=== PATIENT | male | born 1965 | race American Indian/Alaskan Native ===

== ENCOUNTER 2021-02-26 08:54 | Inpatient (IN) | payer MEDICARE ==
[~2021-02-26 08:54] MED LIST: MIDAZOLAM 2 MG/2 ML INJ IV NR; SODIUM CHLORIDE 0.9% 1000 ML 1,000 ML IV SCH; ceFAZolin/STERILE WATER 2 GM/20 ML SYRINGE IV NR; fentaNYL 100 MCG/2 ML INJ IV PRN
[2021-02-26] MEDS ORDERED: PANTOPRAZOLE 20 MG TAB PO SCH (10:02)
[2021-02-26] MEDS ORDERED: carvediloL 6.25 MG TAB PO SCH ×2 (10:02→22:00)
--- NOTE | 2021-02-26 10:07 | Anesthesia Consultation ---
Anesthesia Consult and Med Hx Date of service: 02/26/21 - Airway Anesthetic Teeth Evaluation: Poor (denies loose teeth) ROM Head & Neck: Adequate Mental/Hyoid Distance: Adequate Mallampati Class: Class II Intubation Access Assessment: Probably Good - Pulmonary Exam CTA: Yes - Cardiac Exam Cardiac Exam: No Murmur (irregular rhythm) - Pre-Operative Health Status ASA Pre-Surgery Classification: ASA4 Proposed Anesthetic Plan: MAC Nerve Block: supraclavicular - Pulmonary Hx Smoking: No Hx Respiratory Symptoms: Yes (chronic respiratory failure) SOB: No Home Oxygen Therapy: Yes (2-4L continuous (SpO2 97% on RA in preop)) - Cardiovascular System Hx Hypertension: Yes (will give home dose carvedilol in preop) Hx Heart Attack/AMI: No Hx Percutaneous Transluminal Coronary Angioplasty (PTCA): No Hx Cardia Arrhythmia: Yes (a-fib) Hx Pacemaker: No Hx Internal Defibrillator: No Hx Valvular Heart Disease: Yes (report remote hx heart surgery for "leaky valves") - Central Nervous System CVA: Yes (right sided weakness) Hx Psychiatric Problems: Yes (depression) - Gastrointestinal Hx Gastroesophageal Reflux Disease: Yes (will give home dose PPI in preop) - Endocrine Hx End Stage Renal Disease: Yes (last HD 02/25/21) Hx Liver Disease: Yes (chronic HCV) Hx Insulin Dependent Diabetes: No Hx Non-Insulin Dependent Diabetes: No Hx Thyroid Disease: No - Hematic Hx Anemia: Yes - Other Systems Hx Obesity: No - Additional Comments Anesthesia Medical History Comments: Hx awareness under anesthesia with prior HD access procedure. Unclear if procedure was performed under GA, regional or lo jay. Discussed risks and benefits of GA vs regional and patient has agreed to regional block + sedation.
--- NOTE | 2021-02-26 10:07 | Anesthesia Day of Surgery ---
Anesthesia Day of Surgery - Day of Surgery Patient Examined: Yes Patient H&P Reviewed: Yes Patient is NPO: Yes Beta Blockers: Yes
[2021-02-26 10:14] LABS: Hematocrit 32.6 % (35.5-45.6); Hemoglobin 10.5 gm/dl (11.8-15.2); Mean Corpuscular HGB Conc 32 % (32-34); Mean Corpuscular Volume 88 fl (84-94); Platelet Count 119 K/mm3 (140-440); Red Blood Count 3.69 M/mm3 (3.65-5.03); Red Cell Distribution Width 18.5 % (13.2-15.2)
[2021-02-26] MEDS ORDERED: BUPIVACAINE/PF (0.25%) 2.5 MG/ML 10 ML VIAL INFILTRATI ONE (10:14)
[2021-02-26] MEDS ORDERED: BUPIVACAINE/PF (0.25%) 2.5 MG/ML 30 ML VIAL INFILTRATI ONE (10:14)
[2021-02-26 10:27] LABS: Calcium 10.1 mg/dL (8.4-10.2)
[2021-02-26] MEDS ORDERED: propofoL 200 MG/20 ML VIAL IV ONE ×4 (10:34→13:22)
[2021-02-26] MEDS ORDERED: LIDOCAINE PF 100 MG/5 ML (CARDIAC SYRINGE) IV ONE (10:40)
[2021-02-26] MEDS ORDERED: fentaNYL 100 MCG/2 ML INJ ONE (10:40)
[2021-02-26] MEDS ORDERED: rifAMPin 600 MG VIAL ONE (10:58)
[2021-02-26] MEDS ORDERED: HEPARIN 10,000 UNITS/10 ML VIAL ONE (10:58)
[2021-02-26] MEDS ORDERED: SODIUM CHLORIDE 0.9% 500 ML 500 ML ONE (10:58)
[2021-02-26] MEDS ORDERED: SODIUM CHLORIDE 0.9% 250ML 250 ML ONE (10:58)
[2021-02-26] MEDS ORDERED: PHENYLEPHRINE/NS 1,000 MCG/10 ML SYRINGE (OR USE) IV ONE (11:51)
[2021-02-26] MEDS ORDERED: HEPARIN 10,000 UNITS/10 ML VIAL IR ONE (12:14)
[2021-02-26] MEDS ORDERED: SODIUM CHLORIDE 0.9% 500 ML IVPB IRRIGATION ONE (12:15)
[2021-02-26] MEDS ORDERED: SODIUM CHLORIDE 0.9% 250 ML IVPB IR ONE (12:16)
[2021-02-26] MEDS ORDERED: SODIUM CHLORIDE 0.9% IRR 1,500 ML BOTTLE IR ONE (12:16)
[2021-02-26] MEDS ORDERED: rifAMPin 600 MG VIAL IV ONE (12:39)
[2021-02-26] MEDS ORDERED: SODIUM CHLORIDE 0.9% 100 ML ONE (13:43)
[2021-02-26] MEDS ORDERED: PHENYLEPHRINE 10 MG/1 ML INJ SDV ONE (13:43)
[2021-02-26] MEDS ORDERED: ePHEDrine SULFATE 50 MG/1 ML INJ ONE (13:44)
[2021-02-26] MEDS ORDERED: GLYCOPYRROLATE 0.4 MG/2 ML INJ ONE (13:45)
--- NOTE | 2021-02-26 14:11 | Short Stay Summary ---
Short Stay Documentation Date of service: 02/26/21 Narrative H&P: See H&P - History H&P: obtained from office - Allergies and Medications Current Medications: Allergies No Known Allergies Allergy (Unverified 02/25/21 09:01) Home Medications Medication Instructions Recorded Confirmed Last Taken Type Acetaminophen [Acetaminophen ER] 650 mg PO PRN PRN 02/17/21 02/17/21 Unknown History Aspirin [Adult Aspirin] 81 mg PO DAILY 02/17/21 02/17/21 Unknown History Omeprazole 20 mg PO BID 02/17/21 02/17/21 Unknown History Sertraline HCl [Zoloft] 100 mg PO DAILY 02/17/21 02/17/21 Unknown History Tacrolimus [Prograf] 0.5 mg PO DAILY 02/17/21 02/17/21 Unknown History carvediloL [Coreg] 6.25 mg PO BID 02/17/21 02/17/21 Unknown History traMADoL [Ultram] 50 mg PO Q12HR PRN 02/17/21 02/17/21 Unknown History Active Medications Cefazolin Sodium (Cefazolin/Sterile Water 2 Gm/20 Ml Syringe) 2 gm IV PREOP NR Stop: 02/26/21 20:00 Fentanyl (Fentanyl 100 Mcg/2 Ml Inj) 100 mcg IV ONCE PRN PRN Reason: sedation for nerve block Stop: 02/26/21 20:00 Sodium Chloride (Nacl 0.9% 1000 Ml) 1,000 mls @ 42 mls/hr IV DIRECT REBEL Stop: 02/26/21 23:59 Midazolam HCl (Midazolam 2 Mg/2 Ml Inj) 2 mg IV PREOP NR Stop: 02/26/21 20:00 - Brief post op/procedure progress note Date of procedure: 02/26/21 Pre-op diagnosis: End-Stage Renal Disease Post-op diagnosis: same Procedure: Creation of Right Brachial Artery to Right Axillary Vein Arteriovenous Graft Wi th 6 mm Bovine Artegraft Anesthesia: MAC, regional Surgeon: TARYN UGALDE Estimated blood loss: other (500 mL) Pathology: none Condition: stable Short Stay Discharge Plan Activity: other (No heavy lifting with right arm for 2 weeks.) Wound: open to air, keep clean and dry, remove dressing (In 48 hours), other (Okay to wash the wounds with soap and water but do not soak in water for 2 weeks.) Follow up with: TARYN UGALDE MD [Staff Physician] - 14 Days Prescriptions: HYDROcodone/APAP 7.5-325 [[place] 7.5/325] 1 each PO Q6HR PRN #40 tablet PRN Reason: Pain
[2021-02-26] MEDS ORDERED: SODIUM CHLORIDE 0.9% 500 ML 500 ML IV NR (14:25)
--- NOTE | 2021-02-26 14:31 | Operative Report ---
Operative Report Operative Report: Date of procedure: 02/26/2021 Pre-operative diagnosis: End-Stage Renal Disease Post-operative diagnosis: Same Procedure(s): 1. Creation of Right brachial Artery to Axillary Vein AV Graft with 6 mm Bovine Graft Artergraft Surgeon: Maciel Terrell MD Bottom Ironer: None Anesthesia: Regional/MAC EBL: 500 mL Counts: Correct Complications: None Condition: Stable Findings: Successful Creation of right arm AV Graft with Palpable Thrill and Palpable Radial Pulse at the Completion of the Case. Specimen: None Indication: The patient is a 55-year-old male with a history of end-stage renal disease who is on hemodialysis through a permacath. He is in need of long-term dialysis access and does not have suitable vein for creation of an arteriovenous fistula. 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 It was decided to place the graft in his right upper extremity to prevent complications in his left upper extremity which is his only usable extremity. He was given the risk, benefits, and alternative procedures and consented to the procedure. Description of Procedure: Prior to being transported to the operating room the patient had a regional block of the right arm performed. After the block was performed the patient was transported to the operating room and adequately sedated. The patient's right arm was then prepped and draped in normal sterile fashion. A longitudinal incision was made on the medial aspect of the arm just proximal to the antecubital crease and carried down to the brachial artery using sharp dissection. The brachial artery was dissected out circumferentially both proximally and distally and controlled with vessel loops. A second incision was created in longitudinal fashion on the medial aspect of the arm just distal to the axillary crease and carried down to the axillary vein using sharp dissection. Axillary vein was dissected out circumferentially and controlled with a vessel loop. I then used a Barbie-Wick tunneler to tunnel from the brachial artery incision to the axillary vein incision and then pulled an [] mm bovine through the tunnel. I infused with heparinized saline to ensure that it was not twisted or kinked. I put the brachial artery vessel loops on tension controlling the flow and then created an arteriotomy using an 11 blade and Fleming scissors. I beveled the graft and created an end-to-side anastomosis using 6-0 Prolene running fashion. I clamped the graft just proximal to the anastomosis and then released the vessel loops restoring flow in the brachial artery. I placed quick clot in incision to achieve hemostasis. I cut the proximal end of the graft to the appropriate length and beveled the graft in preparation for a venous anastomosis. I controlled the axillary vein a Satinsky clamp and created a venotomy using an 11 blade and Fleming scissors. I created an end to side a nastomosis using a 6-0 Prolene in running fashion. Prior to completing the anastomosis I flushed the graft to ensure there was no thrombus and then completed the anastamosis. I released all clamps allowing flow into the AV graft which had an excellent thrill. I packed the wound with quick clot to achieve hemostasis. I closed both wounds in 2 layers using 3-0 Vicryl, in running fashion in the deep dermal layer and anup to reapproximate the skin. I dressed the wounds with Telfa, fluffs, and ABD bandage, and a 4 inch Samuel bandage to apply pressure to multiple upper extremity varicosities. The patient tolerated the procedure well all sponge, needle, and instrument counts were correct. The patient was taken to recovery in stable condition.
[2021-02-26] MEDS ORDERED: ONDANSETRON 4 MG/2 ML INJ IV PRN (15:00)
[2021-02-26] MEDS ORDERED: PHENYLEPHRINE 100 MG in SODIUM CHLORIDE 0.9% 90 ML IV SCH (15:00)
[2021-02-26] MEDS ORDERED: ePHEDrine SULFATE 50 MG/1 ML INJ IM ONE (19:31)
--- NOTE | 2021-02-26 19:42 | Post Anesthesia Evaluation ---
- Post Anesthesia Evaluation Patient Participated: Yes Airway Patent: Yes Stable Respiratory Function: Yes Nausea/Vomiting: No Temp > 96.8F: Yes Pain Manageable: Yes Adequeate Hydration: Yes Anesthesia Complications: No Block Receding Appropriately: Yes Other Comments: Initially hypotensive in PACU, presumably 2/2 intraoperative blood loss although patient reports episodes of asymptomatic hypotension at baseline as well. Was initially on phenylephrine gtt however this was d/c'd after receiving 2 units pRBCs.
--- NOTE | 2021-02-26 20:48 | Consultation ---
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 Consult placed by DR. Terrell for HTN, ESRD. Patient seen and evaluated upon arrival to his room. No reported nursing events. Patient denies fever, chills, chest pain, palpitation, productive cough, skin rash, recent ill contact, or known exposure to COVID-19. Past History Past Medical History: atrial fib, ESRD, hypertension, other (See HPI) Past Surgical History: Other (Vascular surgery) Social history: single. denies: smoking, alcohol abuse Family history: hypertension Medications and Allergies Allergies Allergy/AdvReac Type Severity Reaction Status Date / Time No Known Allergies Allergy Unverified 02/25/21 09:01 Home Medications Medication Instructions Recorded Confirmed Last Taken Type Acetaminophen [Acetaminophen ER] 650 mg PO PRN PRN 02/17/21 02/17/21 Unknown History Aspirin [Adult Aspirin] 81 mg PO DAILY 02/17/21 02/17/21 Unknown History Omeprazole 20 mg PO BID 02/17/21 02/17/21 Unknown History Sertraline HCl [Zoloft] 100 mg PO DAILY 02/17/21 02/17/21 Unknown History Tacrolimus [Prograf] 0.5 mg PO DAILY 02/17/21 02/17/21 Unknown History carvediloL [Coreg] 6.25 mg PO BID 02/17/21 02/17/21 Unknown History traMADoL [Ultram 50 MG tab] 50 mg PO Q12HR PRN 02/17/21 02/17/21 Unknown History HYDROcodone/APAP 7.5-325 [[place] 1 each PO Q6HR PRN #40 tablet 02/26/21 Unknown Rx 7.5/325] Active Meds: Active Medications Acetaminophen (Acetaminophen 325 Mg Tab) 650 mg PO Q4H PRN PRN Reason: Pain MILD(1-3)/Fever >100.5/TOBIAS Hydrocodone Bitart/Acetaminophen (Hydrocodone/Acetaminophen 5-325 Mg Tab) 2 each PO Q6H PRN PRN Reason: Pain, Moderate (4-6) Aspirin (Aspirin Ec 81 Mg Tab) 81 mg PO QDAY REBEL Carvedilol (Carvedilol 6.25 Mg Tab) 6.25 mg PO BID [facility] Gabapentin (Gabapentin 100 Mg Cap) 100 mg PO Q8HR [facility] Sodium Chloride (Nacl 0.9% 1000 Ml) 1,000 mls @ 42 mls/hr IV DIRECT REBEL Stop: 02/26/21 23:59 Last Admin: 02/26/21 10:00 Dose: 42 mls/hr Documented by: Morphine Sulfate (Morphine 4 Mg/1 Ml Inj) 4 mg IV Q4H PRN PRN Reason: Pain , Severe (7-10) Ondansetron HCl (Ondansetron 4 Mg/2 Ml Inj) 4 mg IV Q8H PRN PRN Reason: Nausea And Vomiting Pantoprazole Sodium (Pantoprazole 20 Mg Tab) 20 mg PO QDAC REBEL Sertraline HCl (Sertraline 100 Mg Tab) 100 mg PO QDAY [facility] Tacrolimus (Tacrolimus 0.5 Mg Cap) 0.5 mg PO Q12HR [facility] Review of Systems Constitutional: no weight loss, no weight gain, no fever, no chills Ears, nose, mouth and throat: no ear pain, no ear discharge, no decreased hearing, no nasal congestion, no nasal discharge Cardiovascular: no chest pain, no orthopnea, no rapid/irregular heart beat, no edema, no lightheadedness Respiratory: no cough, no excessive sputum, no hemoptysis, no dyspnea on exertion Gastrointestinal: no nausea, no vomiting, no diarrhea, no constipation, no hematemesis Genitourinary Male: no hematuria, no flank pain, no discharge, no urinary frequency, no urinary hesitancy Musculoskeletal: no neck stiffness, no shooting arm pain, no low back pain Integumentary: no rash, no pruritis, no redness, no sores, no jaundice Neurological: no transient paralysis, no weakness, no numbness, no seizures Psychiatric: no anxiety, no change in sleep habits, no sleep disturbances, no insomnia, no change in appetite, no change in libido Endocrine: no cold intolerance, no polyphagia, no polydipsia, no polyuria Hematologic/Lymphatic: no easy bruising, no easy bleeding Allergic/Immunologic: no urticaria, no wheezing Exam - Constitutional Vitals: Temp Pulse Resp BP Pulse Ox 98 F 112 H 16 142/72 100 02/26/21 20:30 02/26/21 20:30 02/26/21 20:30 02/26/21 20:30 02/26/21 20:30 General appearance: Present: mild distress - EENT Eyes: Present: PERRL ENT: hearing intact, clear oral mucosa - Neck Neck: Present: supple, normal ROM - Respiratory Respiratory effort: normal Respiratory: bilateral: CTA - Cardiovascular Heart Sounds: Present: S1 & S2. Absent: rub, click - Extremities Extremities: pulses symmetrical, No edema Peripheral Pulses: within normal limits - Abdominal General gastrointestinal: Present: soft, non-tender, non-distended, normal bowel sounds Male genitourinary: Present: normal - Integumentary Integumentary: Present: clear, warm, dry - Musculoskeletal Musculoskeletal: gait normal, strength equal bilaterally - Psychiatric Psychiatric: appropriate mood/affect, intact judgment & insight - Neurologic Neurologic: CNII-XII intact, moves all extremities Results - Labs CBC & Chem 7: 02/26/21 10:11 02/26/21 10:11 Labs: Abnormal lab results 02/26/21 02/26/21 02/26/21 Range/Units 10:11 10:11 14:42 WBC 4.0 L (4.5-11.0) K/mm3 Hgb 10.5 L (11.8-15.2) gm/dl Hct 32.6 L (35.5-45.6) % RDW 18.5 H (13.2-15.2) % Plt Count 119 L (140-440) K/mm3 BUN 32 H (9-20) mg/dL Creatinine 3.2 H (0.8-1.3) mg/dL Crossmatch See Detail Assessment and Plan - Patient Problems (1) Hypertension Current Visit: Yes Status: Acute Qualifiers: Hypertension type: primary hypertension Qualified Code(s): I10 - Essential (primary) hypertension Plan to address problem: Monitor blood pressure every shift, continue medical management. (2) End stage renal disease Current Visit: Yes Status: Acute Plan to address problem: Dialysis as per renal team, nephrology team consulted.
[2021-02-26] MEDS ORDERED: NON-FORMULARY EACH (Acetaminophen [Acetaminophen Er] 650 MG Tablet.Er) PO PRN (20:51)
[2021-02-26] MEDS: MORPHINE 4 MG/1 ML INJ IV PRN (21:16)
[2021-02-26] MEDS ORDERED: NON-FORMULARY EACH (Omeprazole [Omeprazole] 20 MG Capsule.Dr) PO SCH (22:00)
[2021-02-26] MEDS: carvediloL 6.25 MG TAB PO SCH (22:57)
[2021-02-26] MEDS: GABAPENTIN 100 MG CAP PO SCH (22:57)
[2021-02-26] MEDS: PANTOPRAZOLE 20 MG TAB PO SCH (22:57)
[2021-02-26] MEDS: TACROLIMUS 0.5 MG CAP PO SCH (22:58)
[2021-02-27] MEDS ORDERED: MIDODRINE 5 MG TAB PO ONE (04:55)
[2021-02-27] MEDS ORDERED: SODIUM CHLORIDE 0.9% 250ML 250 ML IV ONE (04:55)
[2021-02-27] MEDS: GABAPENTIN 100 MG CAP PO SCH ×3 (05:07→21:21)
[2021-02-27 06:29] LABS: Basophils % (Auto) 0.4 % (0.0-1.8); Eosinophils # (Auto) 0.2 K/mm3 (0.0-0.4); Eosinophils % (Auto) 3.3 % (0.0-4.3); Hematocrit 31.8 % (35.5-45.6); Hemoglobin 10.4 gm/dl (11.8-15.2); Lymphocytes # (Auto) 0.8 K/mm3 (1.2-5.4); Lymphocytes % (Auto) 13.9 % (13.4-35.0); Mean Corpuscular HGB Conc 33 % (32-34); Mean Corpuscular Volume 89 fl (84-94); Monocytes # (Auto) 0.6 K/mm3 (0.0-0.8); Monocytes % (Auto) 9.5 % (0.0-7.3); Red Blood Count 3.59 M/mm3 (3.65-5.03); Red Cell Distribution Width 18.1 % (13.2-15.2)
[2021-02-27 06:30] LABS: Platelet Count 97 K/mm3 (140-440)
[2021-02-27] MEDS: MORPHINE 4 MG/1 ML INJ IV PRN (06:34)
[2021-02-27 06:42] LABS: Calcium 9.7 mg/dL (8.4-10.2)
[2021-02-27] MEDS ORDERED: PANTOPRAZOLE 20 MG TAB PO SCH (07:30)
--- NOTE | 2021-02-27 09:10 | Progress Note ---
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 Consult placed by DR. Terrell for HTN, ESRD. Patient seen and evaluated upon arrival to his room. No reported nursing events. Patient denies fever, chills, chest pain, palpitation, productive cough, skin rash, recent ill contact, or known exposure to COVID-19. (1) Hypertension Current Visit: Yes Status: Acute Qualifiers: Hypertension type: primary hypertension Qualified Code(s): I10 - Essential (primary) hypertension Plan to address problem: Monitor blood pressure every shift, continue medical management. (2) End stage renal disease Current Visit: Yes Status: Acute Plan to address problem: Dialysis as per renal team, nephrology team consulted. 3) Type 2 NSTEMI- HYBRID TECHNOLOGIST EVALUATING 4) BED Bound secondary to cva WITH HEMIPARESIS OF THE RIGHT UPPER AND LOWER EXT 5) Atrial fibrillation 6) Hypotension- Monitor, may need to hold BB or other antihypertensive. History Interval history: Patient seen and examined, denies any chest pain, nausea, vomiting. Reports that he had stroke and seizures in the past and is paralyzed on the right and a custodial resident Hospitalist Physical - Physical exam Narrative exam: General appearance: Present: No distress, marked temporal wasting - EENT Eyes: Present: PERRL ENT: hearing intact, clear oral mucosa - Neck Neck: Present: supple, normal ROM - Respiratory Respiratory effort: normal Respiratory: bilateral: CTA - Cardiovascular Heart Sounds: Present: S1 & S2. Absent: rub, click - Extremities Extremities: pulses symmetrical, No edema Peripheral Pulses: within normal limits - Abdominal General gastrointestinal: Present: soft, non-tender, non-distended, normal bowel sounds Male genitourinary: Present: normal - Integumentary Integumentary: Present: clear, warm, dry - Musculoskeletal Musculoskeletal: gait normal, strength equal bilaterally - Psychiatric Psychiatric: appropriate mood/affect, intact judgment & insight - Neurologic Neurologic: CNII-XII intact, moves all extremities - Constitutional Vitals: Temp Pulse Resp BP Pulse Ox 98.9 F 115 H 18 93/58 98 02/27/21 04:10 02/27/21 06:46 02/27/21 04:10 02/27/21 06:46 02/27/21 06:46 General appearance: Present: mild distress Results - Labs CBC & Chem 7: 02/27/21 05:44 02/27/21 05:44 Labs: Laboratory Last Values WBC 6.0 K/mm3 (4.5-11.0) 02/27/21 05:44 RBC 3.59 M/mm3 (3.65-5.03) L 02/27/21 05:44 Hgb 10.4 gm/dl (11.8-15.2) L 02/27/21 05:44 Hct 31.8 % (35.5-45.6) L 02/27/21 05:44 MCV 89 fl (84-94) 02/27/21 05:44 MCH 29 pg (28-32) 02/27/21 05:44 MCHC 33 % (32-34) 02/27/21 05:44 RDW 18.1 % (13.2-15.2) H 02/27/21 05:44 Plt Count 97 K/mm3 (140-440) L 02/27/21 05:44 Lymph % (Auto) 13.9 % (13.4-35.0) 02/27/21 05:44 [place] % (Auto) 9.5 % (0.0-7.3) H 02/27/21 05:44 Eos % (Auto) 3.3 % (0.0-4.3) 02/27/21 05:44 Baso % (Auto) 0.4 % (0.0-1.8) 02/27/21 05:44 Lymph # (Auto) 0.8 K/mm3 (1.2-5.4) L 02/27/21 05:44 [place] # (Auto) 0.6 K/mm3 (0.0-0.8) 02/27/21 05:44 Eos # (Auto) 0.2 K/mm3 (0.0-0.4) 02/27/21 05:44 Baso # (Auto) 0.0 K/mm3 (0.0-0.1) 02/27/21 05:44 Seg Neutrophils % 72.9 % (40.0-70.0) H 02/27/21 05:44 Seg Neutrophils # 4.4 K/mm3 (1.8-7.7) 02/27/21 05:44 Sodium 144 mmol/L (137-145) 02/27/21 05:44 Potassium 4.4 mmol/L (3.6-5.0) 02/27/21 05:44 Chloride 105.1 mmol/L (98-107) 02/27/21 05:44 Carbon Dioxide 27 mmol/L (22-30) 02/27/21 05:44 Anion Gap 16 mmol/L 02/27/21 05:44 BUN 41 mg/dL (9-20) H 02/27/21 05:44 Creatinine 3.9 mg/dL (0.8-1.3) H 02/27/21 05:44 Estimated GFR 20 ml/min 02/27/21 05:44 BUN/Creatinine Ratio 11 % 02/27/21 05:44 Glucose 109 mg/dL (75-100) H 02/27/21 05:44 Calcium 9.7 mg/dL (8.4-10.2) 02/27/21 05:44 Blood Type A POSITIVE 02/26/21 14:42 Antibody Screen Negative 02/26/21 14:42 Crossmatch See Detail 02/26/21 14:42 Neal/IV: Voiding Method Incontinent Active Medications - Current Medications Current Medications: Generic Name Dose Route Start Last Admin Trade Name Freq PRN Reason Stop Dose Admin Acetaminophen 650 mg 02/26/21 15:00 Acetaminophen 325 Mg Tab PO Q4H PRN Pain MILD(1-3)/Fever >100.5/TOBIAS Hydrocodone Bitart/Acetaminophen 2 each 02/26/21 15:00 Hydrocodone/Acetaminophen 5-325 Mg Tab PO Q6H PRN Pain, Moderate (4-6) Aspirin 81 mg 02/27/21 10:00 Aspirin Ec 81 Mg Tab PO QDAY REBEL Carvedilol 6.25 mg 02/26/21 22:00 02/26/21 22:57 Carvedilol 6.25 Mg Tab PO 6.25 mg BID REBEL Administration Gabapentin 100 mg 02/26/21 22:00 02/27/21 05:07 Gabapentin 100 Mg Cap PO 100 mg Q8HR REBEL Administration Morphine Sulfate 4 mg 02/26/21 16:00 02/27/21 06:34 Morphine 4 Mg/1 Ml Inj IV 4 mg Q4H PRN Administration Pain , Severe (7-10) Ondansetron HCl 4 mg 02/26/21 15:00 Ondansetron 4 Mg/2 Ml Inj IV Q8H PRN Nausea And Vomiting Pantoprazole Sodium 20 mg 02/26/21 22:00 02/26/21 22:57 Pantoprazole 20 Mg Tab PO 20 mg BID REBEL Administration Sertraline HCl 100 mg 02/27/21 10:00 Sertraline 100 Mg Tab PO DAILY REBEL Tacrolimus 0.5 mg 02/26/21 22:00 02/26/21 22:58 Tacrolimus 0.5 Mg Cap PO 0.5 mg Q12HR REBEL Administration Tramadol HCl 50 mg 02/26/21 21:30 Tramadol 50 Mg Tab PO Q12HR PRN Pain, Mild (1-3)
[2021-02-27] MEDS ORDERED: SERTRALINE 100 MG TAB PO SCH (10:00)
[2021-02-27] MEDS ORDERED: TACROLIMUS 0.5 MG CAP PO SCH (10:00)
[2021-02-27] MEDS ORDERED: ASPIRIN EC 81 MG TAB PO SCH (10:00)
[2021-02-27] MEDS: carvediloL 6.25 MG TAB PO SCH ×2 (10:14→21:27)
[2021-02-27] MEDS: TACROLIMUS 0.5 MG CAP PO SCH ×2 (10:51→21:21)
[2021-02-27] MEDS: SERTRALINE 100 MG TAB PO SCH (10:51)
[2021-02-27] MEDS: PANTOPRAZOLE 20 MG TAB PO SCH ×2 (10:51→21:21)
[2021-02-27 11:59] LABS: Creatine Kinase MB 1.5 ng/mL (0.0-4.0)
--- NOTE | 2021-02-27 12:03 | Progress Note ---
Assessment and Plan Patient with graft implant yesterday. The patient has central venous stenosis with resultant significant collateral formation which complicated the surgery with blood loss. Patient is status post transfusion of 2 units of blood in his H&H are stable from his preop H&H. The patient did experience an episode of A. fib. He has been somewhat hypotensive overnight treated with boluses per medicine. Patient will need to be seen and evaluated by cardiology to determine if there is an etiology for the patient's A. fib and resultant hypotension. Subjective Date of service: 02/27/21 Principal diagnosis: End-stage renal disease on hemodialysis, postop graft Interval history: Patient resting comfortably in bed at time of examination. Bandages and Samuel bandage intact on patient's right upper arm. A minimal amount of arm swelling is present. The patient has no motor in his right arm however, he does have feeling and has stable sensation pre and postop. Overall, the patient feels minimally week. Blood pressure was measured on the patient's arm and leg. His arm blood pressure demonstrates a systolic blood pressure of approximately 88, h is leg blood pressure measures a systolic blood pressure approximately 115. Objective - Constitutional Vitals: Vital Signs - 12hr 02/27/21 02/27/21 02/27/21 04:02 04:10 06:46 Temperature 98.9 F Pulse Rate 117 H 115 H Respiratory 18 Rate Blood Pressure 89/51 Blood Pressure 90/51 93/58 [Left] O2 Sat by Pulse 100 98 Oximetry 02/27/21 02/27/21 09:38 09:41 Temperature 98.0 F Pulse Rate 87 Respiratory 20 Rate Blood Pressure 88/52 Blood Pressure [Left] O2 Sat by Pulse 100 100 Oximetry General appearance: Present: no acute distress - EENT Eyes: EOM intact ENT: hearing intact - Neck Neck: supple, normal ROM - Respiratory Respiratory effort: normal Extremities: abnormal Extremity abnormal: edema - Gastrointestinal General gastrointestinal: Present: deferred Rectal Exam: deferred - Genitourinary Male genitourinary: deferred - Psychiatric Psychiatric: cooperative - Labs CBC & Chem 7: 02/27/21 05:44 02/27/21 05:44 Labs: Abnormal lab results 02/26/21 02/27/21 02/27/21 Range/Units 14:42 05:44 05:44 RBC 3.59 L (3.65-5.03) M/mm3 Hgb 10.4 L (11.8-15.2) gm/dl Hct 31.8 L (35.5-45.6) % RDW 18.1 H (13.2-15.2) % Plt Count 97 L (140-440) K/mm3 [place] % (Auto) 9.5 H (0.0-7.3) % Lymph # (Auto) 0.8 L (1.2-5.4) K/mm3 Seg Neutrophils % 72.9 H (40.0-70.0) % BUN 41 H (9-20) mg/dL Creatinine 3.9 H (0.8-1.3) mg/dL Glucose 109 H (75-100) mg/dL Crossmatch See Detail Medications & Allergies - Medications Allergies/Adverse Reactions: Allergies No Known Allergies Allergy (Unverified 02/25/21 09:01) Home Medications: Home Medications Medication Instructions Recorded Confirmed Last Taken Type Acetaminophen [Acetaminophen ER] 650 mg PO PRN PRN 02/17/21 02/17/21 Unknown History Aspirin [Adult Aspirin] 81 mg PO DAILY 02/17/21 02/27/21 02/25/21 09:00 History Omeprazole 20 mg PO BID 02/17/21 02/27/21 02/26/21 10:40 History Sertraline HCl [Zoloft] 100 mg PO DAILY 02/17/21 02/27/21 02/25/21 09:00 History Tacrolimus [Prograf] 0.5 mg PO DAILY 02/17/21 02/17/21 Unknown History carvediloL [Coreg] 6.25 mg PO BID 02/17/21 02/27/21 02/26/21 10:40 History traMADoL [Ultram 50 MG tab] 50 mg PO Q12HR PRN 02/17/21 02/17/21 Unknown History HYDROcodone/APAP 7.5-325 [[place] 1 each PO Q6HR PRN #40 tablet 02/26/21 Unknown Rx 7.5/325] Active Medications: Generic Name Dose Route Start Last Admin Trade Name Freq PRN Reason Stop Dose Admin Acetaminophen 650 mg 02/26/21 15:00 Acetaminophen 325 Mg Tab PO Q4H PRN Pain MILD(1-3)/Fever >100.5/TOBIAS Hydrocodone Bitart/Acetaminophen 2 each 02/26/21 15:00 Hydrocodone/Acetaminophen 5-325 Mg Tab PO Q6H PRN Pain, Moderate (4-6) Aspirin 81 mg 02/27/21 10:00 02/27/21 10:51 Aspirin Ec 81 Mg Tab PO 81 mg QDAY REBEL Administration Carvedilol 6.25 mg 02/26/21 22:00 02/27/21 10:14 Carvedilol 6.25 Mg Tab PO Not Given BID REBEL Gabapentin 100 mg 02/26/21 22:00 02/27/21 05:07 Gabapentin 100 Mg Cap PO 100 mg Q8HR REBEL Administration Morphine Sulfate 4 mg 02/26/21 16:00 02/27/21 06:34 Morphine 4 Mg/1 Ml Inj IV 4 mg Q4H PRN Administration Pain , Severe (7-10) Ondansetron HCl 4 mg 02/26/21 15:00 Ondansetron 4 Mg/2 Ml Inj IV Q8H PRN Nausea And Vomiting Pantoprazole Sodium 20 mg 02/26/21 22:00 02/27/21 10:51 Pantoprazole 20 Mg Tab PO 20 mg BID REBEL Administration Sertraline HCl 100 mg 02/27/21 10:00 02/27/21 10:51 Sertraline 100 Mg Tab PO 100 mg DAILY REBEL Administration Tacrolimus 0.5 mg 02/26/21 22:00 02/27/21 10:51 Tacrolimus 0.5 Mg Cap PO 0.5 mg Q12HR REBEL Administration Tramadol HCl 50 mg 02/26/21 21:30 Tramadol 50 Mg Tab PO Q12HR PRN Pain, Mild (1-3)
[2021-02-27 12:36] LABS: Chol/HDL Ratio 3.11 %
--- NOTE | 2021-02-27 14:29 | Consultation ---
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 Patient dialyzes on a TTS schedule as an outpatient with last HD treatment on Wednesday. Labs reviewed today with no acute abnormalities noted. Received 2 untis of PRBC with improvement noted in H/H levels. Past History Past Medical History: atrial fib, ESRD, hypertension, other (See HPI) Past Surgical History: Other (Vascular surgery) Social history: single. denies: smoking, alcohol abuse Family history: hypertension Medications and Allergies Allergies Allergy/AdvReac Type Severity Reaction Status Date / Time No Known Allergies Allergy Unverified 02/25/21 09:01 Home Medications Medication Instructions Recorded Confirmed Last Taken Type Acetaminophen [Acetaminophen ER] 650 mg PO PRN PRN 02/17/21 02/17/21 Unknown History Aspirin [Adult Aspirin] 81 mg PO DAILY 02/17/21 02/27/21 02/25/21 09:00 History Omeprazole 20 mg PO BID 02/17/21 02/27/21 02/26/21 10:40 History Sertraline HCl [Zoloft] 100 mg PO DAILY 02/17/21 02/27/21 02/25/21 09:00 History Tacrolimus [Prograf] 0.5 mg PO DAILY 02/17/21 02/17/21 Unknown History carvediloL [Coreg] 6.25 mg PO BID 02/17/21 02/27/21 02/26/21 10:40 History traMADoL [Ultram 50 MG tab] 50 mg PO Q12HR PRN 02/17/21 02/17/21 Unknown History HYDROcodone/APAP 7.5-325 [[place] 1 each PO Q6HR PRN #40 tablet 02/26/21 Unknown Rx 7.5/325] Active Meds: Active Medications Acetaminophen (Acetaminophen 325 Mg Tab) 650 mg PO Q4H PRN PRN Reason: Pain MILD(1-3)/Fever >100.5/TOBIAS Hydrocodone Bitart/Acetaminophen (Hydrocodone/Acetaminophen 5-325 Mg Tab) 2 each PO Q6H PRN PRN Reason: Pain, Moderate (4-6) Aspirin (Aspirin Ec 81 Mg Tab) 81 mg PO QDAY [facility] Last Admin: 02/27/21 10:51 Dose: 81 mg Documented by: Carvedilol (Carvedilol 6.25 Mg Tab) 6.25 mg PO BID [facility] Last Admin: 02/27/21 10:14 Dose: Not Given Documented by: Gabapentin (Gabapentin 100 Mg Cap) 100 mg PO Q8HR [facility] Last Admin: 02/27/21 05:07 Dose: 100 mg Documented by: Morphine Sulfate (Morphine 4 Mg/1 Ml Inj) 4 mg IV Q4H PRN PRN Reason: Pain , Severe (7-10) Last Admin: 02/27/21 06:34 Dose: 4 mg Documented by: Ondansetron HCl (Ondansetron 4 Mg/2 Ml Inj) 4 mg IV Q8H PRN PRN Reason: Nausea And Vomiting Pantoprazole Sodium (Pantoprazole 20 Mg Tab) 20 mg PO BID [facility] Last Admin: 02/27/21 10:51 Dose: 20 mg Documented by: Sertraline HCl (Sertraline 100 Mg Tab) 100 mg PO DAILY [facility] Last Admin: 02/27/21 10:51 Dose: 100 mg Documented by: Tacrolimus (Tacrolimus 0.5 Mg Cap) 0.5 mg PO Q12HR [facility] Last Admin: 02/27/21 10:51 Dose: 0.5 mg Documented by: Tramadol HCl (Tramadol 50 Mg Tab) 50 mg PO Q12HR PRN PRN Reason: Pain, Mild (1-3) Review of Systems All systems: negative Constitutional: fatigue Exam - Vital Signs Vital signs: Vital Signs Temp Pulse Resp BP Pulse Ox 98.5 F 71 18 167/109 98 02/26/21 10:00 02/26/21 10:00 02/26/21 10:00 02/26/21 10:00 02/26/21 10:00 - General Appearance General appearance: well-developed, well-nourished EENT: ATNC Neck: Present: neck supple Respiratory: Clear to Ascultation, Normal Exam Heart: regular, S1S2 Gastrointestinal: Present: normal Integumentary: no rash, warm and dry Neurologic: no focal deficit, alert and oriented x3 Musculoskeletal: Present: deferred Psychiatric: cooperative Results - Lab Results 02/27/21 05:44 02/27/21 05:44 Most recent lab results Calcium 9.7 mg/dL (8.4-10.2) 02/27/21 05:44 Assessment and Plan Assessment: 1. ESRD 2. AVG creation 3. HTN in ESRD 4. H/o renal allograft 5. Anemia in CKD 6. Secondary hyperparathyroidism Plan: 1. Labs reviewed and respiratory status stable. No urgent HD needs today. Plan for HD tomorrow in am and from nephrology standpoint can be DC'd after treatment tomorrow 2. Transfuse to maintain Hgb>7.0. S/p transfusion 2 units of PRBC with improvement noted. KARTHIK therapy with HD 3. Continue home phosphate binder regimen 4. Post discharge he will follow up with his e mail system administrator, Dr Landa.
--- NOTE | 2021-02-27 14:31 | Consultation ---
History of Present Illness Consult date: 02/27/21 Requesting physician: MACIEL TERRELL Consult reason: atrial fibrillation History of present illness: This patient is a 55-year-old male with a significant history of chronic atrial fibrillation, coronary artery disease with hx of PCI, history of mitral stenosis with bioprosthetic repair, history of tricuspid stenosis with bioprosthetic repair, end-stage renal disease on HD, dementia, hypertension, history of CVA, COPD on home oxygen. He is previously unknown to our practice. Patient is 1 day postop from venous graft performed by Dr. Maciel Terrell for chronic hemodialysis. Cardiology is consulted for atrial fibrillation is seen on telemetry. Patient is a poor historian. He is chronically anticoagulated on Eliquis after documented Coumadin noncompliance. Patient reports previous CABG performed at [facility] by , previous PCI performed at the [facility]. Will request records. He currently denies any weakness, dizziness, chest pain, shortness of breath, abdominal pain, N/V/D, recent illness or known exposures. Past History Past Medical History: atrial fib, ESRD, hypertension, other (See HPI) Past Surgical History: Other (Vascular surgery) Social history: single. denies: smoking, alcohol abuse Family history: hypertension Medications and Allergies Allergies Allergy/AdvReac Type Severity Reaction Status Date / Time No Known Allergies Allergy Unverified 02/25/21 09:01 Home Medications Medication Instructions Recorded Confirmed Last Taken Type Acetaminophen [Acetaminophen ER] 650 mg PO PRN PRN 02/17/21 02/17/21 Unknown History Aspirin [Adult Aspirin] 81 mg PO DAILY 02/17/21 02/27/21 02/25/21 09:00 History Omeprazole 20 mg PO BID 02/17/21 02/27/21 02/26/21 10:40 History Sertraline HCl [Zoloft] 100 mg PO DAILY 02/17/21 02/27/21 02/25/21 09:00 History Tacrolimus [Prograf] 0.5 mg PO DAILY 02/17/21 02/17/21 Unknown History carvediloL [Coreg] 6.25 mg PO BID 02/17/21 02/27/21 02/26/21 10:40 History traMADoL [Ultram 50 MG tab] 50 mg PO Q12HR PRN 02/17/21 02/17/21 Unknown History HYDROcodone/APAP 7.5-325 [[place] 1 each PO Q6HR PRN #40 tablet 02/26/21 Unknown Rx 7.5/325] Active Meds: Active Medications Acetaminophen (Acetaminophen 325 Mg Tab) 650 mg PO Q4H PRN PRN Reason: Pain MILD(1-3)/Fever >100.5/TOBIAS Hydrocodone Bitart/Acetaminophen (Hydrocodone/Acetaminophen 5-325 Mg Tab) 2 each PO Q6H PRN PRN Reason: Pain, Moderate (4-6) Aspirin (Aspirin Ec 81 Mg Tab) 81 mg PO QDAY [facility] Last Admin: 02/27/21 10:51 Dose: 81 mg Documented by: Carvedilol (Carvedilol 6.25 Mg Tab) 6.25 mg PO BID [facility] Last Admin: 02/27/21 10:14 Dose: Not Given Documented by: Gabapentin (Gabapentin 100 Mg Cap) 100 mg PO Q8HR [facility] Last Admin: 02/27/21 05:07 Dose: 100 mg Documented by: Morphine Sulfate (Morphine 4 Mg/1 Ml Inj) 4 mg IV Q4H PRN PRN Reason: Pain , Severe (7-10) Last Admin: 02/27/21 06:34 Dose: 4 mg Documented by: Ondansetron HCl (Ondansetron 4 Mg/2 Ml Inj) 4 mg IV Q8H PRN PRN Reason: Nausea And Vomiting Pantoprazole Sodium (Pantoprazole 20 Mg Tab) 20 mg PO BID [facility] Last Admin: 02/27/21 10:51 Dose: 20 mg Documented by: Sertraline HCl (Sertraline 100 Mg Tab) 100 mg PO DAILY [facility] Last Admin: 02/27/21 10:51 Dose: 100 mg Documented by: Tacrolimus (Tacrolimus 0.5 Mg Cap) 0.5 mg PO Q12HR [facility] Last Admin: 02/27/21 10:51 Dose: 0.5 mg Documented by: Tramadol HCl (Tramadol 50 Mg Tab) 50 mg PO Q12HR PRN PRN Reason: Pain, Mild (1-3) Review of Systems Constitutional: no weight loss, no weight gain, no fever, no chills, no sweats Ears, nose, mouth and throat: no ear pain, no ear discharge, no nose pain, no nasal congestion, no nasal discharge, no sinus pressure Cardiovascular: no chest pain, no orthopnea, no palpitations, no rapid/irregular heart beat, no edema, no syncope, no lightheadedness, no shortness of breath, no dyspnea on exertion Respiratory: no cough, no cough with sputum, no hemoptysis, no shortness of breath, no dyspnea on exertion Gastrointestinal: no abdominal pain, no nausea, no vomiting, no diarrhea Genitourinary Male: no flank pain Musculoskeletal: no neck stiffness, no neck pain, no shooting arm pain, no arm numbness/tingling, no low back pain, no shooting leg pain Integumentary: no rash, no pruritis, no redness, no sores, no wounds, no jaundic e Neurological: no head injury, no paralysis, no weakness, no parathesias, no numbness, no tingling, no seizures, no syncope Psychiatric: memory loss, no anxiety Endocrine: no cold intolerance, no heat intolerance Hematologic/Lymphatic: no easy bruising, no easy bleeding Allergic/Immunologic: no urticaria Physical Examination Last Vital Signs Temp 98.3 F 02/27/21 12:20 Pulse 79 02/27/21 12:20 Resp 18 02/27/21 12:20 BP 91/50 02/27/21 12:20 Pulse Ox 100 02/27/21 12:20 General appearance: no acute distress HEENT: Positive: PERRL, Normocephaly, Mucus Membranes Moist Neck: Positive: neck supple, trachea midline Cardiac: Positive: irregularly irregular, S1/S2 Lungs: Positive: Normal Exam, Normal Breath Sounds Neuro: Positive: Grossly Intact Abdomen: Positive: Unremarkable, Soft Musculoskeletal: No Fluid Collection, No Pain Extremities: Present: upper extr. pulses, lower extr. pulses. Absent: edema Results 02/27/21 05:44 02/27/21 05:44 Cardiac Enzymes 02/27/21 Range/Units 10:45 CK-MB (CK-2) 1.5 (0.0-4.0) ng/mL Lipids 02/27/21 Range/Units 10:45 Triglycerides 106 (2-149) mg/dL Cholesterol 84 (50-199) mg/dL HDL Cholesterol 27 L (40-59) mg/dL Cholesterol/HDL Ratio 3.11 % CBC 02/27/21 Range/Units 05:44 WBC 6.0 (4.5-11.0) K/mm3 RBC 3.59 L (3.65-5.03) M/mm3 Hgb 10.4 L (11.8-15.2) gm/dl Hct 31.8 L (35.5-45.6) % Plt Count 97 L (140-440) K/mm3 Lymph # (Auto) 0.8 L (1.2-5.4) K/mm3 [place] # (Auto) 0.6 (0.0-0.8) K/mm3 Eos # (Auto) 0.2 (0.0-0.4) K/mm3 Baso # (Auto) 0.0 (0.0-0.1) K/mm3 Comprehensive Metabolic Panel 02/27/21 Range/Units 05:44 Sodium 144 (137-145) mmol/L Potassium 4.4 (3.6-5.0) mmol/L Chloride 105.1 (98-107) mmol/L Carbon Dioxide 27 (22-30) mmol/L BUN 41 H (9-20) mg/dL Creatinine 3.9 H (0.8-1.3) mg/dL Glucose 109 H (75-100) mg/dL Calcium 9.7 (8.4-10.2) mg/dL - Imaging and Cardiology Echo: report reviewed (Echocardiogram (10/15/2020): LVEF is 45 to 50%. LV normal sized. RVSF is mild to moderately reduced. RA is moderately dilated. LA is severely dilated. Valve in valve bioprosthetic in mitral position mean gradient 8 mmHg. Bioprosthetic valve in tricuspid position mean gradient 4 mmHg. Aortic ro) EKG: report reviewed, image reviewed EKG interpretations - Telemetry EKG Rhythm: Atrial Fibrillation - EKG Supraventricular dysrhythmia: atrial fibrillation Assessment and Plan Atrial fibrillation * Resume home Eliquis. Patient is clear to resume anticoagulation per surgeon Dr. Maciel Terrell. Patient has documented noncompliance with Coumadin, and unable to tolerate Plavix due to gastritis, thus is chronically anticoagulated on Eliquis for chronic A. fib with valve disease status post bioprosthetic repair. * Resume home rate control: Coreg 6.25 mg twice daily Heart failure reduced ejection fraction in setting of moderate cardiomyopathy * Resume home medication torsemide 10 mg daily NSTEMI suspect type II in setting of ESRD on HD * Troponin is noted to be elevated. Patient is asymptomatic and chest pain- free. Most likely secondary to ESRD. We will continue to trend CE's. * Nephrology is following Patient is currently in stable cardiac status. Patient may be discharged to half-way facility from cards standpoint. Will follow This patient was seen in conjunction with Dr Bach who agrees with this assessment and plan of care
[2021-02-27] MEDS ORDERED: SODIUM CHLORIDE 0.9% 100 ML IV PRN (15:00)
[2021-02-27] MEDS: APIXABAN 5 MG TAB PO SCH ×2 (17:25→21:21)
[2021-02-27 19:56] LABS: INR 1.37 (0.87-1.13)
[2021-02-27 19:57] LABS: Partial Thromboplastin Time 37.5 Sec. (24.2-36.6)
[2021-02-27 20:07] LABS: Hepatitis B Surface Antigen Non-Reactive (Negative); Hepatitis C Virus Antibody Reactive (NonReactive)
[2021-02-27] MEDS: HYDROcodone/ACETAMINOPHEN 5-325 MG TAB PO PRN (21:26)
[2021-02-28 05:21] LABS: Calcium 9.4 mg/dL (8.4-10.2)
[2021-02-28 05:29] LABS: Hemoglobin 9.8 gm/dl (11.8-15.2); Red Blood Count 3.36 M/mm3 (3.65-5.03)
[2021-02-28 05:30] LABS: Hematocrit 29.8 % (35.5-45.6); Mean Corpuscular HGB Conc 33 % (32-34); Mean Corpuscular Volume 89 fl (84-94); Platelet Count 100 K/mm3 (140-440); Red Cell Distribution Width 18.3 % (13.2-15.2)
[2021-02-28] MEDS: GABAPENTIN 100 MG CAP PO SCH ×3 (06:02→21:33)
[2021-02-28] MEDS: SERTRALINE 100 MG TAB PO SCH (09:10)
[2021-02-28] MEDS: carvediloL 6.25 MG TAB PO SCH ×2 (09:11→21:35)
[2021-02-28] MEDS: PANTOPRAZOLE 20 MG TAB PO SCH ×2 (09:11→21:33)
[2021-02-28] MEDS: TORSEMIDE 10 MG TAB PO SCH (09:11)
[2021-02-28] MEDS: HYDROcodone/ACETAMINOPHEN 5-325 MG TAB PO PRN ×2 (09:11→21:33)
[2021-02-28] MEDS: TACROLIMUS 0.5 MG CAP PO SCH ×2 (09:11→21:35)
[2021-02-28] MEDS: APIXABAN 5 MG TAB PO SCH ×2 (09:11→22:00)
--- NOTE | 2021-02-28 09:36 | Progress Note ---
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 Consult placed by DR. Terrell for HTN, ESRD. Patient seen and evaluated upon arrival to his room. No reported nursing events. Patient denies fever, chills, chest pain, palpitation, productive cough, skin rash, recent ill contact, or known exposure to COVID-19. 02/28: Patient for HD today. Stable from my standpoint for discharge blood pressure is improved. Right upper extremity was swollen vascular evaluating. (1) Hypertension Current Visit: Yes Status: Acute Qualifiers: Hypertension type: primary hypertension Qualified Code(s): I10 - Essential (primary) hypertension Plan to address problem: Monitor blood pressure every shift, continue medical management. (2) End stage renal disease Current Visit: Yes Status: Acute Plan to address problem: Dialysis as per renal team, nephrology team consulted. 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 History Interval history: Patient seen and examined, denies any chest pain, nausea, vomiting. 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 Absent: rub, click - Extremities Extremities: pulses symmetrical, No edema Peripheral Pulses: within normal limits - Abdominal General gastrointestinal: Present: soft, non-tender, non-distended, normal bowel sounds Male genitourinary: Present: normal - Integumentary Integumentary: Present: clear, warm, dry - Musculoskeletal Musculoskeletal: gait normal, strength equal bilaterally - Psychiatric Psychiatric: appropriate mood/affect, intact judgment & insight - Neurologic Neurologic: CNII-XII intact, moves all extremities - Constitutional Vitals: Temp Pulse Resp BP Pulse Ox 97.9 F 116 H 16 121/62 93 02/28/21 08:13 02/28/21 08:13 02/28/21 08:13 02/28/21 08:13 02/28/21 08:13 General appearance: Present: no acute distress HEART Score - HEART Score Troponin: Troponin T 0.166 ng/mL (0.00-0.029) H* 02/28/21 04:21 Results - Labs CBC & Chem 7: 02/28/21 04:21 02/28/21 04:21 Labs: Laboratory Last Values WBC 5.2 K/mm3 (4.5-11.0) 02/28/21 04:21 RBC 3.36 M/mm3 (3.65-5.03) L 02/28/21 04:21 Hgb 9.8 gm/dl (11.8-15.2) L 02/28/21 04:21 Hct 29.8 % (35.5-45.6) L 02/28/21 04:21 MCV 89 fl (84-94) 02/28/21 04:21 MCH 29 pg (28-32) 02/28/21 04:21 MCHC 33 % (32-34) 02/28/21 04:21 RDW 18.3 % (13.2-15.2) H 02/28/21 04:21 Plt Count 100 K/mm3 (140-440) L 02/28/21 04:21 Lymph % (Auto) 13.9 % (13.4-35.0) 02/27/21 05:44 [place] % (Auto) 9.5 % (0.0-7.3) H 02/27/21 05:44 Eos % (Auto) 3.3 % (0.0-4.3) 02/27/21 05:44 Baso % (Auto) 0.4 % (0.0-1.8) 02/27/21 05:44 Lymph # (Auto) 0.8 K/mm3 (1.2-5.4) L 02/27/21 05:44 [place] # (Auto) 0.6 K/mm3 (0.0-0.8) 02/27/21 05:44 Eos # (Auto) 0.2 K/mm3 (0.0-0.4) 02/27/21 05:44 Baso # (Auto) 0.0 K/mm3 (0.0-0.1) 02/27/21 05:44 Seg Neutrophils % 72.9 % (40.0-70.0) H 02/27/21 05:44 Seg Neutrophils # 4.4 K/mm3 (1.8-7.7) 02/27/21 05:44 PT 17.5 Sec. (12.2-14.9) H 02/27/21 18:32 INR 1.37 (0.87-1.13) H 02/27/21 18:32 APTT 37.5 Sec. (24.2-36.6) H 02/27/21 18:32 Sodium 137 mmol/L (137-145) 02/28/21 04:21 Potassium 5.0 mmol/L (3.6-5.0) 02/28/21 04:21 Chloride 100.2 mmol/L (98-107) 02/28/21 04:21 Carbon Dioxide 21 mmol/L (22-30) L 02/28/21 04:21 Anion Gap 21 mmol/L 02/28/21 04:21 BUN 58 mg/dL (9-20) H 02/28/21 04:21 Creatinine 4.9 mg/dL (0.8-1.3) H 02/28/21 04:21 Estimated GFR 15 ml/min 02/28/21 04:21 BUN/Creatinine Ratio 12 % 02/28/21 04:21 Glucose 100 mg/dL (75-100) 02/28/21 04:21 Calcium 9.4 mg/dL (8.4-10.2) 02/28/21 04:21 Total Creatine Kinase 54 units/L (55-170) L 02/27/21 10:45 CK-MB (CK-2) 1.5 ng/mL (0.0-4.0) 02/27/21 10:45 CK-MB (CK-2) Rel Index 2.7 (0-4) 02/27/21 10:45 Troponin T 0.166 ng/mL (0.00-0.029) H* 02/28/21 04:21 Triglycerides 106 mg/dL (2-149) 02/27/21 10:45 Cholesterol 84 mg/dL (50-199) 02/27/21 10:45 LDL Cholesterol Direct 39 mg/dL (50-130) L 02/27/21 10:45 HDL Cholesterol 27 mg/dL (40-59) L 02/27/21 10:45 Cholesterol/HDL Ratio 3.11 % 02/27/21 10:45 Hepatitis A IgM Ab Non-reactive (NonReactive) 02/27/21 18:32 Hep Bs Antigen Non-reactive (Negative) 02/27/21 18:32 Hep B Core IgM Ab Non-reactive (NonReactive) 02/27/21 18:32 Hepatitis C Antibody Reactive (NonReactive) A 02/27/21 18:32 Blood Type A POSITIVE 02/26/21 14:42 Antibody Screen Negative 02/26/21 14:42 Crossmatch See Detail 02/26/21 14:42 Neal/IV: Voiding Method Incontinent Active Medications - Current Medications Current Medications: Generic Name Dose Route Start Last Admin Trade Name Freq PRN Reason Stop Dose Admin Acetaminophen 650 mg 02/26/21 15:00 Acetaminophen 325 Mg Tab PO Q4H PRN Pain MILD(1-3)/Fever >100.5/TOBIAS Hydrocodone Bitart/Acetaminophen 2 each 02/26/21 15:00 02/28/21 09:11 Hydrocodone/Acetaminophen 5-325 Mg Tab PO 2 each Q6H PRN Administration Pain, Moderate (4-6) Apixaban 5 mg 02/27/21 16:00 02/28/21 09:11 Apixaban 5 Mg Tab PO 5 mg Q12HR REBEL Administration Protocol Carvedilol 6.25 mg 02/26/21 22:00 02/27/21 21:27 Carvedilol 6.25 Mg Tab PO Not Given BID REBEL Gabapentin 100 mg 02/26/21 22:00 02/28/21 06:02 Gabapentin 100 Mg Cap PO 100 mg Q8HR REBEL Administration Sodium Chloride 100 mls @ 999 mls/hr 02/27/21 15:00 Nacl 0.9% IV SALIMA PRN Hypotension Morphine Sulfate 4 mg 02/26/21 16:00 02/27/21 06:34 Morphine 4 Mg/1 Ml Inj IV 4 mg Q4H PRN Administration Pain , Severe (7-10) Ondansetron HCl 4 mg 02/26/21 15:00 Ondansetron 4 Mg/2 Ml Inj IV Q8H PRN Nausea And Vomiting Pantoprazole Sodium 20 mg 02/26/21 22:00 02/28/21 09:11 Pantoprazole 20 Mg Tab PO 20 mg BID REBEL Administration Sertraline HCl 100 mg 02/27/21 10:00 02/28/21 09:10 Sertraline 100 Mg Tab PO 100 mg DAILY REBEL Administration Tacrolimus 0.5 mg 02/26/21 22:00 02/28/21 09:11 Tacrolimus 0.5 Mg Cap PO 0.5 mg Q12HR REBEL Administration Torsemide 10 mg 02/28/21 10:00 02/28/21 09:11 Torsemide 10 Mg Tab PO 10 mg DAILY REBEL Administration Tramadol HCl 50 mg 02/26/21 21:30 Tramadol 50 Mg Tab PO Q12HR PRN Pain, Mild (1-3) Nutrition/Malnutrition Assess - Dietary Evaluation Nutrition/Malnutrition Findings: Nutrition Notes Start: 02/27/21 12:35 Freq: Status: Active Protocol: Document 02/27/21 12:35 (Rec: 02/27/21 12:41 [id number]) Nutrition Notes Need for Assessment generated from: court officer,MST Initial or Follow up Assessment Current Diagnosis CKD (stage V CKD),Hypertension ,Respiratory Failure Other Pertinent Diagnosis on HD Current Diet Renal Labs/Tests BUN 41 Cr 3.9 Pertinent Medications Reviewed Height 5 ft 9 in Weight 63 kg Usual Body Weight 70.45 kg [place] Body Weight (kg) 72.72 BMI 20.5 Weight change and time frame 11% wt loss in one month Weight Status Appropriate Subjective/Other Information RN screen for MST. Pt reports not having an appetite for one month. He states it is even harder for him to eat because he doesn't like the food they provide at the care center he is at. Pt open to ONS. Burn Absent Trauma Absent GI Symptoms None Current % PO Poor (25-49%) Minimum of two criteria Yes Energy Intake (non-severe) <75% Estimated Energy Requirement >7 days Interpretation of Weight Loss (severe) >5% in 1 month Muscle Mass Mild Depletion (non-severe) #1 Nutrition Diagnosis Malnutrition Etiology decreased appetite As Evidenced by Signs and Symptoms <75% of EER in >or = to 7 days , >5% wt loss in 1 month, muscle wasting Is patient on ventilator? No Is Patient Ambulatory and/or Out of Bed No REE-([facility]-confined to bed) 1750.980 Kcal/Kg value to use for calculation 32 Approximate Energy Requirements Using 2016 kcal/Kg Calculation Used for Recommendations Kcal/kg Additional Notes Protein: (>1.2g/kg) >76g Fluid: output + 1000 ml Nutrition Intervention Change Diet Order: Continue Add Supplement/Snack (indicate name/kcal [place] BID /protein ) Provides kCal: 850 Provides Protein (gm) 38 Goal #1 Meet at least 80% of protein and energy needs via PO and ONS intakes Anticipated Discharge Needs: Renal with ONS BID Follow-Up By: 03/03/21 Additional Comments FU for intakes and ONS tolerance
[2021-02-28] MEDS: MORPHINE 4 MG/1 ML INJ IV PRN (10:00)
--- NOTE | 2021-02-28 10:35 | Electrocardiograph Report ---
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
--- NOTE | 2021-02-28 12:47 | Progress Note ---
Assessment and Plan Atrial fibrillation * Continue Eliquis. Patient is clear to resume anticoagulation per surgeon Dr. Maciel Terrell. Patient has documented noncompliance with Coumadin, and unable to tolerate Plavix due to gastritis, thus is chronically anticoagulated on Eliquis for chronic A. fib with valve disease status post bioprosthetic repair. * Patient is prescribed Coreg 6.25 mg twice daily for rate control but is only receiving intermittently due to hypotension. Heart failure reduced ejection fraction in setting of moderate cardiomyopathy and bioprosthetic MV, TV * Resume home medication torsemide 10 mg daily * Echocardiogram 02/27/2021: LVEF is 35 to 40%. LV normal size. LV SF is moderately decreased. Borderline LVH. Moderate global hypokinesis of LV. RV is mild to moderately dilated. Right ventricle is hypokinetic. LA is moderately dilated. RA is mildly dilated. Bioprosthetic valve in mitral position mean gradient 7.67 mmHg. Bioprosthetic in tricuspid position not clearly visualized. RVSP is 18 mmHg. NSTEMI suspect type II in setting of ESRD on HD * Troponin is noted to be elevated. Patient is asymptomatic and chest pain-free . Most likely secondary to ESRD. We will continue to trend CE's. * Nephrology is following Patient is currently in stable cardiac status. Patient may be discharged home to alf facility from cards standpoint. Will follow Patient should follow-up with his established cardiology within 1 to 2 weeks of discharge. Alternatively patient may follow-up with Dr Bach, [facility] heart specialists within 1 to 2 weeks of discharge. #[id number] This patient was seen in conjunction with Dr Bach who agrees with this assessment and plan of care Subjective Date of service: 02/28/21 Principal diagnosis: End-stage renal disease on hemodialysis, postop graft Interval history: Patient resting comfortably in bed. No shortness of breath or chest pain overnight. Patient was seen during hemodialysis Telemetry reviewed: Atrial fibrillation 110s. No events Objective Last Vital Signs Temp 98.5 F 02/28/21 09:40 Pulse 91 H 02/28/21 12:30 Resp 20 02/28/21 09:40 BP 83/60 02/28/21 12:30 Pulse Ox 100 02/28/21 09:40 - Physical Examination HEENT: Positive: PERRL, Normocephaly, Mucus Membranes Moist Neck: Positive: neck supple, trachea midline Cardiac: Positive: irregularly irregular, S1/S2 Lungs: Positive: Normal Exam, Normal Breath Sounds Neuro: Positive: Grossly Intact Abdomen: Positive: Unremarkable, Soft Musculoskeletal: No Fluid Collection, No Pain Extremities: Present: upper extr. pulses, lower extr. pulses. Absent: edema - Labs and Meds Coagulation 02/27/21 Range/Units 18:32 PT 17.5 H (12.2-14.9) Sec. INR 1.37 H (0.87-1.13) APTT 37.5 H (24.2-36.6) Sec. CBC 02/28/21 Range/Units 04:21 WBC 5.2 (4.5-11.0) K/mm3 RBC 3.36 L (3.65-5.03) M/mm3 Hgb 9.8 L (11.8-15.2) gm/dl Hct 29.8 L (35.5-45.6) % Plt Count 100 L (140-440) K/mm3 Comprehensive Metabolic Panel 02/27/21 02/28/21 Range/Units 18:32 04:21 Sodium 137 (137-145) mmol/L Potassium 5.0 (3.6-5.0) mmol/L Chloride 100.2 (98-107) mmol/L Carbon Dioxide 21 L (22-30) mmol/L BUN 58 H (9-20) mg/dL Creatinine 4.6 H 4.9 H (0.8-1.3) mg/dL Glucose 100 (75-100) mg/dL Calcium 9.4 (8.4-10.2) mg/dL - Imaging and Cardiology EKG: report reviewed, image reviewed Echo: report reviewed (Echocardiogram 02/27/2021: LVEF is 35 to 40%. LV normal size. LV SF is moderately decreased. Borderline LVH. Moderate global hypokinesis of LV. RV is mild to moderately dilated. Right ventricle is hy pokinetic. LA is moderately dilated. RA is mildly dilated. Bioprosthetic valve in mitral posit) - Telemetry EKG Rhythm: Atrial Fibrillation - EKG Supraventricular dysrhythmia: atrial fibrillation
--- NOTE | 2021-02-28 13:59 | Progress Note ---
Assessment and Plan - Patient Problems (1) End stage renal disease Current Visit: Yes Status: Chronic Plan to address problem: patient to be dialyzed today. Typically on a Wednesday inpatient hemodialysis schedule. If patient remains here overnight then we will have him dialyzed again tomorrow to put him back on his regular outpatient dialysis schedule. Patient is pending evaluation from vascular surgery in regards to left upper extremity swelling. He is postoperative day 2 from AV graft creation. 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 Landa. (2) Hypertensive chronic kidney disease with stage 5 chronic kidney disease or end stage renal disease Current Visit: Yes Status: Chronic Plan to address problem: monitor blood pressures under current regimen. (3) Anemia in chronic kidney disease (CKD) Current Visit: Yes Status: Chronic Qualifiers: Chronic kidney disease stage: on chronic dialysis Qualified Code(s): N18.6 - End stage renal disease; D63.1 - Anemia in chronic kidney disease; Z99.2 - Dependence on renal dialysis Plan to address problem: monitor hemoglobin/hematocrit levels. Transfuse to maintain hemoglobin above 7. No acute indications for KARTHIK therapy based on most recent levels. We will continue to monitor closely. (4) Secondary hyperparathyroidism (of renal origin) Current Visit: Yes Status: Chronic Plan to address problem: and restart home phosphate binder regimen. Subjective Date of service: 02/28/21 Principal diagnosis: End-stage renal disease on hemodialysis, postop graft Interval history: patient placed for hemodialysis today. We will then place back on Wednesday outpatient schedule. Issues with swelling in his left upper extremity down to his hands. Pending further recommendations per vascular surgery. Postoperative day 2 from AV graft placement. Objective - Vital Signs Vital signs: Vital Signs - 12hr 02/28/21 02/28/21 02/28/21 04:00 04:33 08:13 Temperature 98.6 F 97.9 F Pulse Rate 118 H 116 H Respiratory 18 16 Rate Blood Pressure 89/60 121/62 Blood Pressure 96/63 [Left] O2 Sat by Pulse 92 93 Oximetry O2 Sat by Pulse Oximetry [ Anterior Bilateral Upper Lobe] 02/28/21 02/28/21 02/28/21 09:40 09:45 10:00 Temperature 98.5 F Pulse Rate 109 H 98 H 107 H Respiratory 20 Rate Blood Pressure 94/67 96/59 94/58 Blood Pressure [Left] O2 Sat by Pulse Oximetry O2 Sat by Pulse 100 Oximetry [ Anterior Bilateral Upper Lobe] 02/28/21 02/28/21 02/28/21 10:15 10:30 10:45 Temperature Pulse Rate 115 H 111 H 118 H Respiratory Rate Blood Pressure 99/53 94/54 85/52 Blood Pressure [Left] O2 Sat by Pulse Oximetry O2 Sat by Pulse Oximetry [ Anterior Bilateral Upper Lobe] 02/28/21 02/28/21 02/28/21 11:00 11:05 11:15 Temperature Pulse Rate 107 H 98 H Respiratory Rate Blood Pressure 87/48 101/59 90/57 Blood Pressure [Left] O2 Sat by Pulse Oximetry O2 Sat by Pulse Oximetry [ Anterior Bilateral Upper Lobe] 02/28/21 02/28/21 02/28/21 11:30 11:45 12:00 Temperature Pulse Rate 99 H 101 H 98 H Respiratory Rate Blood Pressure 92/61 96/54 92/44 Blood Pressure [Left] O2 Sat by Pulse Oximetry O2 Sat by Pulse Oximetry [ Anterior Bilateral Upper Lobe] 02/28/21 02/28/21 02/28/21 12:15 12:30 12:45 Temperature Pulse Rate 94 H 91 H 96 H Respiratory Rate Blood Pressure 95/53 83/60 91/60 Blood Pressure [Left] O2 Sat by Pulse Oximetry O2 Sat by Pulse Oximetry [ Anterior Bilateral Upper Lobe] 02/28/21 12:50 Temperature 98.5 F Pulse Rate 87 Respiratory 18 Rate Blood Pressure 104/64 Blood Pressure [Left] O2 Sat by Pulse Oximetry O2 Sat by Pulse Oximetry [ Anterior Bilateral Upper Lobe] - General Appearance General appearance: chronically ill, frail EENT: ATNC Neck: no JVD Respiratory: Present: Clear to Ascultation Cardiology: regular Gastrointestinal: normal Neurologic: no focal deficit Musculoskeletal: other (left upper extremity swelling) Psychiatric: cooperative - Lab 02/28/21 04:21 02/28/21 04:21 Most recent lab results Calcium 9.4 mg/dL (8.4-10.2) 02/28/21 04:21 - Allied health notes Allied health notes reviewed: nursing Medications & Allergies - Medications Allergies/Adverse Reactions: Allergies No Known Allergies Allergy (Unverified 02/25/21 09:01) Home Medications: Home Medications Medication Instructions Recorded Confirmed Last Taken Type Acetaminophen [Acetaminophen ER] 650 mg PO PRN PRN 02/17/21 02/17/21 Unknown History Aspirin [Adult Aspirin] 81 mg PO DAILY 02/17/21 02/27/21 02/25/21 09:00 History Omeprazole 20 mg PO BID 02/17/21 02/27/21 02/26/21 10:40 History Sertraline HCl [Zoloft] 100 mg PO DAILY 02/17/21 02/27/21 02/25/21 09:00 History Tacrolimus [Prograf] 0.5 mg PO DAILY 02/17/21 02/17/21 Unknown History carvediloL [Coreg] 6.25 mg PO BID 02/17/21 02/27/21 02/26/21 10:40 History traMADoL [Ultram 50 MG tab] 50 mg PO Q12HR PRN 02/17/21 02/17/21 Unknown History HYDROcodone/APAP 7.5-325 [[place] 1 each PO Q6HR PRN #40 tablet 02/26/21 Unknown Rx 7.5/325] Active Medications: Generic Name Dose Route Start Last Admin Trade Name Freq PRN Reason Stop Dose Admin Acetaminophen 650 mg 02/26/21 15:00 Acetaminophen 325 Mg Tab PO Q4H PRN Pain MILD(1-3)/Fever >100.5/TOBIAS Hydrocodone Bitart/Acetaminophen 2 each 02/26/21 15:00 02/28/21 09:11 Hydrocodone/Acetaminophen 5-325 Mg Tab PO 2 each Q6H PRN Administration Pain, Moderate (4-6) Apixaban 5 mg 02/27/21 16:00 02/28/21 09:11 Apixaban 5 Mg Tab PO 5 mg Q12HR REBEL Administration Protocol Carvedilol 6.25 mg 02/26/21 22:00 02/27/21 21:27 Carvedilol 6.25 Mg Tab PO Not Given BID REBEL Gabapentin 100 mg 02/26/21 22:00 02/28/21 06:02 Gabapentin 100 Mg Cap PO 100 mg Q8HR REBEL Administration Sodium Chloride 100 mls @ 999 mls/hr 02/27/21 15:00 Nacl 0.9% IV SALIMA PRN Hypotension Morphine Sulfate 4 mg 02/26/21 16:00 02/28/21 10:00 Morphine 4 Mg/1 Ml Inj IV 4 mg Q4H PRN Administration Pain , Severe (7-10) Ondansetron HCl 4 mg 02/26/21 15:00 Ondansetron 4 Mg/2 Ml Inj IV Q8H PRN Nausea And Vomiting Pantoprazole Sodium 20 mg 02/26/21 22:00 02/28/21 09:11 Pantoprazole 20 Mg Tab PO 20 mg BID REBEL Administration Sertraline HCl 100 mg 02/27/21 10:00 02/28/21 09:10 Sertraline 100 Mg Tab PO 100 mg DAILY REBEL Administration Tacrolimus 0.5 mg 02/26/21 22:00 02/28/21 09:11 Tacrolimus 0.5 Mg Cap PO 0.5 mg Q12HR REBEL Administration Torsemide 10 mg 02/28/21 10:00 02/28/21 09:11 Torsemide 10 Mg Tab PO 10 mg DAILY REBEL Administration Tramadol HCl 50 mg 02/26/21 21:30 Tramadol 50 Mg Tab PO Q12HR PRN Pain, Mild (1-3)
--- NOTE | 2021-02-28 14:48 | Event Note ---
Date: 02/28/21 Patient with right arm swelling and pain. Some serosanguinous drainage from axillary incision. Needs RUE fistulagram with central venogram from a groin approach. Discussed risk, benefits, and alternatives with the patient who hs expressed understanding and agrees to proceed today.
[2021-02-28] MEDS ORDERED: SODIUM CHLORIDE 0.9% 250ML 250 ML ONE (15:17)
[2021-02-28] MEDS ORDERED: HEPARIN/NS 5000 UNIT/500ML 1,000 ML IR ONE (15:17)
[2021-02-28] MEDS: fentaNYL 100 MCG/2 ML INJ ONE ×2 (15:48→17:05)
[2021-02-28] MEDS: MIDAZOLAM 2 MG/2 ML INJ ONE ×2 (15:48→17:06)
[2021-02-28] MEDS: LIDOCAINE (2%) 20 MG/1 ML VIAL 20 ML MDV INFILTRATI ONE ×3 (15:51→16:24)
[2021-02-28] MEDS ORDERED: SODIUM CHLORIDE 0.9% 500 ML 500 ML IV SCH (16:00)
[2021-02-28] MEDS: HEPARIN 10,000 UNITS/10 ML VIAL ONE ×3 (16:21→16:25)
[2021-02-28] MEDS: NITROGLYCERIN SYRINGE 3 ML ONE ×3 (16:21→16:25)
[2021-02-28] MEDS: VERAPAMIL 5 MG/2 ML INJ ONE ×3 (16:21→16:25)
--- NOTE | 2021-02-28 17:43 | Operative Report ---
Operative Report Operative Report: Date of Procedure: 02/28/2021 Pre-operative Diagnosis: Complications of Dialysis Access Post-operative Diagnosis: Same Procedure(s): 1. Ultrasound-Guided Access Right Common Femoral Vein 2. Ultrasound-Guided Access Right Radial Artery 3. Diagnostic Central Venogram 4. Diagnostic Right Upper Extremity Fistulogram 5. Angioplasty and Stent of Right Arm AV Graft With 9 x 60 Covera Stent Graft and 10 x 40 Kerkhoven Balloon 6. Angioplasty of Right Subclavian Vein and Right Innominate Vein with 10 x 60 Lutonix Drug-Coated Balloon 7. Radiologic Supervision with Interpretation 8. Monitored Moderate Sedation (Total Anesthesia Time: 87 Minutes) Surgeon: Maciel Terrell M.D. Business Unit Controller: None Anesthesia: Local/Monitored Moderate Sedation Total Anesthesia Time: 87 Minutes EBL: Minimal Counts: Correct Complications: None Condition: Stable Specimen: None Indication: The patient is a 55-year-old male who recently underwent creation of a right brachial artery to right axillary vein arteriovenous graft. He has had a right internal jugular permacath, for his dialysis access, and likely has central venous stenosis. On postoperative day #2 of his graft creation he has significant right arm swelling that is causing pain. He is in need of a central venogram and a fistulogram with possible intervention to relieve his swelling. He has been given the risk, benefits, alternative procedures and consented to the procedure. Angiographic Findings: The diagnostic central venogram revealed the superior vena cava was patent without evidence of flow-limiting stenosis. The proximal right subclavian vein and right innominate vein were occluded. The remainder of the subclavian vein was patent without evidence of flow-limiting stenosis. There was an occlusion of the axillary vein distal to the venous anastomosis. The occlusion appeared to be approximately 5 cm in length. The remainder the axillary vein was patent without evidence of flow-limiting stenosis. The graft was patent without evidence of flow-limiting stenosis. After intervention the axillary vein was patent with less than 10% residual stenosis. The subclavian vein and innominate vein were patent with approximately 25% residual stenosis. Description of Procedure: The patient was brought to the Computer Systems Manager and laid in supine position. After a timeout was performed his right groin was prepped and draped in normal sterile fashion. Ultrasound was used to identify the right common femoral vein and confirm patency. Once patency was confirmed the overlying skin and soft tissue was anesthetized with lidocaine. A 21-gauge micropuncture needle was used with ultrasound guidance in the right common femoral vein and a 0.018 micropuncture wire was advanced into the vein. The needle was removed and a micropuncture sheath was placed by Seldinger technique. The inner cannula and wire were removed and a 0.035 J-wire was advanced into the inferior vena cava under fluoroscopy. The micropuncture sheath was then exchanged for 5 Norwegian sheath by Seldinger technique. A Navicross catheter and 0.035 Advantage Wire were advanced through the inferior vena cava and into the superior vena cava. A diagnostic central venogram was performed with the previously described findings. I removed the 5 Norwegian sheath and exchanged for a 7 Norwegian 65 cm destination sheath. I was eventually able to advance the sheath into the distal superior vena cava and then was able to cross the occluded innominate vein and subclavian vein and advanced the catheter and wire into the axillary vein. I performed a venogram demonstrating the occlusion in the axillary vein however I was unable to identify the venous anastomosis of the arteriovenous graft. I made multiple attempts to cross the occlusion without success so I decided to access the radial artery. The right radial artery was prepped and draped in normal sterile fashion. Ultrasound was then used to identify the right radial artery and a 21-gauge micropuncture needle was used access the artery. I advanced a 0.018 micropuncture wire into the artery and after removing the needle a 6 Norwegian glide slender sheath was placed by Seldinger technique. I then injected a radial cocktail which included verapamil, nitroglycerin, and heparin into the radial artery. I advanced a vertebral catheter and an advantage wire through the radial artery and eventually into the graft and was able to cross the anastomosis in the area of occlusion. I advanced the vertebral catheter and wire into the superior vena cava I decided to snare the wire. I advanced a 9 to 15 mm Ensare, through the 7 Norwegian sheath from the right femoral access, into the superior vena cava and was able to snare the wire. I pulled the wire out through the 7 Norwegian sheath in the groin and then remove the vertebral catheter and advanced the Navicross catheter over the advantage wire and into the graft. I advanced the advantage wire into the graft and then predilated the occlusion with a 5 x 120 EverCross Balloon. I then exchanged my 7 Norwegian sheath for an 8 Norwegian 65 cm destination sheath and advan ai a 9 x 60 Covera Stent Graft across the area of stenosis and axillary vein which included the venous anastomosis. I deployed the stent graft across the stenosis and then after removing the delivery catheter postdilated the stent graft with a 10 x 40 Kerkhoven balloon. I then performed angioplasty of the right subclavian vein and right innominate vein using the 10 x 40 Kerkhoven Balloon which resulted in approximately 25% residual stenosis within the subclavian vein however there was approximately 70% residual stenosis within the innominate vein. I performed additional angioplasty of the innominate vein with a 10 x 60 Lutonix Drug-Coated Balloon which resulted in approximately 25% residual stenosis in the innominate vein. At this point I removed the balloon and wire and then remove the right femoral sheath and manual pressure was held to achieve hemostasis. Once hemostasis was achieved a sterile dressing was applied to the right groin. A TR Band was then applied to the right radial artery after removing the sheath and the patient was transported back to his room in stable condition.
[2021-03-01] MEDS: HYDROcodone/ACETAMINOPHEN 5-325 MG TAB PO PRN (05:20)
[2021-03-01] MEDS: GABAPENTIN 100 MG CAP PO SCH ×3 (05:21→21:14)
[2021-03-01 06:28] LABS: Hematocrit 23.2 % (35.5-45.6); Hemoglobin 7.6 gm/dl (11.8-15.2); Mean Corpuscular HGB Conc 33 % (32-34); Mean Corpuscular Volume 89 fl (84-94); Platelet Count 103 K/mm3 (140-440); Red Blood Count 2.61 M/mm3 (3.65-5.03); Red Cell Distribution Width 17.6 % (13.2-15.2)
[2021-03-01 08:58] LABS: Calcium 8.5 mg/dL (8.4-10.2)
--- NOTE | 2021-03-01 08:58 | Progress Note ---
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 Consult placed by DR. Terrell for HTN, ESRD. Patient seen and evaluated upon arrival to his room. No reported nursing events. Patient denies fever, chills, chest pain, palpitation, productive cough, skin rash, recent ill contact, or known exposure to COVID-19. 02/28: Patient for HD today. Stable from my standpoint for discharge blood pressure is improved. Right upper extremity was swollen vascular evaluating. 03/01: Patient with decompression of the right upper ext done yesterday, still some edema, still with some hematoma noted and bilster on the right side He does have 2 blisters which appear to be decompressing along the medial aspect of his upper arm. Scant serosanguineous drainage from his incisions. The arm is still swollen however is decompressing. Hematomas are present extending from the upper arm distally. The patient states that his pain in his arm is much improved from yesterday. (1) Hypertension Current Visit: Yes Status: Acute Qualifiers: Hypertension type: primary hypertension Qualified Code(s): I10 - Essential (primary) hypertension Plan to address problem: Monitor blood pressure every shift, continue medical management. (2) End stage renal disease Current Visit: Yes Status: Acute Plan to address problem: Dialysis as per renal team, nephrology team consulted. 3) Type 2 NSTEMI- EDITOR BOOK EVALUATING 4) BED Bound secondary to CVA WITH HEMIPARESIS OF THE RIGHT UPPER AND LOWER EXT 5) Atrial fibrillation 6) Hypotension- Monitor, may need to hold BB or other antihypertensive. 7) Anemia of chronic disease History Interval history: Patient seen and examined, no new complaints Hospitalist Physical - Physical exam Narrative exam: General appearance: Present: No distress, marked temporal wasting - EENT Eyes: Present: PERRL ENT: hearing intact, clear oral mucosa - Neck Neck: Present: supple, normal ROM - Respiratory Respiratory effort: normal Respiratory: bilateral: CTA - Cardiovascular Heart Sounds: Present: S1 & S2. Absent: rub, click - Extremities Extremities: pulses symmetrical, right upper ext with edema, some Peripheral Pulses: within normal limits - Abdominal General gastrointestinal: Present: soft, non-tender, non-distended, normal bowel sounds Male genitourinary: Present: normal - Integumentary Integumentary: Present: right upper ext, excoriation, swelling, av fistula. - Musculoskeletal Musculoskeletal: unable to assess gait - Psychiatric Psychiatric: appropriate mood/affect, intact judgment & insight - Neurologic Neurologic: paresis of the right side - Constitutional Vitals: Temp Pulse Resp BP Pulse Ox 98.2 F 105 H 18 98/69 95 03/01/21 04:43 03/01/21 04:43 03/01/21 04:43 03/01/21 04:43 03/01/21 04:43 General appearance: Present: no acute distress HEART Score - HEART Score Troponin: Troponin T 0.166 ng/mL (0.00-0.029) H* 02/28/21 04:21 Results - Labs CBC & Chem 7: 03/01/21 05:13 03/01/21 05:13 Labs: Laboratory Last Values WBC 5.6 K/mm3 (4.5-11.0) 03/01/21 05:13 RBC 2.61 M/mm3 (3.65-5.03) L 03/01/21 05:13 Hgb 7.6 gm/dl (11.8-15.2) L 03/01/21 05:13 Hct 23.2 % (35.5-45.6) L D 03/01/21 05:13 MCV 89 fl (84-94) 03/01/21 05:13 MCH 29 pg (28-32) 03/01/21 05:13 MCHC 33 % (32-34) 03/01/21 05:13 RDW 17.6 % (13.2-15.2) H 03/01/21 05:13 Plt Count 103 K/mm3 (140-440) L 03/01/21 05:13 Lymph % (Auto) 13.9 % (13.4-35.0) 02/27/21 05:44 [place] % (Auto) 9.5 % (0.0-7.3) H 02/27/21 05:44 Eos % (Auto) 3.3 % (0.0-4.3) 02/27/21 05:44 Baso % (Auto) 0.4 % (0.0-1.8) 02/27/21 05:44 Lymph # (Auto) 0.8 K/mm3 (1.2-5.4) L 02/27/21 05:44 [place] # (Auto) 0.6 K/mm3 (0.0-0.8) 02/27/21 05:44 Eos # (Auto) 0.2 K/mm3 (0.0-0.4) 02/27/21 05:44 Baso # (Auto) 0.0 K/mm3 (0.0-0.1) 02/27/21 05:44 Seg Neutrophils % 72.9 % (40.0-70.0) H 02/27/21 05:44 Seg Neutrophils # 4.4 K/mm3 (1.8-7.7) 02/27/21 05:44 PT 17.5 Sec. (12.2-14.9) H 02/27/21 18:32 INR 1.37 (0.87-1.13) H 02/27/21 18:32 APTT 37.5 Sec. (24.2-36.6) H 02/27/21 18:32 Sodium 137 mmol/L (137-145) 02/28/21 04:21 Potassium 5.0 mmol/L (3.6-5.0) 02/28/21 04:21 Chloride 100.2 mmol/L (98-107) 02/28/21 04:21 Carbon Dioxide 25 mmol/L (22-30) 03/01/21 05:13 Anion Gap 21 mmol/L 02/28/21 04:21 BUN 32 mg/dL (9-20) H 03/01/21 05:13 Creatinine 3.3 mg/dL (0.8-1.3) H 03/01/21 05:13 Estimated GFR 24 ml/min 03/01/21 05:13 BUN/Creatinine Ratio 10 % 03/01/21 05:13 Glucose 101 mg/dL (75-100) H 03/01/21 05:13 Calcium 8.5 mg/dL (8.4-10.2) 03/01/21 05:13 Total Creatine Kinase 54 units/L (55-170) L 02/27/21 10:45 CK-MB (CK-2) 1.5 ng/mL (0.0-4.0) 02/27/21 10:45 CK-MB (CK-2) Rel Index 2.7 (0-4) 02/27/21 10:45 Troponin T 0.166 ng/mL (0.00-0.029) H* 02/28/21 04:21 Triglycerides 106 mg/dL (2-149) 02/27/21 10:45 Cholesterol 84 mg/dL (50-199) 02/27/21 10:45 LDL Cholesterol Direct 39 mg/dL (50-130) L 02/27/21 10:45 HDL Cholesterol 27 mg/dL (40-59) L 02/27/21 10:45 Cholesterol/HDL Ratio 3.11 % 02/27/21 10:45 Hepatitis A IgM Ab Non-reactive (NonReactive) 02/27/21 18:32 Hep Bs Antigen Non-reactive (Negative) 02/27/21 18:32 Hep B Core IgM Ab Non-reactive (NonReactive) 02/27/21 18:32 Hepatitis C Antibody Reactive (NonReactive) A 02/27/21 18:32 Blood Type A POSITIVE 02/26/21 14:42 Antibody Screen Negative 02/26/21 14:42 Crossmatch See Detail 02/26/21 14:42 Neal/IV: Voiding Method Incontinent Active Medications - Current Medications Current Medications: Generic Name Dose Route Start Last Admin Trade Name Freq PRN Reason Stop Dose Admin Acetaminophen 650 mg 02/26/21 15:00 Acetaminophen 325 Mg Tab PO Q4H PRN Pain MILD(1-3)/Fever >100.5/TOBIAS Hydrocodone Bitart/Acetaminophen 2 each 02/26/21 15:00 03/01/21 05:20 Hydrocodone/Acetaminophen 5-325 Mg Tab PO 2 each Q6H PRN Administration Pain, Moderate (4-6) Apixaban 5 mg 02/27/21 16:00 02/28/21 22:00 Apixaban 5 Mg Tab PO 5 mg Q12HR REBEL Administration Protocol Carvedilol 6.25 mg 02/26/21 22:00 02/28/21 21:35 Carvedilol 6.25 Mg Tab PO Not Given BID REBEL Gabapentin 100 mg 02/26/21 22:00 03/01/21 05:21 Gabapentin 100 Mg Cap PO 100 mg Q8HR REBEL Administration Sodium Chloride 100 mls @ 999 mls/hr 03/01/21 09:00 Nacl 0.9% IV SALIMA PRN Hypotension Morphine Sulfate 4 mg 02/26/21 16:00 02/28/21 10:00 Morphine 4 Mg/1 Ml Inj IV 4 mg Q4H PRN Administration Pain , Severe (7-10) Ondansetron HCl 4 mg 02/26/21 15:00 Ondansetron 4 Mg/2 Ml Inj IV Q8H PRN Nausea And Vomiting Pantoprazole Sodium 20 mg 02/26/21 22:00 02/28/21 21:33 Pantoprazole 20 Mg Tab PO 20 mg BID REBEL Administration Sertraline HCl 100 mg 02/27/21 10:00 02/28/21 09:10 Sertraline 100 Mg Tab PO 100 mg DAILY REBEL Administration Tacrolimus 0.5 mg 02/26/21 22:00 02/28/21 21:35 Tacrolimus 0.5 Mg Cap PO 0.5 mg Q12HR REBEL Administration Torsemide 10 mg 02/28/21 10:00 02/28/21 09:11 Torsemide 10 Mg Tab PO 10 mg DAILY REBEL Administration Tramadol HCl 50 mg 02/26/21 21:30 Tramadol 50 Mg Tab PO Q12HR PRN Pain, Mild (1-3) Nutrition/Malnutrition Assess - Dietary Evaluation Nutrition/Malnutrition Findings: Nutrition Notes Start: 02/27/21 12:35 Freq: Status: Active Protocol: Document 02/27/21 12:35 (Rec: 02/27/21 12:41 [email or web address]) Nutrition Notes Need for Assessment generated from: publishing specialist,MST Initial or Follow up Assessment Current Diagnosis CKD (stage V CKD),Hypertension ,Respiratory Failure Other Pertinent Diagnosis on HD Current Diet Renal Labs/Tests BUN 41 Cr 3.9 Pertinent Medications Reviewed Height 5 ft 9 in Weight 63 kg Usual Body Weight 70.45 kg [place] Body Weight (kg) 72.72 BMI 20.5 Weight change and time frame 11% wt loss in one month Weight Status Appropriate Subjective/Other Information RN screen for MST. Pt reports not having an appetite for one month. He states it is even harder for him to eat because he doesn't like the food they provide at the care center he is at. Pt open to ONS. Burn Absent Trauma Absent GI Symptoms None Current % PO Poor (25-49%) Minimum of two criteria Yes Energy Intake (non-severe) <75% Estimated Energy Requirement >7 days Interpretation of Weight Loss (severe) >5% in 1 month Muscle Mass Mild Depletion (non-severe) #1 Nutrition Diagnosis Malnutrition Etiology decreased appetite As Evidenced by Signs and Symptoms <75% of EER in >or = to 7 days , >5% wt loss in 1 month, muscle wasting Is patient on ventilator? No Is Patient Ambulatory and/or Out of Bed No REE-([facility]-confined to bed) 1750.980 Kcal/Kg value to use for calculation 32 Approximate Energy Requirements Using 2016 kcal/Kg Calculation Used for Recommendations Kcal/kg Additional Notes Protein: (>1.2g/kg) >76g Fluid: output + 1000 ml Nutrition Intervention Change Diet Order: Continue Add Supplement/Snack (indicate name/kcal [place] BID /protein ) Provides kCal: 850 Provides Protein (gm) 38 Goal #1 Meet at least 80% of protein and energy needs via PO and ONS intakes Anticipated Discharge Needs: Renal with ONS BID Follow-Up By: 03/03/21 Additional Comments FU for intakes and ONS tolerance
[2021-03-01] MEDS ORDERED: SODIUM CHLORIDE 0.9% 100 ML IV PRN (09:00)
[2021-03-01] MEDS: PANTOPRAZOLE 20 MG TAB PO SCH ×2 (09:09→21:14)
[2021-03-01] MEDS: TACROLIMUS 0.5 MG CAP PO SCH ×2 (09:10→21:14)
[2021-03-01] MEDS: TORSEMIDE 10 MG TAB PO SCH (09:10)
[2021-03-01] MEDS: SERTRALINE 100 MG TAB PO SCH (09:10)
[2021-03-01] MEDS: APIXABAN 5 MG TAB PO SCH ×2 (09:10→21:14)
--- NOTE | 2021-03-01 09:38 | Progress Note ---
Assessment and Plan The patient appears to be progressing towards decompression of his arm. We will need to continue elevating his arm for maximal decompression. Additionally, we will order an ultrasound of his arm. Would anticipate discharge tomorrow versus Wednesday depending on patient's clinical condition. Subjective Date of service: 03/01/21 Principal diagnosis: End-stage renal disease on hemodialysis, postop graft Interval history: Patient with right upper arm swelling extending to the hand. He does have 2 blisters which appear to be decompressing along the medial aspect of his upper arm. Scant serosanguineous drainage from his incisions. The arm is still swollen however is decompressing. Hematomas are present extending from the upper arm distally. The patient states that his pain in his arm is much improved from yesterday. Objective - Constitutional Vitals: Vital Signs - 12hr 02/28/21 02/28/21 02/28/21 22:00 23:00 23:46 Temperature 97.8 F Pulse Rate 94 H 62 Respiratory 20 18 Rate Blood Pressure 98/59 O2 Sat by Pulse 99 97 Oximetry 03/01/21 04:43 Temperature 98.2 F Pulse Rate 105 H Respiratory 18 Rate Blood Pressure 98/69 O2 Sat by Pulse 95 Oximetry General appearance: Present: no acute distress - EENT Eyes: EOM intact ENT: hearing intact - Neck Neck: supple - Respiratory Respiratory effort: normal Extremities: abnormal Extremity abnormal: edema - Gastrointestinal General gastrointestinal: Present: deferred Rectal Exam: deferred - Genitourinary Male genitourinary: deferred - Musculoskeletal Musculoskeletal: right sided weakness - Psychiatric Psychiatric: cooperative - Labs CBC & Chem 7: 03/01/21 05:13 03/01/21 05:13 Labs: Abnormal lab results 03/01/21 03/01/21 Range/Units 05:13 05:13 RBC 2.61 L (3.65-5.03) M/mm3 Hgb 7.6 L (11.8-15.2) gm/dl Hct 23.2 L D (35.5-45.6) % RDW 17.6 H (13.2-15.2) % Plt Count 103 L (140-440) K/mm3 BUN 32 H (9-20) mg/dL Creatinine 3.3 H (0.8-1.3) mg/dL Glucose 101 H (75-100) mg/dL Troponin T 0.138 H* (0.00-0.029) ng/mL Medications & Allergies - Medications Allergies/Adverse Reactions: Allergies No Known Allergies Allergy (Unverified 02/25/21 09:01) Home Medications: Home Medications Medication Instructions Recorded Confirmed Last Taken Type Acetaminophen [Acetaminophen ER] 650 mg PO PRN PRN 02/17/21 02/17/21 Unknown History Aspirin [Adult Aspirin] 81 mg PO DAILY 02/17/21 02/27/21 02/25/21 09:00 History Omeprazole 20 mg PO BID 02/17/21 02/27/21 02/26/21 10:40 History Sertraline HCl [Zoloft] 100 mg PO DAILY 02/17/21 02/27/21 02/25/21 09:00 History Tacrolimus [Prograf] 0.5 mg PO DAILY 02/17/21 02/17/21 Unknown History carvediloL [Coreg] 6.25 mg PO BID 02/17/21 02/27/21 02/26/21 10:40 History traMADoL [Ultram 50 MG tab] 50 mg PO Q12HR PRN 02/17/21 02/17/21 Unknown History HYDROcodone/APAP 7.5-325 [[place] 1 each PO Q6HR PRN #40 tablet 02/26/21 Unknown Rx 7.5/325] Active Medications: Generic Name Dose Route Start Last Admin Trade Name Freq PRN Reason Stop Dose Admin Acetaminophen 650 mg 02/26/21 15:00 Acetaminophen 325 Mg Tab PO Q4H PRN Pain MILD(1-3)/Fever >100.5/TOBIAS Hydrocodone Bitart/Acetaminophen 2 each 02/26/21 15:00 03/01/21 05:20 Hydrocodone/Acetaminophen 5-325 Mg Tab PO 2 each Q6H PRN Administration Pain, Moderate (4-6) Apixaban 5 mg 02/27/21 16:00 03/01/21 09:10 Apixaban 5 Mg Tab PO 5 mg Q12HR REBEL Administration Protocol Carvedilol 6.25 mg 02/26/21 22:00 02/28/21 21:35 Carvedilol 6.25 Mg Tab PO Not Given BID REBEL Gabapentin 100 mg 02/26/21 22:00 03/01/21 05:21 Gabapentin 100 Mg Cap PO 100 mg Q8HR REBEL Administration Sodium Chloride 100 mls @ 999 mls/hr 03/01/21 09:00 Nacl 0.9% IV SALIMA PRN Hypotension Morphine Sulfate 4 mg 02/26/21 16:00 02/28/21 10:00 Morphine 4 Mg/1 Ml Inj IV 4 mg Q4H PRN Administration Pain , Severe (7-10) Ondansetron HCl 4 mg 02/26/21 15:00 Ondansetron 4 Mg/2 Ml Inj IV Q8H PRN Nausea And Vomiting Pantoprazole Sodium 20 mg 02/26/21 22:00 03/01/21 09:09 Pantoprazole 20 Mg Tab PO 20 mg BID REBEL Administration Sertraline HCl 100 mg 02/27/21 10:00 03/01/21 09:10 Sertraline 100 Mg Tab PO 100 mg DAILY REBEL Administration Tacrolimus 0.5 mg 02/26/21 22:00 03/01/21 09:10 Tacrolimus 0.5 Mg Cap PO 0.5 mg Q12HR REBEL Administration Torsemide 10 mg 02/28/21 10:00 03/01/21 09:10 Torsemide 10 Mg Tab PO 10 mg DAILY REBEL Administration Tramadol HCl 50 mg 02/26/21 21:30 Tramadol 50 Mg Tab PO Q12HR PRN Pain, Mild (1-3) HEART Score - HEART Score Troponin: Troponin T 0.138 ng/mL (0.00-0.029) H* 03/01/21 05:13
--- NOTE | 2021-03-01 11:13 | Progress Note ---
Assessment and Plan - Patient Problems (1) End stage renal disease Current Visit: Yes Status: Chronic Plan to address problem: patient to be dialyzed today to maintain on his outpatient Wednesday hemodialysis schedule. Evaluation from vascular surgery in regards to left upper extremity swelling reviewed, with plan for US today. He is postoperative day 3 from AV graft creation. Upon discharge he will need to follow up with his outpatient piercing artist Dr Landa. (2) Hypertensive chronic kidney disease with stage 5 chronic kidney disease or end stage renal disease Current Visit: Yes Status: Chronic Plan to address problem: monitor blood pressures under current regimen. (3) Anemia in chronic kidney disease (CKD) Current Visit: Yes Status: Chronic Qualifiers: Chronic kidney disease stage: on chronic dialysis Qualified Code(s): N18.6 - End stage renal disease; D63.1 - Anemia in chronic kidney disease; Z99.2 - Dependence on renal dialysis Plan to address problem: monitor hemoglobin/hematocrit levels. Transfuse to maintain hemoglobin above 7. No acute indications for KARTHIK therapy based on most recent levels. We will continue to monitor closely. (4) Secondary hyperparathyroidism (of renal origin) Current Visit: Yes Status: Chronic Plan to address problem: and restart home phosphate binder regimen. Subjective Date of service: 03/01/21 Principal diagnosis: End-stage renal disease on hemodialysis, postop graft Interval history: No acute issues/complaints. RUE swelling is improving, is elevated on pillows. Plan for HD today to place back on his regular TTS HD schedule. Objective - Vital Signs Vital signs: Vital Signs - 12hr 02/28/21 03/01/21 23:46 04:43 Temperature 97.8 F 98.2 F Pulse Rate 62 105 H Respiratory 18 18 Rate Blood Pressure 98/59 98/69 O2 Sat by Pulse 97 95 Oximetry - General Appearance General appearance: well-developed EENT: ATNC Neck: no JVD Respiratory: Present: Clear to Ascultation Cardiology: regular Gastrointestinal: normal Neurologic: no focal deficit Musculoskeletal: other (LUE swelling improving ) Psychiatric: cooperative - Lab 03/01/21 05:13 03/01/21 05:13 Most recent lab results Calcium 8.5 mg/dL (8.4-10.2) 03/01/21 05:13 - Allied health notes Allied health notes reviewed: nursing Medications & Allergies - Medications Allergies/Adverse Reactions: Allergies No Known Allergies Allergy (Unverified 02/25/21 09:01) Home Medications: Home Medications Medication Instructions Recorded Confirmed Last Taken Type Acetaminophen [Acetaminophen ER] 650 mg PO PRN PRN 02/17/21 02/17/21 Unknown History Aspirin [Adult Aspirin] 81 mg PO DAILY 02/17/21 02/27/21 02/25/21 09:00 History Omeprazole 20 mg PO BID 02/17/21 02/27/21 02/26/21 10:40 History Sertraline HCl [Zoloft] 100 mg PO DAILY 02/17/21 02/27/21 02/25/21 09:00 History Tacrolimus [Prograf] 0.5 mg PO DAILY 02/17/21 02/17/21 Unknown History carvediloL [Coreg] 6.25 mg PO BID 02/17/21 02/27/21 02/26/21 10:40 History traMADoL [Ultram 50 MG tab] 50 mg PO Q12HR PRN 02/17/21 02/17/21 Unknown History HYDROcodone/APAP 7.5-325 [[place] 1 each PO Q6HR PRN #40 tablet 02/26/21 Unknown Rx 7.5/325] Active Medications: Generic Name Dose Route Start Last Admin Trade Name Freq PRN Reason Stop Dose Admin Acetaminophen 650 mg 02/26/21 15:00 Acetaminophen 325 Mg Tab PO Q4H PRN Pain MILD(1-3)/Fever >100.5/TOBIAS Hydrocodone Bitart/Acetaminophen 2 each 02/26/21 15:00 03/01/21 05:20 Hydrocodone/Acetaminophen 5-325 Mg Tab PO 2 each Q6H PRN Administration Pain, Moderate (4-6) Apixaban 5 mg 02/27/21 16:00 03/01/21 09:10 Apixaban 5 Mg Tab PO 5 mg Q12HR REBEL Administration Protocol Carvedilol 6.25 mg 02/26/21 22:00 02/28/21 21:35 Carvedilol 6.25 Mg Tab PO Not Given BID REBEL Gabapentin 100 mg 02/26/21 22:00 03/01/21 05:21 Gabapentin 100 Mg Cap PO 100 mg Q8HR REBEL Administration Sodium Chloride 100 mls @ 999 mls/hr 03/01/21 09:00 Nacl 0.9% IV SALIMA PRN Hypotension Morphine Sulfate 4 mg 02/26/21 16:00 02/28/21 10:00 Morphine 4 Mg/1 Ml Inj IV 4 mg Q4H PRN Administration Pain , Severe (7-10) Ondansetron HCl 4 mg 02/26/21 15:00 Ondansetron 4 Mg/2 Ml Inj IV Q8H PRN Nausea And Vomiting Pantoprazole Sodium 20 mg 02/26/21 22:00 03/01/21 09:09 Pantoprazole 20 Mg Tab PO 20 mg BID REBEL Administration Sertraline HCl 100 mg 02/27/21 10:00 03/01/21 09:10 Sertraline 100 Mg Tab PO 100 mg DAILY REBEL Administration Tacrolimus 0.5 mg 02/26/21 22:00 03/01/21 09:10 Tacrolimus 0.5 Mg Cap PO 0.5 mg Q12HR REBEL Administration Torsemide 10 mg 02/28/21 10:00 03/01/21 09:10 Torsemide 10 Mg Tab PO 10 mg DAILY REBEL Administration Tramadol HCl 50 mg 02/26/21 21:30 Tramadol 50 Mg Tab PO Q12HR PRN Pain, Mild (1-3)
[2021-03-01] MEDS ORDERED: ALBUMIN HUMAN 25% (25 GM/100 ML) INJ IV PRN (12:00)
[2021-03-01] MEDS: carvediloL 6.25 MG TAB PO SCH ×2 (13:05→21:15)
--- NOTE | 2021-03-01 13:33 | Vascular Lab Report ---
DOPPLER ULTRASOUND UPPER EXTREMITY VASCULAR, RIGHT INDICATION / CLINICAL INFORMATION: Right arm edema TECHNIQUE: Grayscale, color and spectral Doppler imaging of the venous system of the upper extremity was performed. COMPARISON: None available. FINDINGS: AV FISTULA - Location: RIGHT SUBCLAVIAN JUNCTION PSV (cm/s): Could not be obtained due to permacath placement. The inflow velocity is 123 cm/s. The velocity at the anastomosis is 370 cm/s. The brachial velocity i n the distal upper arm is 119 cm/s with a flow volume of 0.75 L/m, the velocity in the mid upper arm is 127 cm/s with a flow volume of 1.21 L/m and the velocity in the proximal upper arm is 143 cm/s wit h a flow volume is 0.49 L/m. The AP fistula is patent. There is soft tissue density surrounding the graft which may be related to hematoma/edema IMPRESSION: Patent AV fistula/graft with measurements as above. There is edema/hematoma surrounding t he graft. Signer Name: Jack Laird MD Signed: 03/01/2021 1:29 PM Workstation Name: [id number]
[2021-03-01] MEDS: EPOETIN ALFA-EPBX 20,000 UNIT/1 ML VIAL IV PRN (16:42)
[2021-03-01] MEDS: ACETAMINOPHEN 325 MG TAB PO PRN (21:14)
[2021-03-02] MEDS: HYDROcodone/ACETAMINOPHEN 5-325 MG TAB PO PRN ×4 (00:12→22:29)
[2021-03-02] MEDS: GABAPENTIN 100 MG CAP PO SCH ×3 (05:46→22:13)
--- NOTE | 2021-03-02 09:13 | Progress Note ---
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 Consult placed by DR. Terrell for HTN, ESRD. Patient seen and evaluated upon arrival to his room. No reported nursing events. Patient denies fever, chills, chest pain, palpitation, productive cough, skin rash, recent ill contact, or known exposure to COVID-19. 02/28: Patient for HD today. Stable from my standpoint for discharge blood pressure is improved. Right upper extremity was swollen vascular evaluating. 03/01: Patient with decompression of the right upper ext done yesterday, still some edema, still with some hematoma noted and bilster on the right side He does have 2 blisters which appear to be decompressing along the medial aspect of his upper arm. Scant serosanguineous drainage from his incisions. The arm is still swollen however is decompressing. Hematomas are present extending from the upper arm distally. The patient states that his pain in his arm is much improved from yesterday. 03/02: Continue wound care, monitor H/H, further management of right upper ext fistula site per Surgeon (1) Hypertension Current Visit: Yes Status: Acute Qualifiers: Hypertension type: primary hypertension Qualified Code(s): I10 - Essential (primary) hypertension Plan to address problem: Monitor blood pressure every shift, continue medical management. (2) End stage renal disease Current Visit: Yes Status: Acute Plan to address problem: Dialysis as per renal team, nephrology team consulted. 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 7) Anemia of chronic disease History Interval history: Patient seen and examined, no new complaints, right upper ext still swollen Hospitalist Physical - Physical exam Narrative exam: General appearance: Present: No distress, marked temporal wasting - EENT Eyes: Present: PERRL ENT: hearing intact, clear oral mucosa - Neck Neck: Present: supple, normal ROM - Respiratory Respiratory effort: normal Respiratory: bilateral: CTA - Cardiovascular Heart Sounds: Present: S1 & S2. Absent: rub, click - Extremities Extremities: pulses symmetrical, right upper ext with edema, some blisters, wound noted Peripheral Pulses: within normal limits - Abdominal General gastrointestinal: Present: soft, non-tender, non-distended, normal bowel sounds Male genitourinary: Present: normal - Integumentary Integumentary: Present: right upper ext, excoriation, swelling, av fistula. - Musculoskeletal Musculoskeletal: unable to assess gait - Psychiatric Psychiatric: appropriate mood/affect, intact judgment & insight - Neurologic Neurologic: paresis of the right side - Constitutional Vitals: Temp Pulse Resp BP Pulse Ox 97.9 F 76 18 98/74 100 03/02/21 07:46 03/02/21 08:02 03/02/21 07:46 03/02/21 08:02 03/02/21 07:48 General appearance: Present: no acute distress HEART Score - HEART Score Troponin: Troponin T 0.138 ng/mL (0.00-0.029) H* 03/01/21 05:13 Results - Labs CBC & Chem 7: 03/01/21 05:13 03/02/21 05:32 Labs: Laboratory Last Values WBC 5.6 K/mm3 (4.5-11.0) 03/01/21 05:13 RBC 2.61 M/mm3 (3.65-5.03) L 03/01/21 05:13 Hgb 7.6 gm/dl (11.8-15.2) L 03/01/21 05:13 Hct 23.2 % (35.5-45.6) L D 03/01/21 05:13 MCV 89 fl (84-94) 03/01/21 05:13 MCH 29 pg (28-32) 03/01/21 05:13 MCHC 33 % (32-34) 03/01/21 05:13 RDW 17.6 % (13.2-15.2) H 03/01/21 05:13 Plt Count 103 K/mm3 (140-440) L 03/01/21 05:13 Lymph % (Auto) 13.9 % (13.4-35.0) 02/27/21 05:44 [place] % (Auto) 9.5 % (0.0-7.3) H 02/27/21 05:44 Eos % (Auto) 3.3 % (0.0-4.3) 02/27/21 05:44 Baso % (Auto) 0.4 % (0.0-1.8) 02/27/21 05:44 Lymph # (Auto) 0.8 K/mm3 (1.2-5.4) L 02/27/21 05:44 [place] # (Auto) 0.6 K/mm3 (0.0-0.8) 02/27/21 05:44 Eos # (Auto) 0.2 K/mm3 (0.0-0.4) 02/27/21 05:44 Baso # (Auto) 0.0 K/mm3 (0.0-0.1) 02/27/21 05:44 Seg Neutrophils % 72.9 % (40.0-70.0) H 02/27/21 05:44 Seg Neutrophils # 4.4 K/mm3 (1.8-7.7) 02/27/21 05:44 PT 17.5 Sec. (12.2-14.9) H 02/27/21 18:32 INR 1.37 (0.87-1.13) H 02/27/21 18:32 APTT 37.5 Sec. (24.2-36.6) H 02/27/21 18:32 Sodium 138 mmol/L (137-145) 03/01/21 05:13 Potassium 4.0 mmol/L (3.6-5.0) 03/01/21 05:13 Chloride 97.5 mmol/L (98-107) L 03/01/21 05:13 Carbon Dioxide 25 mmol/L (22-30) 03/01/21 05:13 Anion Gap 20 mmol/L 03/01/21 05:13 BUN 32 mg/dL (9-20) H 03/01/21 05:13 Creatinine 2.9 mg/dL (0.8-1.3) H 03/02/21 05:32 Estimated GFR 27 ml/min 03/02/21 05:32 BUN/Creatinine Ratio 10 % 03/01/21 05:13 Glucose 101 mg/dL (75-100) H 03/01/21 05:13 Calcium 8.5 mg/dL (8.4-10.2) 03/01/21 05:13 Total Creatine Kinase 54 units/L (55-170) L 02/27/21 10:45 CK-MB (CK-2) 1.5 ng/mL (0.0-4.0) 02/27/21 10:45 CK-MB (CK-2) Rel Index 2.7 (0-4) 02/27/21 10:45 Troponin T 0.138 ng/mL (0.00-0.029) H* 03/01/21 05:13 Triglycerides 106 mg/dL (2-149) 02/27/21 10:45 Cholesterol 84 mg/dL (50-199) 02/27/21 10:45 LDL Cholesterol Direct 39 mg/dL (50-130) L 02/27/21 10:45 HDL Cholesterol 27 mg/dL (40-59) L 02/27/21 10:45 Cholesterol/HDL Ratio 3.11 % 02/27/21 10:45 Nasal Screen MRSA (PCR) Negative (Negative) 02/27/21 Unknown Hepatitis A IgM Ab Non-reactive (NonReactive) 02/27/21 18:32 Hep Bs Antigen Non-reactive (Negative) 02/27/21 18:32 Hep B Core IgM Ab Non-reactive (NonReactive) 02/27/21 18:32 Hepatitis C Antibody Reactive (NonReactive) A 02/27/21 18:32 Blood Type A POSITIVE 02/26/21 14:42 Antibody Screen Negative 02/26/21 14:42 Crossmatch See Detail 02/26/21 14:42 Neal/IV: Voiding Method Condom Catheter Active Medications - Current Medications Current Medications: Generic Name Dose Route Start Last Admin Trade Name Freq PRN Reason Stop Dose Admin Acetaminophen 650 mg 02/26/21 15:00 03/01/21 21:14 Acetaminophen 325 Mg Tab PO 650 mg Q4H PRN Administration Pain MILD(1-3)/Fever >100.5/TOBIAS Hydrocodone Bitart/Acetaminophen 2 each 02/26/21 15:00 03/02/21 05:45 Hydrocodone/Acetaminophen 5-325 Mg Tab PO 2 each Q6H PRN Administration Pain, Moderate (4-6) Albumin Human 25 gm 03/01/21 12:00 03/01/21 16:28 Albumin Human 25% (25 Gm/100 Ml) Inj IV 25 gm SALIMA PRN Administration Hypotension Apixaban 5 mg 02/27/21 16:00 03/01/21 21:14 Apixaban 5 Mg Tab PO 5 mg Q12HR REBEL Administration Protocol Carvedilol 6.25 mg 02/26/21 22:00 03/01/21 21:15 Carvedilol 6.25 Mg Tab PO Not Given BID REBEL Gabapentin 100 mg 02/26/21 22:00 03/02/21 05:46 Gabapentin 100 Mg Cap PO 100 mg Q8HR REBEL Administration Sodium Chloride 100 mls @ 999 mls/hr 03/01/21 09:00 Nacl 0.9% IV SALIMA PRN Hypotension Morphine Sulfate 4 mg 02/26/21 16:00 02/28/21 10:00 Morphine 4 Mg/1 Ml Inj IV 4 mg Q4H PRN Administration Pain , Severe (7-10) Ondansetron HCl 4 mg 02/26/21 15:00 Ondansetron 4 Mg/2 Ml Inj IV Q8H PRN Nausea And Vomiting Pantoprazole Sodium 20 mg 02/26/21 22:00 03/01/21 21:14 Pantoprazole 20 Mg Tab PO 20 mg BID REBEL Administration Sertraline HCl 100 mg 02/27/21 10:00 03/01/21 09:10 Sertraline 100 Mg Tab PO 100 mg DAILY REBEL Administration Tacrolimus 0.5 mg 02/26/21 22:00 03/01/21 21:14 Tacrolimus 0.5 Mg Cap PO 0.5 mg Q12HR REBEL Administration Torsemide 10 mg 02/28/21 10:00 03/01/21 09:10 Torsemide 10 Mg Tab PO 10 mg DAILY REBEL Administration Tramadol HCl 50 mg 02/26/21 21:30 Tramadol 50 Mg Tab PO Q12HR PRN Pain, Mild (1-3) Nutrition/Malnutrition Assess - Dietary Evaluation Nutrition/Malnutrition Findings: Nutrition Notes Start: 02/27/21 12:35 Freq: Status: Active Protocol: Document 02/27/21 12:35 (Rec: 02/27/21 12:41 [email or web address]) Nutrition Notes 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 Pt reports not having an appetite for one month. He states it is even harder for him to eat because he doesn't like the food they provide at the care center he is at. Pt open to ONS. Burn Absent Trauma Absent GI Symptoms None Current % PO Poor (25-49%) Minimum of two criteria Yes Energy Intake (non-severe) <75% Estimated Energy Requirement >7 days Interpretation of Weight Loss (severe) >5% in 1 month Muscle Mass Mild Depletion (non-severe) #1 Nutrition Diagnosis Malnutrition Etiology decreased appetite As Evidenced by Signs and Symptoms <75% of EER in >or = to 7 days , >5% wt loss in 1 month, muscle wasting Is patient on ventilator? No Is Patient Ambulatory and/or Out of Bed No REE-([facility] [place]-confined to bed) 1750.980 Kcal/Kg value to use for calculation 32 Approximate Energy Requirements Using 2016 kcal/Kg Calculation Used for Recommendations Kcal/kg Additional Notes Protein: (>1.2g/kg) >76g Fluid: output + 1000 ml Nutrition Intervention Change Diet Order: Continue Add Supplement/Snack (indicate name/kcal [place] BID /protein ) Provides kCal: 850 Provides Protein (gm) 38 Goal #1 Meet at least 80% of protein and energy needs via PO and ONS intakes Anticipated Discharge Needs: Renal with ONS BID Follow-Up By: 03/03/21 Additional Comments FU for intakes and ONS tolerance
--- NOTE | 2021-03-02 09:33 | Progress Note ---
Assessment and Plan Patient status post right upper arm graft placement and percutaneous venoplasty of axillary vein with stent placement. Clinically, the patient is doing well. Drop in hemoglobin noted which may be secondary to his post intervention and po stsurgical hematomas. Ultrasound did not demonstrate any areas of active extravasation. Would anticipate discharge tomorrow. Subjective Date of service: 03/02/21 Principal diagnosis: End-stage renal disease on hemodialysis, postop graft Interval history: Patient status post right upper extremity graft placement with postop angioplasty and stent placement. Ultrasound was performed yesterday which demonstrates the graft is widely patent with no stenosis. Patient with hematoma. No flow noted within hematoma. His arm feels back to its baseline. His blisters have decompressed. Patient with only scant serous predominantly drainage from the inferior incision. Still with edema although improving. Objective - Constitutional Vitals: Vital Signs - 12hr 03/01/21 03/01/21 03/01/21 22:00 22:01 23:38 Temperature 99.6 F Pulse Rate 102 H 60 Respiratory 20 20 Rate Blood Pressure 93/56 Blood Pressure [Left] O2 Sat by Pulse 98 96 Oximetry 03/02/21 03/02/21 03/02/21 04:00 07:46 07:48 Temperature 97.9 F 97.9 F Pulse Rate 115 H 107 H 120 H Respiratory 18 18 Rate Blood Pressure 97/49 78/53 Blood Pressure [Left] O2 Sat by Pulse 100 95 100 Oximetry 03/02/21 08:02 Temperature Pulse Rate 76 Respiratory Rate Blood Pressure Blood Pressure 98/74 [Left] O2 Sat by Pulse Oximetry General appearance: Present: no acute distress - EENT Eyes: EOM intact ENT: hearing intact - Neck Neck: normal ROM - Respiratory Respiratory effort: normal Extremity abnormal: edema (Right upper arm) - Gastrointestinal General gastrointestinal: Present: deferred Rectal Exam: deferred - Genitourinary Male genitourinary: deferred - Musculoskeletal Musculoskeletal: right sided weakness - Psychiatric Psychiatric: appropriate mood/affect, cooperative - Labs CBC & Chem 7: 03/01/21 05:13 03/02/21 05:32 Labs: Abnormal lab results 03/01/21 03/02/21 Range/Units 05:13 05:32 Chloride 97.5 L (98-107) mmol/L Creatinine 2.9 H (0.8-1.3) mg/dL Medications & Allergies - Medications Allergies/Adverse Reactions: Allergies No Known Allergies Allergy (Unverified 02/25/21 09:01) Home Medications: Home Medications Medication Instructions Recorded Confirmed Last Taken Type Acetaminophen [Acetaminophen ER] 650 mg PO PRN PRN 02/17/21 02/17/21 Unknown History Aspirin [Adult Aspirin] 81 mg PO DAILY 02/17/21 02/27/21 02/25/21 09:00 History Omeprazole 20 mg PO BID 02/17/21 02/27/21 02/26/21 10:40 History Sertraline HCl [Zoloft] 100 mg PO DAILY 02/17/21 02/27/21 02/25/21 09:00 History Tacrolimus [Prograf] 0.5 mg PO DAILY 02/17/21 02/17/21 Unknown History carvediloL [Coreg] 6.25 mg PO BID 02/17/21 02/27/21 02/26/21 10:40 History traMADoL [Ultram 50 MG tab] 50 mg PO Q12HR PRN 02/17/21 02/17/21 Unknown History HYDROcodone/APAP 7.5-325 [[place] 1 each PO Q6HR PRN #40 tablet 02/26/21 Unknown Rx 7.5/325] Active Medications: Generic Name Dose Route Start Last Admin Trade Name Freq PRN Reason Stop Dose Admin Acetaminophen 650 mg 02/26/21 15:00 03/01/21 21:14 Acetaminophen 325 Mg Tab PO 650 mg Q4H PRN Administration Pain MILD(1-3)/Fever >100.5/TOBIAS Hydrocodone Bitart/Acetaminophen 2 each 02/26/21 15:00 03/02/21 05:45 Hydrocodone/Acetaminophen 5-325 Mg Tab PO 2 each Q6H PRN Administration Pain, Moderate (4-6) Albumin Human 25 gm 03/01/21 12:00 03/01/21 16:28 Albumin Human 25% (25 Gm/100 Ml) Inj IV 25 gm SALIMA PRN Administration Hypotension Apixaban 5 mg 02/27/21 16:00 03/01/21 21:14 Apixaban 5 Mg Tab PO 5 mg Q12HR REBEL Administration Protocol Carvedilol 6.25 mg 02/26/21 22:00 03/01/21 21:15 Carvedilol 6.25 Mg Tab PO Not Given BID REBEL Gabapentin 100 mg 02/26/21 22:00 03/02/21 05:46 Gabapentin 100 Mg Cap PO 100 mg Q8HR REBEL Administration Sodium Chloride 100 mls @ 999 mls/hr 03/01/21 09:00 Nacl 0.9% IV SLAIMA PRN Hypotension Morphine Sulfate 4 mg 02/26/21 16:00 02/28/21 10:00 Morphine 4 Mg/1 Ml Inj IV 4 mg Q4H PRN Administration Pain , Severe (7-10) Ondansetron HCl 4 mg 02/26/21 15:00 Ondansetron 4 Mg/2 Ml Inj IV Q8H PRN Nausea And Vomiting Pantoprazole Sodium 20 mg 02/26/21 22:00 03/01/21 21:14 Pantoprazole 20 Mg Tab PO 20 mg BID REBEL Administration Sertraline HCl 100 mg 02/27/21 10:00 03/01/21 09:10 Sertraline 100 Mg Tab PO 100 mg DAILY REBEL Administration Tacrolimus 0.5 mg 02/26/21 22:00 03/01/21 21:14 Tacrolimus 0.5 Mg Cap PO 0.5 mg Q12HR REBEL Administration Torsemide 10 mg 02/28/21 10:00 03/01/21 09:10 Torsemide 10 Mg Tab PO 10 mg DAILY REBEL Administration Tramadol HCl 50 mg 02/26/21 21:30 Tramadol 50 Mg Tab PO Q12HR PRN Pain, Mild (1-3) HEART Score - HEART Score Troponin: Troponin T 0.138 ng/mL (0.00-0.029) H* 03/01/21 05:13
[2021-03-02] MEDS: TACROLIMUS 0.5 MG CAP PO SCH ×2 (09:50→22:13)
[2021-03-02] MEDS: APIXABAN 5 MG TAB PO SCH ×2 (09:50→22:11)
[2021-03-02] MEDS: PANTOPRAZOLE 20 MG TAB PO SCH ×2 (09:51→22:13)
[2021-03-02] MEDS: TORSEMIDE 10 MG TAB PO SCH (09:51)
[2021-03-02] MEDS: SERTRALINE 100 MG TAB PO SCH (09:51)
[2021-03-02] MEDS: carvediloL 6.25 MG TAB PO SCH ×2 (09:54→22:00)
--- NOTE | 2021-03-02 20:21 | Progress Note ---
Assessment and Plan - Patient Problems (1) End stage renal disease Current Visit: Yes Status: Chronic Plan to address problem: patient to be maintained on his outpatient Wednesday hemodialysis schedule. Evaluation from vascular surgery in regards to left upper extremity swelling reviewed, with US showing no stenosis. He is postopera tive day 4 from AV graft creation with post op angioplasty and stent placement. 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 (2) Hypertensive chronic kidney disease with stage 5 chronic kidney disease or end stage renal disease Current Visit: Yes Status: Chronic Plan to address problem: monitor blood pressures under current regimen. (3) Anemia in chronic kidney disease (CKD) Current Visit: Yes Status: Chronic Qualifiers: Chronic kidney disease stage: on chronic dialysis Qualified Code(s): N18.6 - End stage renal disease; D63.1 - Anemia in chronic kidney disease; Z99.2 - Dependence on renal dialysis Plan to address problem: monitor hemoglobin/hematocrit levels. Transfuse to maintain hemoglobin above 7. No acute indications for KARTHIK therapy based on most recent levels. We will continue to monitor closely. (4) Secondary hyperparathyroidism (of renal origin) Current Visit: Yes Status: Chronic Plan to address problem: and restart home phosphate binder regimen. Subjective Date of service: 03/02/21 Principal diagnosis: End-stage renal disease on hemodialysis, postop graft Interval history: No acute changes, swelling improving. US did not show any evidence of stenosis. Objective - Vital Signs Vital signs: Vital Signs - 12hr 03/02/21 03/02/21 03/02/21 09:51 09:54 10:00 Temperature Pulse Rate 102 H 102 H 105 H Pulse Rate [ Radial] Respiratory Rate Blood Pressure 96/52 Blood Pressure 96/52 [Left] O2 Sat by Pulse Oximetry 03/02/21 03/02/21 03/02/21 10:39 13:04 13:06 Temperature 98.1 F Pulse Rate 101 H Pulse Rate [ 91 H Radial] Respiratory 17 17 17 Rate Blood Pressure Blood Pressure 101/54 [Left] O2 Sat by Pulse 97 97 Oximetry 03/02/21 03/02/21 03/02/21 13:59 14:06 16:38 Temperature 98.2 F Pulse Rate 90 Pulse Rate [ Radial] Respiratory 16 18 Rate Blood Pressure 97/60 Blood Pressure [Left] O2 Sat by Pulse 100 99 Oximetry 03/02/21 19:33 Temperature 98.4 F Pulse Rate 99 H Pulse Rate [ Radial] Respiratory 20 Rate Blood Pressure 100/54 Blood Pressure [Left] O2 Sat by Pulse 96 Oximetry - General Appearance General appearance: well-developed, appears stated age EENT: ATNC Neck: no JVD, no thyromegaly Respiratory: Present: Clear to Ascultation Cardiology: regular Gastrointestinal: normal Integumentary: no rash Neurologic: no focal deficit Psychiatric: cooperative - Lab 03/01/21 05:13 03/02/21 05:32 Most recent lab results Calcium 8.5 mg/dL (8.4-10.2) 03/01/21 05:13 - Allied health notes Allied health notes reviewed: nursing Medications & Allergies - Medications Allergies/Adverse Reactions: Allergies No Known Allergies Allergy (Unverified 02/25/21 09:01) Home Medications: Home Medications Medication Instructions Recorded Confirmed Last Taken Type Acetaminophen [Acetaminophen ER] 650 mg PO PRN PRN 02/17/21 02/17/21 Unknown History Aspirin [Adult Aspirin] 81 mg PO DAILY 02/17/21 02/27/21 02/25/21 09:00 History Omeprazole 20 mg PO BID 02/17/21 02/27/21 02/26/21 10:40 History Sertraline HCl [Zoloft] 100 mg PO DAILY 02/17/21 02/27/21 02/25/21 09:00 History Tacrolimus [Prograf] 0.5 mg PO DAILY 02/17/21 02/17/21 Unknown History carvediloL [Coreg] 6.25 mg PO BID 02/17/21 02/27/21 02/26/21 10:40 History traMADoL [Ultram 50 MG tab] 50 mg PO Q12HR PRN 02/17/21 02/17/21 Unknown History HYDROcodone/APAP 7.5-325 [[place] 1 each PO Q6HR PRN #40 tablet 02/26/21 Unknown Rx 7.5/325] Active Medications: Generic Name Dose Route Start Last Admin Trade Name Freq PRN Reason Stop Dose Admin Acetaminophen 650 mg 02/26/21 15:00 03/01/21 21:14 Acetaminophen 325 Mg Tab PO 650 mg Q4H PRN Administration Pain MILD(1-3)/Fever >100.5/TOBIAS Hydrocodone Bitart/Acetaminophen 2 each 02/26/21 15:00 03/02/21 13:06 Hydrocodone/Acetaminophen 5-325 Mg Tab PO 2 each Q6H PRN Administration Pain, Moderate (4-6) Albumin Human 25 gm 03/01/21 12:00 03/01/21 16:28 Albumin Human 25% (25 Gm/100 Ml) Inj IV 25 gm SALIMA PRN Administration Hypotension Apixaban 5 mg 02/27/21 16:00 03/02/21 09:50 Apixaban 5 Mg Tab PO 5 mg Q12HR REBEL Administration Protocol Carvedilol 6.25 mg 02/26/21 22:00 03/02/21 09:54 Carvedilol 6.25 Mg Tab PO 6.25 mg BID REBEL Administration Gabapentin 100 mg 02/26/21 22:00 03/02/21 13:04 Gabapentin 100 Mg Cap PO 100 mg Q8HR REBEL Administration Sodium Chloride 100 mls @ 999 mls/hr 03/01/21 09:00 Nacl 0.9% IV SALIMA PRN Hypotension Morphine Sulfate 4 mg 02/26/21 16:00 02/28/21 10:00 Morphine 4 Mg/1 Ml Inj IV 4 mg Q4H PRN Administration Pain , Severe (7-10) Ondansetron HCl 4 mg 02/26/21 15:00 Ondansetron 4 Mg/2 Ml Inj IV Q8H PRN Nausea And Vomiting Pantoprazole Sodium 20 mg 02/26/21 22:00 03/02/21 09:51 Pantoprazole 20 Mg Tab PO 20 mg BID REBEL Administration Sertraline HCl 100 mg 02/27/21 10:00 03/02/21 09:51 Sertraline 100 Mg Tab PO 100 mg DAILY REBEL Administration Tacrolimus 0.5 mg 02/26/21 22:00 03/02/21 09:50 Tacrolimus 0.5 Mg Cap PO 0.5 mg Q12HR REBEL Administration Torsemide 10 mg 02/28/21 10:00 03/02/21 09:51 Torsemide 10 Mg Tab PO 10 mg DAILY REBEL Administration Tramadol HCl 50 mg 02/26/21 21:30 Tramadol 50 Mg Tab PO Q12HR PRN Pain, Mild (1-3)
[2021-03-03 06:20] LABS: Hemoglobin 6.5 gm/dl (11.8-15.2); Mean Corpuscular HGB Conc 33 % (32-34); Mean Corpuscular Volume 90 fl (84-94); Platelet Count 119 K/mm3 (140-440); Red Blood Count 2.19 M/mm3 (3.65-5.03); Red Cell Distribution Width 18.3 % (13.2-15.2)
[2021-03-03 06:39] LABS: Hematocrit 19.7 % (35.5-45.6)
[2021-03-03] MEDS: GABAPENTIN 100 MG CAP PO SCH ×3 (06:48→22:50)
[2021-03-03] MEDS ORDERED: SODIUM CHLORIDE 0.9% 500 ML 500 ML IV SCH (08:30)
--- NOTE | 2021-03-03 08:35 | Progress Note ---
Assessment and Plan - Patient Problems (1) End stage renal disease Current Visit: Yes Status: Chronic Plan to address problem: patient to be maintained on his outpatient Wednesday hemodialysis schedule. Evaluation from vascular surgery in regards to left upper extremity swelling reviewed, with US showing no stenosis. He is postopera tive day 5 from AV graft creation with post op angioplasty and stent placement. Upon discharge he will need to follow up with his outpatient mental health counselor Dr Landa. (2) Anemia in chronic kidney disease (CKD) Current Visit: Yes Status: Chronic Qualifiers: Chronic kidney disease stage: on chronic dialysis Qualified Code(s): N18.6 - End stage renal disease; D63.1 - Anemia in chronic kidney disease; Z99.2 - Dependence on renal dialysis Plan to address problem: monitor hemoglobin/hematocrit levels. Transfuse to maintain hemoglobin above 7. KARTHIK therapy with HD. Decreasing H/H in the setting possibly of RUE hematoma. No extravasation noted per vascular notes. We will continue to monitor closely. No other signs of overt bleeding noted per nursing staff. (3) Hypertensive chronic kidney disease with stage 5 chronic kidney disease or end stage renal disease Current Visit: Yes Status: Chronic Plan to address problem: monitor blood pressures under current regimen. (4) Secondary hyperparathyroidism (of renal origin) Current Visit: Yes Status: Chronic Plan to address problem: and restart home phosphate binder regimen. Subjective Date of service: 03/03/21 Principal diagnosis: End-stage renal disease on hemodialysis, postop graft Interval history: No acute complaints. Drop in H/H noted, with plan to transfuse 1 unit of PRBC. No sings of overt bleeding per nursing staff. Objective - Vital Signs Vital signs: Vital Signs - 12hr 03/02/21 03/02/21 03/03/21 22:00 23:00 00:24 Temperature 99 F Pulse Rate 87 68 Pulse Rate [ Radial] Respiratory 18 Rate Blood Pressure Blood Pressure 100/68 [Left] O2 Sat by Pulse 98 98 Oximetry 03/03/21 03/03/21 04:13 08:03 Temperature 98.4 F Pulse Rate 81 Pulse Rate [ 91 H Radial] Respiratory 18 18 Rate Blood Pressure 92/59 Blood Pressure [Left] O2 Sat by Pulse 100 97 Oximetry - General Appearance General appearance: appears stated age EENT: ATNC Neck: no JVD Respiratory: Present: Clear to Ascultation Cardiology: regular Gastrointestinal: normal Neurologic: no focal deficit Musculoskeletal: deferred Psychiatric: cooperative - Lab 03/03/21 05:32 03/02/21 05:32 Most recent lab results Calcium 8.5 mg/dL (8.4-10.2) 03/01/21 05:13 - Allied health notes Allied health notes reviewed: nursing Medications & Allergies - Medications Allergies/Adverse Reactions: Allergies No Known Allergies Allergy (Unverified 02/25/21 09:01) Home Medications: Home Medications Medication Instructions Recorded Confirmed Last Taken Type Acetaminophen [Acetaminophen ER] 650 mg PO PRN PRN 02/17/21 02/17/21 Unknown History Aspirin [Adult Aspirin] 81 mg PO DAILY 02/17/21 02/27/21 02/25/21 09:00 History Omeprazole 20 mg PO BID 02/17/21 02/27/21 02/26/21 10:40 History Sertraline HCl [Zoloft] 100 mg PO DAILY 02/17/21 02/27/21 02/25/21 09:00 History Tacrolimus [Prograf] 0.5 mg PO DAILY 02/17/21 02/17/21 Unknown History carvediloL [Coreg] 6.25 mg PO BID 02/17/21 02/27/21 02/26/21 10:40 History traMADoL [Ultram 50 MG tab] 50 mg PO Q12HR PRN 02/17/21 02/17/21 Unknown History HYDROcodone/APAP 7.5-325 [[place] 1 each PO Q6HR PRN #40 tablet 02/26/21 Unknown Rx 7.5/325] Active Medications: Generic Name Dose Route Start Last Admin Trade Name Xander PRN Reason Stop Dose Admin Acetaminophen 650 mg 02/26/21 15:00 03/01/21 21:14 Acetaminophen 325 Mg Tab PO 650 mg Q4H PRN Administration Pain MILD(1-3)/Fever >100.5/TOBIAS Hydrocodone Bitart/Acetaminophen 2 each 02/26/21 15:00 03/02/21 22:29 Hydrocodone/Acetaminophen 5-325 Mg Tab PO 2 each Q6H PRN Administration Pain, Moderate (4-6) Albumin Human 25 gm 03/01/21 12:00 03/01/21 16:28 Albumin Human 25% (25 Gm/100 Ml) Inj IV 25 gm SALIMA PRN Administration Hypotension Apixaban 5 mg 02/27/21 16:00 03/02/21 22:11 Apixaban 5 Mg Tab PO 5 mg Q12HR REBEL Administration Protocol Carvedilol 6.25 mg 02/26/21 22:00 03/02/21 22:00 Carvedilol 6.25 Mg Tab PO Not Given BID REBEL Gabapentin 100 mg 02/26/21 22:00 03/03/21 06:48 Gabapentin 100 Mg Cap PO 100 mg Q8HR REBEL Administration Sodium Chloride 100 mls @ 999 mls/hr 03/01/21 09:00 Nacl 0.9% IV SALIMA PRN Hypotension Sodium Chloride 500 mls @ 0 mls/hr 03/03/21 08:30 Nacl 0.9% 500 Ml IV 03/03/21 18:00 ONCE REBEL As Directed Morphine Sulfate 4 mg 02/26/21 16:00 02/28/21 10:00 Morphine 4 Mg/1 Ml Inj IV 4 mg Q4H PRN Administration Pain , Severe (7-10) Ondansetron HCl 4 mg 02/26/21 15:00 Ondansetron 4 Mg/2 Ml Inj IV Q8H PRN Nausea And Vomiting Pantoprazole Sodium 20 mg 02/26/21 22:00 03/02/21 22:13 Pantoprazole 20 Mg Tab PO 20 mg BID REBEL Administration Sertraline HCl 100 mg 02/27/21 10:00 03/02/21 09:51 Sertraline 100 Mg Tab PO 100 mg DAILY REBEL Administration Tacrolimus 0.5 mg 02/26/21 22:00 03/02/21 22:13 Tacrolimus 0.5 Mg Cap PO 0.5 mg Q12HR REBEL Administration Torsemide 10 mg 02/28/21 10:00 03/02/21 09:51 Torsemide 10 Mg Tab PO 10 mg DAILY REBEL Administration Tramadol HCl 50 mg 02/26/21 21:30 Tramadol 50 Mg Tab PO Q12HR PRN Pain, Mild (1-3)
[2021-03-03] MEDS: APIXABAN 5 MG TAB PO SCH ×2 (09:02→22:50)
[2021-03-03] MEDS: SERTRALINE 100 MG TAB PO SCH (09:02)
[2021-03-03] MEDS: TORSEMIDE 10 MG TAB PO SCH (09:02)
[2021-03-03] MEDS: PANTOPRAZOLE 20 MG TAB PO SCH ×2 (09:03→22:50)
[2021-03-03] MEDS: carvediloL 6.25 MG TAB PO SCH ×2 (09:03→22:00)
[2021-03-03] MEDS: TACROLIMUS 0.5 MG CAP PO SCH ×2 (09:04→22:50)
[2021-03-03] MEDS: HYDROcodone/ACETAMINOPHEN 5-325 MG TAB PO PRN ×2 (10:25→22:53)
--- NOTE | 2021-03-03 12:36 | Progress Note ---
Assessment and Plan Atrial fibrillation * Continue Eliquis. Patient is clear to resume anticoagulation per surgeon Dr. Maciel Terrell. Patient has documented noncompliance with Coumadin, and unable to tolerate Plavix due to gastritis, thus is chronically anticoagulated on Eliquis for chronic A. fib with valve disease status post bioprosthetic repair. * Patient is prescribed Coreg 6.25 mg twice daily for rate control but is only receiving intermittently due to hypotension. Heart failure reduced ejection fraction in setting of moderate cardiomyopathy and bioprosthetic MV, TV * Resume home medication torsemide 10 mg daily * Echocardiogram 02/27/2021: LVEF is 35 to 40%. LV normal size. LV SF is moderately decreased. Borderline LVH. Moderate global hypokinesis of LV. RV is mild to moderately dilated. Right ventricle is hypokinetic. LA is moderately dilated. RA is mildly dilated. Bioprosthetic valve in mitral position mean gradient 7.67 mmHg. Bioprosthetic in tricuspid position not clearly visualized. RVSP is 18 mmHg. NSTEMI suspect type II in setting of ESRD on HD * Troponin were noted to be elevated but down trended. Patient is asymptomatic and chest pain-free. Most likely secondary to ESRD. * Nephrology is following DVT Prophylaxis * Patient is anticoagulated on Eliquis Patient is currently in stable cardiac status. Patient may be discharged home to snf facility from cards standpoint. Will follow Patient should follow-up with his established cardiology within 1 to 2 weeks of discharge. Alternatively patient may follow-up with Dr Bach, [facility] heart specialists within 1 to 2 weeks of discharge. #[phone] This patient was seen in conjunction with Dr Bach who agrees with this assessment and plan of care - Patient Problems (1) End stage renal disease Current Visit: Yes Status: Chronic (2) NSTEMI (non-ST elevated myocardial infarction) Current Visit: Yes Status: Acute (3) Heart failure with reduced ejection fraction Current Visit: Yes Status: Acute (4) Atrial fibrillation Current Visit: Yes Status: Acute (5) Anemia in chronic kidney disease (CKD) Current Visit: Yes Status: Chronic Qualifiers: Chronic kidney disease stage: on chronic dialysis Qualified Code(s): N18.6 - End stage renal disease; D63.1 - Anemia in chronic kidney disease; Z99.2 - Dependence on renal dialysis (6) Hypertensive chronic kidney disease with stage 5 chronic kidney disease or end stage renal disease Current Visit: Yes Status: Chronic (7) Secondary hyperparathyroidism (of renal origin) Current Visit: Yes Status: Chronic Subjective Date of service: 03/03/21 Principal diagnosis: End-stage renal disease on hemodialysis, postop graft Interval history: Resting in bed. No complaints of chest pain or shortness of breath Afib 80s-100 No events Objective Last Vital Signs Temp 97.5 F L 03/03/21 07:33 Pulse 91 H 03/03/21 09:03 Resp 18 03/03/21 08:03 BP 92/66 03/03/21 09:03 Pulse Ox 100 03/03/21 08:58 - Physical Examination HEENT: Positive: PERRL, Normocephaly, Mucus Membranes Moist Neck: Positive: neck supple, trachea midline Cardiac: Positive: irregularly irregular Lungs: Positive: Normal Exam, Normal Breath Sounds Neuro: Positive: Grossly Intact Abdomen: Positive: Unremarkable, Soft Musculoskeletal: No Fluid Collection, No Pain Extremities: Present: upper extr. pulses, lower extr. pulses, +4 Edema (RUE ), warm. Absent: edema - Labs and Meds CBC 03/03/21 Range/Units 05:32 WBC 5.1 (4.5-11.0) K/mm3 RBC 2.19 L (3.65-5.03) M/mm3 Hgb 6.5 L (11.8-15.2) gm/dl Hct 19.7 L* (35.5-45.6) % Plt Count 119 L (140-440) K/mm3 - Imaging and Cardiology EKG: report reviewed, image reviewed Echo: report reviewed (Echocardiogram 02/27/2021: LVEF is 35 to 40%. LV normal size. LV SF is moderately decreased. Borderline LVH. Moderate global hypokinesis of LV. RV is mild to moderately dilated. Right ventricle is hypok inetic. LA is moderately dilated. RA is mildly dilated. Bioprosthetic valve in mitral posit) - Telemetry EKG Rhythm: Atrial Fibrillation - Allied health notes Allied health notes reviewed: nursing
--- NOTE | 2021-03-03 13:17 | Progress Note ---
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 Consult placed by DR. Terrell for HTN, ESRD. Patient seen and evaluated upon arrival to his room. No reported nursing events. Patient denies fever, chills, chest pain, palpitation, productive cough, skin rash, recent ill contact, or known exposure to COVID-19. 02/28: Patient for HD today. Stable from my standpoint for discharge blood pressure is improved. Right upper extremity was swollen vascular evaluating. 03/01: Patient with decompression of the right upper ext done yesterday, still some edema, still with some hematoma noted and bilster on the right side He does have 2 blisters which appear to be decompressing along the medial aspect of his upper arm. Scant serosanguineous drainage from his incisions. The arm is still swollen however is decompressing. Hematomas are present extending from the upper arm distally. The patient states that his pain in his arm is much improved from yesterday. 03/02: Continue wound care, monitor H/H, further management of right upper ext fistula site per Surgeon 03/03: Noted anemia worse today down to 6.5 hemoglobin we will transfuse 1 unit packed red blood cell. Disposition per vascular. (1) Hypertension Current Visit: Yes Status: Acute Qualifiers: Hypertension type: primary hypertension Qualified Code(s): I10 - Essential (primary) hypertension Plan to address problem: Monitor blood pressure every shift, continue medical management. (2) End stage renal disease Current Visit: Yes Status: Acute Plan to address problem: Dialysis as per renal team, nephrology team consulted. 3) Type 2 NSTEMI- BULK STATION AGENT EVALUATING 4) BED Bound secondary to CVA WITH HEMIPARESIS OF THE RIGHT UPPER AND LOWER EXT 5) Atrial fibrillation 6) Hypotension- Monitor, may need to hold BB or other antihypertensive. 7) Anemia of chronic disease History Interval history: Patient seen and examined, no new complaints, right upper ext still swollen but improving, reports pain, generalized Hospitalist Physical - Physical exam Narrative exam: General appearance: Present: No distress, marked temporal wasting - EENT Eyes: Present: PERRL ENT: hearing intact, clear oral mucosa - Neck Neck: Present: supple, normal ROM - Respiratory Respiratory effort: normal Respiratory: bilateral: CTA - Cardiovascular Heart Sounds: Present: S1 & S2. Absent: rub, click - Extremities Extremities: pulses symmetrical, right upper ext with edema, some blisters, wound noted Peripheral Pulses: within normal limits - Abdominal General gastrointestinal: Present: soft, non-tender, non-distended, normal bowel sounds Male genitourinary: Present: normal - Integumentary Integumentary: Present: right upper ext, excoriation, swelling, av fistula. - Musculoskeletal Musculoskeletal: unable to assess gait - Psychiatric Psychiatric: appropriate mood/affect, intact judgment & insight - Neurologic Neurologic: paresis of the right side - Constitutional Vitals: Temp Pulse Resp BP Pulse Ox 98.3 F 94 H 18 97/67 100 03/03/21 11:52 03/03/21 11:52 03/03/21 11:52 03/03/21 11:52 03/03/21 11:52 General appearance: Present: no acute distress HEART Score - HEART Score Troponin: Troponin T 0.138 ng/mL (0.00-0.029) H* 03/01/21 05:13 Results - Labs CBC & Chem 7: 03/03/21 05:32 03/02/21 05:32 Labs: Laboratory Last Values WBC 5.1 K/mm3 (4.5-11.0) 03/03/21 05:32 RBC 2.19 M/mm3 (3.65-5.03) L 03/03/21 05:32 Hgb 6.5 gm/dl (11.8-15.2) L 03/03/21 05:32 Hct 19.7 % (35.5-45.6) L* 03/03/21 05:32 MCV 90 fl (84-94) 03/03/21 05:32 MCH 30 pg (28-32) 03/03/21 05:32 MCHC 33 % (32-34) 03/03/21 05:32 RDW 18.3 % (13.2-15.2) H 03/03/21 05:32 Plt Count 119 K/mm3 (140-440) L 03/03/21 05:32 Lymph % (Auto) 13.9 % (13.4-35.0) 02/27/21 05:44 Falls % (Auto) 9.5 % (0.0-7.3) H 02/27/21 05:44 Eos % (Auto) 3.3 % (0.0-4.3) 02/27/21 05:44 Baso % (Auto) 0.4 % (0.0-1.8) 02/27/21 05:44 Lymph # (Auto) 0.8 K/mm3 (1.2-5.4) L 02/27/21 05:44 [place] # (Auto) 0.6 K/mm3 (0.0-0.8) 02/27/21 05:44 Eos # (Auto) 0.2 K/mm3 (0.0-0.4) 02/27/21 05:44 Baso # (Auto) 0.0 K/mm3 (0.0-0.1) 02/27/21 05:44 Seg Neutrophils % 72.9 % (40.0-70.0) H 02/27/21 05:44 Seg Neutrophils # 4.4 K/mm3 (1.8-7.7) 02/27/21 05:44 PT 17.5 Sec. (12.2-14.9) H 02/27/21 18:32 INR 1.37 (0.87-1.13) H 02/27/21 18:32 APTT 37.5 Sec. (24.2-36.6) H 02/27/21 18:32 Sodium 138 mmol/L (137-145) 03/01/21 05:13 Potassium 4.0 mmol/L (3.6-5.0) 03/01/21 05:13 Chloride 97.5 mmol/L (98-107) L 03/01/21 05:13 Carbon Dioxide 25 mmol/L (22-30) 03/01/21 05:13 Anion Gap 20 mmol/L 03/01/21 05:13 BUN 32 mg/dL (9-20) H 03/01/21 05:13 Creatinine 2.9 mg/dL (0.8-1.3) H 03/02/21 05:32 Estimated GFR 27 ml/min 03/02/21 05:32 BUN/Creatinine Ratio 10 % 03/01/21 05:13 Glucose 101 mg/dL (75-100) H 03/01/21 05:13 Calcium 8.5 mg/dL (8.4-10.2) 03/01/21 05:13 Total Creatine Kinase 54 units/L (55-170) L 02/27/21 10:45 CK-MB (CK-2) 1.5 ng/mL (0.0-4.0) 02/27/21 10:45 CK-MB (CK-2) Rel Index 2.7 (0-4) 02/27/21 10:45 Troponin T 0.138 ng/mL (0.00-0.029) H* 03/01/21 05:13 Triglycerides 106 mg/dL (2-149) 02/27/21 10:45 Cholesterol 84 mg/dL (50-199) 02/27/21 10:45 LDL Cholesterol Direct 39 mg/dL (50-130) L 02/27/21 10:45 HDL Cholesterol 27 mg/dL (40-59) L 02/27/21 10:45 Cholesterol/HDL Ratio 3.11 % 02/27/21 10:45 Nasal Screen MRSA (PCR) Negative (Negative) 02/27/21 Unknown Hepatitis A IgM Ab Non-reactive (NonReactive) 02/27/21 18:32 Hep Bs Antigen Non-reactive (Negative) 02/27/21 18:32 Hep B Core IgM Ab Non-reactive (NonReactive) 02/27/21 18:32 Hepatitis C Antibody Reactive (NonReactive) A 02/27/21 18:32 Blood Type A POSITIVE 03/03/21 09:05 Antibody Screen Negative 03/03/21 09:05 Crossmatch See Detail 03/03/21 09:05 Neal/IV: Voiding Method Condom Catheter Active Medications - Current Medications Current Medications: Generic Name Dose Route Start Last Admin Trade Name Isauroq PRN Reason Stop Dose Admin Acetaminophen 650 mg 02/26/21 15:00 03/01/21 21:14 Acetaminophen 325 Mg Tab PO 650 mg Q4H PRN Administration Pain MILD(1-3)/Fever >100.5/TOBIAS Hydrocodone Bitart/Acetaminophen 2 each 02/26/21 15:00 03/03/21 10:25 Hydrocodone/Acetaminophen 5-325 Mg Tab PO 2 each Q6H PRN Administration Pain, Moderate (4-6) Albumin Human 25 gm 03/01/21 12:00 03/01/21 16:28 Albumin Human 25% (25 Gm/100 Ml) Inj IV 25 gm SALIMA PRN Administration Hypotension Apixaban 5 mg 02/27/21 16:00 03/03/21 09:02 Apixaban 5 Mg Tab PO 5 mg Q12HR REBEL Administration Protocol Carvedilol 6.25 mg 02/26/21 22:00 03/03/21 09:03 Carvedilol 6.25 Mg Tab PO 6.25 mg BID REBEL Administration Gabapentin 100 mg 02/26/21 22:00 03/03/21 06:48 Gabapentin 100 Mg Cap PO 100 mg Q8HR REBEL Administration Sodium Chloride 100 mls @ 999 mls/hr 03/01/21 09:00 Nacl 0.9% IV SALIMA PRN Hypotension Sodium Chloride 500 mls @ 0 mls/hr 03/03/21 08:30 Nacl 0.9% 500 Ml IV 03/03/21 18:00 ONCE REBEL As Directed Morphine Sulfate 4 mg 02/26/21 16:00 02/28/21 10:00 Morphine 4 Mg/1 Ml Inj IV 4 mg Q4H PRN Administration Pain , Severe (7-10) Ondansetron HCl 4 mg 02/26/21 15:00 Ondansetron 4 Mg/2 Ml Inj IV Q8H PRN Nausea And Vomiting Pantoprazole Sodium 20 mg 02/26/21 22:00 03/03/21 09:03 Pantoprazole 20 Mg Tab PO 20 mg BID REBEL Administration Sertraline HCl 100 mg 02/27/21 10:00 03/03/21 09:02 Sertraline 100 Mg Tab PO 100 mg DAILY REBEL Administration Tacrolimus 0.5 mg 02/26/21 22:00 03/03/21 09:04 Tacrolimus 0.5 Mg Cap PO 0.5 mg Q12HR REBEL Administration Torsemide 10 mg 02/28/21 10:00 03/03/21 09:02 Torsemide 10 Mg Tab PO 10 mg DAILY REBEL Administration Tramadol HCl 50 mg 02/26/21 21:30 Tramadol 50 Mg Tab PO Q12HR PRN Pain, Mild (1-3) Nutrition/Malnutrition Assess - Dietary Evaluation Nutrition/Malnutrition Findings: Nutrition Notes Start: 02/27/21 12:35 Freq: Status: Active Protocol: Document 03/03/21 12:50 MK (Rec: 03/03/21 13:12 CRIS [id number]) Nutrition Notes Initial or Follow up Reassessment Current Diagnosis CKD (stage V CKD),Hypertension ,Respiratory Failure Other Pertinent Diagnosis on HD Current Diet Renal Labs/Tests Reviewed Pertinent Medications Reviewed Height 5 ft 9 in Weight 71.2 kg [place] Body Weight (kg) 72.72 BMI 23.1 Weight change and time frame Wt change noted, follow for trends Weight Status Appropriate Subjective/Other Information FU for intakes. Pt eating 50% of meals. He would like ONS TID. Percent of energy/protein needs met: 89%/100% Burn Absent Trauma Absent GI Symptoms None Current % PO Poor (25-49%) Minimum of two criteria Yes Energy Intake (non-severe) <75% Estimated Energy Requirement >7 days Interpretation of Weight Loss (severe) >5% in 1 month Muscle Mass Mild Depletion (non-severe) #1 Nutrition Diagnosis Malnutrition Diagnosis Progress(for reassessment Continues documentation) Is patient on ventilator? No Is Patient Ambulatory and/or Out of Bed No REE-([facility]-confined to bed) 1849.272 Kcal/Kg value to use for calculation 29 Approximate Energy Requirements Using 2065 kcal/Kg Calculation Used for Recommendations Kcal/kg Additional Notes Protein: (>1.2g/kg) >76g Fluid: output + 1000 ml Nutrition Intervention Change Diet Order: Continue Add Supplement/Snack (indicate name/kcal Nepro TID /protein ) Provides kCal: 1,275 Provides Protein (gm) 57 Goal #1 Meet at least 80% of protein and energy needs via PO and ONS intakes Anticipated Discharge Needs: Renal with ONS BID Follow-Up By: 03/05/21 Additional Comments Pt at dialysis at this time
--- NOTE | 2021-03-03 16:42 | Progress Note ---
Assessment and Plan 55-year-old male with recent right upper extremity AV graft creation status post stenting of venous anastomosis with stent graft and central vein angioplasty who persistently has swelling of the right upper extremity with decreased hemoglobin and bruising of the right upper extremity. Ordered another fistula ultrasound to reevaluate the graft. This is to make sure there is no pseudoaneurysm, although based on the prior ultrasound, I do not suspect there will be one. Ordered guaiac given decrease in hemoglobin. Reevaluate after ultrasounds come back. Subjective Date of service: 03/03/21 Principal diagnosis: End-stage renal disease on hemodialysis, postop graft Interval history: Significant swelling of right upper extremity with bruising noted. Pain with palpation. Patient has a baseline paretic right upper extremity. Reviewed binh or imaging. Hemoglobin has decreased. Objective - Constitutional Vitals: Vital Signs - 12hr 03/03/21 03/03/21 03/03/21 07:15 07:33 08:03 Temperature 97.5 F L Pulse Rate 82 61 Pulse Rate [ 91 H Radial] Respiratory 20 18 Rate Blood Pressure 92/66 O2 Sat by Pulse 100 97 Oximetry 03/03/21 03/03/21 03/03/21 08:58 09:03 11:52 Temperature 98.3 F Pulse Rate 91 H 94 H Pulse Rate [ Radial] Respiratory 18 Rate Blood Pressure 92/66 97/67 O2 Sat by Pulse 100 100 Oximetry General appearance: Present: mild distress (Right upper extremity discomfort) - EENT Eyes: EOM intact ENT: hearing intact - Respiratory Respiratory effort: normal Extremities: abnormal (see subjective) - Gastrointestinal General gastrointestinal: Present: soft, non-tender - Psychiatric Psychiatric: appropriate mood/affect, cooperative - Labs CBC & Chem 7: 03/03/21 05:32 03/02/21 05:32 Labs: Abnormal lab results 03/03/21 03/03/21 Range/Units 05:32 09:05 RBC 2.19 L (3.65-5.03) M/mm3 Hgb 6.5 L (11.8-15.2) gm/dl Hct 19.7 L* (35.5-45.6) % RDW 18.3 H (13.2-15.2) % Plt Count 119 L (140-440) K/mm3 Crossmatch See Detail Medications & Allergies - Medications Allergies/Adverse Reactions: Allergies No Known Allergies Allergy (Unverified 02/25/21 09:01) Home Medications: Home Medications Medication Instructions Recorded Confirmed Last Taken Type Acetaminophen [Acetaminophen ER] 650 mg PO PRN PRN 02/17/21 02/17/21 Unknown History Aspirin [Adult Aspirin] 81 mg PO DAILY 02/17/21 02/27/21 02/25/21 09:00 History Omeprazole 20 mg PO BID 02/17/21 02/27/21 02/26/21 10:40 History Sertraline HCl [Zoloft] 100 mg PO DAILY 02/17/21 02/27/21 02/25/21 09:00 History Tacrolimus [Prograf] 0.5 mg PO DAILY 02/17/21 02/17/21 Unknown History carvediloL [Coreg] 6.25 mg PO BID 02/17/21 02/27/21 02/26/21 10:40 History traMADoL [Ultram 50 MG tab] 50 mg PO Q12HR PRN 02/17/21 02/17/21 Unknown History HYDROcodone/APAP 7.5-325 [[place] 1 each PO Q6HR PRN #40 tablet 02/26/21 Unknown Rx 7.5/325] Active Medications: Generic Name Dose Route Start Last Admin Trade Name Freq PRN Reason Stop Dose Admin Acetaminophen 650 mg 02/26/21 15:00 03/01/21 21:14 Acetaminophen 325 Mg Tab PO 650 mg Q4H PRN Administration Pain MILD(1-3)/Fever >100.5/TOBIAS Hydrocodone Bitart/Acetaminophen 2 each 02/26/21 15:00 03/03/21 10:25 Hydrocodone/Acetaminophen 5-325 Mg Tab PO 2 each Q6H PRN Administration Pain, Moderate (4-6) Albumin Human 25 gm 03/01/21 12:00 03/01/21 16:28 Albumin Human 25% (25 Gm/100 Ml) Inj IV 25 gm SALIMA PRN Administration Hypotension Apixaban 5 mg 02/27/21 16:00 03/03/21 09:02 Apixaban 5 Mg Tab PO 5 mg Q12HR REBEL Administration Protocol Carvedilol 6.25 mg 02/26/21 22:00 03/03/21 09:03 Carvedilol 6.25 Mg Tab PO 6.25 mg BID REBEL Administration Gabapentin 100 mg 02/26/21 22:00 03/03/21 14:09 Gabapentin 100 Mg Cap PO 100 mg Q8HR REBEL Administration Sodium Chloride 100 mls @ 999 mls/hr 03/01/21 09:00 Nacl 0.9% IV SALIMA PRN Hypotension Sodium Chloride 500 mls @ 0 mls/hr 03/03/21 08:30 03/03/21 13:41 Nacl 0.9% 500 Ml IV 03/03/21 18:00 125 mls/hr ONCE REBEL Administration As Directed Morphine Sulfate 4 mg 02/26/21 16:00 02/28/21 10:00 Morphine 4 Mg/1 Ml Inj IV 4 mg Q4H PRN Administration Pain , Severe (7-10) Ondansetron HCl 4 mg 02/26/21 15:00 Ondansetron 4 Mg/2 Ml Inj IV Q8H PRN Nausea And Vomiting Pantoprazole Sodium 20 mg 02/26/21 22:00 03/03/21 09:03 Pantoprazole 20 Mg Tab PO 20 mg BID REBEL Administration Sertraline HCl 100 mg 02/27/21 10:00 03/03/21 09:02 Sertraline 100 Mg Tab PO 100 mg DAILY REBEL Administration Tacrolimus 0.5 mg 02/26/21 22:00 03/03/21 09:04 Tacrolimus 0.5 Mg Cap PO 0.5 mg Q12HR REBEL Administration Torsemide 10 mg 02/28/21 10:00 03/03/21 09:02 Torsemide 10 Mg Tab PO 10 mg DAILY REBEL Administration Tramadol HCl 50 mg 02/26/21 21:30 Tramadol 50 Mg Tab PO Q12HR PRN Pain, Mild (1-3) HEART Score - HEART Score Troponin: Troponin T 0.138 ng/mL (0.00-0.029) H* 03/01/21 05:13
[2021-03-03] MEDS: MORPHINE 4 MG/1 ML INJ IV PRN (18:02)
[2021-03-04] MEDS: GABAPENTIN 100 MG CAP PO SCH ×3 (06:56→22:04)
--- NOTE | 2021-03-04 09:10 | Progress Note ---
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 Consult placed by DR. Terrell for HTN, ESRD. Patient seen and evaluated upon arrival to his room. No reported nursing events. Patient denies fever, chills, chest pain, palpitation, productive cough, skin rash, recent ill contact, or known exposure to COVID-19. 02/28: Patient for HD today. Stable from my standpoint for discharge blood pressure is improved. Right upper extremity was swollen vascular evaluating. 03/01: Patient with decompression of the right upper ext done yesterday, still some edema, still with some hematoma noted and bilster on the right side He does have 2 blisters which appear to be decompressing along the medial aspect of his upper arm. Scant serosanguineous drainage from his incisions. The arm is still swollen however is decompressing. Hematomas are present extending from the upper arm distally. The patient states that his pain in his arm is much improved from yesterday. 03/02: Continue wound care, monitor H/H, further management of right upper ext fistula site per Surgeon 03/03: Noted anemia worse today down to 6.5 hemoglobin we will transfuse 1 unit packed red blood cell. Disposition per vascular. 03/04/2021; hemoglobin yesterday was 6.5 and transfused 1 unit of blood. Will check H&H and will transfuse if hemoglobin is below 7. (1) Hypertension Current Visit: Yes Status: Acute Qualifiers: Hypertension type: primary hypertension Qualified Code(s): I10 - Essential (primary) hypertension Plan to address problem: Monitor blood pressure every shift, continue medical management. (2) End stage renal disease Current Visit: Yes Status: Acute Plan to address problem: Dialysis as per renal team, nephrology team consulted. 3) Type 2 NSTEMI- HEAD SILVERMAN EVALUATING 4) BED Bound secondary to CVA WITH HEMIPARESIS OF THE RIGHT UPPER AND LOWER EXT 5) Atrial fibrillation 6) Hypotension- Monitor, may need to hold BB or other antihypertensive. 7) Anemia of chronic disease History Interval history: Patient was seen and evaluated study came back from dialysis Patient stated he was feeling weak Swelling and pain on the right upper extremity Hospitalist Physical - Physical exam Narrative exam: Not in cardiopulmonary distress. The patient appeared well nourished and normally developed. Vital signs as documented. Head exam is unremarkable. No scleral icterus . Neck is without jugular venous distension, thyromegaly, or carotid bruits. Lungs are clear to auscultation. Cardiac exam reveals regular rate and Rhythm. Abdominal exam reveals normal bowel sounds, nontender, no organomegaly. Extremities: Right upper extremity. DENTAL ASSISTANT: Alert and oriented 3. No focal weakness. - Constitutional Vitals: Temp Pulse Resp BP Pulse Ox 97.4 F L 102 H 18 130/84 100 03/04/21 08:26 03/04/21 08:26 03/04/21 08:26 03/04/21 08:26 03/04/21 08:26 General appearance: Present: mild distress (Right upper extremity discomfort) HEART Score - HEART Score Troponin: Troponin T 0.138 ng/mL (0.00-0.029) H* 03/01/21 05:13 Results - Labs CBC & Chem 7: 03/03/21 05:32 03/02/21 05:32 Labs: Laboratory Last Values WBC 5.1 K/mm3 (4.5-11.0) 03/03/21 05:32 RBC 2.19 M/mm3 (3.65-5.03) L 03/03/21 05:32 Hgb 6.5 gm/dl (11.8-15.2) L 03/03/21 05:32 Hct 19.7 % (35.5-45.6) L* 03/03/21 05:32 MCV 90 fl (84-94) 03/03/21 05:32 MCH 30 pg (28-32) 03/03/21 05:32 MCHC 33 % (32-34) 03/03/21 05:32 RDW 18.3 % (13.2-15.2) H 03/03/21 05:32 Plt Count 119 K/mm3 (140-440) L 03/03/21 05:32 Lymph % (Auto) 13.9 % (13.4-35.0) 02/27/21 05:44 [place] % (Auto) 9.5 % (0.0-7.3) H 02/27/21 05:44 Eos % (Auto) 3.3 % (0.0-4.3) 02/27/21 05:44 Baso % (Auto) 0.4 % (0.0-1.8) 02/27/21 05:44 Lymph # (Auto) 0.8 K/mm3 (1.2-5.4) L 02/27/21 05:44 [place] # (Auto) 0.6 K/mm3 (0.0-0.8) 02/27/21 05:44 Eos # (Auto) 0.2 K/mm3 (0.0-0.4) 02/27/21 05:44 Baso # (Auto) 0.0 K/mm3 (0.0-0.1) 02/27/21 05:44 Seg Neutrophils % 72.9 % (40.0-70.0) H 02/27/21 05:44 Seg Neutrophils # 4.4 K/mm3 (1.8-7.7) 02/27/21 05:44 PT 17.5 Sec. (12.2-14.9) H 02/27/21 18:32 INR 1.37 (0.87-1.13) H 02/27/21 18:32 APTT 37.5 Sec. (24.2-36.6) H 02/27/21 18:32 Sodium 138 mmol/L (137-145) 03/01/21 05:13 Potassium 4.0 mmol/L (3.6-5.0) 03/01/21 05:13 Chloride 97.5 mmol/L (98-107) L 03/01/21 05:13 Carbon Dioxide 25 mmol/L (22-30) 03/01/21 05:13 Anion Gap 20 mmol/L 03/01/21 05:13 BUN 32 mg/dL (9-20) H 03/01/21 05:13 Creatinine 2.9 mg/dL (0.8-1.3) H 03/02/21 05:32 Estimated GFR 27 ml/min 03/02/21 05:32 BUN/Creatinine Ratio 10 % 03/01/21 05:13 Glucose 101 mg/dL (75-100) H 03/01/21 05:13 Calcium 8.5 mg/dL (8.4-10.2) 03/01/21 05:13 Total Creatine Kinase 54 units/L (55-170) L 02/27/21 10:45 CK-MB (CK-2) 1.5 ng/mL (0.0-4.0) 02/27/21 10:45 CK-MB (CK-2) Rel Index 2.7 (0-4) 02/27/21 10:45 Troponin T 0.138 ng/mL (0.00-0.029) H* 03/01/21 05:13 Triglycerides 106 mg/dL (2-149) 02/27/21 10:45 Cholesterol 84 mg/dL (50-199) 02/27/21 10:45 LDL Cholesterol Direct 39 mg/dL (50-130) L 02/27/21 10:45 HDL Cholesterol 27 mg/dL (40-59) L 02/27/21 10:45 Cholesterol/HDL Ratio 3.11 % 02/27/21 10:45 Nasal Screen MRSA (PCR) Negative (Negative) 02/27/21 Unknown Hepatitis A IgM Ab Non-reactive (NonReactive) 02/27/21 18:32 Hep Bs Antigen Non-reactive (Negative) 02/27/21 18:32 Hep B Core IgM Ab Non-reactive (NonReactive) 02/27/21 18:32 Hepatitis C Antibody Reactive (NonReactive) A 02/27/21 18:32 Blood Type A POSITIVE 03/03/21 09:05 Antibody Screen Negative 03/03/21 09:05 Crossmatch See Detail 03/03/21 09:05 Neal/IV: Voiding Method Condom Catheter Active Medications - Current Medications Current Medications: Generic Name Dose Route Start Last Admin Trade Name Isauroq PRN Reason Stop Dose Admin Acetaminophen 650 mg 02/26/21 15:00 03/01/21 21:14 Acetaminophen 325 Mg Tab PO 650 mg Q4H PRN Administration Pain MILD(1-3)/Fever >100.5/TOBIAS Hydrocodone Bitart/Acetaminophen 2 each 02/26/21 15:00 03/03/21 22:53 Hydrocodone/Acetaminophen 5-325 Mg Tab PO 2 each Q6H PRN Administration Pain, Moderate (4-6) Albumin Human 25 gm 03/01/21 12:00 03/01/21 16:28 Albumin Human 25% (25 Gm/100 Ml) Inj IV 25 gm SALIMA PRN Administration Hypotension Carvedilol 6.25 mg 02/26/21 22:00 03/03/21 22:00 Carvedilol 6.25 Mg Tab PO Not Given BID REBEL Gabapentin 100 mg 02/26/21 22:00 03/04/21 06:56 Gabapentin 100 Mg Cap PO 100 mg Q8HR REBEL Administration Sodium Chloride 100 mls @ 999 mls/hr 03/01/21 09:00 Nacl 0.9% IV SALIMA PRN Hypotension Morphine Sulfate 4 mg 02/26/21 16:00 03/03/21 18:02 Morphine 4 Mg/1 Ml Inj IV 4 mg Q4H PRN Administration Pain , Severe (7-10) Ondansetron HCl 4 mg 02/26/21 15:00 Ondansetron 4 Mg/2 Ml Inj IV Q8H PRN Nausea And Vomiting Pantoprazole Sodium 20 mg 02/26/21 22:00 03/03/21 22:50 Pantoprazole 20 Mg Tab PO 20 mg BID REBEL Administration Sertraline HCl 100 mg 02/27/21 10:00 03/03/21 09:02 Sertraline 100 Mg Tab PO 100 mg DAILY REBEL Administration Tacrolimus 0.5 mg 02/26/21 22:00 03/03/21 22:50 Tacrolimus 0.5 Mg Cap PO 0.5 mg Q12HR REBEL Administration Torsemide 10 mg 02/28/21 10:00 03/03/21 09:02 Torsemide 10 Mg Tab PO 10 mg DAILY REBEL Administration Tramadol HCl 50 mg 02/26/21 21:30 Tramadol 50 Mg Tab PO Q12HR PRN Pain, Mild (1-3) Nutrition/Malnutrition Assess - Dietary Evaluation Nutrition/Malnutrition Findings: Nutrition Notes Start: 02/27/21 12:35 Freq: Status: Active Protocol: Document 03/03/21 12:50 (Rec: 03/03/21 13:12 [id number]) Nutrition Notes Initial or Follow up Reassessment Current Diagnosis CKD (stage V CKD),Hypertension ,Respiratory Failure Other Pertinent Diagnosis on HD Current Diet Renal Labs/Tests Reviewed Pertinent Medications Reviewed Height 5 ft 9 in Weight 71.2 kg [place] Body Weight (kg) 72.72 BMI 23.1 Weight change and time frame Wt change noted, follow for trends Weight Status Appropriate Subjective/Other Information FU for intakes. Pt eating 50% of meals. He would like ONS TID. Percent of energy/protein needs met: 89%/100% Burn Absent Trauma Absent GI Symptoms None Current % PO Poor (25-49%) Minimum of two criteria Yes Energy Intake (non-severe) <75% Estimated Energy Requirement >7 days Interpretation of Weight Loss (severe) >5% in 1 month Muscle Mass Mild Depletion (non-severe) #1 Nutrition Diagnosis Malnutrition Diagnosis Progress(for reassessment Continues documentation) Is patient on ventilator? No Is Patient Ambulatory and/or Out of Bed No REE-([facility]-confined to bed) 1849.272 Kcal/Kg value to use for calculation 29 Approximate Energy Requirements Using 5 kcal/Kg Calculation Used for Recommendations Kcal/kg Additional Notes Protein: (>1.2g/kg) >76g Fluid: output + 1000 ml Nutrition Intervention Change Diet Order: Continue Add Supplement/Snack (indicate name/kcal Nepro TID /protein ) Provides kCal: 1,275 Provides Protein (gm) 57 Goal #1 Meet at least 80% of protein and energy needs via PO and ONS intakes Anticipated Discharge Needs: Renal with ONS BID Follow-Up By: 03/05/21 Additional Comments Pt at dialysis at this time
[2021-03-04] MEDS: MORPHINE 4 MG/1 ML INJ IV PRN (09:50)
[2021-03-04] MEDS: EPOETIN ALFA-EPBX 20,000 UNIT/1 ML VIAL IV PRN (10:55)
[2021-03-04] MEDS: HYDROcodone/ACETAMINOPHEN 5-325 MG TAB PO PRN ×2 (10:57→18:26)
--- NOTE | 2021-03-04 12:46 | Progress Note ---
<MAITE PANIAGUA - Last Filed: 03/04/21 12:50> Assessment and Plan Atrial fibrillation now insetting of severe anemia * Discontinued Elliquis. No anitcoagulation due to severe anemia and risk of hemorrhage * Patient has documented noncompliance with Coumadin, and unable to tolerate Plavix due to gastritis, thus is chronically anticoagulated on Eliquis for chronic A. fib with valve disease status post bioprosthetic repair. * Patient is prescribed Coreg 6.25 mg twice daily for rate control but is only receiving intermittently due to hypotension. Heart failure reduced ejection fraction in setting of moderate cardiomyopathy and bioprosthetic MV, TV * Resume home medication torsemide 10 mg daily * Echocardiogram 02/27/2021: LVEF is 35 to 40%. LV normal size. LV SF is moderately decreased. Borderline LVH. Moderate global hypokinesis of LV. RV is mild to moderately dilated. Right ventricle is hypokinetic. LA is mode rately dilated. RA is mildly dilated. Bioprosthetic valve in mitral position mean gradient 7.67 mmHg. Bioprosthetic in tricuspid position not clearly visualized. RVSP is 18 mmHg. NSTEMI suspect type II in setting of ESRD on HD * Troponin were noted to be elevated but down trended. Patient is asymptomatic and chest pain-free. Most likely secondary to ESRD. * Nephrology is following Patient is currently in stable cardiac status. Patient may be discharged home to longterm facility from cards standpoint. Will follow Patient should follow-up with his established cardiology within 1 to 2 weeks of discharge. Alternatively patient may follow-up with Dr Bach, [facility] heart specialists within 1 to 2 weeks of discharge. #[phone] This patient was seen in conjunction with Dr Bach who agrees with this assessment and plan of care - Patient Problems (1) End stage renal disease Current Visit: Yes Status: Chronic (2) NSTEMI (non-ST elevated myocardial infarction) Current Visit: Yes Status: Acute (3) Heart failure with reduced ejection fraction Current Visit: Yes Status: Acute (4) Atrial fibrillation Current Visit: Yes Status: Acute (5) Anemia in chronic kidney disease (CKD) Current Visit: Yes Status: Chronic Qualifiers: Chronic kidney disease stage: on chronic dialysis Qualified Code(s): N18.6 - End stage renal disease; D63.1 - Anemia in chronic kidney disease; Z99.2 - Dependence on renal dialysis (6) Hypertensive chronic kidney disease with stage 5 chronic kidney disease or end stage renal disease Current Visit: Yes Status: Chronic (7) Secondary hyperparathyroidism (of renal origin) Current Visit: Yes Status: Chronic Subjective Date of service: 03/04/21 Principal diagnosis: End-stage renal disease on hemodialysis, postop graft Interval history: Afib 100s with PVCs on tele Objective Last Vital Signs Temp 97.4 F L 03/04/21 08:26 Pulse 89 03/04/21 09:02 Resp 16 03/04/21 09:02 BP 130/84 03/04/21 08:26 Pulse Ox 96 03/04/21 09:02 - Physical Examination HEENT: Positive: PERRL, Normocephaly, Mucus Membranes Moist Neck: Positive: neck supple, trachea midline Cardiac: Positive: irregularly irregular Lungs: Positive: Normal Exam Neuro: Positive: Grossly Intact Abdomen: Positive: Unremarkable, Soft Musculoskeletal: No Fluid Collection, No Pain Extremities: Present: upper extr. pulses, lower extr. pulses, +4 Edema (RUE ), warm. Absent: edema - Imaging and Cardiology EKG: report reviewed, image reviewed Echo: report reviewed (Echocardiogram 02/27/2021: LVEF is 35 to 40%. LV normal size. LV SF is moderately decreased. Borderline LVH. Moderate global hypokinesis of LV. RV is mild to moderately dilated. Right ventricle is hypokinetic. LA is moderately dilated. RA is mildly dilated. Bioprosthetic valve in mitral posit) - Telemetry EKG Rhythm: Atrial Fibrillation - EKG Supraventricular dysrhythmia: atrial fibrillation - Allied health notes Allied health notes reviewed: nursing <MADHU MADSEN - Last Filed: 03/04/21 13:21> Objective Vital Signs Temp Pulse Pulse Resp BP Pulse Ox 03/04/21 09:02 89 16 96 03/04/21 08:26 97.4 F L 102 H 18 130/84 100 03/04/21 03:49 98.8 F 113 H 18 101/64 99 03/03/21 23:16 98.3 F 104 H 18 93/61 100 03/03/21 23:00 97 H 18 98 03/03/21 22:00 97 H 03/03/21 21:57 99 03/03/21 19:12 98.9 F 107 H 18 97/59 98 03/03/21 17:30 112/78 03/03/21 17:00 102/76 03/03/21 16:30 112/73 03/03/21 16:01 100/65 03/03/21 15:45 97.9 F 118 H 18 110/77 99 03/03/21 15:30 110/77 03/03/21 15:00 115/70 03/03/21 14:30 98/65 03/03/21 14:15 101/65 03/03/21 14:00 100 H 96/70 100 03/03/21 13:52 99 H 90/63 98
[2021-03-04] MEDS ORDERED: carvediloL 6.25 MG TAB PO SCH (13:20)
[2021-03-04] MEDS: TACROLIMUS 0.5 MG CAP PO SCH ×2 (13:24→22:04)
[2021-03-04] MEDS: TORSEMIDE 10 MG TAB PO SCH (13:24)
[2021-03-04] MEDS: PANTOPRAZOLE 20 MG TAB PO SCH ×2 (13:24→22:04)
[2021-03-04] MEDS: SERTRALINE 100 MG TAB PO SCH (13:24)
--- NOTE | 2021-03-04 14:54 | Progress Note ---
Assessment and Plan 55-year-old male with recent right upper extremity AV graft creation status post stenting of venous anastomosis with stent graft and central vein angioplasty who persistently has swelling of the right upper extremity with decreased hemoglobin and bruising of the right upper extremity. Reviewed fistula ultrasound. Area of possible "pseudoaneurysm" is likely adjacent vein as there is a stent graft placed in the venous anastomosis. No large pseudoaneurysm arising from the graft. Still has swelling. Awaiting hemoglobin results. Awaiting guaiac. Given significant swelling may consider switching side of PermCath and possible right central vein repeat angioplasty or stenting. Subjective Date of service: 03/04/21 Principal diagnosis: End-stage renal disease on hemodialysis, postop graft Interval history: Significant swelling of right upper extremity with bruising noted. Pain with palpation. Patient has a baseline paretic right upper extremity. Reviewed prior imaging. Hemoglobin has decreased. Objective - Constitutional Vitals: Vital Signs - 12hr 03/04/21 03/04/21 03/04/21 03:49 08:26 09:02 Temperature 98.8 F 97.4 F L Pulse Rate 113 H 102 H Pulse Rate [ 89 Radial] Respiratory 18 18 16 Rate Blood Pressure 101/64 130/84 O2 Sat by Pulse 99 100 96 Oximetry 03/04/21 10:00 Temperature Pulse Rate 89 Pulse Rate [ Radial] Respiratory Rate Blood Pressure O2 Sat by Pulse Oximetry General appearance: Present: no acute distress - EENT Eyes: EOM intact ENT: hearing intact - Neck Neck: supple - Respiratory Respiratory effort: normal Extremities: abnormal (see subjective) - Psychiatric Psychiatric: appropriate mood/affect, cooperative - Labs CBC & Chem 7: 03/03/21 05:32 03/02/21 05:32 Labs: Abnormal lab results 03/03/21 Range/Units 09:05 Crossmatch See Detail Medications & Allergies - Medications Allergies/Adverse Reactions: Allergies No Known Allergies Allergy (Unverified 02/25/21 09:01) Home Medications: Home Medications Medication Instructions Recorded Confirmed Last Taken Type Acetaminophen [Acetaminophen ER] 650 mg PO PRN PRN 02/17/21 02/17/21 Unknown History Aspirin [Adult Aspirin] 81 mg PO DAILY 02/17/21 02/27/21 02/25/21 09:00 History Omeprazole 20 mg PO BID 02/17/21 02/27/21 02/26/21 10:40 History Sertraline HCl [Zoloft] 100 mg PO DAILY 02/17/21 02/27/21 02/25/21 09:00 History Tacrolimus [Prograf] 0.5 mg PO DAILY 02/17/21 02/17/21 Unknown History carvediloL [Coreg] 6.25 mg PO BID 02/17/21 02/27/21 02/26/21 10:40 History traMADoL [Ultram 50 MG tab] 50 mg PO Q12HR PRN 02/17/21 02/17/21 Unknown History HYDROcodone/APAP 7.5-325 [[place] 1 each PO Q6HR PRN #40 tablet 02/26/21 Unknown Rx 7.5/325] Active Medications: Generic Name Dose Route Start Last Admin Trade Name Freq PRN Reason Stop Dose Admin Acetaminophen 650 mg 02/26/21 15:00 03/01/21 21:14 Acetaminophen 325 Mg Tab PO 650 mg Q4H PRN Administration Pain MILD(1-3)/Fever >100.5/TOBIAS Hydrocodone Bitart/Acetaminophen 2 each 02/26/21 15:00 03/04/21 10:57 Hydrocodone/Acetaminophen 5-325 Mg Tab PO 2 each Q6H PRN Administration Pain, Moderate (4-6) Albumin Human 25 gm 03/01/21 12:00 03/01/21 16:28 Albumin Human 25% (25 Gm/100 Ml) Inj IV 25 gm SALIMA PRN Administration Hypotension Carvedilol 3.125 mg 03/04/21 14:00 Carvedilol 3.125 Mg Tab PO BID REBEL Gabapentin 100 mg 02/26/21 22:00 03/04/21 13:24 Gabapentin 100 Mg Cap PO 100 mg Q8HR REBEL Administration Sodium Chloride 100 mls @ 999 mls/hr 03/01/21 09:00 Nacl 0.9% IV SALIMA PRN Hypotension Morphine Sulfate 4 mg 02/26/21 16:00 03/04/21 09:50 Morphine 4 Mg/1 Ml Inj IV 4 mg Q4H PRN Administration Pain , Severe (7-10) Ondansetron HCl 4 mg 02/26/21 15:00 Ondansetron 4 Mg/2 Ml Inj IV Q8H PRN Nausea And Vomiting Pantoprazole Sodium 20 mg 02/26/21 22:00 03/04/21 13:24 Pantoprazole 20 Mg Tab PO 20 mg BID REBEL Administration Sertraline HCl 100 mg 02/27/21 10:00 03/04/21 13:24 Sertraline 100 Mg Tab PO 100 mg DAILY REBEL Administration Tacrolimus 0.5 mg 02/26/21 22:00 03/04/21 13:24 Tacrolimus 0.5 Mg Cap PO 0.5 mg Q12HR REBEL Administration Torsemide 10 mg 02/28/21 10:00 03/04/21 13:24 Torsemide 10 Mg Tab PO 10 mg DAILY REBEL Administration Tramadol HCl 50 mg 02/26/21 21:30 Tramadol 50 Mg Tab PO Q12HR PRN Pain, Mild (1-3) HEART Score - HEART Score Troponin: Troponin T 0.138 ng/mL (0.00-0.029) H* 03/01/21 05:13
[2021-03-04] MEDS: carvediloL 3.125 MG TAB PO SCH ×2 (17:16→22:05)
[2021-03-04 19:38] LABS: Basophils % (Auto) 0.5 % (0.0-1.8); Eosinophils # (Auto) 0.1 K/mm3 (0.0-0.4); Eosinophils % (Auto) 2.3 % (0.0-4.3); Hemoglobin 7.2 gm/dl (11.8-15.2); Lymphocytes # (Auto) 0.5 K/mm3 (1.2-5.4); Lymphocytes % (Auto) 9.4 % (13.4-35.0); Mean Corpuscular HGB Conc 33 % (32-34); Mean Corpuscular Volume 91 fl (84-94); Monocytes # (Auto) 0.5 K/mm3 (0.0-0.8); Monocytes % (Auto) 9.3 % (0.0-7.3); Platelet Count 122 K/mm3 (140-440); Red Blood Count 2.42 M/mm3 (3.65-5.03); Red Cell Distribution Width 17.4 % (13.2-15.2)
[2021-03-04 19:51] LABS: Calcium 8.9 mg/dL (8.4-10.2)
[2021-03-04] MEDS: ACETAMINOPHEN 325 MG TAB PO PRN (22:04)
[2021-03-05 05:45] LABS: Hematocrit 21.7 % (35.5-45.6); Mean Corpuscular HGB Conc 32 % (32-34); Mean Corpuscular Volume 90 fl (84-94); Platelet Count 132 K/mm3 (140-440); Red Blood Count 2.41 M/mm3 (3.65-5.03); Red Cell Distribution Width 17.4 % (13.2-15.2)
[2021-03-05 06:02] LABS: Calcium 8.9 mg/dL (8.4-10.2)
[2021-03-05] MEDS: GABAPENTIN 100 MG CAP PO SCH ×3 (06:27→21:41)
[2021-03-05] MEDS: carvediloL 6.25 MG TAB PO SCH (07:38)
[2021-03-05] MEDS: MORPHINE 4 MG/1 ML INJ IV PRN ×2 (08:33→21:42)
--- NOTE | 2021-03-05 09:44 | Progress Note ---
Assessment and Plan - Patient Problems (1) End stage renal disease Current Visit: Yes Status: Chronic Plan to address problem: patient to be maintained on his outpatient Wednesday hemodialysis schedule. Evaluation from vascular surgery in regards to right upper extremity swelling reviewed, with US results reviewed. May need to evalua te for possible central vein stenosis and need for repeat stent/angioplast given persistent RUE swelling, with right sided permcath that may need to be switched. Will follow up on further recommendations from vascular surgery. (2) Anemia in chronic kidney disease (CKD) Current Visit: Yes Status: Chronic Qualifiers: Chronic kidney disease stage: on chronic dialysis Qualified Code(s): N18.6 - End stage renal disease; D63.1 - Anemia in chronic kidney disease; Z99.2 - Dep endence on renal dialysis Plan to address problem: monitor hemoglobin/hematocrit levels. Transfuse to maintain hemoglobin above 7. KARTHIK therapy with HD. Decreasing H/H in the setting possibly of RUE hematoma. No extravasation noted per vascular notes. We will continue to monitor closely. No other signs of overt bleeding noted per nursing staff. Pending FOBT studies. (3) Hypertensive chronic kidney disease with stage 5 chronic kidney disease or end stage renal disease Current Visit: Yes Status: Chronic Plan to address problem: monitor blood pressures under current regimen. (4) Secondary hyperparathyroidism (of renal origin) Current Visit: Yes Status: Chronic Plan to address problem: and restart home phosphate binder regimen. Subjective Date of service: 03/05/21 Principal diagnosis: End-stage renal disease on hemodialysis, postop graft Interval history: Still with significant swelling in RUE. Had HD yesterday and tolerated well. Vascular surgery evaluation reviewed. Agree that with persistent swelling on the the same side as the current permcath, concerns with central vein stenosis and need to change catheter to other side and need for repeat angioplasty/stenting. Objective - Vital Signs Vital signs: Vital Signs - 12hr 03/04/21 03/05/21 03/05/21 23:52 04:18 07:32 Temperature 97.3 F L 98.1 F 98.3 F Pulse Rate 102 H 100 H 101 H Respiratory 20 16 20 Rate Blood Pressure 145/55 101/38 91/56 O2 Sat by Pulse 100 100 100 Oximetry 03/05/21 08:22 Temperature Pulse Rate Respiratory Rate Blood Pressure O2 Sat by Pulse 97 Oximetry - General Appearance General appearance: appears stated age EENT: ATNC Neck: no JVD Respiratory: Present: Clear to Ascultation Cardiology: regular Gastrointestinal: normal Integumentary: warm and dry Neurologic: no focal deficit Musculoskeletal: other (RUE swelling ) Psychiatric: cooperative - Lab 03/05/21 04:50 03/05/21 04:50 Most recent lab results Calcium 8.9 mg/dL (8.4-10.2) 03/05/21 04:50 - Allied health notes Allied health notes reviewed: nursing Medications & Allergies - Medications Allergies/Adverse Reactions: Allergies No Known Allergies Allergy (Unverified 02/25/21 09:01) Home Medications: Home Medications Medication Instructions Recorded Confirmed Last Taken Type Acetaminophen [Acetaminophen ER] 650 mg PO PRN PRN 02/17/21 02/17/21 Unknown History Aspirin [Adult Aspirin] 81 mg PO DAILY 02/17/21 02/27/21 02/25/21 09:00 History Omeprazole 20 mg PO BID 02/17/21 02/27/21 02/26/21 10:40 History Sertraline HCl [Zoloft] 100 mg PO DAILY 02/17/21 02/27/21 02/25/21 09:00 History Tacrolimus [Prograf] 0.5 mg PO DAILY 02/17/21 02/17/21 Unknown History carvediloL [Coreg] 6.25 mg PO BID 02/17/21 02/27/21 02/26/21 10:40 History traMADoL [Ultram 50 MG tab] 50 mg PO Q12HR PRN 02/17/21 02/17/21 Unknown History HYDROcodone/APAP 7.5-325 [[place] 1 each PO Q6HR PRN #40 tablet 02/26/21 Unknown Rx 7.5/325] Active Medications: Generic Name Dose Route Start Last Admin Trade Name Freq PRN Reason Stop Dose Admin Acetaminophen 650 mg 02/26/21 15:00 03/04/21 22:04 Acetaminophen 325 Mg Tab PO 650 mg Q4H PRN Administration Pain MILD(1-3)/Fever >100.5/TOBIAS Hydrocodone Bitart/Acetaminophen 2 each 02/26/21 15:00 03/04/21 18:26 Hydrocodone/Acetaminophen 5-325 Mg Tab PO 2 each Q6H PRN Administration Pain, Moderate (4-6) Albumin Human 25 gm 03/01/21 12:00 03/01/21 16:28 Albumin Human 25% (25 Gm/100 Ml) Inj IV 25 gm SALIMA PRN Administration Hypotension Gabapentin 100 mg 02/26/21 22:00 03/05/21 06:27 Gabapentin 100 Mg Cap PO 100 mg Q8HR REBEL Administration Sodium Chloride 100 mls @ 999 mls/hr 03/01/21 09:00 Nacl 0.9% IV SALIMA PRN Hypotension Morphine Sulfate 4 mg 02/26/21 16:00 03/05/21 08:33 Morphine 4 Mg/1 Ml Inj IV 4 mg Q4H PRN Administration Pain , Severe (7-10) Ondansetron HCl 4 mg 02/26/21 15:00 Ondansetron 4 Mg/2 Ml Inj IV Q8H PRN Nausea And Vomiting Pantoprazole Sodium 20 mg 02/26/21 22:00 03/04/21 22:04 Pantoprazole 20 Mg Tab PO 20 mg BID REBEL Administration Sertraline HCl 100 mg 02/27/21 10:00 03/04/21 13:24 Sertraline 100 Mg Tab PO 100 mg DAILY REBEL Administration Tacrolimus 0.5 mg 02/26/21 22:00 03/04/21 22:04 Tacrolimus 0.5 Mg Cap PO 0.5 mg Q12HR REBEL Administration Torsemide 10 mg 02/28/21 10:00 03/04/21 13:24 Torsemide 10 Mg Tab PO 10 mg DAILY REBEL Administration Tramadol HCl 50 mg 02/26/21 21:30 Tramadol 50 Mg Tab PO Q12HR PRN Pain, Mild (1-3)
[2021-03-05] MEDS: TORSEMIDE 10 MG TAB PO SCH (10:38)
[2021-03-05] MEDS: TACROLIMUS 0.5 MG CAP PO SCH ×2 (10:38→21:41)
[2021-03-05] MEDS: SERTRALINE 100 MG TAB PO SCH (10:38)
[2021-03-05] MEDS: PANTOPRAZOLE 20 MG TAB PO SCH ×2 (10:38→21:41)
--- NOTE | 2021-03-05 10:59 | Progress Note ---
Assessment and Plan Atrial fibrillation now insetting of severe anemia * Discontinued Elliquis. No anitcoagulation due to severe anemia and risk of hemorrhage * Patient has documented noncompliance with Coumadin, and unable to tolerate Plavix due to gastritis, thus is chronically anticoagulated on Eliquis for chronic A. fib with valve disease status post bioprosthetic repair. * Optimize hypertesnive regimen: Patient is prescribed Coreg 6.25 mg twice daily for rate control but will hold due to hypotension. Heart failure reduced ejection fraction in setting of moderate cardiomyopathy and bioprosthetic MV, TV * Resume home medication torsemide 10 mg daily * Echocardiogram 02/27/2021: LVEF is 35 to 40%. LV normal size. LV SF is moderately decreased. Borderline LVH. Moderate global hypokinesis of LV. RV is mild to moderately dilated. Right ventricle is hypokinetic. LA is moderately dilated. RA is mildly dilated. Bioprosthetic valve in mitral pos ition mean gradient 7.67 mmHg. Bioprosthetic in tricuspid position not clearly visualized. RVSP is 18 mmHg. NSTEMI suspect type II in setting of ESRD on HD * Troponin were noted to be increasing but most likely secondary to ESRD. Patient is asymptomatic and chest pain-free. * Nephrology is following Patient is currently in stable cardiac status. Patient may be [facility] from cards standpoint. Will follow Patient should follow-up with his established cardiology within 1 to 2 weeks of discharge. Alternatively patient may follow-up with Dr Bach, [facility] heart specialists within 1 to 2 weeks of discharge. #[phone] This patient was seen in conjunction with Dr Bach who agrees with this assessment and plan of care - Patient Problems (1) End stage renal disease Current Visit: Yes Status: Chronic (2) NSTEMI (non-ST elevated myocardial infarction) Current Visit: Yes Status: Acute (3) Heart failure with reduced ejection fraction Current Visit: Yes Status: Acute (4) Atrial fibrillation Current Visit: Yes Status: Acute (5) Anemia in chronic kidney disease (CKD) Current Visit: Yes Status: Chronic Qualifiers: Chronic kidney disease stage: on chronic dialysis Qualified Code(s): N18.6 - End stage renal disease; D63.1 - Anemia in chronic kidney disease; Z99.2 - Dependence on renal dialysis (6) Hypertensive chronic kidney disease with stage 5 chronic kidney disease or end stage renal disease Current Visit: Yes Status: Chronic (7) Secondary hyperparathyroidism (of renal origin) Current Visit: Yes Status: Chronic Subjective Date of service: 03/05/21 Principal diagnosis: End-stage renal disease on hemodialysis, postop graft Interval history: Patient resting in bed comfortably. Patient has no cardiac complaints Afib 100s with PVCs on monitor Objective Last Vital Signs Temp 98.3 F 03/05/21 07:32 Pulse 101 H 03/05/21 07:32 Resp 20 03/05/21 07:32 BP 91/56 03/05/21 07:32 Pulse Ox 97 03/05/21 08:22 - Physical Examination General: No Apparent Distress HEENT: Positive: PERRL, Normocephaly, Mucus Membranes Moist Neck: Positive: neck supple, trachea midline Cardiac: Positive: irregularly irregular Lungs: Positive: Normal Breath Sounds Neuro: Positive: Grossly Intact Abdomen: Positive: Unremarkable, Soft Musculoskeletal: No Fluid Collection, No Pain Extremities: Present: upper extr. pulses, lower extr. pulses, +4 Edema (RUE ), warm. Absent: edema - Labs and Meds CBC 03/04/21 03/05/21 Range/Units 19:01 04:50 WBC 5.7 6.0 (4.5-11.0) K/mm3 RBC 2.42 L 2.41 L (3.65-5.03) M/mm3 Hgb 7.2 L 7.0 L (11.8-15.2) gm/dl Hct 22.0 L 21.7 L (35.5-45.6) % Plt Count 122 L 132 L (140-440) K/mm3 Lymph # (Auto) 0.5 L (1.2-5.4) K/mm3 [place] # (Auto) 0.5 (0.0-0.8) K/mm3 Eos # (Auto) 0.1 (0.0-0.4) K/mm3 Baso # (Auto) 0.0 (0.0-0.1) K/mm3 Comprehensive Metabolic Panel 03/04/21 03/05/21 03/05/21 Range/Units 19:01 04:50 04:50 Sodium 139 139 (137-145) mmol/L Potassium 3.4 L 3.7 (3.6-5.0) mmol/L Chloride 98.9 98.4 (98-107) mmol/L Carbon Dioxide 26 27 (22-30) mmol/L BUN 30 H 36 H (9-20) mg/dL Creatinine 2.8 H 3.3 H 3.4 H (0.8-1.3) mg/dL Glucose 107 H 99 (75-100) mg/dL Calcium 8.9 8.9 (8.4-10.2) mg/dL - Imaging and Cardiology EKG: report reviewed, image reviewed Echo: report reviewed (Echocardiogram 02/27/2021: LVEF is 35 to 40%. LV normal size. LV SF is moderately decreased. Borderline LVH. Moderate global hypokinesis of LV. RV is mild to moderately dilated. Right ventricle is hypokinetic. LA is moderately dilated. RA is mildly dilated. Bioprosthetic valve in mitral posit) - Telemetry EKG Rhythm: Atrial Fibrillation - EKG Supraventricular dysrhythmia: atrial fibrillation Ventricular dysrhythmias: ventricular premature com - Allied health notes Allied health notes reviewed: nursing
--- NOTE | 2021-03-05 11:27 | Progress Note ---
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 The patient requires removal of his permacath and angioplasty and stenting of his proximal subclavian as well as the innominate vein with placement of his permacath in the left internal jugular vein. I discussed this plan with the patient who is agreeable. I will put him on the schedule for tomorrow to be done by Dr. Bowling. Subjective Date of service: 03/05/21 Principal diagnosis: End-stage renal disease on hemodialysis, postop graft Interval history: The patient complains of soreness and pain in the right arm. He has no additional complaints at this time. Objective - Constitutional Vitals: Vital Signs - 12hr 03/04/21 03/05/21 03/05/21 23:52 04:18 07:32 Temperature 97.3 F L 98.1 F 98.3 F Pulse Rate 102 H 100 H 101 H Respiratory 20 16 20 Rate Blood Pressure 145/55 101/38 91/56 O2 Sat by Pulse 100 100 100 Oximetry 03/05/21 08:22 Temperature Pulse Rate Respiratory Rate Blood Pressure O2 Sat by Pulse 97 Oximetry General appearance: Present: no acute distress - Respiratory Respiratory effort: normal Extremities: abnormal (Diffuse swelling and ecchymosis of the right upper extremity, incisions are clean and intact with minimal serosanguineous drainage) - Labs CBC & Chem 7: 03/05/21 04:50 03/05/21 04:50 Labs: Abnormal lab results 03/04/21 03/04/21 03/05/21 Range/Units 19:01 19:01 04:50 RBC 2.42 L (3.65-5.03) M/mm3 Hgb 7.2 L (11.8-15.2) gm/dl Hct 22.0 L (35.5-45.6) % RDW 17.4 H (13.2-15.2) % Plt Count 122 L (140-440) K/mm3 Lymph % (Auto) 9.4 L (13.4-35.0) % [place] % (Auto) 9.3 H (0.0-7.3) % Lymph # (Auto) 0.5 L (1.2-5.4) K/mm3 Seg Neutrophils % 78.5 H (40.0-70.0) % Potassium 3.4 L (3.6-5.0) mmol/L BUN 30 H (9-20) mg/dL Creatinine 2.8 H 3.3 H (0.8-1.3) mg/dL Glucose 107 H (75-100) mg/dL Troponin T (0.00-0.029) ng/mL 03/05/21 03/05/21 Range/Units 04:50 04:50 RBC 2.41 L (3.65-5.03) M/mm3 Hgb 7.0 L (11.8-15.2) gm/dl Hct 21.7 L (35.5-45.6) % RDW 17.4 H (13.2-15.2) % Plt Count 132 L (140-440) K/mm3 Lymph % (Auto) (13.4-35.0) % [place] % (Auto) (0.0-7.3) % Lymph # (Auto) (1.2-5.4) K/mm3 Seg Neutrophils % (40.0-70.0) % Potassium (3.6-5.0) mmol/L BUN 36 H (9-20) mg/dL Creatinine 3.4 H (0.8-1.3) mg/dL Glucose (75-100) mg/dL Troponin T 0.161 H* (0.00-0.029) ng/mL Medications & Allergies - Medications Allergies/Adverse Reactions: Allergies No Known Allergies Allergy (Unverified 02/25/21 09:01) Home Medications: Home Medications Medication Instructions Recorded Confirmed Last Taken Type Acetaminophen [Acetaminophen ER] 650 mg PO PRN PRN 02/17/21 02/17/21 Unknown History Aspirin [Adult Aspirin] 81 mg PO DAILY 02/17/21 02/27/21 02/25/21 09:00 History Omeprazole 20 mg PO BID 02/17/21 02/27/21 02/26/21 10:40 History Sertraline HCl [Zoloft] 100 mg PO DAILY 02/17/21 02/27/21 02/25/21 09:00 History Tacrolimus [Prograf] 0.5 mg PO DAILY 02/17/21 02/17/21 Unknown History carvediloL [Coreg] 6.25 mg PO BID 02/17/21 02/27/21 02/26/21 10:40 History traMADoL [Ultram 50 MG tab] 50 mg PO Q12HR PRN 02/17/21 02/17/21 Unknown History HYDROcodone/APAP 7.5-325 [[place] 1 each PO Q6HR PRN #40 tablet 02/26/21 Unknown Rx 7.5/325] Active Medications: Generic Name Dose Route Start Last Admin Trade Name Freq PRN Reason Stop Dose Admin Acetaminophen 650 mg 02/26/21 15:00 03/04/21 22:04 Acetaminophen 325 Mg Tab PO 650 mg Q4H PRN Administration Pain MILD(1-3)/Fever >100.5/TOBIAS Hydrocodone Bitart/Acetaminophen 2 each 02/26/21 15:00 03/04/21 18:26 Hydrocodone/Acetaminophen 5-325 Mg Tab PO 2 each Q6H PRN Administration Pain, Moderate (4-6) Albumin Human 25 gm 03/01/21 12:00 03/01/21 16:28 Albumin Human 25% (25 Gm/100 Ml) Inj IV 25 gm SALIMA PRN Administration Hypotension Gabapentin 100 mg 02/26/21 22:00 03/05/21 06:27 Gabapentin 100 Mg Cap PO 100 mg Q8HR REBEL Administration Sodium Chloride 100 mls @ 999 mls/hr 03/01/21 09:00 Nacl 0.9% IV SALIMA PRN Hypotension Morphine Sulfate 4 mg 02/26/21 16:00 03/05/21 08:33 Morphine 4 Mg/1 Ml Inj IV 4 mg Q4H PRN Administration Pain , Severe (7-10) Ondansetron HCl 4 mg 02/26/21 15:00 Ondansetron 4 Mg/2 Ml Inj IV Q8H PRN Nausea And Vomiting Pantoprazole Sodium 20 mg 02/26/21 22:00 03/05/21 10:38 Pantoprazole 20 Mg Tab PO 20 mg BID REBEL Administration Sertraline HCl 100 mg 02/27/21 10:00 03/05/21 10:38 Sertraline 100 Mg Tab PO 100 mg DAILY REBEL Administration Tacrolimus 0.5 mg 02/26/21 22:00 03/05/21 10:38 Tacrolimus 0.5 Mg Cap PO 0.5 mg Q12HR REBEL Administration Torsemide 10 mg 02/28/21 10:00 03/05/21 10:38 Torsemide 10 Mg Tab PO 10 mg DAILY REBEL Administration Tramadol HCl 50 mg 02/26/21 21:30 Tramadol 50 Mg Tab PO Q12HR PRN Pain, Mild (1-3) HEART Score - HEART Score Troponin: Troponin T 0.161 ng/mL (0.00-0.029) H* 03/05/21 04:50
--- NOTE | 2021-03-05 15:58 | Vascular Lab Report ---
RIGHT UPPER EXTREMITY HEMODIALYSIS ACCESS ULTRASOUND INDICATION: Possible right upper extremity graft pseudoaneurysm. COMPARISON: None available. FINDINGS: A right upper shoulder and the AV graft appears patent with an elevated peak systolic velocity of 547 cm/s along the left brachial artery near the site of arterial inflow to the graft. No other suspicio usly elevated peak systolic velocity is identified. There is a questionable pseudoaneurysm along the axillary region measuring 0.6 x 0.4 cm with a neck m easuring 0.2 cm arising from the axillary vein. Edema along the right arm could be related to recent intervention/access. The reported volume flow is 875-960 mL/minute. IMPRESSION: 1. Questionable pseudoaneurysm along the left axillary region as above. 2. Elevated peak systolic velocity along the arterial inflow as above. Signer Name: Clay Maddox MD Signed: 03/05/2021 3:53 PM Workstation Name: [id number]
--- NOTE | 2021-03-05 16:44 | Progress Note ---
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 Consult placed by DR. Terrell for HTN, ESRD. Patient seen and evaluated upon arrival to his room. No reported nursing events. Patient denies fever, chills, chest pain, palpitation, productive cough, skin rash, recent ill contact, or known exposure to COVID-19. 02/28: Patient for HD today. Stable from my standpoint for discharge blood pressure is improved. Right upper extremity was swollen vascular evaluating. 03/01: Patient with decompression of the right upper ext done yesterday, still some edema, still with some hematoma noted and bilster on the right side He does have 2 blisters which appear to be decompressing along the medial aspect of his upper arm. Scant serosanguineous drainage from his incisions. The arm is still swollen however is decompressing. Hematomas are present extending from the upper arm distally. The patient states that his pain in his arm is much improved from yesterday. 03/02: Continue wound care, monitor H/H, further management of right upper ext fistula site per Surgeon 03/03: Noted anemia worse today down to 6.5 hemoglobin we will transfuse 1 unit packed red blood cell. Disposition per vascular. 03/04/2021; hemoglobin yesterday was 6.5 and transfused 1 unit of blood. Will check H&H and will transfuse if hemoglobin is below 7. 03/05/2021: The entire right upper extremities grossly swollen with some blistering of the elbow and mild discharge. Has low-grade fever but no leukocytosis. 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 The plan is to remove right IJ permacath in place in the left IJ and revascularization of the veins with placement of stent, surgery is scheduled for tomorrow by vascular. ESRD on hemodialysis on Wednesday//Wednesday, nephrology following. Patient has a history of A. fib, right heart failure and bioprosthetic MVR, anticoagulation discontinued due to high risk for bleed. Patient has right hemiparesis from previous stroke. H emoglobin will be monitored and transfuse as needed. (1) Hypertension Current Visit: Yes Status: Acute Qualifiers: Hypertension type: primary hypertension Qualified Code(s): I10 - Essential (primary) hypertension Plan to address problem: Monitor blood pressure every shift, continue medical management. (2) End stage renal disease Current Visit: Yes Status: Acute Plan to address problem: Dialysis as per renal team, nephrology team consulted. 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 7) Anemia of chronic disease History Interval history: The entire right upper extremity is grossly swollen with blistering around elbow and mild drainage and he has right IJ permacath in place. Vascular surgery is planning for venous revascularization and stenting for recurrence of central venous obstruction. Permacath will be removed and placed on the left side. Surgery scheduled for tomorrow. Patient continues to complain of significant pain in her right arm. Is alert but looks debilitated. He is on dialysis T/T/S. Nephrology following. Hospitalist Physical - Constitutional Vitals: Temp Pulse Resp BP Pulse Ox 100.0 F H 106 H 20 93/59 99 03/05/21 15:40 03/05/21 15:40 03/05/21 15:40 03/05/21 15:40 03/05/21 15:40 General appearance: Present: mild distress (Due to right arm pain.), other - EENT Eyes: Present: PERRL, EOM intact ENT: clear oral mucosa - Neck Neck: Present: supple, other (Right IJ permacath in place.) - Respiratory Respiratory effort: normal Respiratory: bilateral: CTA, rales (Rales at bases.) - Cardiovascular Rhythm: regular - Extremities Extremity abnormal: edema (The entire right upper extremity is grossly swollen with blistering around the elbow with mild discharge.), other (Chronic residual right hemiparesis of previous stroke.) - Abdominal General gastrointestinal: soft, non-tender, normal bowel sounds - Integumentary Integumentary: Present: pale. Absent: jaundice - Psychiatric Psychiatric: other (Anxious) HEART Score - HEART Score Troponin: Troponin T 0.161 ng/mL (0.00-0.029) H* 03/05/21 04:50 Results - Labs CBC & Chem 7: 03/06/21 03:47 03/06/21 03:47 Labs: Laboratory Last Values WBC 6.0 K/mm3 (4.5-11.0) 03/05/21 04:50 RBC 2.41 M/mm3 (3.65-5.03) L 03/05/21 04:50 Hgb 7.0 gm/dl (11.8-15.2) L 03/05/21 04:50 Hct 21.7 % (35.5-45.6) L 03/05/21 04:50 MCV 90 fl (84-94) 03/05/21 04:50 MCH 29 pg (28-32) 03/05/21 04:50 MCHC 32 % (32-34) 03/05/21 04:50 RDW 17.4 % (13.2-15.2) H 03/05/21 04:50 Plt Count 132 K/mm3 (140-440) L 03/05/21 04:50 Lymph % (Auto) 9.4 % (13.4-35.0) L 03/04/21 19:01 [place] % (Auto) 9.3 % (0.0-7.3) H 03/04/21 19:01 Eos % (Auto) 2.3 % (0.0-4.3) 03/04/21 19:01 Baso % (Auto) 0.5 % (0.0-1.8) 03/04/21 19:01 Lymph # (Auto) 0.5 K/mm3 (1.2-5.4) L 03/04/21 19:01 [place] # (Auto) 0.5 K/mm3 (0.0-0.8) 03/04/21 19:01 Eos # (Auto) 0.1 K/mm3 (0.0-0.4) 03/04/21 19:01 Baso # (Auto) 0.0 K/mm3 (0.0-0.1) 03/04/21 19:01 Seg Neutrophils % 78.5 % (40.0-70.0) H 03/04/21 19:01 Seg Neutrophils # 4.5 K/mm3 (1.8-7.7) 03/04/21 19:01 PT 17.5 Sec. (12.2-14.9) H 02/27/21 18:32 INR 1.37 (0.87-1.13) H 02/27/21 18:32 APTT 37.5 Sec. (24.2-36.6) H 02/27/21 18:32 Sodium 139 mmol/L (137-145) 03/05/21 04:50 Potassium 3.7 mmol/L (3.6-5.0) 03/05/21 04:50 Chloride 98.4 mmol/L (98-107) 03/05/21 04:50 Carbon Dioxide 27 mmol/L (22-30) 03/05/21 04:50 Anion Gap 17 mmol/L 03/05/21 04:50 BUN 36 mg/dL (9-20) H 03/05/21 04:50 Creatinine 3.3 mg/dL (0.8-1.3) H 03/05/21 04:50 Creatinine 3.4 mg/dL (0.8-1.3) H 03/05/21 04:50 Estimated GFR 23 ml/min 03/05/21 04:50 Estimated GFR 24 ml/min 03/05/21 04:50 BUN/Creatinine Ratio 11 % 03/05/21 04:50 Glucose 99 mg/dL (75-100) 03/05/21 04:50 Calcium 8.9 mg/dL (8.4-10.2) 03/05/21 04:50 Total Creatine Kinase 54 units/L (55-170) L 02/27/21 10:45 CK-MB (CK-2) 1.5 ng/mL (0.0-4.0) 02/27/21 10:45 CK-MB (CK-2) Rel Index 2.7 (0-4) 02/27/21 10:45 Troponin T 0.161 ng/mL (0.00-0.029) H* 03/05/21 04:50 Triglycerides 106 mg/dL (2-149) 02/27/21 10:45 Cholesterol 84 mg/dL (50-199) 02/27/21 10:45 LDL Cholesterol Direct 39 mg/dL (50-130) L 02/27/21 10:45 HDL Cholesterol 27 mg/dL (40-59) L 02/27/21 10:45 Cholesterol/HDL Ratio 3.11 % 02/27/21 10:45 Nasal Screen MRSA (PCR) Negative (Negative) 02/27/21 Unknown Hepatitis A IgM Ab Non-reactive (NonReactive) 02/27/21 18:32 Hep Bs Antigen Non-reactive (Negative) 02/27/21 18:32 Hep B Core IgM Ab Non-reactive (NonReactive) 02/27/21 18:32 Hepatitis C Antibody Reactive (NonReactive) A 02/27/21 18:32 Blood Type A POSITIVE 03/03/21 09:05 Antibody Screen Negative 03/03/21 09:05 Crossmatch See Detail 03/03/21 09:05 Neal/IV: Voiding Method Condom Catheter Active Medications - Current Medications Current Medications: Generic Name Dose Route Start Last Admin Trade Name Freq PRN Reason Stop Dose Admin Acetaminophen 650 mg 02/26/21 15:00 03/04/21 22:04 Acetaminophen 325 Mg Tab PO 650 mg Q4H PRN Administration Pain MILD(1-3)/Fever >100.5/TOBIAS Hydrocodone Bitart/Acetaminophen 2 each 02/26/21 15:00 03/04/21 18:26 Hydrocodone/Acetaminophen 5-325 Mg Tab PO 2 each Q6H PRN Administration Pain, Moderate (4-6) Albumin Human 25 gm 03/01/21 12:00 03/01/21 16:28 Albumin Human 25% (25 Gm/100 Ml) Inj IV 25 gm SALIMA PRN Administration Hypotension Gabapentin 100 mg 02/26/21 22:00 03/05/21 14:06 Gabapentin 100 Mg Cap PO 100 mg Q8HR REBEL Administration Sodium Chloride 100 mls @ 999 mls/hr 03/01/21 09:00 Nacl 0.9% IV SALIMA PRN Hypotension Morphine Sulfate 4 mg 02/26/21 16:00 03/05/21 08:33 Morphine 4 Mg/1 Ml Inj IV 4 mg Q4H PRN Administration Pain , Severe (7-10) Ondansetron HCl 4 mg 02/26/21 15:00 Ondansetron 4 Mg/2 Ml Inj IV Q8H PRN Nausea And Vomiting Pantoprazole Sodium 20 mg 02/26/21 22:00 03/05/21 10:38 Pantoprazole 20 Mg Tab PO 20 mg BID REBEL Administration Sertraline HCl 100 mg 02/27/21 10:00 03/05/21 10:38 Sertraline 100 Mg Tab PO 100 mg DAILY REBEL Administration Tacrolimus 0.5 mg 02/26/21 22:00 03/05/21 10:38 Tacrolimus 0.5 Mg Cap PO 0.5 mg Q12HR REBEL Administration Torsemide 10 mg 02/28/21 10:00 03/05/21 10:38 Torsemide 10 Mg Tab PO 10 mg DAILY REBEL Administration Tramadol HCl 50 mg 02/26/21 21:30 Tramadol 50 Mg Tab PO Q12HR PRN Pain, Mild (1-3) Nutrition/Malnutrition Assess - Dietary Evaluation Nutrition/Malnutrition Findings: Nutrition Notes Start: 02/27/21 12:35 Freq: Status: Active Protocol: Document 03/05/21 15:02 (Rec: 03/05/21 15:04 [email or web address]) Nutrition Notes Initial or Follow up Reassessment Current Diagnosis CKD (stage V CKD),Hypertension ,Respiratory Failure Other Pertinent Diagnosis on HD Current Diet Renal Labs/Tests BUN 36 Cr 3.4 Pertinent Medications Reviewed Height 5 ft 9 in Weight 69.9 kg [place] Body Weight (kg) 72.72 BMI 22.7 Weight Status Appropriate Subjective/Other Information FU for intakes. Pt eating <25% of meals. He is drinking 100% of the ONS and would like 4 per day. Percent of energy/protein needs met: 82%/95% Burn Absent Trauma Absent GI Symptoms None Current % PO Poor (25-49%) Minimum of two criteria Yes Energy Intake (non-severe) <75% Estimated Energy Requirement >7 days Interpretation of Weight Loss (severe) >5% in 1 month Muscle Mass Mild Depletion (non-severe) #1 Nutrition Diagnosis Malnutrition Diagnosis Progress(for reassessment Continues documentation) Is patient on ventilator? No Is Patient Ambulatory and/or Out of Bed No REE-([facility]-confined to bed) 1833.696 Kcal/Kg value to use for calculation 29 Approximate Energy Requirements Using 2026 kcal/Kg Calculation Used for Recommendations Kcal/kg Additional Notes Protein: (>1.2g/kg) >76g Fluid: output + 1000 ml Nutrition Intervention Change Diet Order: Continue Add Supplement/Snack (indicate name/kcal Nepro QID /protein ) Provides kCal: 1,700 Provides Protein (gm) 79 Goal #1 Meet at least 80% of protein and energy needs via PO and ONS intakes Anticipated Discharge Needs: Renal with ONS BID Follow-Up By: 03/07/21 Additional Comments FU for intakes and ONS tolerance
[2021-03-06 04:08] LABS: Hematocrit 21.7 % (35.5-45.6); Mean Corpuscular HGB Conc 33 % (32-34); Mean Corpuscular Volume 91 fl (84-94); Platelet Count 151 K/mm3 (140-440); Red Blood Count 2.38 M/mm3 (3.65-5.03)
[2021-03-06 04:24] LABS: Calcium 9.3 mg/dL (8.4-10.2)
[2021-03-06] MEDS: HYDROcodone/ACETAMINOPHEN 5-325 MG TAB PO PRN (05:39)
[2021-03-06] MEDS: GABAPENTIN 100 MG CAP PO SCH ×3 (05:39→21:58)
[2021-03-06] MEDS ORDERED: SODIUM CHLORIDE 0.9% 500 ML 500 ML ONE (08:52)
[2021-03-06] MEDS ORDERED: SODIUM CHLORIDE 0.9% 500 ML 500 ML IV SCH (09:00)
[2021-03-06] MEDS ORDERED: HEPARIN/NS 5000 UNIT/500ML 1,000 ML IR ONE (09:20)
[2021-03-06] MEDS: fentaNYL 100 MCG/2 ML INJ ONE ×2 (09:32→09:47)
[2021-03-06] MEDS: MIDAZOLAM 2 MG/2 ML INJ ONE ×3 (09:34→10:41)
[2021-03-06] MEDS: LIDOCAINE (2%) 20 MG/1 ML VIAL 20 ML MDV INFILTRATI ONE ×4 (09:35→10:41)
[2021-03-06] MEDS ORDERED: ceFAZolin/Water 2 GM/20 ML 2 GM/20 ML SYRINGE IV ONE (09:40)
--- NOTE | 2021-03-06 10:06 | Progress Note ---
Assessment and Plan Atrial fibrillation now insetting of severe anemia * Continue holding Elliquis. No anitcoagulation due to severe anemia and risk of hemorrhage * Patient has documented noncompliance with Coumadin, and unable to tolerate Plavix due to gastritis, thus is chronically anticoagulated on Eliquis for chronic A. fib with valve disease status post bioprosthetic repair. * Optimize hypertesnive regimen: Patient is prescribed Coreg 6.25 mg twice daily for rate control but will hold due to hypotension. Heart failure reduced ejection fraction in setting of moderate cardiomyopathy and bioprosthetic MV, TV * Continue home medication torsemide 10 mg daily * Echocardiogram 02/27/2021: LVEF is 35 to 40%. LV normal size. LV SF is moderately decreased. Borderline LVH. Moderate global hypokinesis of LV. RV is mild to moderately dilated. Right ventricle is hypokinetic. LA is moderately dilated. RA is mildly dilated. Bioprosthetic valve in mitral position mean gradient 7.67 mmHg. Bioprosthetic in tricuspid position not clearly visualized. RVSP is 18 mmHg. NSTEMI suspect type II in setting of ESRD on HD * Troponin elevated, unchanging suspect secondary to ESRD. Patient is asymptomatic and chest pain-free. * Nephrology is following Patient for repair of pseudoanurysm of AV graft per vascular surgery this AM. Patient is currently in stable cardiac status. Patient may be discharged home to custodial facility from cards standpoint. Will follow Patient should follow-up with his established cardiology within 1 to 2 weeks of discharge. Alternatively patient may follow-up with Dr Bach, [facility] within 1 to 2 weeks of discharge. #[phone] This patient was seen in conjunction with Dr Bach who agrees with this assessment and plan of care - Patient Problems (1) End stage renal disease Current Visit: Yes Status: Chronic (2) NSTEMI (non-ST elevated myocardial infarction) Current Visit: Yes Status: Acute (3) Heart failure with reduced ejection fraction Current Visit: Yes Status: Acute (4) Atrial fibrillation Current Visit: Yes Status: Acute (5) Anemia in chronic kidney disease (CKD) Current Visit: Yes Status: Chronic Qualifiers: Chronic kidney disease stage: on chronic dialysis Qualified Code(s): N18.6 - End stage renal disease; D63.1 - Anemia in chronic kidney disease; Z99.2 - Dependence on renal dialysis (6) Hypertensive chronic kidney disease with stage 5 chronic kidney disease or end stage renal disease Current Visit: Yes Status: Chronic (7) Secondary hyperparathyroidism (of renal origin) Current Visit: Yes Status: Chronic Subjective Date of service: 03/06/21 Principal diagnosis: End-stage renal disease on hemodialysis, postop graft Interval history: Patient for vascular procedure this AM Afib 100s with PVCs on monitor Objective Last Vital Signs Temp 98.9 F 03/06/21 04:15 Pulse 64 03/06/21 04:15 Resp 18 03/05/21 23:38 BP 122/64 03/06/21 04:15 Pulse Ox 100 03/05/21 23:38 - Physical Examination General: No Apparent Distress HEENT: Positive: PERRL, Normocephaly, Mucus Membranes Moist Neck: Positive: neck supple, trachea midline Cardiac: Positive: irregularly irregular Lungs: Positive: Normal Breath Sounds Neuro: Positive: Grossly Intact Abdomen: Positive: Unremarkable, Soft Musculoskeletal: No Fluid Collection, No Pain Extremities: Present: upper extr. pulses, lower extr. pulses, +4 Edema (RUE ), warm. Absent: edema - Labs and Meds CBC 03/06/21 Range/Units 03:47 WBC 6.2 (4.5-11.0) K/mm3 RBC 2.38 L (3.65-5.03) M/mm3 Hgb 7.0 L (11.8-15.2) gm/dl Hct 21.7 L (35.5-45.6) % Plt Count 151 (140-440) K/mm3 Comprehensive Metabolic Panel 03/06/21 Range/Units 03:47 Sodium 138 (137-145) mmol/L Potassium 4.1 (3.6-5.0) mmol/L Chloride 98.0 (98-107) mmol/L Carbon Dioxide 28 (22-30) mmol/L BUN 53 H (9-20) mg/dL Creatinine 4.0 H (0.8-1.3) mg/dL Glucose 112 H (75-100) mg/dL Calcium 9.3 (8.4-10.2) mg/dL - Imaging and Cardiology EKG: report reviewed, image reviewed Echo: report reviewed (Echocardiogram 02/27/2021: LVEF is 35 to 40%. LV normal size. LV SF is moderately decreased. Borderline LVH. Moderate global hypokinesis of LV. RV is mild to moderately dilated. Right ventricle is hypo kinetic. LA is moderately dilated. RA is mildly dilated. Bioprosthetic valve in mitral posit) - Telemetry EKG Rhythm: Atrial Fibrillation - EKG Supraventricular dysrhythmia: atrial fibrillation Ventricular dysrhythmias: ventricular premature com - Allied health notes Allied health notes reviewed: nursing
[2021-03-06] MEDS: HEPARIN 10,000 UNITS/10 ML VIAL ONE ×5 (10:35→11:15)
[2021-03-06] MEDS ORDERED: HEPARIN/NS 5000 UNIT/500ML 500 ML IR ONE (11:10)
--- NOTE | 2021-03-06 12:04 | Operative Report ---
Operative Report Operative Report: Exam: Removal of right chest wall tunneled hemodialysis catheter, placement of left chest wall tunneled hemodialysis catheter, central venoplasty Clinical indication: Patient with a history of a recently revised right arm AV graft with right arm swelling secondary to central venous stenosis with indwelling tunneled hemodialysis catheter Date: 03/06/2021 Procedure: Following an explanation of the risks, benefits and alternatives; written informed consent was obtained. The patient was brought to the ang iographic suite and placed in supine position on the examination table. The patient's right neck, left neck and left groin were prepped and draped in the usual sterile fashion. Initial ultrasound evaluation of the patient's left groin demonstrated a patent left common femoral vein. The patient's left groin was anesthetized with 1% lidocaine. An 18-gauge needle was then advanced into the common femoral vein and 0.035 guidewire advanced centrally. The needle was removed and a 5 [place] sheath placed. A vertebral catheter was then advanced over the guidewire. Under fluoroscopy the guidewire and catheter were advanced proximally. Together the guidewire and catheter were manipulated into the proximal right atrium. The guidewire and catheter were then manipulated up to the superior vena cava into the right internal jugular vein. Contrast was injected. This demonstrates near complete stasis of flow of contrast within the internal jugular vein on the right secondary to high-grade SVC narrowing. Delayed images approximately 1 minute later demonstrated persistent IJ contrast opacification. Venoplasty was therefore performed using initially an 8 mm x 100 mm balloon insufflated to 3 trina for 2 minutes. Post venoplasty imaging demonstrated some decompression of the superior vena cava and internal jugular vein. The guidewire was advanced into the internal jugular vein and the balloon removed. Access was then obtained on the left side. Under ultrasound guidance, the left internal jugular vein was cannulated with a 7cm 21-gauge needle. A 0.018 guidewire was advanced centrally easily. The needle was removed and a microsheath placed. The 0.018 guidewire was exchanged for a 0.035 guidewire. The guidewire was advanced into the IVC. A serial dilation was then performed o gina the guidewire following with placement of a 15 [place] peel-away sheath. An appropriate catheter exit site was chosen along the lateral left chest wall. Lidocaine was used for anesthesia at the catheter exit site along the tunnel tract. Initially, a Bard 23 cm glidepath tunneled hemodialysis catheter was then tunneled antegrade from the catheter exit site to the venotomy site and inserted to the peel-away sheath. The catheter was positioned however, this was in the distal SVC and a decision was made to exchange the 23 cm glidepath catheter over a guidewire under fluoroscopy for a 27 cm glidepath tunneled hemodialysis catheter. This demonstrated more appropriate positioning of the distal catheter tip in the proximal right atrium. Both ports flushed and aspirated easily and were then locked with appropriate volumes of heparin. The V. Brittny to be site at the neck was closed using 3-0 Vicryl suture. 3-0 Vicryl suture was also used to approximate the catheter exit site. Ultimately, several sutures were necessary given the patient's elevated venous pressure. A 0.035 guidewire was then advanced through the arterial sheath of the patient's indwelling tunneled hemodialysis catheter in his right chest wall. The guidewire was advanced into the IVC for anchoring. 1% lidocaine was used for anesthesia at the catheter exit site and along the tunnel tract. The catheter cuff was dissected free and removed and a 10 [place] sheath placed over the guidewire. Under fluoroscopy, the tip of the sheath was positioned just proximal to the internal jugular vein. The sheath was sutured in place using 2- 0 Ethilon suture. Contrast was injected into the sheath which demonstrates a stenosis of the SVC. There is however some drainage of contrast following prior venoplasty. A decision was made to treat this additionally with a 10 mm x 40 mm balloon and this was advanced across the lesion and insufflated to nominal atmospheres for 1 minute. Post venoplasty imaging demonstrated brisk flow from the IJ to the SVC and right atrium. The vertebral catheter was then again advanced over the guidewire through the left groin sheath. Together the guidewire and catheter were advanced into the distal innominate vein and then more proximal innominate vein. Contrast was injected at multiple locations to demonstrate true luminal positioning. There is prompt opacification of massive chest wall collaterals. There is brisk drainage of these collaterals. Multiple attempts to cannulate the subclavian vein from a groin approach were unsuccessful. At this point, the catheters, guidewires and sheaths were removed. Hemostasis was achieved in the left groin using manual compression and a sterile dressing. Hemostasis was achieved in the right neck using 3-0 Vicryl pursestring suture at the prior catheter exit site and manual compression. Hemostasis was achieved in the left access site for the newly placed tunneled hemodialysis catheter using manual compression and 3-0 Vicryl suture as a pursestring at the catheter exit site. The patient tolerated the procedures well. There were no immediate postprocedure complications. A minimal amount of Versed was given secondary to patient's decreased blood pressure and decreased hemoglobin. Continuous cardiopulmonary monitoring was performed under the guidance of radiologic nursing. Impression: 1) Placement of a new 27 cm glidepath tunneled hemodialysis catheter via the left internal jugular vein. 2) Removal of a right tunneled hemodialysis catheter. 3) Central venogram demonstrating occlusive stenosis of the SVC aroun d the prior right sided hemodialysis catheter. 4) Treatment of the central venous stenosis using sequential angioplasty with brisk flow from the IJ to the right atrium following venoplasty. 5) Venogram of the left chest wall demonstrating numerous massively dilated collaterals. The subclavian was not identified from a left groin approach. 6) If the patient's arm does not significantly decompress, access to the graft/central veins through the arm may become necessary.
--- NOTE | 2021-03-06 12:08 | Progress Note ---
Assessment and Plan Patient with a history of right upper arm graft placement with central venous occlusion. Patient with development of right arm swelling. The patient was taken to the [facility] for removal of his right sided tunneled hemodialysis catheter, placement of a left-sided tunneled hemodialysis catheter, central venoplasty of the occluded SVC. We continue to monitor decompression of the arm following the patient's central venoplasty and catheter switch. Subjective Date of service: 03/06/21 Principal diagnosis: End-stage renal disease on hemodialysis, postop graft Interval history: Right arm swelling appears to be more prominent than prior. Patient scheduled for [facility] procedure today. He complains of pain and tenderness in the right arm. Objective - Constitutional Vitals: Vital Signs - 12hr 03/06/21 04:15 Temperature 98.9 F Pulse Rate 64 Blood Pressure 122/64 [Left] General appearance: Present: no acute distress - EENT Eyes: EOM intact ENT: hearing intact - Neck Neck: supple - Respiratory Respiratory effort: normal Extremities: abnormal Extremity abnormal: edema - Gastrointestinal General gastrointestinal: Present: deferred Rectal Exam: deferred - Genitourinary Male genitourinary: deferred - Psychiatric Psychiatric: cooperative - Labs CBC & Chem 7: 03/06/21 03:47 03/06/21 03:47 Labs: Abnormal lab results 03/06/21 03/06/21 Range/Units 03:47 03:47 RBC 2.38 L (3.65-5.03) M/mm3 Hgb 7.0 L (11.8-15.2) gm/dl Hct 21.7 L (35.5-45.6) % RDW 18.0 H (13.2-15.2) % BUN 53 H (9-20) mg/dL Creatinine 4.0 H (0.8-1.3) mg/dL Glucose 112 H (75-100) mg/dL Troponin T 0.159 H* (0.00-0.029) ng/mL Medications & Allergies - Medications Allergies/Adverse Reactions: Allergies No Known Allergies Allergy (Unverified 02/25/21 09:01) Home Medications: Home Medications Medication Instructions Recorded Confirmed Last Taken Type Acetaminophen [Acetaminophen ER] 650 mg PO PRN PRN 02/17/21 02/17/21 Unknown History Aspirin [Adult Aspirin] 81 mg PO DAILY 02/17/21 02/27/21 02/25/21 09:00 History Omeprazole 20 mg PO BID 02/17/21 02/27/21 02/26/21 10:40 History Sertraline HCl [Zoloft] 100 mg PO DAILY 02/17/21 02/27/21 02/25/21 09:00 History Tacrolimus [Prograf] 0.5 mg PO DAILY 02/17/21 02/17/21 Unknown History carvediloL [Coreg] 6.25 mg PO BID 02/17/21 02/27/21 02/26/21 10:40 History traMADoL [Ultram 50 MG tab] 50 mg PO Q12HR PRN 02/17/21 02/17/21 Unknown History HYDROcodone/APAP 7.5-325 [Sandy 1 each PO Q6HR PRN #40 tablet 02/26/21 Unknown Rx 7.5/325] Active Medications: Generic Name Dose Route Start Last Admin Trade Name Freq PRN Reason Stop Dose Admin Acetaminophen 650 mg 02/26/21 15:00 03/04/21 22:04 Acetaminophen 325 Mg Tab PO 650 mg Q4H PRN Administration Pain MILD(1-3)/Fever >100.5/TOBIAS Hydrocodone Bitart/Acetaminophen 2 each 02/26/21 15:00 03/06/21 05:39 Hydrocodone/Acetaminophen 5-325 Mg Tab PO 2 each Q6H PRN Administration Pain, Moderate (4-6) Albumin Human 25 gm 03/01/21 12:00 03/01/21 16:28 Albumin Human 25% (25 Gm/100 Ml) Inj IV 25 gm SALIMA PRN Administration Hypotension Gabapentin 100 mg 02/26/21 22:00 03/06/21 05:39 Gabapentin 100 Mg Cap PO 100 mg Q8HR REBEL Administration Sodium Chloride 100 mls @ 999 mls/hr 03/01/21 09:00 Nacl 0.9% IV SALIMA PRN Hypotension Sodium Chloride 500 mls @ 50 mls/hr 03/06/21 09:00 Nacl 0.9% 500 Ml IV 03/06/21 18:00 DIRECT REBEL Morphine Sulfate 4 mg 02/26/21 16:00 03/05/21 21:42 Morphine 4 Mg/1 Ml Inj IV 4 mg Q4H PRN Administration Pain , Severe (7-10) Ondansetron HCl 4 mg 02/26/21 15:00 Ondansetron 4 Mg/2 Ml Inj IV Q8H PRN Nausea And Vomiting Pantoprazole Sodium 20 mg 02/26/21 22:00 03/05/21 21:41 Pantoprazole 20 Mg Tab PO 20 mg BID REBEL Administration Sertraline HCl 100 mg 02/27/21 10:00 03/05/21 10:38 Sertraline 100 Mg Tab PO 100 mg DAILY REBEL Administration Tacrolimus 0.5 mg 02/26/21 22:00 03/05/21 21:41 Tacrolimus 0.5 Mg Cap PO 0.5 mg Q12HR REBEL Administration Torsemide 10 mg 02/28/21 10:00 03/05/21 10:38 Torsemide 10 Mg Tab PO 10 mg DAILY REBEL Administration Tramadol HCl 50 mg 02/26/21 21:30 Tramadol 50 Mg Tab PO Q12HR PRN Pain, Mild (1-3) HEART Score - HEART Score Troponin: Troponin T 0.159 ng/mL (0.00-0.029) H* 03/06/21 03:47
[2021-03-06] MEDS: TACROLIMUS 0.5 MG CAP PO SCH ×2 (12:48→22:59)
[2021-03-06] MEDS: SERTRALINE 100 MG TAB PO SCH (12:48)
[2021-03-06] MEDS: TORSEMIDE 10 MG TAB PO SCH (12:49)
[2021-03-06] MEDS: PANTOPRAZOLE 20 MG TAB PO SCH ×2 (12:49→21:58)
--- NOTE | 2021-03-06 18:11 | Progress Note ---
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 Consult placed by DR. Terrell for HTN, ESRD. Patient seen and evaluated upon arrival to his room. No reported nursing events. Patient denies fever, chills, chest pain, palpitation, productive cough, skin rash, recent ill contact, or known exposure to COVID-19. 02/28: Patient for HD today. Stable from my standpoint for discharge blood pressure is improved. Right upper extremity was swollen vascular evaluating. 03/01: Patient with decompression of the right upper ext done yesterday, still some edema, still with some hematoma noted and bilster on the right side He does have 2 blisters which appear to be decompressing along the medial aspect of his upper arm. Scant serosanguineous drainage from his incisions. The arm is still swollen however is decompressing. Hematomas are present extending from the upper arm distally. The patient states that his pain in his arm is much improved from yesterday. 03/02: Continue wound care, monitor H/H, further management of right upper ext fistula site per Surgeon 03/03: Noted anemia worse today down to 6.5 hemoglobin we will transfuse 1 unit packed red blood cell. Disposition per vascular. 03/04/2021; hemoglobin yesterday was 6.5 and transfused 1 unit of blood. Will check H&H and will transfuse if hemoglobin is below 7. 03/05/2021: The entire right upper extremities grossly swollen with some blistering of the elbow and mild discharge. Has low-grade fever but no leukocytosis. 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 The plan is to remove right IJ permacath in place in the left IJ and revascularization of the veins with placement of stent, surgery is scheduled for tomorrow by vascular. ESRD on hemodialysis on Wednesday//Wednesday, nephrology following. Patient has a history of A. fib, right heart failure and bioprosthetic MVR, anticoagulation discontinued due to high risk for bleed. Patient has right hemiparesis from previous stroke. H emoglobin will be monitored and transfuse as needed. 03/06/2021: Right IJ permacath removed and a new one placed on the right. Entire right arm remains grossly swollen with full movements. Venous angioplasty and revascularization is planned for later. Patient was alert oriented. Has some low-grade fever with soft blood pressure. Does not appear toxic today. (1) Hypertension Current Visit: Yes Status: Acute Qualifiers: Hypertension type: primary hypertension Qualified Code(s): I10 - Essential (primary) hypertension Plan to address problem: Monitor blood pressure every shift, continue medical management. (2) End stage renal disease Current Visit: Yes Status: Acute Plan to address problem: Dialysis as per renal team, nephrology team consulted. 3) Type 2 NSTEMI- SCREEN ROLLER EVALUATING 4) BED Bound secondary to CVA WITH HEMIPARESIS OF THE RIGHT UPPER AND LOWER EXT 5) Atrial fibrillation 6) Hypotension- Monitor, may need to hold BB or other antihypertensive. 7) Anemia of chronic disease History Interval history: The entire right upper extremity is grossly swollen with blistering around elbow and mild drainage and he has right IJ permacath in place. Vascular surgery is planning for venous revascularization and stenting for recurrence of central venous obstruction. Permacath removed and placed on the left side today. Patient continues to complain of pain in her right arm but better postprocedure. BP remains soft with stable tachycardia. Has low-grade fever. Is alert but looks debilitated. He is on dialysis T/T/S. Nephrology following. Hospitalist Physical - Constitutional Vitals: Temp Pulse Resp BP Pulse Ox 98.7 F 97 H 18 99/67 96 03/06/21 12:21 03/06/21 12:21 03/06/21 12:21 03/06/21 12:21 03/06/21 13:25 General appearance: Present: no acute distress, cachectic, disheveled, other (Pale) - EENT Eyes: Present: PERRL ENT: clear oral mucosa - Neck Neck: Present: supple - Respiratory Respiratory effort: normal Respiratory: bilateral: diminished - Cardiovascular Rhythm: other (Tachycardia) Heart Sounds: Present: systolic murmur - Extremities Extremity abnormal: other (Entire right upper extremity is grossly swollen with some blistering around elbow. Very poor movements of the joints.) - Abdominal General gastrointestinal: soft, non-tender - Integumentary Integumentary: Present: dry - Psychiatric Psychiatric: appropriate mood/affect - Neurologic Neurologic: other (Alert and oriented. Is nonambulatory regarding patient.) HEART Score - HEART Score Troponin: Troponin T 0.159 ng/mL (0.00-0.029) H* 03/06/21 03:47 Results - Labs CBC & Chem 7: 03/08/21 07:56 03/07/21 06:45 Labs: Laboratory Last Values WBC 6.2 K/mm3 (4.5-11.0) 03/06/21 03:47 RBC 2.38 M/mm3 (3.65-5.03) L 03/06/21 03:47 Hgb 7.0 gm/dl (11.8-15.2) L 03/06/21 03:47 Hct 21.7 % (35.5-45.6) L 03/06/21 03:47 MCV 91 fl (84-94) 03/06/21 03:47 MCH 30 pg (28-32) 03/06/21 03:47 MCHC 33 % (32-34) 03/06/21 03:47 RDW 18.0 % (13.2-15.2) H 03/06/21 03:47 Plt Count 151 K/mm3 (140-440) 03/06/21 03:47 Lymph % (Auto) 9.4 % (13.4-35.0) L 03/04/21 19:01 [place] % (Auto) 9.3 % (0.0-7.3) H 03/04/21 19:01 Eos % (Auto) 2.3 % (0.0-4.3) 03/04/21 19:01 Baso % (Auto) 0.5 % (0.0-1.8) 03/04/21 19:01 Lymph # (Auto) 0.5 K/mm3 (1.2-5.4) L 03/04/21 19:01 [place] # (Auto) 0.5 K/mm3 (0.0-0.8) 03/04/21 19:01 Eos # (Auto) 0.1 K/mm3 (0.0-0.4) 03/04/21 19:01 Baso # (Auto) 0.0 K/mm3 (0.0-0.1) 03/04/21 19:01 Seg Neutrophils % 78.5 % (40.0-70.0) H 03/04/21 19:01 Seg Neutrophils # 4.5 K/mm3 (1.8-7.7) 03/04/21 19:01 PT 17.5 Sec. (12.2-14.9) H 02/27/21 18:32 INR 1.37 (0.87-1.13) H 02/27/21 18:32 APTT 37.5 Sec. (24.2-36.6) H 02/27/21 18:32 Sodium 138 mmol/L (137-145) 03/06/21 03:47 Potassium 4.1 mmol/L (3.6-5.0) 03/06/21 03:47 Chloride 98.0 mmol/L (98-107) 03/06/21 03:47 Carbon Dioxide 28 mmol/L (22-30) 03/06/21 03:47 Anion Gap 16 mmol/L 03/06/21 03:47 BUN 53 mg/dL (9-20) H 03/06/21 03:47 Creatinine 4.0 mg/dL (0.8-1.3) H 03/06/21 03:47 Estimated GFR 19 ml/min 03/06/21 03:47 BUN/Creatinine Ratio 13 % 03/06/21 03:47 Glucose 112 mg/dL (75-100) H 03/06/21 03:47 Calcium 9.3 mg/dL (8.4-10.2) 03/06/21 03:47 Total Creatine Kinase 54 units/L (55-170) L 02/27/21 10:45 CK-MB (CK-2) 1.5 ng/mL (0.0-4.0) 02/27/21 10:45 CK-MB (CK-2) Rel Index 2.7 (0-4) 02/27/21 10:45 Troponin T 0.159 ng/mL (0.00-0.029) H* 03/06/21 03:47 Triglycerides 106 mg/dL (2-149) 02/27/21 10:45 Cholesterol 84 mg/dL (50-199) 02/27/21 10:45 LDL Cholesterol Direct 39 mg/dL (50-130) L 02/27/21 10:45 HDL Cholesterol 27 mg/dL (40-59) L 02/27/21 10:45 Cholesterol/HDL Ratio 3.11 % 02/27/21 10:45 Nasal Screen MRSA (PCR) Negative (Negative) 02/27/21 Unknown Hepatitis A IgM Ab Non-reactive (NonReactive) 02/27/21 18:32 Hep Bs Antigen Non-reactive (Negative) 02/27/21 18:32 Hep B Core IgM Ab Non-reactive (NonReactive) 02/27/21 18:32 Hepatitis C Antibody Reactive (NonReactive) A 02/27/21 18:32 Blood Type A POSITIVE 03/03/21 09:05 Antibody Screen Negative 03/03/21 09:05 Crossmatch See Detail 03/03/21 09:05 Neal/IV: Voiding Method Condom Catheter Active Medications - Current Medications Current Medications: Generic Name Dose Route Start Last Admin Trade Name Freq PRN Reason Stop Dose Admin Acetaminophen 650 mg 02/26/21 15:00 03/04/21 22:04 Acetaminophen 325 Mg Tab PO 650 mg Q4H PRN Administration Pain MILD(1-3)/Fever >100.5/TOBIAS Hydrocodone Bitart/Acetaminophen 2 each 02/26/21 15:00 03/06/21 05:39 Hydrocodone/Acetaminophen 5-325 Mg Tab PO 2 each Q6H PRN Administration Pain, Moderate (4-6) Albumin Human 25 gm 03/01/21 12:00 03/01/21 16:28 Albumin Human 25% (25 Gm/100 Ml) Inj IV 25 gm SALIMA PRN Administration Hypotension Gabapentin 100 mg 02/26/21 22:00 03/06/21 12:49 Gabapentin 100 Mg Cap PO 100 mg Q8HR REBEL Administration Sodium Chloride 100 mls @ 999 mls/hr 03/01/21 09:00 Nacl 0.9% IV SALIMA PRN Hypotension Morphine Sulfate 4 mg 02/26/21 16:00 03/05/21 21:42 Morphine 4 Mg/1 Ml Inj IV 4 mg Q4H PRN Administration Pain , Severe (7-10) Ondansetron HCl 4 mg 02/26/21 15:00 Ondansetron 4 Mg/2 Ml Inj IV Q8H PRN Nausea And Vomiting Pantoprazole Sodium 20 mg 02/26/21 22:00 03/06/21 12:49 Pantoprazole 20 Mg Tab PO 20 mg BID REBEL Administration Sertraline HCl 100 mg 02/27/21 10:00 03/06/21 12:48 Sertraline 100 Mg Tab PO 100 mg DAILY REBEL Administration Tacrolimus 0.5 mg 02/26/21 22:00 03/06/21 12:48 Tacrolimus 0.5 Mg Cap PO 0.5 mg Q12HR REBEL Administration Torsemide 10 mg 02/28/21 10:00 03/06/21 12:49 Torsemide 10 Mg Tab PO 10 mg DAILY REBEL Administration Tramadol HCl 50 mg 02/26/21 21:30 Tramadol 50 Mg Tab PO Q12HR PRN Pain, Mild (1-3) Nutrition/Malnutrition Assess - Dietary Evaluation Nutrition/Malnutrition Findings: Nutrition Notes Start: 02/27/21 12:35 Freq: Status: Active Protocol: Document 03/05/21 15:02 CRIS (Rec: 03/05/21 15:04 CRIS [id number]) Nutrition Notes Initial or Follow up Reassessment Current Diagnosis CKD (stage V CKD),Hypertension ,Respiratory Failure Other Pertinent Diagnosis on HD Current Diet Renal Labs/Tests BUN 36 Cr 3.4 Pertinent Medications Reviewed Height 5 ft 9 in Weight 69.9 kg [place] Body Weight (kg) 72.72 BMI 22.7 Weight Status Appropriate Subjective/Other Information FU for intakes. Pt eating <25% of meals. He is drinking 100% of the ONS and would like 4 per day. Percent of energy/protein needs met: 82%/95% Burn Absent Trauma Absent GI Symptoms None Current % PO Poor (25-49%) Minimum of two criteria Yes Energy Intake (non-severe) <75% Estimated Energy Requirement >7 days Interpretation of Weight Loss (severe) >5% in 1 month Muscle Mass Mild Depletion (non-severe) #1 Nutrition Diagnosis Malnutrition Diagnosis Progress(for reassessment Continues documentation) Is patient on ventilator? No Is Patient Ambulatory and/or Out of Bed No REE-([facility]-confined to bed) 1833.696 Kcal/Kg value to use for calculation 29 Approximate Energy Requirements Using 2026 kcal/Kg Calculation Used for Recommendations Kcal/kg Additional Notes Protein: (>1.2g/kg) >76g Fluid: output + 1000 ml Nutrition Intervention Change Diet Order: Continue Add Supplement/Snack (indicate name/kcal Nepro QID /protein ) Provides kCal: 1,700 Provides Protein (gm) 79 Goal #1 Meet at least 80% of protein and energy needs via PO and ONS intakes Anticipated Discharge Needs: Renal with ONS BID Follow-Up By: 03/07/21 Additional Comments FU for intakes and ONS tolerance
--- NOTE | 2021-03-06 22:36 | Progress Note ---
Assessment and Plan - Patient Problems (1) End stage renal disease Current Visit: Yes Status: Chronic Plan to address problem: patient to be maintained on his outpatient Wednesday hemodialysis schedule. Evaluation from vascular surgery in regards to right upper extremity swelling reviewed, with US results reviewed. Had RIJ permcath r emoved and changed to the left side secondary to concerns of central vein stenosis. (2) Anemia in chronic kidney disease (CKD) Current Visit: Yes Status: Chronic Qualifiers: Chronic kidney disease stage: on chronic dialysis Qualified Code(s): N18.6 - End stage renal disease; D63.1 - Anemia in chronic kidney disease; Z99.2 - Dependence on renal dialysis Plan to address problem: monitor hemoglobin/hematocrit levels. Transfuse to maintain hemoglobin above 7. KARTHIK therapy with HD. Decreasing H/H in the setting possibly of RUE hematoma. No extravasation noted per vascular notes. We will continue to monitor closely. No other signs of overt bleeding noted per nursing staff. Pending FOBT studies. (3) Hypertensive chronic kidney disease with stage 5 chronic kidney disease or end stage renal disease Current Visit: Yes Status: Chronic Plan to address problem: monitor blood pressures under current regimen. (4) Secondary hyperparathyroidism (of renal origin) Current Visit: Yes Status: Chronic Plan to address problem: and restart home phosphate binder regimen. Subjective Date of service: 03/06/21 Principal diagnosis: End-stage renal disease on hemodialysis, postop graft Interval history: seen at the dialysis unit. Had RIJ permcath changed to the left side secondary to concerns of central vein stenosis. Objective - Vital Signs Vital signs: Vital Signs - 12hr 03/06/21 03/06/21 03/06/21 12:21 13:25 13:30 Temperature 98.7 F 97.9 F Pulse Rate 97 H 76 Respiratory 18 18 Rate Blood Pressure 112/57 Blood Pressure 99/67 [Left] O2 Sat by Pulse 94 96 Oximetry 03/06/21 03/06/21 03/06/21 13:45 14:00 14:15 Temperature Pulse Rate 97 H 93 H 114 H Respiratory Rate Blood Pressure 101/44 97/48 95/50 Blood Pressure [Left] O2 Sat by Pulse Oximetry 03/06/21 03/06/21 03/06/21 14:30 14:45 15:00 Temperature Pulse Rate 119 H 110 H 109 H Respiratory Rate Blood Pressure 90/52 90/57 95/51 Blood Pressure [Left] O2 Sat by Pulse Oximetry 03/06/21 03/06/21 03/06/21 15:15 15:30 15:45 Temperature Pulse Rate 77 92 H 78 Respiratory Rate Blood Pressure 104/52 98/52 103/60 Blood Pressure [Left] O2 Sat by Pulse Oximetry 03/06/21 03/06/21 03/06/21 16:00 16:15 16:30 Temperature Pulse Rate 119 H 99 H 77 Respiratory Rate Blood Pressure 98/47 101/52 97/42 Blood Pressure [Left] O2 Sat by Pulse Oximetry 03/06/21 16:50 Temperature 98.9 F Pulse Rate 103 H Respiratory 20 Rate Blood Pressure 106/52 Blood Pressure [Left] O2 Sat by Pulse Oximetry - General Appearance General appearance: well-developed, appears stated age EENT: ATNC Neck: no JVD Respiratory: Present: Clear to Ascultation Cardiology: regular Gastrointestinal: normal Integumentary: warm and dry Neurologic: no focal deficit Musculoskeletal: other (RUE swelling ) Psychiatric: cooperative - Lab 03/06/21 03:47 03/06/21 03:47 Most recent lab results Calcium 9.3 mg/dL (8.4-10.2) 03/06/21 03:47 - Allied health notes Allied health notes reviewed: nursing Medications & Allergies - Medications Allergies/Adverse Reactions: Allergies No Known Allergies Allergy (Unverified 02/25/21 09:01) Home Medications: Home Medications Medication Instructions Recorded Confirmed Last Taken Type Acetaminophen [Acetaminophen ER] 650 mg PO PRN PRN 02/17/21 02/17/21 Unknown History Aspirin [Adult Aspirin] 81 mg PO DAILY 02/17/21 02/27/21 02/25/21 09:00 History Omeprazole 20 mg PO BID 02/17/21 02/27/21 02/26/21 10:40 History Sertraline HCl [Zoloft] 100 mg PO DAILY 02/17/21 02/27/21 02/25/21 09:00 History Tacrolimus [Prograf] 0.5 mg PO DAILY 02/17/21 02/17/21 Unknown History carvediloL [Coreg] 6.25 mg PO BID 02/17/21 02/27/21 02/26/21 10:40 History traMADoL [Ultram 50 MG tab] 50 mg PO Q12HR PRN 02/17/21 02/17/21 Unknown History HYDROcodone/APAP 7.5-325 [[place] 1 each PO Q6HR PRN #40 tablet 02/26/21 Unknown Rx 7.5/325] Active Medications: Generic Name Dose Route Start Last Admin Trade Name Freq PRN Reason Stop Dose Admin Acetaminophen 650 mg 02/26/21 15:00 03/04/21 22:04 Acetaminophen 325 Mg Tab PO 650 mg Q4H PRN Administration Pain MILD(1-3)/Fever >100.5/TOBIAS Hydrocodone Bitart/Acetaminophen 2 each 02/26/21 15:00 03/06/21 05:39 Hydrocodone/Acetaminophen 5-325 Mg Tab PO 2 each Q6H PRN Administration Pain, Moderate (4-6) Albumin Human 25 gm 03/01/21 12:00 03/01/21 16:28 Albumin Human 25% (25 Gm/100 Ml) Inj IV 25 gm SALIMA PRN Administration Hypotension Gabapentin 100 mg 02/26/21 22:00 03/06/21 21:58 Gabapentin 100 Mg Cap PO 100 mg Q8HR REBEL Administration Sodium Chloride 100 mls @ 999 mls/hr 03/01/21 09:00 Nacl 0.9% IV SALIMA PRN Hypotension Morphine Sulfate 4 mg 02/26/21 16:00 03/05/21 21:42 Morphine 4 Mg/1 Ml Inj IV 4 mg Q4H PRN Administration Pain , Severe (7-10) Ondansetron HCl 4 mg 02/26/21 15:00 Ondansetron 4 Mg/2 Ml Inj IV Q8H PRN Nausea And Vomiting Pantoprazole Sodium 20 mg 02/26/21 22:00 03/06/21 21:58 Pantoprazole 20 Mg Tab PO 20 mg BID REBEL Administration Sertraline HCl 100 mg 02/27/21 10:00 03/06/21 12:48 Sertraline 100 Mg Tab PO 100 mg DAILY REBEL Administration Tacrolimus 0.5 mg 02/26/21 22:00 03/06/21 12:48 Tacrolimus 0.5 Mg Cap PO 0.5 mg Q12HR REBEL Administration Torsemide 10 mg 02/28/21 10:00 03/06/21 12:49 Torsemide 10 Mg Tab PO 10 mg DAILY REBEL Administration Tramadol HCl 50 mg 02/26/21 21:30 Tramadol 50 Mg Tab PO Q12HR PRN Pain, Mild (1-3)
[2021-03-07] MEDS: GABAPENTIN 100 MG CAP PO SCH ×4 (06:10→23:48)
[2021-03-07 07:19] LABS: Hemoglobin 6.4 gm/dl (11.8-15.2); Mean Corpuscular HGB Conc 32 % (32-34); Mean Corpuscular Volume 90 fl (84-94); Platelet Count 173 K/mm3 (140-440); Red Blood Count 2.18 M/mm3 (3.65-5.03); Red Cell Distribution Width 17.8 % (13.2-15.2)
[2021-03-07 07:24] LABS: Hematocrit 19.6 % (35.5-45.6)
[2021-03-07 07:33] LABS: Calcium 9.3 mg/dL (8.4-10.2)
[2021-03-07] MEDS ORDERED: SODIUM CHLORIDE 0.9% 500 ML 500 ML IV SCH (08:00)
[2021-03-07] MEDS ORDERED: carvediloL 6.25 MG TAB PO SCH (10:00)
--- NOTE | 2021-03-07 10:23 | Progress Note ---
Assessment and Plan Atrial fibrillation now insetting of severe anemia * Continue holding Elliquis. No anitcoagulation due to severe anemia and risk of hemorrhage * Patient has documented noncompliance with Coumadin, and unable to tolerate Plavix due to gastritis, thus is chronically anticoagulated on Eliquis for chronic A. fib with valve disease status post bioprosthetic repair. * Optimize hypertensive regimen: switch patients Coreg 6.25 mg twice daily to metoprolol 12.5mg BID for rate control. Heart failure reduced ejection fraction in setting of moderate cardiomyopathy and bioprosthetic MV, TV * Continue home medication torsemide 10 mg daily * Echocardiogram 02/27/2021: LVEF is 35 to 40%. LV normal size. LV SF is moderately decreased. Borderline LVH. Moderate global hypokinesis of LV. RV is mild to moderately dilated. Right ventricle is hypokinetic. LA is moderately dilated. RA is mildly dilated. Bioprosthetic valve in mitral position mean gradient 7.67 mmHg. Bioprosthetic in tricuspid position not clearly visualized. RVSP is 18 mmHg. NSTEMI suspect type II in setting of ESRD on HD * Troponins were noted to be elevated, unchanging suspect secondary to ESRD. Patient is asymptomatic and chest pain-free. * Will continue to trend * Nephrology is following Patient is currently in stable cardiac status. Patient may be discharged home to intermediate facility from cards standpoint. Will follow Patient should follow-up with his established cardiology within 1 to 2 weeks of discharge. Alternatively patient may follow-up with Dr Bach, [facility] heart specialists within 1 to 2 weeks of discharge. #[phone] This patient was seen in conjunction with Dr Bach who agrees with this assessment and plan of care - Patient Problems (1) End stage renal disease Current Visit: Yes Status: Chronic (2) NSTEMI (non-ST elevated myocardial infarction) Current Visit: Yes Status: Acute (3) Heart failure with reduced ejection fraction Current Visit: Yes Status: Acute (4) Atrial fibrillation Current Visit: Yes Status: Acute (5) Anemia in chronic kidney disease (CKD) Current Visit: Yes Status: Chronic Qualifiers: Chronic kidney disease stage: on chronic dialysis Qualified Code(s): N18.6 - End stage renal disease; D63.1 - Anemia in chronic kidney disease; Z99.2 - Dependence on renal dialysis (6) Hypertensive chronic kidney disease with stage 5 chronic kidney disease or end stage renal disease Current Visit: Yes Status: Chronic (7) Secondary hyperparathyroidism (of renal origin) Current Visit: Yes Status: Chronic Subjective Date of service: 03/07/21 Principal diagnosis: End-stage renal disease on hemodialysis, postop graft Interval history: Patient sitting comfortably in bed. Patient has no complaints of chest pain or SOB Afib 110s with PVCs on monitor Objective Vital Signs Last Vital Signs Temp 98.6 F 03/07/21 08:45 Pulse 92 H 03/07/21 08:45 Resp 22 03/07/21 08:45 BP 90/58 03/07/21 08:45 Pulse Ox 100 03/07/21 08:45 - Physical Examination General: No Apparent Distress HEENT: Positive: PERRL, Normocephaly, Mucus Membranes Moist Neck: Positive: neck supple, trachea midline Cardiac: Positive: irregularly irregular Lungs: Positive: Normal Breath Sounds Neuro: Positive: Grossly Intact Abdomen: Positive: Unremarkable, Soft Musculoskeletal: No Fluid Collection, No Pain Extremities: Present: upper extr. pulses, lower extr. pulses, +4 Edema (RUE ), warm. Absent: edema - Labs and Meds CBC 03/07/21 Range/Units 06:45 WBC 5.6 (4.5-11.0) K/mm3 RBC 2.18 L (3.65-5.03) M/mm3 Hgb 6.4 L (11.8-15.2) gm/dl Hct 19.6 L* (35.5-45.6) % Plt Count 173 (140-440) K/mm3 Comprehensive Metabolic Panel 03/07/21 Range/Units 06:45 Sodium 138 (137-145) mmol/L Potassium 4.1 (3.6-5.0) mmol/L Chloride 97.1 L (98-107) mmol/L Carbon Dioxide 31 H (22-30) mmol/L BUN 36 H (9-20) mg/dL Creatinine 3.3 H (0.8-1.3) mg/dL Glucose 100 (75-100) mg/dL Calcium 9.3 (8.4-10.2) mg/dL - Imaging and Cardiology EKG: report reviewed, image reviewed Echo: report reviewed (Echocardiogram 02/27/2021: LVEF is 35 to 40%. LV normal size. LV SF is moderately decreased. Borderline LVH. Moderate global hypokinesis of LV. RV is mild to moderately dilated. Right ventricle is hypokinetic. LA is moderately dilated. RA is mildly dilated. Bioprosthetic valve in mitral posit) - Telemetry EKG Rhythm: Atrial Fibrillation - EKG Supraventricular dysrhythmia: atrial fibrillation Ventricular dysrhythmias: ventricular premature com - Allied health notes Allied health notes reviewed: nursing
[2021-03-07] MEDS: SERTRALINE 100 MG TAB PO SCH (10:25)
[2021-03-07] MEDS: PANTOPRAZOLE 20 MG TAB PO SCH ×2 (10:25→21:53)
[2021-03-07] MEDS: TORSEMIDE 10 MG TAB PO SCH (10:25)
[2021-03-07] MEDS: TACROLIMUS 0.5 MG CAP PO SCH ×2 (10:29→21:53)
--- NOTE | 2021-03-07 11:40 | Progress Note ---
Assessment and Plan - Patient Problems (1) End stage renal disease Current Visit: Yes Status: Chronic Plan to address problem: patient to be maintained on his outpatient Wednesday hemodialysis schedule. Evaluation from vascular surgery in regards to right upper extremity swelling reviewed, with US results reviewed. Had ANGEL serrano r emoved and changed to the left side secondary to concerns of central vein stenosis. (2) Anemia in chronic kidney disease (CKD) Current Visit: Yes Status: Chronic Qualifiers: Chronic kidney disease stage: on chronic dialysis Qualified Code(s): N18.6 - End stage renal disease; D63.1 - Anemia in chronic kidney disease; Z99.2 - Dependence on renal dialysis Plan to address problem: monitor hemoglobin/hematocrit levels. Transfuse to maintain hemoglobin above 7. KARTHIK therapy with HD. Decreasing H/H in the setting possibly of RUE hematoma. No extravasation noted per vascular notes. We will continue to monitor closely. No other signs of overt bleeding noted per nursing staff. Pending FOBT studies. (3) Hypertensive chronic kidney disease with stage 5 chronic kidney disease or end stage renal disease Current Visit: Yes Status: Chronic Plan to address problem: monitor blood pressures under current regimen. (4) Secondary hyperparathyroidism (of renal origin) Current Visit: Yes Status: Chronic Plan to address problem: and restart home phosphate binder regimen. Subjective Date of service: 03/07/21 Principal diagnosis: End-stage renal disease on hemodialysis, postop graft Interval history: no acute changes overnight. Tolerated hemodialysis well yesterday without any issues. pending transfusion of 1 unit packed red blood cells today. Objective - Vital Signs Vital signs: Vital Signs - 12hr 03/07/21 03/07/21 03/07/21 00:19 05:02 08:37 Temperature 97.2 F L 98.1 F Pulse Rate 122 H 118 H Respiratory 20 20 Rate Blood Pressure 131/70 123/63 O2 Sat by Pulse 100 100 98 Oximetry 03/07/21 03/07/21 08:45 10:25 Temperature 98.6 F Pulse Rate 92 H 92 H Respiratory 22 Rate Blood Pressure 90/58 90/58 O2 Sat by Pulse 100 Oximetry - General Appearance General appearance: appears stated age, frail EENT: ATNC Neck: no JVD Respiratory: Present: Clear to Ascultation Cardiology: regular Gastrointestinal: normal Integumentary: warm and dry Neurologic: no focal deficit Musculoskeletal: other (right upper extremity swelling) Psychiatric: cooperative - Lab 03/07/21 06:45 03/07/21 06:45 Most recent lab results Calcium 9.3 mg/dL (8.4-10.2) 03/07/21 06:45 - Allied health notes Allied health notes reviewed: nursing Medications & Allergies - Medications Allergies/Adverse Reactions: Allergies No Known Allergies Allergy (Unverified 02/25/21 09:01) Home Medications: Home Medications Medication Instructions Recorded Confirmed Last Taken Type Acetaminophen [Acetaminophen ER] 650 mg PO PRN PRN 02/17/21 02/17/21 Unknown History Aspirin [Adult Aspirin] 81 mg PO DAILY 02/17/21 02/27/21 02/25/21 09:00 History Omeprazole 20 mg PO BID 02/17/21 02/27/21 02/26/21 10:40 History Sertraline HCl [Zoloft] 100 mg PO DAILY 02/17/21 02/27/21 02/25/21 09:00 History Tacrolimus [Prograf] 0.5 mg PO DAILY 02/17/21 02/17/21 Unknown History carvediloL [Coreg] 6.25 mg PO BID 02/17/21 02/27/21 02/26/21 10:40 History traMADoL [Ultram 50 MG tab] 50 mg PO Q12HR PRN 02/17/21 02/17/21 Unknown History HYDROcodone/APAP 7.5-325 [[place] 1 each PO Q6HR PRN #40 tablet 02/26/21 Unknown Rx 7.5/325] Active Medications: Generic Name Dose Route Start Last Admin Trade Name Xander PRN Reason Stop Dose Admin Acetaminophen 650 mg 02/26/21 15:00 03/04/21 22:04 Acetaminophen 325 Mg Tab PO 650 mg Q4H PRN Administration Pain MILD(1-3)/Fever >100.5/TOBIAS Hydrocodone Bitart/Acetaminophen 2 each 02/26/21 15:00 03/06/21 05:39 Hydrocodone/Acetaminophen 5-325 Mg Tab PO 2 each Q6H PRN Administration Pain, Moderate (4-6) Albumin Human 25 gm 03/01/21 12:00 03/01/21 16:28 Albumin Human 25% (25 Gm/100 Ml) Inj IV 25 gm SALIMA PRN Administration Hypotension Carvedilol 6.25 mg 03/07/21 10:00 03/07/21 10:25 Carvedilol 6.25 Mg Tab PO 6.25 mg BID REBEL Administration Gabapentin 100 mg 02/26/21 22:00 03/07/21 06:10 Gabapentin 100 Mg Cap PO 100 mg Q8HR REBEL Administration Sodium Chloride 100 mls @ 999 mls/hr 03/01/21 09:00 Nacl 0.9% IV SALIMA PRN Hypotension Sodium Chloride 500 mls @ 0 mls/hr 03/07/21 08:00 Nacl 0.9% 500 Ml IV 03/07/21 19:00 ONCE REBEL As Directed Morphine Sulfate 4 mg 02/26/21 16:00 03/05/21 21:42 Morphine 4 Mg/1 Ml Inj IV 4 mg Q4H PRN Administration Pain , Severe (7-10) Ondansetron HCl 4 mg 02/26/21 15:00 Ondansetron 4 Mg/2 Ml Inj IV Q8H PRN Nausea And Vomiting Pantoprazole Sodium 20 mg 02/26/21 22:00 03/07/21 10:25 Pantoprazole 20 Mg Tab PO 20 mg BID REBEL Administration Sertraline HCl 100 mg 02/27/21 10:00 03/07/21 10:25 Sertraline 100 Mg Tab PO 100 mg DAILY REBEL Administration Tacrolimus 0.5 mg 02/26/21 22:00 03/07/21 10:29 Tacrolimus 0.5 Mg Cap PO 0.5 mg Q12HR REBEL Administration Torsemide 10 mg 02/28/21 10:00 03/07/21 10:25 Torsemide 10 Mg Tab PO 10 mg DAILY REBEL Administration Tramadol HCl 50 mg 02/26/21 21:30 Tramadol 50 Mg Tab PO Q12HR PRN Pain, Mild (1-3)
[2021-03-07] MEDS: MORPHINE 4 MG/1 ML INJ IV PRN (17:05)
--- NOTE | 2021-03-07 17:07 | Progress Note ---
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 Consult placed by DR. Terrell for HTN, ESRD. Patient seen and evaluated upon arrival to his room. No reported nursing events. Patient denies fever, chills, chest pain, palpitation, productive cough, skin rash, recent ill contact, or known exposure to COVID-19. 02/28: Patient for HD today. Stable from my standpoint for discharge blood pressure is improved. Right upper extremity was swollen vascular evaluating. 03/01: Patient with decompression of the right upper ext done yesterday, still some edema, still with some hematoma noted and bilster on the right side He does have 2 blisters which appear to be decompressing along the medial aspect of his upper arm. Scant serosanguineous drainage from his incisions. The arm is still swollen however is decompressing. Hematomas are present extending from the upper arm distally. The patient states that his pain in his arm is much improved from yesterday. 03/02: Continue wound care, monitor H/H, further management of right upper ext fistula site per Surgeon 03/03: Noted anemia worse today down to 6.5 hemoglobin we will transfuse 1 unit packed red blood cell. Disposition per vascular. 03/04/2021; hemoglobin yesterday was 6.5 and transfused 1 unit of blood. Will check H&H and will transfuse if hemoglobin is below 7. 03/05/2021: The entire right upper extremities grossly swollen with some blistering of the elbow and mild discharge. Has low-grade fever but no leukocytosis. 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 The plan is to remove right IJ permacath in place in the left IJ and revascularization of the veins with placement of stent, surgery is scheduled for tomorrow by vascular. ESRD on hemodialysis on Wednesday//Wednesday, nephrology following. Patient has a history of A. fib, right heart failure and bioprosthetic MVR, anticoagulation discontinued due to high risk for bleed. Patient has right hemiparesis from previous stroke. H emoglobin will be monitored and transfuse as needed. 03/06/2021: Right IJ permacath removed and a new one placed on the right. Entire right arm remains grossly swollen with full movements. Venous angioplasty and revascularization is planned for later. Patient was alert oriented. Has some low-grade fever with soft blood pressure. Does not appear toxic today. 03/07/2021: Right upper extremity remains grossly swollen though some better. Pain also seems to be better since right IJ permacath removed. BP remains soft with stable tachycardia and afebrile. Has low-grade fever. Mental status seems to be better. Pain well controlled. Vascular surgery is planning for revascularization of central veins on Wednesday. Transfusing PRBC as needed. (1) Hypertension Current Visit: Yes Status: Acute Qualifiers: Hypertension type: primary hypertension Qualified Code(s): I10 - Essential (primary) hypertension Plan to address problem: Monitor blood pressure every shift, continue medical management. (2) End stage renal disease Current Visit: Yes Status: Acute Plan to address problem: Dialysis as per renal team, nephrology team consulted. 3) Type 2 NSTEMI- RECEPTION EVALUATING 4) BED Bound secondary to CVA WITH HEMIPARESIS OF THE RIGHT UPPER AND LOWER EXT 5) Atrial fibrillation 6) Hypotension- Monitor, may need to hold BB or other antihypertensive. 7) Anemia of chronic disease History Interval history: The entire right upper extremity is grossly swollen with blistering around elbow and mild drainage and he has right IJ permacath in place. Vascular surgery is planning for venous revascularization and stenting for recurrence of central venous obstruction. Permacath removed and placed on the left side on 03/06. Patient continues to complain of pain in her right arm but better postprocedure. BP remains soft with stable tachycardia. Has low-grade fever. Is alert but looks debilitated. He is on dialysis T/T/S. Nephrology following. Hospitalist Physical - Constitutional Vitals: Temp Pulse Resp BP Pulse Ox 98.1 F 104 H 18 92/62 100 03/07/21 12:18 03/07/21 12:18 03/07/21 12:18 03/07/21 12:18 03/07/21 12:18 General appearance: Present: no acute distress, cachectic, disheveled, other - EENT Eyes: Present: PERRL - Neck Neck: Present: other (Left IJ Vas-Cath in place.) - Respiratory Respiratory effort: normal Respiratory: bilateral: diminished - Cardiovascular Rhythm: irregularly irregular Heart Sounds: Present: systolic murmur - Extremities Extremity abnormal: other (Right lower extremity is grossly swollen with some blistering around elbow. Patient is unable to move much around the joints. History of CVA.) - Abdominal General gastrointestinal: soft, non-tender - Integumentary Integumentary: Present: dry (Scaly atrophic endorsements) - Psychiatric Psychiatric: appropriate mood/affect - Neurologic Neurologic: other (Alert and oriented.) HEART Score - HEART Score Troponin: Troponin T 0.159 ng/mL (0.00-0.029) H* 03/06/21 03:47 Results - Labs CBC & Chem 7: 03/08/21 07:56 03/07/21 06:45 Labs: Laboratory Last Values WBC 5.6 K/mm3 (4.5-11.0) 03/07/21 06:45 RBC 2.18 M/mm3 (3.65-5.03) L 03/07/21 06:45 Hgb 6.4 gm/dl (11.8-15.2) L 03/07/21 06:45 Hct 19.6 % (35.5-45.6) L* 03/07/21 06:45 MCV 90 fl (84-94) 03/07/21 06:45 MCH 29 pg (28-32) 03/07/21 06:45 MCHC 32 % (32-34) 03/07/21 06:45 RDW 17.8 % (13.2-15.2) H 03/07/21 06:45 Plt Count 173 K/mm3 (140-440) 03/07/21 06:45 Lymph % (Auto) 9.4 % (13.4-35.0) L 03/04/21 19:01 [place] % (Auto) 9.3 % (0.0-7.3) H 03/04/21 19:01 Eos % (Auto) 2.3 % (0.0-4.3) 03/04/21 19:01 Baso % (Auto) 0.5 % (0.0-1.8) 03/04/21 19:01 Lymph # (Auto) 0.5 K/mm3 (1.2-5.4) L 03/04/21 19:01 [place] # (Auto) 0.5 K/mm3 (0.0-0.8) 03/04/21 19:01 Eos # (Auto) 0.1 K/mm3 (0.0-0.4) 03/04/21 19:01 Baso # (Auto) 0.0 K/mm3 (0.0-0.1) 03/04/21 19:01 Seg Neutrophils % 78.5 % (40.0-70.0) H 03/04/21 19:01 Seg Neutrophils # 4.5 K/mm3 (1.8-7.7) 03/04/21 19:01 PT 17.5 Sec. (12.2-14.9) H 02/27/21 18:32 INR 1.37 (0.87-1.13) H 02/27/21 18:32 APTT 37.5 Sec. (24.2-36.6) H 02/27/21 18:32 Sodium 138 mmol/L (137-145) 03/07/21 06:45 Potassium 4.1 mmol/L (3.6-5.0) 03/07/21 06:45 Chloride 97.1 mmol/L (98-107) L 03/07/21 06:45 Carbon Dioxide 31 mmol/L (22-30) H 03/07/21 06:45 Anion Gap 14 mmol/L 03/07/21 06:45 BUN 36 mg/dL (9-20) H 03/07/21 06:45 Creatinine 3.3 mg/dL (0.8-1.3) H 03/07/21 06:45 Estimated GFR 24 ml/min 03/07/21 06:45 BUN/Creatinine Ratio 11 % 03/07/21 06:45 Glucose 100 mg/dL (75-100) 03/07/21 06:45 Calcium 9.3 mg/dL (8.4-10.2) 03/07/21 06:45 Total Creatine Kinase 54 units/L (55-170) L 02/27/21 10:45 CK-MB (CK-2) 1.5 ng/mL (0.0-4.0) 02/27/21 10:45 CK-MB (CK-2) Rel Index 2.7 (0-4) 02/27/21 10:45 Troponin T 0.159 ng/mL (0.00-0.029) H* 07/15/21 03:47 Triglycerides 106 mg/dL (2-149) 02/27/21 10:45 Cholesterol 84 mg/dL (50-199) 02/27/21 10:45 LDL Cholesterol Direct 39 mg/dL (50-130) L 02/27/21 10:45 HDL Cholesterol 27 mg/dL (40-59) L 02/27/21 10:45 Cholesterol/HDL Ratio 3.11 % 02/27/21 10:45 Nasal Screen MRSA (PCR) Negative (Negative) 02/27/21 Unknown Hepatitis A IgM Ab Non-reactive (NonReactive) 02/27/21 18:32 Hep Bs Antigen Non-reactive (Negative) 02/27/21 18:32 Hep B Core IgM Ab Non-reactive (NonReactive) 02/27/21 18:32 Hepatitis C Antibody Reactive (NonReactive) A 02/27/21 18:32 Blood Type A POSITIVE 03/07/21 09:28 Antibody Screen Negative 03/07/21 09:28 Crossmatch See Detail 03/07/21 09:28 Neal/IV: Voiding Method Condom Catheter Active Medications - Current Medications Current Medications: Generic Name Dose Route Start Last Admin Trade Name Freq PRN Reason Stop Dose Admin Acetaminophen 650 mg 02/26/21 15:00 03/04/21 22:04 Acetaminophen 325 Mg Tab PO 650 mg Q4H PRN Administration Pain MILD(1-3)/Fever >100.5/TOBIAS Hydrocodone Bitart/Acetaminophen 2 each 02/26/21 15:00 03/06/21 05:39 Hydrocodone/Acetaminophen 5-325 Mg Tab PO 2 each Q6H PRN Administration Pain, Moderate (4-6) Albumin Human 25 gm 03/01/21 12:00 03/01/21 16:28 Albumin Human 25% (25 Gm/100 Ml) Inj IV 25 gm SALIMA PRN Administration Hypotension Gabapentin 100 mg 02/26/21 22:00 03/07/21 13:47 Gabapentin 100 Mg Cap PO 100 mg Q8HR REBEL Administration Sodium Chloride 100 mls @ 999 mls/hr 03/01/21 09:00 Nacl 0.9% IV SALIMA PRN Hypotension Sodium Chloride 500 mls @ 0 mls/hr 03/07/21 08:00 Nacl 0.9% 500 Ml IV 03/07/21 19:00 ONCE REBEL As Directed Metoprolol Tartrate 12.5 mg 03/07/21 22:00 Metoprolol Tartrate 25 Mg Tab PO BID REBEL Morphine Sulfate 4 mg 02/26/21 16:00 03/07/21 17:05 Morphine 4 Mg/1 Ml Inj IV 4 mg Q4H PRN Administration Pain , Severe (7-10) Ondansetron HCl 4 mg 02/26/21 15:00 Ondansetron 4 Mg/2 Ml Inj IV Q8H PRN Nausea And Vomiting Pantoprazole Sodium 20 mg 02/26/21 22:00 03/07/21 10:25 Pantoprazole 20 Mg Tab PO 20 mg BID REBEL Administration Sertraline HCl 100 mg 02/27/21 10:00 03/07/21 10:25 Sertraline 100 Mg Tab PO 100 mg DAILY REBEL Administration Tacrolimus 0.5 mg 02/26/21 22:00 03/07/21 10:29 Tacrolimus 0.5 Mg Cap PO 0.5 mg Q12HR REBEL Administration Torsemide 10 mg 02/28/21 10:00 03/07/21 10:25 Torsemide 10 Mg Tab PO 10 mg DAILY REBEL Administration Tramadol HCl 50 mg 02/26/21 21:30 Tramadol 50 Mg Tab PO Q12HR PRN Pain, Mild (1-3) Nutrition/Malnutrition Assess - Dietary Evaluation Nutrition/Malnutrition Findings: Nutrition Notes Start: 02/27/21 12:35 Freq: Status: Active Protocol: Document 03/07/21 11:23 (Rec: 03/07/21 11:26 [email or web address]) Nutrition Notes Initial or Follow up Reassessment Current Diagnosis CKD (stage V CKD),Hypertension ,Respiratory Failure Other Pertinent Diagnosis on HD Current Diet Renal Labs/Tests BUN 36 Cr 3.3 Pertinent Medications Reviewed Height 5 ft 9 in Weight 70.8 kg [place] Body Weight (kg) 72.72 BMI 23.0 Weight Status Appropriate Subjective/Other Information FU for intakes. Pt continues to not eat much of the meals. He is drinking 100% of 4 ONS daily. Percent of energy/protein needs met: 100%/100% Burn Absent Trauma Absent GI Symptoms None Current % PO Good (75-100%) Minimum of two criteria Yes Energy Intake (non-severe) <75% Estimated Energy Requirement >7 days Interpretation of Weight Loss (severe) >5% in 1 month Muscle Mass Mild Depletion (non-severe) #1 Nutrition Diagnosis Malnutrition Diagnosis Progress(for reassessment Continues documentation) Is patient on ventilator? No Is Patient Ambulatory and/or Out of Bed No REE-([facility]-confined to bed) 1844.484 Kcal/Kg value to use for calculation 29 Approximate Energy Requirements Using 2052 kcal/Kg Calculation Used for Recommendations Kcal/kg Additional Notes Protein: (>1.2g/kg) >76g Fluid: output + 1000 ml Nutrition Intervention Change Diet Order: Continue Add Supplement/Snack (indicate name/kcal Nepro QID /protein ) Provides kCal: 1,700 Provides Protein (gm) 79 Goal #1 Meet at least 80% of protein and energy needs via PO and ONS intakes Anticipated Discharge Needs: Renal with ONS BID Follow-Up By: 03/12/21 Additional Comments FU for intakes and ONS tolernace
--- NOTE | 2021-03-07 19:14 | Progress Note ---
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 He has had angioplasty of the vein without successful decompression of the arm. He is in need of angioplasty and stenting of the veins to decompress the arm. We will likely plan for intervention on Wednesday or Wednesday to decompress the arm for pain control as well as the use of the AV graft. Subjective Date of service: 03/07/21 Principal diagnosis: End-stage renal disease on hemodialysis, postop graft Interval history: Patient with continued complaints of swelling and pain of right upper extremity. He is currently receiving packed red blood cells. He has no additional compl aints at this time. Objective - Constitutional Vitals: Vital Signs - 12hr 03/07/21 03/07/21 03/07/21 08:37 08:45 10:25 Temperature 98.6 F Pulse Rate 92 H 92 H Respiratory 22 Rate Blood Pressure 90/58 90/58 O2 Sat by Pulse 98 100 Oximetry 03/07/21 03/07/21 03/07/21 12:18 17:29 17:43 Temperature 98.1 F 98.9 F 99 F Pulse Rate 104 H 93 H 86 Respiratory 18 18 18 Rate Blood Pressure 92/62 99/67 96/70 O2 Sat by Pulse 100 99 98 Oximetry 03/07/21 03/07/21 03/07/21 17:44 18:14 18:15 Temperature 99 F 99 F Pulse Rate 86 93 H 105 H Respiratory 18 18 Rate Blood Pressure 96/70 100/68 100/68 O2 Sat by Pulse 98 100 100 Oximetry 03/07/21 18:47 Temperature 98.3 F Pulse Rate 98 H Respiratory Rate Blood Pressure 103/74 O2 Sat by Pulse 100 Oximetry General appearance: Present: no acute distress - Respiratory Respiratory effort: normal Extremities: abnormal (Right arm with diffuse ecchymosis and swelling throughout) - Labs CBC & Chem 7: 03/07/21 06:45 03/07/21 06:45 Labs: Abnormal lab results 02/26/21 03/03/21 03/07/21 Range/Units 14:42 09:05 06:45 RBC 2.18 L (3.65-5.03) M/mm3 Hgb 6.4 L (11.8-15.2) gm/dl Hct 19.6 L* (35.5-45.6) % RDW 17.8 H (13.2-15.2) % Chloride (98-107) mmol/L Carbon Dioxide (22-30) mmol/L BUN (9-20) mg/dL Creatinine (0.8-1.3) mg/dL Crossmatch See Detail See Detail 03/07/21 03/07/21 Range/Units 06:45 09:28 RBC (3.65-5.03) M/mm3 Hgb (11.8-15.2) gm/dl Hct (35.5-45.6) % RDW (13.2-15.2) % Chloride 97.1 L (98-107) mmol/L Carbon Dioxide 31 H (22-30) mmol/L BUN 36 H (9-20) mg/dL Creatinine 3.3 H (0.8-1.3) mg/dL Crossmatch See Detail Medications & Allergies - Medications Allergies/Adverse Reactions: Allergies No Known Allergies Allergy (Unverified 02/25/21 09:01) Home Medications: Home Medications Medication Instructions Recorded Confirmed Last Taken Type Acetaminophen [Acetaminophen ER] 650 mg PO PRN PRN 02/17/21 02/17/21 Unknown History Aspirin [Adult Aspirin] 81 mg PO DAILY 02/17/21 02/27/21 02/25/21 09:00 History Omeprazole 20 mg PO BID 02/17/21 02/27/21 02/26/21 10:40 History Sertraline HCl [Zoloft] 100 mg PO DAILY 02/17/21 02/27/21 02/25/21 09:00 History Tacrolimus [Prograf] 0.5 mg PO DAILY 02/17/21 02/17/21 Unknown History carvediloL [Coreg] 6.25 mg PO BID 02/17/21 02/27/21 02/26/21 10:40 History traMADoL [Ultram 50 MG tab] 50 mg PO Q12HR PRN 02/17/21 02/17/21 Unknown History HYDROcodone/APAP 7.5-325 [[place] 1 each PO Q6HR PRN #40 tablet 02/26/21 Unknown Rx 7.5/325] Active Medications: Generic Name Dose Route Start Last Admin Trade Name Freq PRN Reason Stop Dose Admin Acetaminophen 650 mg 02/26/21 15:00 03/04/21 22:04 Acetaminophen 325 Mg Tab PO 650 mg Q4H PRN Administration Pain MILD(1-3)/Fever >100.5/TOBIAS Hydrocodone Bitart/Acetaminophen 2 each 02/26/21 15:00 03/06/21 05:39 Hydrocodone/Acetaminophen 5-325 Mg Tab PO 2 each Q6H PRN Administration Pain, Moderate (4-6) Albumin Human 25 gm 03/01/21 12:00 03/01/21 16:28 Albumin Human 25% (25 Gm/100 Ml) Inj IV 25 gm SALIMA PRN Administration Hypotension Gabapentin 100 mg 02/26/21 22:00 03/07/21 13:47 Gabapentin 100 Mg Cap PO 100 mg Q8HR REBEL Administration Sodium Chloride 100 mls @ 999 mls/hr 03/01/21 09:00 Nacl 0.9% IV SALIMA PRN Hypotension Metoprolol Tartrate 12.5 mg 03/07/21 22:00 Metoprolol Tartrate 25 Mg Tab PO BID REBEL Morphine Sulfate 4 mg 02/26/21 16:00 03/07/21 17:05 Morphine 4 Mg/1 Ml Inj IV 4 mg Q4H PRN Administration Pain , Severe (7-10) Ondansetron HCl 4 mg 02/26/21 15:00 Ondansetron 4 Mg/2 Ml Inj IV Q8H PRN Nausea And Vomiting Pantoprazole Sodium 20 mg 02/26/21 22:00 03/07/21 10:25 Pantoprazole 20 Mg Tab PO 20 mg BID REBEL Administration Sertraline HCl 100 mg 02/27/21 10:00 03/07/21 10:25 Sertraline 100 Mg Tab PO 100 mg DAILY REBEL Administration Tacrolimus 0.5 mg 02/26/21 22:00 03/07/21 10:29 Tacrolimus 0.5 Mg Cap PO 0.5 mg Q12HR REBEL Administration Torsemide 10 mg 02/28/21 10:00 03/07/21 10:25 Torsemide 10 Mg Tab PO 10 mg DAILY REBEL Administration Tramadol HCl 50 mg 02/26/21 21:30 Tramadol 50 Mg Tab PO Q12HR PRN Pain, Mild (1-3) HEART Score - HEART Score Troponin: Troponin T 0.159 ng/mL (0.00-0.029) H* 03/06/21 03:47
[2021-03-07] MEDS: METOPROLOL TARTRATE 25 MG TAB PO SCH (21:53)
[2021-03-07] MEDS: HEPARIN 10,000 UNITS/10 ML VIAL ONE (23:45)
[2021-03-07] MEDS: fentaNYL 100 MCG/2 ML INJ ONE (23:46)
[2021-03-08] MEDS: HYDROcodone/ACETAMINOPHEN 5-325 MG TAB PO PRN (04:33)
[2021-03-08] MEDS: GABAPENTIN 100 MG CAP PO SCH ×3 (05:55→22:49)
[2021-03-08 08:13] LABS: Hematocrit 24.3 % (35.5-45.6)
[2021-03-08] MEDS: PANTOPRAZOLE 20 MG TAB PO SCH ×2 (09:50→22:48)
[2021-03-08] MEDS: METOPROLOL TARTRATE 25 MG TAB PO SCH ×3 (09:50→22:49)
[2021-03-08] MEDS: SERTRALINE 100 MG TAB PO SCH (09:50)
[2021-03-08] MEDS: TACROLIMUS 0.5 MG CAP PO SCH ×2 (09:50→22:48)
[2021-03-08] MEDS: traMADol 50 MG TAB PO PRN (09:51)
[2021-03-08] MEDS: TORSEMIDE 10 MG TAB PO SCH (09:51)
--- NOTE | 2021-03-08 13:38 | Progress Note ---
Assessment and Plan Atrial fibrillation now insetting of severe anemia * Continue holding Elliquis. No anitcoagulation due to severe anemia and risk of hemorrhage * Patient has documented noncompliance with Coumadin, and unable to tolerate Plavix due to gastritis, thus is chronically anticoagulated on Eliquis for chronic A. fib with valve disease status post bioprosthetic repair. * Optimize hypertensive regimen: switch patients Coreg 6.25 mg twice daily to metoprolol 12.5mg BID for rate control. Heart failure reduced ejection fraction in setting of moderate cardiomyopathy and bioprosthetic MV, TV * Continue home medication torsemide 10 mg daily * Echocardiogram 02/27/2021: LVEF is 35 to 40%. LV normal size. LV SF is moderately decreased. Borderline LVH. Moderate global hypokinesis of LV. RV is mild to moderately dilated. Right ventricle is hypokinetic. LA is moderately dilated. RA is mildly dilated. Bioprosthetic valve in mitral position mean gradient 7.67 mmHg. Bioprosthetic in tricuspid position not clearly visualized. RVSP is 18 mmHg. NSTEMI suspect type II in setting of ESRD on HD * Troponins were noted to be elevated, unchanging suspect secondary to ESRD. Patient is asymptomatic and chest pain-free. * Nephrology is following signed by Sanjeev Parker NP Patient is currently in stable cardiac status. Patient may be discharged home to senior care facility from cards standpoint. Will follow Patient should follow-up with his established cardiology within 1 to 2 weeks of discharge. Alternatively patient may follow-up with Dr Bach, [facility] heart specialists within 1 to 2 weeks of discharge. #[phone] This patient was seen in conjunction with Dr Bach who agrees with this assessment and plan of care - Patient Problems (1) End stage renal disease Current Visit: Yes Status: Chronic (2) NSTEMI (non-ST elevated myocardial infarction) Current Visit: Yes Status: Acute (3) Heart failure with reduced ejection fraction Current Visit: Yes Status: Acute (4) Atrial fibrillation Current Visit: Yes Status: Acute (5) Anemia in chronic kidney disease (CKD) Current Visit: Yes Status: Chronic Qualifiers: Chronic kidney disease stage: on chronic dialysis Qualified Code(s): N18.6 - End stage renal disease; D63.1 - Anemia in chronic kidney disease; Z99.2 - Dependence on renal dialysis (6) Hypertensive chronic kidney disease with stage 5 chronic kidney disease or end stage renal disease Current Visit: Yes Status: Chronic (7) Secondary hyperparathyroidism (of renal origin) Current Visit: Yes Status: Chronic Subjective Date of service: 03/08/21 Principal diagnosis: End-stage renal disease on hemodialysis, postop graft Interval history: Patient sitting comfortably in bed. Patient has no complaints of chest pain or SOB Afib 100s with PVCs on monitor Objective Last Vital Signs Temp 97.5 F L 03/08/21 10:51 Pulse 73 03/08/21 10:51 Resp 18 03/08/21 10:51 BP 117/66 03/08/21 10:51 Pulse Ox 100 03/08/21 10:51 - Physical Examination General: No Apparent Distress HEENT: Positive: PERRL, Normocephaly, Mucus Membranes Moist Neck: Positive: neck supple, trachea midline Cardiac: Positive: irregularly irregular Lungs: Positive: Normal Breath Sounds Neuro: Positive: Grossly Intact Abdomen: Positive: Unremarkable, Soft Musculoskeletal: No Fluid Collection, No Pain Extremities: Present: upper extr. pulses, lower extr. pulses, +4 Edema (RUE ), warm. Absent: edema - Labs and Meds CBC 03/08/21 Range/Units 07:56 Hgb 8.0 L (11.8-15.2) gm/dl Hct 24.3 L (35.5-45.6) % - Imaging and Cardiology EKG: report reviewed, image reviewed Echo: report reviewed (Echocardiogram 02/27/2021: LVEF is 35 to 40%. LV normal size. LV SF is moderately decreased. Borderline LVH. Moderate global hypokinesis of LV. RV is mild to moderately dilated. Right ventricle is hypokinetic. LA is moderately dilated. RA is mildly dilated. Bioprosthetic valve in mitral posit) - Telemetry EKG Rhythm: Atrial Fibrillation - EKG Supraventricular dysrhythmia: atrial fibrillation Ventricular dysrhythmias: ventricular premature com - Allied health notes Allied health notes reviewed: nursing
--- NOTE | 2021-03-08 14:56 | Progress Note ---
Assessment and Plan - Patient Problems (1) Venous stenosis of right upper extremity Current Visit: Yes Status: Acute Plan to address problem: Status post venoplasty for stenosis of superior vena cava. Continue to keep right upper extremity elevated. Follow-up swelling (2) Hypertensive chronic kidney disease with stage 5 chronic kidney disease or end stage renal disease Current Visit: Yes Status: Chronic Plan to address problem: Follow-up blood pressure on current medications (3) Anemia in chronic kidney disease (CKD) Current Visit: Yes Status: Chronic Qualifiers: Chronic kidney disease stage: on chronic dialysis Qualified Code(s): N18.6 - End stage renal disease; D63.1 - Anemia in chronic kidney disease; Z99.2 - Dependence on renal dialysis Plan to address problem: erythropoietin on dialysis (4) End stage renal disease Current Visit: Yes Status: Chronic Plan to address problem: Continue hemodialysis on a Wednesday, Wednesday and Wednesday schedule. (5) Secondary hyperparathyroidism (of renal origin) Current Visit: Yes Status: Chronic Plan to address problem: Follow-up PTH and give vitamin D analog as indicated at the outpatient clinic. Subjective Date of service: 03/08/21 Principal diagnosis: End-stage renal disease on hemodialysis, postop graft Interval history: Patient seen lying in bed. Still complains of swelling and pain in his right upper extremity. No fever or chills. No nausea or vomiting. Hurts to move his arm Objective - Exam Narrative Exam: Middle-aged -[place] male lying in bed in no acute distress HEENT: NCAT, Neck: Supple, no venous distention CVS: S1S2 RRR with no murmur, rub or gallop Chest: Clear to auscultation Abdomen: Protuberant, soft, nontender, no organomegaly, bowel sounds are present Extremities: Swelling right upper extremity, tenderness, no differential warmth or erythema. Bruit audible. Edema right lower extremity also Neuro: Awake, alert no focal deficits - Vital Signs Vital signs: Vital Signs - 12hr 03/08/21 03/08/21 03/08/21 04:33 04:43 09:09 Temperature 97.6 F 98.0 F Pulse Rate 112 H 116 H Respiratory 22 18 20 Rate Blood Pressure 103/68 107/70 Blood Pressure [Left] O2 Sat by Pulse 97 91 Oximetry 03/08/21 03/08/21 03/08/21 09:50 10:00 10:51 Temperature 97.5 F L Pulse Rate 116 H 99 H 73 Respiratory 18 Rate Blood Pressure 106/70 Blood Pressure 117/66 [Left] O2 Sat by Pulse 100 100 Oximetry - Lab 03/08/21 07:56 03/07/21 06:45 Most recent lab results Calcium 9.3 mg/dL (8.4-10.2) 03/07/21 06:45 Medications & Allergies - Medications Allergies/Adverse Reactions: Allergies No Known Allergies Allergy (Unverified 02/25/21 09:01) Home Medications: Home Medications Medication Instructions Recorded Confirmed Last Taken Type Acetaminophen [Acetaminophen ER] 650 mg PO PRN PRN 02/17/21 02/17/21 Unknown History Aspirin [Adult Aspirin] 81 mg PO DAILY 02/17/21 02/27/21 02/25/21 09:00 History Omeprazole 20 mg PO BID 02/17/21 02/27/21 02/26/21 10:40 History Sertraline HCl [Zoloft] 100 mg PO DAILY 02/17/21 02/27/21 02/25/21 09:00 History Tacrolimus [Prograf] 0.5 mg PO DAILY 02/17/21 02/17/21 Unknown History carvediloL [Coreg] 6.25 mg PO BID 02/17/21 02/27/21 02/26/21 10:40 History traMADoL [Ultram 50 MG tab] 50 mg PO Q12HR PRN 02/17/21 02/17/21 Unknown History HYDROcodone/APAP 7.5-325 [[place] 1 each PO Q6HR PRN #40 tablet 02/26/21 Unknown Rx 7.5/325] Active Medications: Generic Name Dose Route Start Last Admin Trade Name Freq PRN Reason Stop Dose Admin Acetaminophen 650 mg 02/26/21 15:00 03/04/21 22:04 Acetaminophen 325 Mg Tab PO 650 mg Q4H PRN Administration Pain MILD(1-3)/Fever >100.5/TOBIAS Hydrocodone Bitart/Acetaminophen 2 each 02/26/21 15:00 03/08/21 04:33 Hydrocodone/Acetaminophen 5-325 Mg Tab PO 2 each Q6H PRN Administration Pain, Moderate (4-6) Albumin Human 25 gm 03/01/21 12:00 03/01/21 16:28 Albumin Human 25% (25 Gm/100 Ml) Inj IV 25 gm SALIMA PRN Administration Hypotension Gabapentin 100 mg 02/26/21 22:00 03/08/21 05:55 Gabapentin 100 Mg Cap PO 100 mg Q8HR REBEL Administration Sodium Chloride 100 mls @ 999 mls/hr 03/01/21 09:00 Nacl 0.9% IV SALIMA PRN Hypotension Metoprolol Tartrate 25 mg 03/08/21 11:00 Metoprolol Tartrate 25 Mg Tab PO BID REBEL Morphine Sulfate 4 mg 02/26/21 16:00 03/07/21 17:05 Morphine 4 Mg/1 Ml Inj IV 4 mg Q4H PRN Administration Pain , Severe (7-10) Ondansetron HCl 4 mg 02/26/21 15:00 Ondansetron 4 Mg/2 Ml Inj IV Q8H PRN Nausea And Vomiting Pantoprazole Sodium 20 mg 02/26/21 22:00 03/08/21 09:50 Pantoprazole 20 Mg Tab PO 20 mg BID REBEL Administration Sertraline HCl 100 mg 02/27/21 10:00 03/08/21 09:50 Sertraline 100 Mg Tab PO 100 mg DAILY REBEL Administration Tacrolimus 0.5 mg 02/26/21 22:00 03/08/21 09:50 Tacrolimus 0.5 Mg Cap PO 0.5 mg Q12HR REBEL Administration Torsemide 10 mg 02/28/21 10:00 03/08/21 09:51 Torsemide 10 Mg Tab PO 10 mg DAILY REBEL Administration Tramadol HCl 50 mg 02/26/21 21:30 03/08/21 09:51 Tramadol 50 Mg Tab PO 50 mg Q12HR PRN Administration Pain, Mild (1-3)
[2021-03-08] MEDS: MORPHINE 4 MG/1 ML INJ IV PRN (15:24)
--- NOTE | 2021-03-08 17:43 | Progress Note ---
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 Consult placed by DR. Terrell for HTN, ESRD. Patient seen and evaluated upon arrival to his room. No reported nursing events. Patient denies fever, chills, chest pain, palpitation, productive cough, skin rash, recent ill contact, or known exposure to COVID-19. 02/28: Patient for HD today. Stable from my standpoint for discharge blood pressure is improved. Right upper extremity was swollen vascular evaluating. 03/01: Patient with decompression of the right upper ext done yesterday, still some edema, still with some hematoma noted and bilster on the right side He does have 2 blisters which appear to be decompressing along the medial aspect of his upper arm. Scant serosanguineous drainage from his incisions. The arm is still swollen however is decompressing. Hematomas are present extending from the upper arm distally. The patient states that his pain in his arm is much improved from yesterday. 03/02: Continue wound care, monitor H/H, further management of right upper ext fistula site per Surgeon 03/03: Noted anemia worse today down to 6.5 hemoglobin we will transfuse 1 unit packed red blood cell. Disposition per vascular. 03/04/2021; hemoglobin yesterday was 6.5 and transfused 1 unit of blood. Will check H&H and will transfuse if hemoglobin is below 7. 03/05/2021: The entire right upper extremities grossly swollen with some blistering of the elbow and mild discharge. Has low-grade fever but no leukocytosis. 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 The plan is to remove right IJ permacath in place in the left IJ and revascularization of the veins with placement of stent, surgery is scheduled for tomorrow by vascular. ESRD on hemodialysis on Wednesday//Wednesday, nephrology following. Patient has a history of A. fib, right heart failure and bioprosthetic MVR, anticoagulation discontinued due to high risk for bleed. Patient has right hemiparesis from previous stroke. H emoglobin will be monitored and transfuse as needed. 03/06/2021: Right IJ permacath removed and a new one placed on the right. Entire right arm remains grossly swollen with full movements. Venous angioplasty and revascularization is planned for later. Patient was alert oriented. Has some low-grade fever with soft blood pressure. Does not appear toxic today. 03/07/2021: Right upper extremity remains grossly swollen though some better. Pain also seems to be better since right IJ permacath removed. BP remains soft with stable tachycardia and afebrile. Has low-grade fever. Mental status seems to be better. Pain well controlled. Vascular surgery is planning for revascularization of central veins on Wednesday. Transfusing PRBC as needed. 03/08/2021: Physical exam unchanged. Right arm remains grossly swollen with minimal improvement of swelling since right permacatheter removed. Unable to move at the joints in the right arm likely from gross swelling but also from previous stroke. Low-grade fever seems to be resolving. Never had leukocytosis during this admission. Afebrile with stable vital signs/tachycardia with A. fib. Pain is controlled. Vascular Surgery is planning for revascularization on Wednesday. (1) Hypertension Current Visit: Yes Status: Acute Qualifiers: Hypertension type: primary hypertension Qualified Code(s): I10 - Essential (primary) hypertension Plan to address problem: Monitor blood pressure every shift, continue medical management. (2) End stage renal disease Current Visit: Yes Status: Acute Plan to address problem: Dialysis as per renal team, nephrology team consulted. 3) Type 2 NSTEMI- PROFESSOR OF ARCHAEOLOGY EVALUATING 4) BED Bound secondary to CVA WITH HEMIPARESIS OF THE RIGHT UPPER AND LOWER EXT 5) Atrial fibrillation 6) Hypotension- Monitor, may need to hold BB or other antihypertensive. 7) Anemia of chronic disease History Interval history: The entire right upper extremity is grossly swollen with blistering around elbow. Vascular surgery is planning for venous revascularization and stenting for recurrence of central venous obstruction on Wednesday. Permacath removed and placed on the left side on 03/06. Patient continues to complain of pain in right arm but better postprocedure. Swelling is less tense since right permacath removed. Is unable to move right arm with history of CVA. BP remains soft with A. fib/stable tachycardia. Has low-grade fever. Is alert but looks debilitated. He is on dialysis T/T/S. Nephrology following. Hospitalist Physical - Constitutional Vitals: Temp Pulse Resp BP Pulse Ox 98.0 F 96 H 18 92/59 99 03/08/21 16:16 03/08/21 16:16 03/08/21 16:16 03/08/21 16:16 03/08/21 16:16 General appearance: Present: no acute distress, other (Pallor present) - EENT Eyes: Present: PERRL ENT: clear oral mucosa - Neck Neck: Present: supple, other (Left IJ vascular catheter present) - Respiratory Respiratory effort: normal Respiratory: bilateral: diminished - Cardiovascular Rhythm: irregularly irregular (Mild tachycardia) - Extremities Extremity abnormal: other (No edema and left regular extremity or lower extremities. Entire right upper extremity is grossly swollen with some blistering at elbow. Poor movements at joints with history of stroke. Unable to appreciate pulses due to gross edema.) - Abdominal General gastrointestinal: soft, non-tender, non-distended, normal bowel sounds - Integumentary Integumentary: Present: pale - Psychiatric Psychiatric: appropriate mood/affect HEART Score - HEART Score Troponin: Troponin T 0.137 ng/mL (0.00-0.029) H* 03/08/21 07:56 Results - Labs CBC & Chem 7: 03/08/21 07:56 03/07/21 06:45 Labs: Laboratory Last Values WBC 5.6 K/mm3 (4.5-11.0) 03/07/21 06:45 RBC 2.18 M/mm3 (3.65-5.03) L 03/07/21 06:45 Hgb 8.0 gm/dl (11.8-15.2) L 03/08/21 07:56 Hct 24.3 % (35.5-45.6) L 03/08/21 07:56 MCV 90 fl (84-94) 03/07/21 06:45 MCH 29 pg (28-32) 03/07/21 06:45 MCHC 32 % (32-34) 03/07/21 06:45 RDW 17.8 % (13.2-15.2) H 03/07/21 06:45 Plt Count 173 K/mm3 (140-440) 03/07/21 06:45 Lymph % (Auto) 9.4 % (13.4-35.0) L 03/04/21 19:01 [place] % (Auto) 9.3 % (0.0-7.3) H 03/04/21 19:01 Eos % (Auto) 2.3 % (0.0-4.3) 03/04/21 19:01 Baso % (Auto) 0.5 % (0.0-1.8) 03/04/21 19:01 Lymph # (Auto) 0.5 K/mm3 (1.2-5.4) L 03/04/21 19:01 [place] # (Auto) 0.5 K/mm3 (0.0-0.8) 03/04/21 19:01 Eos # (Auto) 0.1 K/mm3 (0.0-0.4) 03/04/21 19:01 Baso # (Auto) 0.0 K/mm3 (0.0-0.1) 03/04/21 19:01 Seg Neutrophils % 78.5 % (40.0-70.0) H 03/04/21 19:01 Seg Neutrophils # 4.5 K/mm3 (1.8-7.7) 03/04/21 19:01 PT 17.5 Sec. (12.2-14.9) H 02/27/21 18:32 INR 1.37 (0.87-1.13) H 02/27/21 18:32 APTT 37.5 Sec. (24.2-36.6) H 02/27/21 18:32 Sodium 138 mmol/L (137-145) 03/07/21 06:45 Potassium 4.1 mmol/L (3.6-5.0) 03/07/21 06:45 Chloride 97.1 mmol/L (98-107) L 03/07/21 06:45 Carbon Dioxide 31 mmol/L (22-30) H 03/07/21 06:45 Anion Gap 14 mmol/L 03/07/21 06:45 BUN 36 mg/dL (9-20) H 03/07/21 06:45 Creatinine 3.3 mg/dL (0.8-1.3) H 03/07/21 06:45 Estimated GFR 24 ml/min 03/07/21 06:45 BUN/Creatinine Ratio 11 % 03/07/21 06:45 Glucose 100 mg/dL (75-100) 03/07/21 06:45 Calcium 9.3 mg/dL (8.4-10.2) 03/07/21 06:45 Total Creatine Kinase 54 units/L (55-170) L 02/27/21 10:45 CK-MB (CK-2) 1.5 ng/mL (0.0-4.0) 02/27/21 10:45 CK-MB (CK-2) Rel Index 2.7 (0-4) 02/27/21 10:45 Troponin T 0.137 ng/mL (0.00-0.029) H* 03/08/21 07:56 Triglycerides 106 mg/dL (2-149) 02/27/21 10:45 Cholesterol 84 mg/dL (50-199) 02/27/21 10:45 LDL Cholesterol Direct 39 mg/dL (50-130) L 02/27/21 10:45 HDL Cholesterol 27 mg/dL (40-59) L 02/27/21 10:45 Cholesterol/HDL Ratio 3.11 % 02/27/21 10:45 Nasal Screen MRSA (PCR) Negative (Negative) 02/27/21 Unknown Hepatitis A IgM Ab Non-reactive (NonReactive) 02/27/21 18:32 Hep Bs Antigen Non-reactive (Negative) 02/27/21 18:32 Hep B Core IgM Ab Non-reactive (NonReactive) 02/27/21 18:32 Hepatitis C Antibody Reactive (NonReactive) A 02/27/21 18:32 Blood Type A POSITIVE 03/07/21 09:28 Antibody Screen Negative 03/07/21 09:28 Crossmatch See Detail 03/07/21 09:28 Neal/IV: Voiding Method Condom Catheter Active Medications - Current Medications Current Medications: Generic Name Dose Route Start Last Admin Trade Name Freq PRN Reason Stop Dose Admin Acetaminophen 650 mg 02/26/21 15:00 03/04/21 22:04 Acetaminophen 325 Mg Tab PO 650 mg Q4H PRN Administration Pain MILD(1-3)/Fever >100.5/TOBIAS Hydrocodone Bitart/Acetaminophen 2 each 02/26/21 15:00 03/08/21 04:33 Hydrocodone/Acetaminophen 5-325 Mg Tab PO 2 each Q6H PRN Administration Pain, Moderate (4-6) Albumin Human 25 gm 03/01/21 12:00 03/01/21 16:28 Albumin Human 25% (25 Gm/100 Ml) Inj IV 25 gm SALIMA PRN Administration Hypotension Gabapentin 100 mg 02/26/21 22:00 03/08/21 14:57 Gabapentin 100 Mg Cap PO 100 mg Q8HR REBEL Administration Sodium Chloride 100 mls @ 999 mls/hr 03/01/21 09:00 Nacl 0.9% IV SALIMA PRN Hypotension Metoprolol Tartrate 25 mg 03/08/21 11:00 03/08/21 15:24 Metoprolol Tartrate 25 Mg Tab PO 25 mg BID REBEL Administration Morphine Sulfate 4 mg 02/26/21 16:00 03/08/21 15:24 Morphine 4 Mg/1 Ml Inj IV 4 mg Q4H PRN Administration Pain , Severe (7-10) Ondansetron HCl 4 mg 02/26/21 15:00 Ondansetron 4 Mg/2 Ml Inj IV Q8H PRN Nausea And Vomiting Pantoprazole Sodium 20 mg 02/26/21 22:00 03/08/21 09:50 Pantoprazole 20 Mg Tab PO 20 mg BID REBEL Administration Sertraline HCl 100 mg 02/27/21 10:00 03/08/21 09:50 Sertraline 100 Mg Tab PO 100 mg DAILY REBEL Administration Tacrolimus 0.5 mg 02/26/21 22:00 03/08/21 09:50 Tacrolimus 0.5 Mg Cap PO 0.5 mg Q12HR REBEL Administration Torsemide 10 mg 02/28/21 10:00 03/08/21 09:51 Torsemide 10 Mg Tab PO 10 mg DAILY REBEL Administration Tramadol HCl 50 mg 02/26/21 21:30 03/08/21 09:51 Tramadol 50 Mg Tab PO 50 mg Q12HR PRN Administration Pain, Mild (1-3) Nutrition/Malnutrition Assess - Dietary Evaluation Nutrition/Malnutrition Findings: Nutrition Notes Start: 02/27/21 12:35 Freq: Status: Active Protocol: Document 03/07/21 11:23 CRIS (Rec: 03/07/21 11:26 [id number]) Nutrition Notes Initial or Follow up Reassessment Current Diagnosis CKD (stage V CKD),Hypertension ,Respiratory Failure Other Pertinent Diagnosis on HD Current Diet Renal Labs/Tests BUN 36 Cr 3.3 Pertinent Medications Reviewed Height 5 ft 9 in Weight 70.8 kg [place] Body Weight (kg) 72.72 BMI 23.0 Weight Status Appropriate Subjective/Other Information FU for intakes. Pt continues to not eat much of the meals. He is drinking 100% of 4 ONS daily. Percent of energy/protein needs met: 100%/100% Burn Absent Trauma Absent GI Symptoms None Current % PO Good (75-100%) Minimum of two criteria Yes Energy Intake (non-severe) <75% Estimated Energy Requirement >7 days Interpretation of Weight Loss (severe) >5% in 1 month Muscle Mass Mild Depletion (non-severe) #1 Nutrition Diagnosis Malnutrition Diagnosis Progress(for reassessment Continues documentation) Is patient on ventilator? No Is Patient Ambulatory and/or Out of Bed No REE-([facility]-confined to bed) 1844.484 Kcal/Kg value to use for calculation 29 Approximate Energy Requirements Using 2052 kcal/Kg Calculation Used for Recommendations Kcal/kg Additional Notes Protein: (>1.2g/kg) >76g Fluid: output + 1000 ml Nutrition Intervention Change Diet Order: Continue Add Supplement/Snack (indicate name/kcal Nep[place] QID /protein ) Provides kCal: 1,700 Provides Protein (gm) 79 Goal #1 Meet at least 80% of protein and energy needs via PO and ONS intakes Anticipated Discharge Needs: Renal with ONS BID Follow-Up By: 03/12/21 Additional Comments FU for intakes and ONS tolernace
[2021-03-09] MEDS: HYDROcodone/ACETAMINOPHEN 5-325 MG TAB PO PRN ×2 (00:28→13:23)
[2021-03-09] MEDS: GABAPENTIN 100 MG CAP PO SCH ×3 (05:19→22:40)
--- NOTE | 2021-03-09 08:29 | Progress Note ---
Assessment and Plan Continue conservative mgmt. Continue PO Lopressor 25mg BID as tolerated. Eliquis discontinued in the setting of severe anemia, h/o SAH in 2018, h/o GIB, and high fall risk. Nothing further to add from a Cardiology perspective at this time. Will see on an as-needed basis. Signed by: Malina Roland NP Pt seen in conjunction with Dr. Bach, who agrees with the assessment and plan of care. - Patient Problems (1) Chronic respiratory failure Current Visit: Yes Status: Chronic (2) COPD (chronic obstructive pulmonary disease) Current Visit: Yes Status: Chronic (3) Chronic atrial fibrillation Current Visit: Yes Status: Chronic (4) Acute on chronic anemia Current Visit: Yes Status: Acute (5) ESRD on hemodialysis Current Visit: Yes Status: Chronic (6) H/O kidney transplant Current Visit: Yes Status: Chronic (7) Hepatitis C Current Visit: Yes Status: Chronic Qualifiers: Viral hepatitis chronicity: chronic (8) NSTEMI (non-ST elevated myocardial infarction) Current Visit: Yes Status: Acute Plan to address problem: Type 2 (9) Cardiomyopathy Current Visit: Yes Status: Chronic (10) S/P mitral valve replacement with bioprosthetic valve Current Visit: Yes Status: Chronic (11) History of prosthetic tricuspid valve replacement Current Visit: Yes Status: Chronic (12) Hypertension Current Visit: Yes Status: Chronic Qualifiers: Hypertension type: primary hypertension Qualified Code(s): I10 - Essential (primary) hypertension (13) H/O: CVA (cerebrovascular accident) Current Visit: Yes Status: Chronic (14) H/O spont intraparenchymal intracranial hemorrhage d/t cerebral aneurysm Current Visit: Yes Status: Chronic (15) Seizure disorder Current Visit: Yes Status: Chronic (16) H/O: GI bleed Current Visit: Yes Status: Chronic (17) Medical non-compliance Current Visit: Yes Status: Chronic Subjective Date of service: 03/09/21 Principal diagnosis: Chronic AF Interval history: States he is hungry this AM. No cardiac complaints. Tele reviewed - AF 70-80s, no events overnight. Objective Last Vital Signs Temp 99.8 F H 03/09/21 15:02 Pulse 91 H 03/09/21 13:29 Resp 18 03/09/21 13:29 BP 94/63 03/09/21 13:29 Pulse Ox 93 03/09/21 13:29 - Physical Examination General: No Apparent Distress HEENT: Positive: EOMI, Normocephaly Neck: Positive: neck supple, trachea midline Cardiac: Positive: irregularly irregular, S1/S2 Lungs: Positive: clear to auscultation Neuro: Positive: Grossly Intact Abdomen: Positive: Soft. Negative: Tender Skin: Negative: Rash Musculoskeletal: No Pain Extremities: Present: lower extr. pulses, edema (upper ext), warm - Imaging and Cardiology EKG: report reviewed, image reviewed Echo: report reviewed (02/27/2021 - EF 35-40%, RV mild-mod dilated, RV hypokinetic, LA mod dilated, RA mildly dilated, bioprosthetic MV unremarkable, prosthetic TV not well-visualized, IVC dilated ) - Telemetry EKG Rhythm: Atrial Fibrillation - EKG Supraventricular dysrhythmia: atrial fibrillation Ventricular dysrhythmias: ventricular premature com
[2021-03-09] MEDS: SERTRALINE 100 MG TAB PO SCH (11:07)
[2021-03-09] MEDS: PANTOPRAZOLE 20 MG TAB PO SCH ×2 (11:07→22:39)
[2021-03-09] MEDS: TACROLIMUS 0.5 MG CAP PO SCH ×2 (11:07→22:39)
[2021-03-09] MEDS: TORSEMIDE 10 MG TAB PO SCH (11:07)
[2021-03-09] MEDS: METOPROLOL TARTRATE 25 MG TAB PO SCH ×2 (11:11→22:40)
[2021-03-09] MEDS: MORPHINE 4 MG/1 ML INJ IV PRN ×2 (11:14→17:36)
--- NOTE | 2021-03-09 15:14 | Progress Note ---
Assessment and Plan - Patient Problems (1) Venous stenosis of right upper extremity Current Visit: Yes Status: Acute Plan to address problem: Status post venoplasty for stenosis of superior vena cava. Continue to keep right upper extremity elevated. Follow-up swelling (2) Hypertensive chronic kidney disease with stage 5 chronic kidney disease or end stage renal disease Current Visit: Yes Plan to address problem: Follow-up blood pressure on current medications (3) Anemia in chronic kidney disease (CKD) Current Visit: Yes Status: Chronic Qualifiers: Qualified Code(s): N18.6 - End stage renal disease; D63.1 - Anemia in chronic kidney disease; Z99.2 - Dependence on renal dialysis Plan to address problem: erythropoietin on dialysis (4) End stage renal disease Current Visit: Yes Status: Chronic Plan to address problem: Continue hemodialysis on a Wednesday, Wednesday and Wednesday schedule. (5) Secondary hyperparathyroidism (of renal origin) Current Visit: Yes Status: Chronic Plan to address problem: Follow-up PTH and give vitamin D analog as indicated at the outpatient clinic. Subjective Date of service: 03/09/21 Principal diagnosis: Chronic AF Interval history: Patient seen lying in bed. Still complains of swelling and pain in his right upper extremity. It has not improved from yesterday. No fever or chills. No nausea or vomiting. Hurts to move his arm Objective - Exam Narrative Exam: Middle-aged -[place] male lying in bed in no acute distress HEENT: NCAT, Neck: Supple, no venous distention CVS: S1S2 RRR with no murmur, rub or gallop Chest: Clear to auscultation Abdomen: Protuberant, soft, nontender, no organomegaly, bowel sounds are present Extremities: Swelling right upper extremity, tenderness, no differential warmth or erythema. Bruit audible. Edema right lower extremity also Neuro: Awake, alert no focal deficits - Vital Signs Vital signs: Vital Signs - 12hr 03/09/21 03/09/21 03/09/21 05:12 08:28 08:34 Temperature 97.4 F L 98.2 F Pulse Rate 64 61 64 Respiratory 18 18 Rate Blood Pressure 99/63 91/54 Blood Pressure 91/54 [Left] O2 Sat by Pulse 95 100 100 Oximetry 03/09/21 03/09/21 03/09/21 10:00 11:11 13:23 Temperature Pulse Rate 64 87 Respiratory Rate Blood Pressure 91/54 94/63 Blood Pressure [Left] O2 Sat by Pulse 96 92 Oximetry 03/09/21 03/09/21 03/09/21 13:29 14:56 15:02 Temperature 98 F 99.8 F H Pulse Rate 91 H 101 H Respiratory 18 Rate Blood Pressure 96/64 Blood Pressure 94/63 [Left] O2 Sat by Pulse 93 99 Oximetry - Lab 03/08/21 07:56 03/07/21 06:45 Most recent lab results Calcium 9.3 mg/dL (8.4-10.2) 03/07/21 06:45 Medications & Allergies - Medications Allergies/Adverse Reactions: Allergies No Known Allergies Allergy (Unverified 02/25/21 09:01) Home Medications: Home Medications Medication Instructions Recorded Confirmed Last Taken Type Acetaminophen [Acetaminophen ER] 650 mg PO PRN PRN 02/17/21 02/17/21 Unknown History Aspirin [Adult Aspirin] 81 mg PO DAILY 02/17/21 02/27/21 02/25/21 09:00 History Omeprazole 20 mg PO BID 02/17/21 02/27/21 02/26/21 10:40 History Sertraline HCl [Zoloft] 100 mg PO DAILY 02/17/21 02/27/21 02/25/21 09:00 History Tacrolimus [Prograf] 0.5 mg PO DAILY 02/17/21 02/17/21 Unknown History carvediloL [Coreg] 6.25 mg PO BID 02/17/21 02/27/21 02/26/21 10:40 History traMADoL [Ultram 50 MG tab] 50 mg PO Q12HR PRN 02/17/21 02/17/21 Unknown History HYDROcodone/APAP 7.5-325 [[place] 1 each PO Q6HR PRN #40 tablet 02/26/21 Unknown Rx 7.5/325] Active Medications: Generic Name Dose Route Start Last Admin Trade Name Freq PRN Reason Stop Dose Admin Acetaminophen 650 mg 02/26/21 15:00 03/04/21 22:04 Acetaminophen 325 Mg Tab PO 650 mg Q4H PRN Administration Pain MILD(1-3)/Fever >100.5/TOBIAS Hydrocodone Bitart/Acetaminophen 2 each 02/26/21 15:00 03/09/21 13:23 Hydrocodone/Acetaminophen 5-325 Mg Tab PO 2 each Q6H PRN Administration Pain, Moderate (4-6) Albumin Human 25 gm 03/01/21 12:00 03/01/21 16:28 Albumin Human 25% (25 Gm/100 Ml) Inj IV 25 gm SALIMA PRN Administration Hypotension Gabapentin 100 mg 02/26/21 22:00 03/09/21 13:23 Gabapentin 100 Mg Cap PO 100 mg Q8HR REBEL Administration Sodium Chloride 100 mls @ 999 mls/hr 03/01/21 09:00 Nacl 0.9% IV SALIMA PRN Hypotension Metoprolol Tartrate 25 mg 03/08/21 11:00 03/09/21 11:11 Metoprolol Tartrate 25 Mg Tab PO 25 mg BID REBEL Administration Morphine Sulfate 4 mg 02/26/21 16:00 03/09/21 11:14 Morphine 4 Mg/1 Ml Inj IV 4 mg Q4H PRN Administration Pain , Severe (7-10) Ondansetron HCl 4 mg 02/26/21 15:00 Ondansetron 4 Mg/2 Ml Inj IV Q8H PRN Nausea And Vomiting Pantoprazole Sodium 20 mg 02/26/21 22:00 03/09/21 11:07 Pantoprazole 20 Mg Tab PO 20 mg BID REBEL Administration Sertraline HCl 100 mg 02/27/21 10:00 03/09/21 11:07 Sertraline 100 Mg Tab PO 100 mg DAILY REBEL Administration Tacrolimus 0.5 mg 02/26/21 22:00 03/09/21 11:07 Tacrolimus 0.5 Mg Cap PO 0.5 mg Q12HR REBEL Administration Torsemide 10 mg 02/28/21 10:00 03/09/21 11:07 Torsemide 10 Mg Tab PO 10 mg DAILY REBEL Administration Tramadol HCl 50 mg 02/26/21 21:30 03/08/21 09:51 Tramadol 50 Mg Tab PO 50 mg Q12HR PRN Administration Pain, Mild (1-3)
--- NOTE | 2021-03-09 16:42 | Progress Note ---
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 Consult placed by DR. Terrell for HTN, ESRD. Patient seen and evaluated upon arrival to his room. No reported nursing events. Patient denies fever, chills, chest pain, palpitation, productive cough, skin rash, recent ill contact, or known exposure to COVID-19. 02/28: Patient for HD today. Stable from my standpoint for discharge blood pressure is improved. Right upper extremity was swollen vascular evaluating. 03/01: Patient with decompression of the right upper ext done yesterday, still some edema, still with some hematoma noted and bilster on the right side He does have 2 blisters which appear to be decompressing along the medial aspect of his upper arm. Scant serosanguineous drainage from his incisions. The arm is still swollen however is decompressing. Hematomas are present extending from the upper arm distally. The patient states that his pain in his arm is much improved from yesterday. 03/02: Continue wound care, monitor H/H, further management of right upper ext fistula site per Surgeon 03/03: Noted anemia worse today down to 6.5 hemoglobin we will transfuse 1 unit packed red blood cell. Disposition per vascular. 03/04/2021; hemoglobin yesterday was 6.5 and transfused 1 unit of blood. Will check H&H and will transfuse if hemoglobin is below 7. 03/05/2021: The entire right upper extremities grossly swollen with some blistering of the elbow and mild discharge. Has low-grade fever but no leukocytosis. 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 The plan is to remove right IJ permacath in place in the left IJ and revascularization of the veins with placement of stent, surgery is scheduled for tomorrow by vascular. ESRD on hemodialysis on Wednesday//Wednesday, nephrology following. Patient has a history of A. fib, right heart failure and bioprosthetic MVR, anticoagulation discontinued due to high risk for bleed. Patient has right hemiparesis from previous stroke. H emoglobin will be monitored and transfuse as needed. 03/06/2021: Right IJ permacath removed and a new one placed on the right. Entire right arm remains grossly swollen with full movements. Venous angioplasty and revascularization is planned for later. Patient was alert oriented. Has some low-grade fever with soft blood pressure. Does not appear toxic today. 03/07/2021: Right upper extremity remains grossly swollen though some better. Pain also seems to be better since right IJ permacath removed. BP remains soft with stable tachycardia and afebrile. Has low-grade fever. Mental status seems to be better. Pain well controlled. Vascular surgery is planning for revascularization of central veins on Wednesday. Transfusing PRBC as needed. 03/08/2021: Physical exam unchanged. Right arm remains grossly swollen with minimal improvement of swelling since right permacatheter removed. Unable to move at the joints in the right arm likely from gross swelling but also from previous stroke. Low-grade fever seems to be resolving. Never had leukocytosis during this admission. Afebrile with stable vital signs/tachycardia with A. fib. Pain is controlled. Vascular Surgery is planning for revascularization on Wednesday. 03/09/2021: Patient remained stable. Low-grade fever with stable A. fib with RVR. BP remains borderline. Gross edema of her right upper extremity with some blistering, less tense since) catheter out. Scheduled for angioplasty of central events tomorrow. (1) Hypertension Current Visit: Yes Status: Acute Qualifiers: Hypertension type: primary hypertension Qualified Code(s): I10 - Essential (primary) hypertension Plan to address problem: Monitor blood pressure every shift, continue medical management. (2) End stage renal disease Current Visit: Yes Status: Acute Plan to address problem: Dialysis as per renal team, nephrology team consulted. 3) Type 2 NSTEMI- ELIGIBILITY AND OCCUPANCY INTERVIEWER EVALUATING 4) BED Bound secondary to CVA WITH HEMIPARESIS OF THE RIGHT UPPER AND LOWER EXT 5) Atrial fibrillation 6) Hypotension- Monitor, may need to hold BB or other antihypertensive. 7) Anemia of chronic disease History Interval history: The entire right upper extremity is grossly swollen with blistering around elbow. Vascular surgery is planning for venous revascularization and stenting for recurrence of central venous obstruction on Wednesday. Permacath removed and placed on the left side on 03/06. Patient continues to complain of pain in right arm but better postprocedure. Swelling is less tense since right permacath removed. Is unable to move right arm with history of CVA. BP remains soft with A. fib/stable tachycardia. Has low-grade fever. Is alert but looks debilitated. He is on dialysis T/T/S. Nephrology following. Hospitalist Physical - Constitutional Vitals: Temp Pulse Resp BP Pulse Ox 99.8 F H 101 H 18 96/64 99 03/09/21 15:02 03/09/21 14:56 03/09/21 13:29 03/09/21 14:56 03/09/21 14:56 General appearance: Present: no acute distress, other (Pallor present) - EENT Eyes: Present: PERRL, EOM intact ENT: clear oral mucosa - Neck Neck: Present: supple, other (IJ Vas-Cath in place) - Respiratory Respiratory effort: normal Respiratory: bilateral: diminished (No wheezes or rails.) - Cardiovascular Rhythm: other (A. fib) - Extremities Extremity abnormal: other (Gross edema of entire right upper extremity full movements of joints with history of stroke. 1-2+ edema in right lower extremity.) - Abdominal General gastrointestinal: soft, non-tender, non-distended, normal bowel sounds - Psychiatric Psychiatric: appropriate mood/affect - Neurologic Neurologic: other (Unable to move much in the right upper extremity, chronic weakness in the right lower extremity from stroke. Alert and oriented with normal speech.) HEART Score - HEART Score Troponin: Troponin T 0.137 ng/mL (0.00-0.029) H* 03/08/21 07:56 Results - Labs CBC & Chem 7: 03/08/21 07:56 03/07/21 06:45 Labs: Laboratory Last Values WBC 5.6 K/mm3 (4.5-11.0) 03/07/21 06:45 RBC 2.18 M/mm3 (3.65-5.03) L 03/07/21 06:45 Hgb 8.0 gm/dl (11.8-15.2) L 03/08/21 07:56 Hct 24.3 % (35.5-45.6) L 03/08/21 07:56 MCV 90 fl (84-94) 03/07/21 06:45 MCH 29 pg (28-32) 03/07/21 06:45 MCHC 32 % (32-34) 03/07/21 06:45 RDW 17.8 % (13.2-15.2) H 03/07/21 06:45 Plt Count 173 K/mm3 (140-440) 03/07/21 06:45 Lymph % (Auto) 9.4 % (13.4-35.0) L 03/04/21 19:01 [place] % (Auto) 9.3 % (0.0-7.3) H 03/04/21 19:01 Eos % (Auto) 2.3 % (0.0-4.3) 03/04/21 19:01 Baso % (Auto) 0.5 % (0.0-1.8) 03/04/21 19:01 Lymph # (Auto) 0.5 K/mm3 (1.2-5.4) L 03/04/21 19:01 [place] # (Auto) 0.5 K/mm3 (0.0-0.8) 03/04/21 19:01 Eos # (Auto) 0.1 K/mm3 (0.0-0.4) 03/04/21 19:01 Baso # (Auto) 0.0 K/mm3 (0.0-0.1) 03/04/21 19:01 Seg Neutrophils % 78.5 % (40.0-70.0) H 03/04/21 19:01 Seg Neutrophils # 4.5 K/mm3 (1.8-7.7) 03/04/21 19:01 PT 17.5 Sec. (12.2-14.9) H 02/27/21 18:32 INR 1.37 (0.87-1.13) H 02/27/21 18:32 APTT 37.5 Sec. (24.2-36.6) H 02/27/21 18:32 Sodium 138 mmol/L (137-145) 03/07/21 06:45 Potassium 4.1 mmol/L (3.6-5.0) 03/07/21 06:45 Chloride 97.1 mmol/L (98-107) L 03/07/21 06:45 Carbon Dioxide 31 mmol/L (22-30) H 03/07/21 06:45 Anion Gap 14 mmol/L 03/07/21 06:45 BUN 36 mg/dL (9-20) H 03/07/21 06:45 Creatinine 3.3 mg/dL (0.8-1.3) H 03/07/21 06:45 Estimated GFR 24 ml/min 03/07/21 06:45 BUN/Creatinine Ratio 11 % 03/07/21 06:45 Glucose 100 mg/dL (75-100) 03/07/21 06:45 Calcium 9.3 mg/dL (8.4-10.2) 03/07/21 06:45 Total Creatine Kinase 54 units/L (55-170) L 02/27/21 10:45 CK-MB (CK-2) 1.5 ng/mL (0.0-4.0) 02/27/21 10:45 CK-MB (CK-2) Rel Index 2.7 (0-4) 02/27/21 10:45 Troponin T 0.137 ng/mL (0.00-0.029) H* 03/08/21 07:56 Triglycerides 106 mg/dL (2-149) 02/27/21 10:45 Cholesterol 84 mg/dL (50-199) 02/27/21 10:45 LDL Cholesterol Direct 39 mg/dL (50-130) L 02/27/21 10:45 HDL Cholesterol 27 mg/dL (40-59) L 02/27/21 10:45 Cholesterol/HDL Ratio 3.11 % 02/27/21 10:45 Nasal Screen MRSA (PCR) Negative (Negative) 02/27/21 Unknown Hepatitis A IgM Ab Non-reactive (NonReactive) 02/27/21 18:32 Hep Bs Antigen Non-reactive (Negative) 02/27/21 18:32 Hep B Core IgM Ab Non-reactive (NonReactive) 02/27/21 18:32 Hepatitis C Antibody Reactive (NonReactive) A 02/27/21 18:32 Blood Type A POSITIVE 03/07/21 09:28 Antibody Screen Negative 03/07/21 09:28 Crossmatch See Detail 03/07/21 09:28 Neal/IV: Voiding Method Condom Catheter Active Medications - Current Medications Current Medications: Generic Name Dose Route Start Last Admin Trade Name Freq PRN Reason Stop Dose Admin Acetaminophen 650 mg 02/26/21 15:00 03/04/21 22:04 Acetaminophen 325 Mg Tab PO 650 mg Q4H PRN Administration Pain MILD(1-3)/Fever >100.5/TOBIAS Hydrocodone Bitart/Acetaminophen 2 each 02/26/21 15:00 03/09/21 13:23 Hydrocodone/Acetaminophen 5-325 Mg Tab PO 2 each Q6H PRN Administration Pain, Moderate (4-6) Albumin Human 25 gm 03/01/21 12:00 03/01/21 16:28 Albumin Human 25% (25 Gm/100 Ml) Inj IV 25 gm SALIMA PRN Administration Hypotension Atorvastatin Calcium 40 mg 03/09/21 22:00 Atorvastatin 40 Mg Tab PO QHS REBEL Gabapentin 100 mg 02/26/21 22:00 03/09/21 13:23 Gabapentin 100 Mg Cap PO 100 mg Q8HR REBEL Administration Sodium Chloride 100 mls @ 999 mls/hr 03/01/21 09:00 Nacl 0.9% IV SALIMA PRN Hypotension Metoprolol Tartrate 25 mg 03/08/21 11:00 03/09/21 11:11 Metoprolol Tartrate 25 Mg Tab PO 25 mg BID REBEL Administration Morphine Sulfate 4 mg 02/26/21 16:00 03/09/21 11:14 Morphine 4 Mg/1 Ml Inj IV 4 mg Q4H PRN Administration Pain , Severe (7-10) Ondansetron HCl 4 mg 02/26/21 15:00 Ondansetron 4 Mg/2 Ml Inj IV Q8H PRN Nausea And Vomiting Pantoprazole Sodium 20 mg 02/26/21 22:00 03/09/21 11:07 Pantoprazole 20 Mg Tab PO 20 mg BID REBEL Administration Sertraline HCl 100 mg 02/27/21 10:00 03/09/21 11:07 Sertraline 100 Mg Tab PO 100 mg DAILY REBEL Administration Tacrolimus 0.5 mg 02/26/21 22:00 03/09/21 11:07 Tacrolimus 0.5 Mg Cap PO 0.5 mg Q12HR REBEL Administration Torsemide 10 mg 02/28/21 10:00 03/09/21 11:07 Torsemide 10 Mg Tab PO 10 mg DAILY REBEL Administration Tramadol HCl 50 mg 02/26/21 21:30 03/08/21 09:51 Tramadol 50 Mg Tab PO 50 mg Q12HR PRN Administration Pain, Mild (1-3) Nutrition/Malnutrition Assess - Dietary Evaluation Nutrition/Malnutrition Findings: Nutrition Notes Start: 02/27/21 12:35 Freq: Status: Active Protocol: Document 03/07/21 11:23 (Rec: 03/07/21 11:26 [email or web address]) Nutrition Notes Initial or Follow up Reassessment Current Diagnosis CKD (stage V CKD),Hypertension ,Respiratory Failure Other Pertinent Diagnosis on HD Current Diet Renal Labs/Tests BUN 36 Cr 3.3 Pertinent Medications Reviewed Height 5 ft 9 in Weight 70.8 kg [place] Body Weight (kg) 72.72 BMI 23.0 Weight Status Appropriate Subjective/Other Information FU for intakes. Pt continues to not eat much of the meals. He is drinking 100% of 4 ONS daily. Percent of energy/protein needs met: 100%/100% Burn Absent Trauma Absent GI Symptoms None Current % PO Good (75-100%) Minimum of two criteria Yes Energy Intake (non-severe) <75% Estimated Energy Requirement >7 days Interpretation of Weight Loss (severe) >5% in 1 month Muscle Mass Mild Depletion (non-severe) #1 Nutrition Diagnosis Malnutrition Diagnosis Progress(for reassessment Continues documentation) Is patient on ventilator? No Is Patient Ambulatory and/or Out of Bed No REE-([facility]-confined to bed) 1844.484 Kcal/Kg value to use for calculation 29 Approximate Energy Requirements Using 3 kcal/Kg Calculation Used for Recommendations Kcal/kg Additional Notes Protein: (>1.2g/kg) >76g Fluid: output + 1000 ml Nutrition Intervention Change Diet Order: Continue Add Supplement/Snack (indicate name/kcal [place] QID /protein ) Provides kCal: 1,700 Provides Protein (gm) 79 Goal #1 Meet at least 80% of protein and energy needs via PO and ONS intakes Anticipated Discharge Needs: Renal with ONS BID Follow-Up By: 03/12/21 Additional Comments FU for intakes and ONS tolernace
[2021-03-10] MEDS: GABAPENTIN 100 MG CAP PO SCH ×2 (05:55→22:37)
[2021-03-10] MEDS: MORPHINE 4 MG/1 ML INJ IV PRN ×2 (07:41→20:06)
[2021-03-10] MEDS: TORSEMIDE 10 MG TAB PO SCH (09:54)
[2021-03-10] MEDS: PANTOPRAZOLE 20 MG TAB PO SCH ×2 (09:55→22:36)
[2021-03-10] MEDS: TACROLIMUS 0.5 MG CAP PO SCH ×2 (09:55→22:36)
[2021-03-10] MEDS: SERTRALINE 100 MG TAB PO SCH (09:55)
[2021-03-10] MEDS: METOPROLOL TARTRATE 25 MG TAB PO SCH ×2 (09:55→22:37)
--- NOTE | 2021-03-10 10:08 | Progress Note ---
Assessment and Plan - Patient Problems (1) Venous stenosis of right upper extremity Current Visit: Yes Status: Acute Plan to address problem: Status post venoplasty for stenosis of superior vena cava. Continue to keep right upper extremity elevated. Follow-up swelling. Vascular follow-up today (2) Hypertensive chronic kidney disease with stage 5 chronic kidney disease or end stage renal disease Current Visit: Yes Plan to address problem: Follow-up blood pressure on current medications (3) Anemia in chronic kidney disease (CKD) Current Visit: Yes Status: Chronic Qualifiers: Chronic kidney disease stage: on chronic dialysis Qualified Code(s): N18.6 - End stage renal disease; D63.1 - Anemia in chronic kidney disease; Z99.2 - Dependence on renal dialysis Plan to address problem: erythropoietin on dialysis (4) End stage renal disease Current Visit: Yes Status: Chronic Plan to address problem: Continue hemodialysis on a Wednesday, Wednesday and Wednesday schedule. (5) Secondary hyperparathyroidism (of renal origin) Current Visit: Yes Status: Chronic Plan to address problem: Follow-up PTH and give vitamin D analog as indicated at the outpatient clinic. Subjective Date of service: 03/10/21 Principal diagnosis: Chronic AF Interval history: Patient seen lying in bed. Still complains of swelling and pain in his right upper extremity. He does not feel it has improved from yesterday. No fever or chills. No nausea or vomiting. Still hurts to move his arm Objective - Exam Narrative Exam: Middle-aged -[place] male lying in bed in no acute distress HEENT: NCAT, Neck: Supple, no venous distention CVS: S1S2 RRR with no murmur, rub or gallop Chest: Clear to auscultation Abdomen: Protuberant, soft, nontender, no organomegaly, bowel sounds are present Extremities: Swelling right upper extremity, tenderness, no differential warmth or erythema. Bruit audible. Edema right lower extremity also Neuro: Awake, alert no focal deficits - Vital Signs Vital signs: Vital Signs - 12hr 03/09/21 03/10/21 03/10/21 22:40 00:31 05:45 Temperature 97.8 F 97.9 F Pulse Rate 75 62 Respiratory 20 20 Rate Blood Pressure 142/31 130/47 119/39 Blood Pressure [Left] O2 Sat by Pulse 100 94 Oximetry 03/10/21 03/10/21 03/10/21 07:40 07:41 08:15 Temperature Pulse Rate Respiratory 20 Rate Blood Pressure Blood Pressure 110/62 [Left] O2 Sat by Pulse 99 Oximetry - Lab 03/08/21 07:56 03/07/21 06:45 Most recent lab results Calcium 9.3 mg/dL (8.4-10.2) 03/07/21 06:45 Medications & Allergies - Medications Allergies/Adverse Reactions: Allergies No Known Allergies Allergy (Unverified 02/25/21 09:01) Home Medications: Home Medications Medication Instructions Recorded Confirmed Last Taken Type Acetaminophen [Acetaminophen ER] 650 mg PO PRN PRN 02/17/21 02/17/21 Unknown History Aspirin [Adult Aspirin] 81 mg PO DAILY 02/17/21 02/27/21 02/25/21 09:00 History Omeprazole 20 mg PO BID 02/17/21 02/27/21 02/26/21 10:40 History Sertraline HCl [Zoloft] 100 mg PO DAILY 02/17/21 02/27/21 02/25/21 09:00 History Tacrolimus [Prograf] 0.5 mg PO DAILY 02/17/21 02/17/21 Unknown History carvediloL [Coreg] 6.25 mg PO BID 02/17/21 02/27/21 02/26/21 10:40 History traMADoL [Ultram 50 MG tab] 50 mg PO Q12HR PRN 02/17/21 02/17/21 Unknown History HYDROcodone/APAP 7.5-325 [[place] 1 each PO Q6HR PRN #40 tablet 02/26/21 Unknown Rx 7.5/325] Active Medications: Generic Name Dose Route Start Last Admin Trade Name Freq PRN Reason Stop Dose Admin Acetaminophen 650 mg 02/26/21 15:00 03/04/21 22:04 Acetaminophen 325 Mg Tab PO 650 mg Q4H PRN Administration Pain MILD(1-3)/Fever >100.5/TOBIAS Hydrocodone Bitart/Acetaminophen 2 each 02/26/21 15:00 03/09/21 13:23 Hydrocodone/Acetaminophen 5-325 Mg Tab PO 2 each Q6H PRN Administration Pain, Moderate (4-6) Albumin Human 25 gm 03/01/21 12:00 03/01/21 16:28 Albumin Human 25% (25 Gm/100 Ml) Inj IV 25 gm SALIMA PRN Administration Hypotension Atorvastatin Calcium 40 mg 03/09/21 22:00 03/09/21 22:40 Atorvastatin 40 Mg Tab PO 40 mg QHS REBEL Administration Gabapentin 100 mg 02/26/21 22:00 03/10/21 05:55 Gabapentin 100 Mg Cap PO 100 mg Q8HR REBEL Administration Sodium Chloride 100 mls @ 999 mls/hr 03/01/21 09:00 Nacl 0.9% IV SALIMA PRN Hypotension Metoprolol Tartrate 25 mg 03/08/21 11:00 03/09/21 22:40 Metoprolol Tartrate 25 Mg Tab PO 25 mg BID REBEL Administration Morphine Sulfate 4 mg 02/26/21 16:00 03/10/21 07:41 Morphine 4 Mg/1 Ml Inj IV 4 mg Q4H PRN Administration Pain , Severe (7-10) Ondansetron HCl 4 mg 02/26/21 15:00 Ondansetron 4 Mg/2 Ml Inj IV Q8H PRN Nausea And Vomiting Pantoprazole Sodium 20 mg 02/26/21 22:00 03/09/21 22:39 Pantoprazole 20 Mg Tab PO 20 mg BID REBEL Administration Sertraline HCl 100 mg 02/27/21 10:00 03/09/21 11:07 Sertraline 100 Mg Tab PO 100 mg DAILY REBEL Administration Tacrolimus 0.5 mg 02/26/21 22:00 03/09/21 22:39 Tacrolimus 0.5 Mg Cap PO 0.5 mg Q12HR REBEL Administration Torsemide 10 mg 02/28/21 10:00 03/09/21 11:07 Torsemide 10 Mg Tab PO 10 mg DAILY REBEL Administration Tramadol HCl 50 mg 02/26/21 21:30 03/08/21 09:51 Tramadol 50 Mg Tab PO 50 mg Q12HR PRN Administration Pain, Mild (1-3)
--- NOTE | 2021-03-10 10:48 | XRay Report ---
CHEST 1 VIEW INDICATION / CLINICAL INFORMATION: low grade fever, atelectasis. COMPARISON: None available. FINDINGS: SUPPORT DEVICES: Dual-lumen hemodialysis catheter with tip in the right atrium. Patient status post m edian sternotomy with valve prostheses demonstrated. HEART / MEDIASTINUM: No significant abnormality. LUNGS / PLEURA: Small bilateral pleural effusions. Cephalization of the pulmonary vasculature and mil d pulmonary edema. No pneumothorax. ADDITIONAL FINDINGS: No significant additional findings. IMPRESSION: 1. Mild pulmonary edema and small bilateral effusions, suggesting volume overload. Signer Name: Stefan Ferris MD Signed: 03/10/2021 10:44 AM Workstation Name: [email or web address]
[2021-03-10] MEDS ORDERED: SODIUM CHLORIDE 0.9% 500 ML 500 ML ONE (13:45)
[2021-03-10] MEDS ORDERED: SODIUM CHLORIDE 0.9% 500 ML 500 ML IV SCH (13:45)
[2021-03-10] MEDS ORDERED: HEPARIN/NS 5000 UNIT/500ML 1,000 ML IR ONE (14:45)
[2021-03-10] MEDS ORDERED: LIDOCAINE 1%/EPINEPHRINE 1:100,000 VIAL (20 ML) INFILTRATI ONE (14:46)
[2021-03-10] MEDS ORDERED: SODIUM CHLORIDE 0.9% 1000 ML 0 ML ONE (14:46)
[2021-03-10] MEDS: MIDAZOLAM 2 MG/2 ML INJ ONE ×3 (15:03→15:20)
[2021-03-10] MEDS: fentaNYL 100 MCG/2 ML INJ ONE ×3 (15:03→15:20)
[2021-03-10] MEDS ORDERED: NITROGLYCERIN SYRINGE 6 ML ONE (15:19)
[2021-03-10] MEDS: HEPARIN 10,000 UNITS/10 ML VIAL ONE ×2 (15:20→16:05)
[2021-03-10] MEDS ORDERED: ceFAZolin/Water 2 GM/20 ML 2 GM/20 ML SYRINGE IV ONE (15:27)
--- NOTE | 2021-03-10 16:47 | Operative Report ---
Operative Report Operative Report: EXAM: 1. Ultrasound-guided access of the right radial vein 2. Venography of the right upper extremity 3. Ultrasound-guided access of the right common femoral vein 4. Selection of the right axillary vein, and right subclavian vein from the right radial vein approach with venography 5. Selection of the SVC, right innominate vein, right subclavian vein, and right axillary vein from a right common femoral vein approach with venography 6. Angioplasty of the right innominate vein and subclavian vein with a 12 mm x 60 mm angioplasty balloon at burst pressure and 14 mm x 40 mm angioplasty balloon 7. Selection of the right internal jugular vein with angioplasty with a 12 mm x 60 mm angioplasty balloon DATE: 03/10/2021 SENIOR TECHNICAL TRAINER: KARO MOMIN MD INDICATION: Severe swelling of the right upper extremity refractory to stenting of the venous anastomosis, and switching PermCath sites MEDICATIONS: Please see nursing report for full details. DEVICES: 12 mm x 60 mm angioplasty balloon 14 mm x 40 mm angioplasty balloon CONTRAST: Please see [facility] Working Supervisor report for full details. PROCEDURE: The risks, benefits, and alternatives were discussed with the patient; written informed consent was obtained. The patient's right arm and right groin were prepped and draped in a sterile fashion. Under direct ultrasound guidance, the right radial vein was evaluated and was patent. The vein was then accessed with a 21-gauge micropuncture needle. 0.018 inch wire was passed into the radial vein. Needle was exchanged for a 5/6 glide sheath slender. Nitroglycerin was administered. Digital subtraction angiography was performed demonstrating small radial veins which drained to a larger brachial vein. One of the brachial veins was more dominant than the second brachial vein. Some of the superficial veins were noted. One of the 2 axillary veins was occluded chronically, and the other axillary vein was widely patent. The patent axillary vein at the level of the upper arm had large collaterals that fed to the right internal jugular vein. The right subclavian vein had a 30% narrowing. The ostium of the right internal jugular vein had a 60% narrowing. The right innominate vein had a 60% narrowing. The SVC was patent. Under direct ultrasound guidance, the right common femoral vein was evaluated and was patent. The vein was then accessed with a 21-gauge micropuncture needle. 0.018 inch wire was passed into the IVC. Needle was exchanged for a 6 [place] sheath. The patient was heparinized. The SVC was selected. Sheath was exchanged for an 8 [place] 65 cm [place] destination. Wire and catheter were then used to cross the right innominate vein and subclavian vein and the right axillary vein. Digital subtraction angiography was performed confirming the above-mentioned findings. I attempted to select the stent in the venous anastomosis of the right upper extremity graft, but this was not possible. Various catheters were used but I was unable to select the venous anastomosis stent that was previously placed. 12 mm x 60 mm angioplasty balloon was used to perform angioplasty of the right subclavian vein and right innominate vein. 14 mm x 40 mm angioplasty balloon was used to perform angioplasty of the right innominate vein. Digital subtraction angiography was performed and less than 20% narrowing was noted in the right subclavian vein and right innominate vein. The ostium of the right internal jugular vein still had a narrowing. The right internal jugular vein was selected from a femoral approach and 12 mm x 60 mm angioplasty balloon was used to perform angioplasty of the ostium of the right internal jugular vein. Digital subtraction angiography was performed demonstrating less than 20% residual narrowing. At this time, all wires, catheters, and sheaths removed. Pressure was held until hemostasis was achieved. Patient tolerated the procedure well. No immediate postprocedural complications. FINDINGS: Please see procedure note above IMPRESSION: 1. Ultrasound-guided access of the right radial vein. 2. Ultrasound-guided access of the right common femoral vein. 3. Successful angioplasty of the right subclavian vein and right innominate vein. 4. Successful angioplasty of the right internal jugular vein.
--- NOTE | 2021-03-10 17:00 | Progress Note ---
Assessment and Plan 55-year-old male with recent right upper extremity AV graft creation status post stenting of venous anastomosis with stent graft and central vein angioplasty who persistently has swelling of the right upper extremity with decreased hemoglobin and bruising of the right upper extremity. Due to refractory swelling, PermCath was removed from the right internal jugular vein and switch to the left internal jugular vein. Due to refractory swelling, patient had high pressure large balloon angioplasty of the right central veins and right internal jugular vein today to attempt to relieve swelling. Subjective Date of service: 03/10/21 Principal diagnosis: Chronic AF Interval history: Significant swelling of right upper extremity with bruising noted. Pain with palpation. Patient has a baseline paretic right upper extremity. Objective - Constitutional Vitals: Vital Signs - 12hr 03/10/21 03/10/21 03/10/21 05:45 07:40 07:41 Temperature 97.9 F Pulse Rate 62 Respiratory 20 20 Rate Blood Pressure 119/39 Blood Pressure 110/62 [Left] O2 Sat by Pulse 94 Oximetry 03/10/21 03/10/21 07:51 08:15 Temperature 97.6 F Pulse Rate 74 Respiratory 18 Rate Blood Pressure 83/54 Blood Pressure [Left] O2 Sat by Pulse 100 99 Oximetry General appearance: Present: mild distress (Right upper extremity discomfort) - EENT Eyes: EOM intact ENT: hearing intact - Respiratory Respiratory effort: normal Extremities: abnormal (Right upper and lower extremity paretic) - Gastrointestinal General gastrointestinal: Present: soft, non-tender - Psychiatric Psychiatric: appropriate mood/affect, cooperative - Labs CBC & Chem 7: 03/08/21 07:56 03/07/21 06:45 Medications & Allergies - Medications Allergies/Adverse Reactions: Allergies No Known Allergies Allergy (Unverified 02/25/21 09:01) Home Medications: Home Medications Medication Instructions Recorded Confirmed Last Taken Type Acetaminophen [Acetaminophen ER] 650 mg PO PRN PRN 02/17/21 02/17/21 Unknown History Aspirin [Adult Aspirin] 81 mg PO DAILY 02/17/21 02/27/21 02/25/21 09:00 History Omeprazole 20 mg PO BID 02/17/21 02/27/21 02/26/21 10:40 History Sertraline HCl [Zoloft] 100 mg PO DAILY 02/17/21 02/27/21 02/25/21 09:00 History Tacrolimus [Prograf] 0.5 mg PO DAILY 02/17/21 02/17/21 Unknown History carvediloL [Coreg] 6.25 mg PO BID 02/17/21 02/27/21 02/26/21 10:40 History traMADoL [Ultram 50 MG tab] 50 mg PO Q12HR PRN 02/17/21 02/17/21 Unknown History HYDROcodone/APAP 7.5-325 [[place] 1 each PO Q6HR PRN #40 tablet 02/26/21 Unknown Rx 7.5/325] Active Medications: Generic Name Dose Route Start Last Admin Trade Name Freq PRN Reason Stop Dose Admin Acetaminophen 650 mg 02/26/21 15:00 03/04/21 22:04 Acetaminophen 325 Mg Tab PO 650 mg Q4H PRN Administration Pain MILD(1-3)/Fever >100.5/TOBIAS Hydrocodone Bitart/Acetaminophen 2 each 02/26/21 15:00 03/09/21 13:23 Hydrocodone/Acetaminophen 5-325 Mg Tab PO 2 each Q6H PRN Administration Pain, Moderate (4-6) Albumin Human 25 gm 03/01/21 12:00 03/01/21 16:28 Albumin Human 25% (25 Gm/100 Ml) Inj IV 25 gm SALIMA PRN Administration Hypotension Atorvastatin Calcium 40 mg 03/09/21 22:00 03/09/21 22:40 Atorvastatin 40 Mg Tab PO 40 mg QHS REBEL Administration Gabapentin 100 mg 02/26/21 22:00 03/10/21 05:55 Gabapentin 100 Mg Cap PO 100 mg Q8HR REBEL Administration Sodium Chloride 100 mls @ 999 mls/hr 03/01/21 09:00 Nacl 0.9% IV SALIMA PRN Hypotension Sodium Chloride 500 mls @ 50 mls/hr 03/10/21 13:45 Nacl 0.9% 500 Ml IV 03/10/21 23:59 DIRECT REBEL Metoprolol Tartrate 25 mg 03/08/21 11:00 03/10/21 09:55 Metoprolol Tartrate 25 Mg Tab PO Not Given BID REBEL Morphine Sulfate 4 mg 02/26/21 16:00 03/10/21 07:41 Morphine 4 Mg/1 Ml Inj IV 4 mg Q4H PRN Administration Pain , Severe (7-10) Ondansetron HCl 4 mg 02/26/21 15:00 Ondansetron 4 Mg/2 Ml Inj IV Q8H PRN Nausea And Vomiting Pantoprazole Sodium 20 mg 02/26/21 22:00 03/10/21 09:55 Pantoprazole 20 Mg Tab PO Not Given BID REBEL Sertraline HCl 100 mg 02/27/21 10:00 03/10/21 09:55 Sertraline 100 Mg Tab PO Not Given DAILY REBEL Tacrolimus 0.5 mg 02/26/21 22:00 03/10/21 09:55 Tacrolimus 0.5 Mg Cap PO Not Given Q12HR REBEL Torsemide 10 mg 02/28/21 10:00 03/10/21 09:54 Torsemide 10 Mg Tab PO Not Given DAILY REBEL Tramadol HCl 50 mg 02/26/21 21:30 03/08/21 09:51 Tramadol 50 Mg Tab PO 50 mg Q12HR PRN Administration Pain, Mild (1-3) HEART Score - HEART Score Troponin: Troponin T 0.137 ng/mL (0.00-0.029) H* 03/08/21 07:56
--- NOTE | 2021-03-10 17:54 | Progress Note ---
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 Consult placed by DR. Terrell for HTN, ESRD. Patient seen and evaluated upon arrival to his room. No reported nursing events. Patient denies fever, chills, chest pain, palpitation, productive cough, skin rash, recent ill contact, or known exposure to COVID-19. 02/28: Patient for HD today. Stable from my standpoint for discharge blood pressure is improved. Right upper extremity was swollen vascular evaluating. 03/01: Patient with decompression of the right upper ext done yesterday, still some edema, still with some hematoma noted and bilster on the right side He does have 2 blisters which appear to be decompressing along the medial aspect of his upper arm. Scant serosanguineous drainage from his incisions. The arm is still swollen however is decompressing. Hematomas are present extending from the upper arm distally. The patient states that his pain in his arm is much improved from yesterday. 03/02: Continue wound care, monitor H/H, further management of right upper ext fistula site per Surgeon 03/03: Noted anemia worse today down to 6.5 hemoglobin we will transfuse 1 unit packed red blood cell. Disposition per vascular. 03/04/2021; hemoglobin yesterday was 6.5 and transfused 1 unit of blood. Will check H&H and will transfuse if hemoglobin is below 7. 03/05/2021: The entire right upper extremities grossly swollen with some blistering of the elbow and mild discharge. Has low-grade fever but no leukocytosis. 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 The plan is to remove right IJ permacath in place in the left IJ and revascularization of the veins with placement of stent, surgery is scheduled for tomorrow by vascular. ESRD on hemodialysis on Wednesday//Wednesday, nephrology following. Patient has a history of A. fib, right heart failure and bioprosthetic MVR, anticoagulation discontinued due to high risk for bleed. Patient has right hemiparesis from previous stroke. H emoglobin will be monitored and transfuse as needed. 03/06/2021: Right IJ permacath removed and a new one placed on the right. Entire right arm remains grossly swollen with full movements. Venous angioplasty and revascularization is planned for later. Patient was alert oriented. Has some low-grade fever with soft blood pressure. Does not appear toxic today. 03/07/2021: Right upper extremity remains grossly swollen though some better. Pain also seems to be better since right IJ permacath removed. BP remains soft with stable tachycardia and afebrile. Has low-grade fever. Mental status seems to be better. Pain well controlled. Vascular surgery is planning for revascularization of central veins on Wednesday. Transfusing PRBC as needed. 03/08/2021: Physical exam unchanged. Right arm remains grossly swollen with minimal improvement of swelling since right permacatheter removed. Unable to move at the joints in the right arm likely from gross swelling but also from previous stroke. Low-grade fever seems to be resolving. Never had leukocytosis during this admission. Afebrile with stable vital signs/tachycardia with A. fib. Pain is controlled. Vascular Surgery is planning for revascularization on Wednesday. 03/09/2021: Patient remained stable. Low-grade fever with stable A. fib with RVR. BP remains borderline. Gross edema of her right upper extremity with some blistering, less tense since) catheter out. Scheduled for angioplasty of central events tomorrow. 03/11/2020: Patient remained stable. Low-grade fever since resolving. Afebrile heart rate with stable RVR. BP remains borderline. Gross edema of right upper extremity with some blistering, less tense since the right IJ permacath removed. Scheduled for angioplasty of central venous system later today. (1) Hypertension Current Visit: Yes Status: Acute Qualifiers: Hypertension type: primary hypertension Qualified Code(s): I10 - Essential (primary) hypertension Plan to address problem: Monitor blood pressure every shift, continue medical management. (2) End stage renal disease Current Visit: Yes Status: Acute Plan to address problem: Dialysis as per renal team, nephrology team consulted. 3) Type 2 NSTEMI-cardiology is following 4) BED Bound secondary to CVA WITH HEMIPARESIS OF THE RIGHT UPPER AND LOWER EXT 5) Atrial fibrillation, off anticoagulation due to high risk 6) Hypotension- Monitor, may need to hold BB or other antihypertensive. 7) Anemia of chronic disease (8) gross right upper extremity edema due to central venous thrombosis/obstruction Likely triggered by right IJ permacath. Vascular surgery is intervening as described above Discussed with the patient and the nursing staff. History Interval history: The entire right upper extremity is grossly swollen with blistering around elbow from central venous obstruction. Vascular surgery is planning for angioplasty later today. Permacath removed and placed on the left side on 03/06. Patient continues to complain of pain in right arm but better postprocedure. Swelling is less tense since right permacath removed. Is unable to move right arm with history of CVA. BP remains soft with A. fib/stable tachycardia. Low-grade fever since resolving. Is alert but looks debilitated. He is on dialysis T/T/S. Nephrology following. Hospitalist Physical - Constitutional Vitals: Temp Pulse Resp BP Pulse Ox 97.6 F 74 18 83/54 99 03/10/21 07:51 03/10/21 07:51 03/10/21 07:51 03/10/21 07:51 03/10/21 08:15 General appearance: Present: no acute distress, disheveled (Malnourished, debili tated and pale but no acute distress), other - EENT Eyes: Present: PERRL, EOM intact ENT: clear oral mucosa - Neck Neck: Present: supple, other (Left IJ tunneled Vas-Cath) - Respiratory Respiratory effort: normal Respiratory: bilateral: CTA - Cardiovascular Rhythm: irregularly irregular - Extremities Extremity abnormal: other (Gross edema of entire right upper extremity with some blistering around elbow. Minimal drainage. Not able to move the joints with history of stroke. Unable to feel radial pulse due to significant edema.) - Abdominal General gastrointestinal: soft, non-tender, non-distended, normal bowel sounds - Integumentary Integumentary: Absent: jaundice, rash - Psychiatric Psychiatric: appropriate mood/affect - Neurologic Neurologic: other (Chronic right arm/leg weakness from previous stroke. Grossly swollen right arm. Alert and oriented. Normal speech.) HEART Score - HEART Score Troponin: Troponin T 0.137 ng/mL (0.00-0.029) H* 03/08/21 07:56 Results - Labs CBC & Chem 7: 03/08/21 07:56 03/07/21 06:45 Labs: Laboratory Last Values WBC 5.6 K/mm3 (4.5-11.0) 03/07/21 06:45 RBC 2.18 M/mm3 (3.65-5.03) L 03/07/21 06:45 Hgb 8.0 gm/dl (11.8-15.2) L 03/08/21 07:56 Hct 24.3 % (35.5-45.6) L 03/08/21 07:56 MCV 90 fl (84-94) 03/07/21 06:45 MCH 29 pg (28-32) 03/07/21 06:45 MCHC 32 % (32-34) 03/07/21 06:45 RDW 17.8 % (13.2-15.2) H 03/07/21 06:45 Plt Count 173 K/mm3 (140-440) 03/07/21 06:45 Lymph % (Auto) 9.4 % (13.4-35.0) L 03/04/21 19:01 Whitman % (Auto) 9.3 % (0.0-7.3) H 03/04/21 19:01 Eos % (Auto) 2.3 % (0.0-4.3) 03/04/21 19:01 Baso % (Auto) 0.5 % (0.0-1.8) 03/04/21 19:01 Lymph # (Auto) 0.5 K/mm3 (1.2-5.4) L 03/04/21 19:01 [place] # (Auto) 0.5 K/mm3 (0.0-0.8) 03/04/21 19:01 Eos # (Auto) 0.1 K/mm3 (0.0-0.4) 03/04/21 19:01 Baso # (Auto) 0.0 K/mm3 (0.0-0.1) 03/04/21 19:01 Seg Neutrophils % 78.5 % (40.0-70.0) H 03/04/21 19:01 Seg Neutrophils # 4.5 K/mm3 (1.8-7.7) 03/04/21 19:01 PT 17.5 Sec. (12.2-14.9) H 02/27/21 18:32 INR 1.37 (0.87-1.13) H 02/27/21 18:32 APTT 37.5 Sec. (24.2-36.6) H 02/27/21 18:32 Sodium 138 mmol/L (137-145) 03/07/21 06:45 Potassium 4.1 mmol/L (3.6-5.0) 03/07/21 06:45 Chloride 97.1 mmol/L (98-107) L 03/07/21 06:45 Carbon Dioxide 31 mmol/L (22-30) H 03/07/21 06:45 Anion Gap 14 mmol/L 03/07/21 06:45 BUN 36 mg/dL (9-20) H 03/07/21 06:45 Creatinine 3.3 mg/dL (0.8-1.3) H 03/07/21 06:45 Estimated GFR 24 ml/min 03/07/21 06:45 BUN/Creatinine Ratio 11 % 03/07/21 06:45 Glucose 100 mg/dL (75-100) 03/07/21 06:45 Calcium 9.3 mg/dL (8.4-10.2) 03/07/21 06:45 Total Creatine Kinase 54 units/L (55-170) L 02/27/21 10:45 CK-MB (CK-2) 1.5 ng/mL (0.0-4.0) 02/27/21 10:45 CK-MB (CK-2) Rel Index 2.7 (0-4) 02/27/21 10:45 Troponin T 0.137 ng/mL (0.00-0.029) H* 03/08/21 07:56 Triglycerides 106 mg/dL (2-149) 02/27/21 10:45 Cholesterol 84 mg/dL (50-199) 02/27/21 10:45 LDL Cholesterol Direct 39 mg/dL (50-130) L 02/27/21 10:45 HDL Cholesterol 27 mg/dL (40-59) L 02/27/21 10:45 Cholesterol/HDL Ratio 3.11 % 02/27/21 10:45 Nasal Screen MRSA (PCR) Negative (Negative) 02/27/21 Unknown Hepatitis A IgM Ab Non-reactive (NonReactive) 02/27/21 18:32 Hep Bs Antigen Non-reactive (Negative) 02/27/21 18:32 Hep B Core IgM Ab Non-reactive (NonReactive) 07/08/21 18:32 Hepatitis C Antibody Reactive (NonReactive) A 02/27/21 18:32 Blood Type A POSITIVE 03/07/21 09:28 Antibody Screen Negative 03/07/21 09:28 Crossmatch See Detail 03/07/21 09:28 Neal/IV: Voiding Method Condom Catheter Active Medications - Current Medications Current Medications: Generic Name Dose Route Start Last Admin Trade Name Freq PRN Reason Stop Dose Admin Acetaminophen 650 mg 02/26/21 15:00 03/04/21 22:04 Acetaminophen 325 Mg Tab PO 650 mg Q4H PRN Administration Pain MILD(1-3)/Fever >100.5/TOBIAS Hydrocodone Bitart/Acetaminophen 2 each 02/26/21 15:00 03/09/21 13:23 Hydrocodone/Acetaminophen 5-325 Mg Tab PO 2 each Q6H PRN Administration Pain, Moderate (4-6) Albumin Human 25 gm 03/01/21 12:00 03/01/21 16:28 Albumin Human 25% (25 Gm/100 Ml) Inj IV 25 gm SALIMA PRN Administration Hypotension Atorvastatin Calcium 40 mg 03/09/21 22:00 03/09/21 22:40 Atorvastatin 40 Mg Tab PO 40 mg QHS REBEL Administration Gabapentin 100 mg 02/26/21 22:00 03/10/21 05:55 Gabapentin 100 Mg Cap PO 100 mg Q8HR REBEL Administration Sodium Chloride 100 mls @ 999 mls/hr 03/01/21 09:00 Nacl 0.9% IV SALIMA PRN Hypotension Sodium Chloride 500 mls @ 50 mls/hr 03/10/21 13:45 Nacl 0.9% 500 Ml IV 03/10/21 23:59 DIRECT REBEL Metoprolol Tartrate 25 mg 03/08/21 11:00 03/10/21 09:55 Metoprolol Tartrate 25 Mg Tab PO Not Given BID REBEL Morphine Sulfate 4 mg 02/26/21 16:00 03/10/21 07:41 Morphine 4 Mg/1 Ml Inj IV 4 mg Q4H PRN Administration Pain , Severe (7-10) Ondansetron HCl 4 mg 02/26/21 15:00 Ondansetron 4 Mg/2 Ml Inj IV Q8H PRN Nausea And Vomiting Pantoprazole Sodium 20 mg 02/26/21 22:00 03/10/21 09:55 Pantoprazole 20 Mg Tab PO Not Given BID REBEL Sertraline HCl 100 mg 02/27/21 10:00 03/10/21 09:55 Sertraline 100 Mg Tab PO Not Given DAILY REBEL Tacrolimus 0.5 mg 02/26/21 22:00 03/10/21 09:55 Tacrolimus 0.5 Mg Cap PO Not Given Q12HR REBEL Torsemide 10 mg 02/28/21 10:00 03/10/21 09:54 Torsemide 10 Mg Tab PO Not Given DAILY REBEL Tramadol HCl 50 mg 02/26/21 21:30 03/08/21 09:51 Tramadol 50 Mg Tab PO 50 mg Q12HR PRN Administration Pain, Mild (1-3) Nutrition/Malnutrition Assess - Dietary Evaluation Nutrition/Malnutrition Findings: Nutrition Notes Start: 02/27/21 12:35 Freq: Status: Active Protocol: Document 03/07/21 11:23 (Rec: 03/07/21 11:26 [id number]) Nutrition Notes Initial or Follow up Reassessment Current Diagnosis CKD (stage V CKD),Hypertension ,Respiratory Failure Other Pertinent Diagnosis on HD Current Diet Renal Labs/Tests BUN 36 Cr 3.3 Pertinent Medications Reviewed Height 5 ft 9 in Weight 70.8 kg [place] Body Weight (kg) 72.72 BMI 23.0 Weight Status Appropriate Subjective/Other Information FU for intakes. Pt continues to not eat much of the meals. He is drinking 100% of 4 ONS daily. Percent of energy/protein needs met: 100%/100% Burn Absent Trauma Absent GI Symptoms None Current % PO Good (75-100%) Minimum of two criteria Yes Energy Intake (non-severe) <75% Estimated Energy Requirement >7 days Interpretation of Weight Loss (severe) >5% in 1 month Muscle Mass Mild Depletion (non-severe) #1 Nutrition Diagnosis Malnutrition Diagnosis Progress(for reassessment Continues documentation) Is patient on ventilator? No Is Patient Ambulatory and/or Out of Bed No REE-([facility]-confined to bed) 1844.484 Kcal/Kg value to use for calculation 29 Approximate Energy Requirements Using 3 kcal/Kg Calculation Used for Recommendations Kcal/kg Additional Notes Protein: (>1.2g/kg) >76g Fluid: output + 1000 ml Nutrition Intervention Change Diet Order: Continue Add Supplement/Snack (indicate name/kcal Nepro QID /protein ) Provides kCal: 1,700 Provides Protein (gm) 79 Goal #1 Meet at least 80% of protein and energy needs via PO and ONS intakes Anticipated Discharge Needs: Renal with ONS BID Follow-Up By: 03/12/21 Additional Comments FU for intakes and ONS tolernace
[2021-03-11] MEDS: GABAPENTIN 100 MG CAP PO SCH ×3 (06:28→21:30)
[2021-03-11] MEDS: SERTRALINE 100 MG TAB PO SCH (09:43)
[2021-03-11] MEDS: TACROLIMUS 0.5 MG CAP PO SCH ×2 (09:43→21:30)
[2021-03-11] MEDS: PANTOPRAZOLE 20 MG TAB PO SCH ×2 (09:43→21:30)
[2021-03-11] MEDS: HYDROcodone/ACETAMINOPHEN 5-325 MG TAB PO PRN (09:43)
[2021-03-11] MEDS: TORSEMIDE 10 MG TAB PO SCH (09:44)
[2021-03-11] MEDS: METOPROLOL TARTRATE 25 MG TAB PO SCH ×2 (09:44→22:25)
--- NOTE | 2021-03-11 10:14 | Progress Note ---
Assessment and Plan 55-year-old male with recent right upper extremity AV graft creation status post stenting of venous anastomosis with stent graft and central vein angioplasty who persistently has swelling of the right upper extremity with decreased hemoglobin and bruising of the right upper extremity. Due to refractory swelling, PermCath was removed from the right internal jugular vein and switch to the left internal jugular vein. Due to refractory swelling, patient had high pressure large balloon angioplasty of the right central veins and right internal jugular vein today to attempt to relieve swelling. Patient has had mild improvement since yesterday. At this time, can consider return to jail and follow-up with Dr. Terrell in 2 weeks. Awaiting morning labs. Subjective Date of service: 03/11/21 Principal diagnosis: Chronic AF Interval history: Significant swelling of right upper extremity with bruising noted. Pain with palpation. Patient has a baseline paretic right upper extremity. Swelling has mildly decreased since yesterday. Objective - Constitutional Vitals: Vital Signs - 12hr 03/10/21 03/10/21 03/11/21 22:37 22:49 03:31 Temperature 98.1 F 98.8 F Pulse Rate 74 111 H 97 H Respiratory 18 18 Rate Blood Pressure 135/82 115/74 O2 Sat by Pulse 100 100 Oximetry 03/11/21 03/11/21 08:16 09:44 Temperature 98.1 F Pulse Rate 52 L 82 Respiratory 18 Rate Blood Pressure 105/65 105/65 O2 Sat by Pulse 98 Oximetry General appearance: Present: mild distress (Right upper extremity pain) - EENT ENT: hearing intact - Respiratory Respiratory effort: normal Extremities: abnormal (see subjective) - Neurologic Neurologic: focal deficits (Right hemiparesis) - Psychiatric Psychiatric: cooperative - Labs CBC & Chem 7: 03/08/21 07:56 03/07/21 06:45 Medications & Allergies - Medications Allergies/Adverse Reactions: Allergies No Known Allergies Allergy (Unverified 02/25/21 09:01) Home Medications: Home Medications Medication Instructions Recorded Confirmed Last Taken Type Acetaminophen [Acetaminophen ER] 650 mg PO PRN PRN 02/17/21 02/17/21 Unknown His tory Aspirin [Adult Aspirin] 81 mg PO DAILY 02/17/21 02/27/21 02/25/21 09:00 History Omeprazole 20 mg PO BID 02/17/21 02/27/21 02/26/21 10:40 History Sertraline HCl [Zoloft] 100 mg PO DAILY 02/17/21 02/27/21 02/25/21 09:00 History Tacrolimus [Prograf] 0.5 mg PO DAILY 02/17/21 02/17/21 Unknown History carvediloL [Coreg] 6.25 mg PO BID 02/17/21 02/27/21 02/26/21 10:40 History traMADoL [Ultram 50 MG tab] 50 mg PO Q12HR PRN 02/17/21 02/17/21 Unknown History HYDROcodone/APAP 7.5-325 [[place] 1 each PO Q6HR PRN #40 tablet 02/26/21 Unknown Rx 7.5/325] Active Medications: Generic Name Dose Route Start Last Admin Trade Name Freq PRN Reason Stop Dose Admin Acetaminophen 650 mg 02/26/21 15:00 03/04/21 22:04 Acetaminophen 325 Mg Tab PO 650 mg Q4H PRN Administration Pain MILD(1-3)/Fever >100.5/TOBIAS Hydrocodone Bitart/Acetaminophen 2 each 02/26/21 15:00 03/11/21 09:43 Hydrocodone/Acetaminophen 5-325 Mg Tab PO 1 each Q6H PRN Administration Pain, Moderate (4-6) Albumin Human 25 gm 03/01/21 12:00 03/01/21 16:28 Albumin Human 25% (25 Gm/100 Ml) Inj IV 25 gm SALIMA PRN Administration Hypotension Atorvastatin Calcium 40 mg 03/09/21 22:00 03/10/21 22:36 Atorvastatin 40 Mg Tab PO 40 mg QHS REBEL Administration Gabapentin 100 mg 02/26/21 22:00 03/11/21 06:28 Gabapentin 100 Mg Cap PO 100 mg Q8HR REBEL Administration Sodium Chloride 100 mls @ 999 mls/hr 03/01/21 09:00 Nacl 0.9% IV SALIMA PRN Hypotension Metoprolol Tartrate 25 mg 03/08/21 11:00 03/11/21 09:44 Metoprolol Tartrate 25 Mg Tab PO 25 mg BID REBEL Administration Morphine Sulfate 4 mg 02/26/21 16:00 03/10/21 20:06 Morphine 4 Mg/1 Ml Inj IV 4 mg Q4H PRN Administration Pain , Severe (7-10) Ondansetron HCl 4 mg 02/26/21 15:00 Ondansetron 4 Mg/2 Ml Inj IV Q8H PRN Nausea And Vomiting Pantoprazole Sodium 20 mg 02/26/21 22:00 03/11/21 09:43 Pantoprazole 20 Mg Tab PO 20 mg BID REBEL Administration Sertraline HCl 100 mg 02/27/21 10:00 03/11/21 09:43 Sertraline 100 Mg Tab PO 100 mg DAILY REBEL Administration Tacrolimus 0.5 mg 02/26/21 22:00 03/11/21 09:43 Tacrolimus 0.5 Mg Cap PO 0.5 mg Q12HR REBEL Administration Torsemide 10 mg 02/28/21 10:00 03/11/21 09:44 Torsemide 10 Mg Tab PO 10 mg DAILY REBEL Administration Tramadol HCl 50 mg 02/26/21 21:30 03/08/21 09:51 Tramadol 50 Mg Tab PO 50 mg Q12HR PRN Administration Pain, Mild (1-3) HEART Score - HEART Score Troponin: Troponin T 0.137 ng/mL (0.00-0.029) H* 03/08/21 07:56
[2021-03-11] MEDS: MORPHINE 4 MG/1 ML INJ IV PRN ×2 (10:20→13:30)
--- NOTE | 2021-03-11 11:19 | Progress Note ---
Assessment and Plan - Patient Problems (1) Venous stenosis of right upper extremity Current Visit: Yes Status: Acute Plan to address problem: Status post venoplasty for stenosis of superior vena cava. Continue to keep right upper extremity elevated. Continue management per vascular (2) Hypertensive chronic kidney disease with stage 5 chronic kidney disease or end stage renal disease Current Visit: Yes Plan to address problem: Follow-up blood pressure on current medications (3) Anemia in chronic kidney disease (CKD) Current Visit: Yes Status: Chronic Qualifiers: Chronic kidney disease stage: on chronic dialysis Qualified Code(s): N18.6 - End stage renal disease; D63.1 - Anemia in chronic kidney disease; Z99.2 - Dependence on renal dialysis Plan to address problem: erythropoietin on dialysis (4) End stage renal disease Current Visit: Yes Status: Chronic Plan to address problem: Continue hemodialysis on a Wednesday, Wednesday and Wednesday schedule. (5) Secondary hyperparathyroidism (of renal origin) Current Visit: Yes Status: Chronic Plan to address problem: Follow-up PTH and give vitamin D analog as indicated at the outpatient clinic. Subjective Date of service: 03/11/21 Principal diagnosis: Chronic AF Interval history: Patient seen lying in bed. Swelling of his arm is improving.. No fever or chills. No nausea or vomiting. Still hurts to move his arm Objective - Exam Narrative Exam: Middle-aged -[place] male lying in bed in no acute distress HEENT: NCAT, Neck: Supple, no venous distention CVS: S1S2 RRR with no murmur, rub or gallop Chest: Clear to auscultation Abdomen: Protuberant, soft, nontender, no organomegaly, bowel sounds are present Extremities: Swelling right upper extremity, tenderness, no differential warmth or erythema. Bruit audible. Edema right lower extremity also Neuro: Awake, alert no focal deficits - Vital Signs Vital signs: Vital Signs - 12hr 03/11/21 03/11/21 03/11/21 03:31 08:16 09:44 Temperature 98.8 F 98.1 F Pulse Rate 97 H 52 L 82 Respiratory 18 18 Rate Blood Pressure 115/74 105/65 105/65 O2 Sat by Pulse 100 98 Oximetry O2 Sat by Pulse Oximetry [ Anterior Bilateral Upper Lobe] 03/11/21 03/11/21 03/11/21 10:15 10:21 10:30 Temperature 98.3 F Pulse Rate 87 77 76 Respiratory 18 Rate Blood Pressure 108/63 110/60 95/61 O2 Sat by Pulse Oximetry O2 Sat by Pulse 100 Oximetry [ Anterior Bilateral Upper Lobe] 03/11/21 03/11/21 03/11/21 10:45 11:00 11:15 Temperature Pulse Rate 81 81 86 Respiratory Rate Blood Pressure 109/66 108/57 107/53 O2 Sat by Pulse Oximetry O2 Sat by Pulse Oximetry [ Anterior Bilateral Upper Lobe] - Lab 03/11/21 16:07 03/11/21 16:07 Most recent lab results Calcium 9.3 mg/dL (8.4-10.2) 03/07/21 06:45 Medications & Allergies - Medications Allergies/Adverse Reactions: Allergies No Known Allergies Allergy (Unverified 02/25/21 09:01) Home Medications: Home Medications Medication Instructions Recorded Confirmed Last Taken Type Acetaminophen [Acetaminophen ER] 650 mg PO PRN PRN 02/17/21 02/17/21 Unknown History Aspirin [Adult Aspirin] 81 mg PO DAILY 02/17/21 02/27/21 02/25/21 09:00 History Omeprazole 20 mg PO BID 02/17/21 02/27/21 02/26/21 10:40 History Sertraline HCl [Zoloft] 100 mg PO DAILY 02/17/21 02/27/21 02/25/21 09:00 History Tacrolimus [Prograf] 0.5 mg PO DAILY 02/17/21 02/17/21 Unknown History carvediloL [Coreg] 6.25 mg PO BID 02/17/21 02/27/21 02/26/21 10:40 History traMADoL [Ultram 50 MG tab] 50 mg PO Q12HR PRN 02/17/21 02/17/21 Unknown History HYDROcodone/APAP 7.5-325 [[place] 1 each PO Q6HR PRN #40 tablet 02/26/21 Unknown Rx 7.5/325] Active Medications: Generic Name Dose Route Start Last Admin Trade Name Freq PRN Reason Stop Dose Admin Acetaminophen 650 mg 02/26/21 15:00 03/04/21 22:04 Acetaminophen 325 Mg Tab PO 650 mg Q4H PRN Administration Pain MILD(1-3)/Fever >100.5/TOBIAS Hydrocodone Bitart/Acetaminophen 2 each 02/26/21 15:00 03/11/21 09:43 Hydrocodone/Acetaminophen 5-325 Mg Tab PO 1 each Q6H PRN Administration Pain, Moderate (4-6) Albumin Human 25 gm 03/01/21 12:00 03/01/21 16:28 Albumin Human 25% (25 Gm/100 Ml) Inj IV 25 gm SALIMA PRN Administration Hypotension Atorvastatin Calcium 40 mg 03/09/21 22:00 03/10/21 22:36 Atorvastatin 40 Mg Tab PO 40 mg QHS REBEL Administration Gabapentin 100 mg 02/26/21 22:00 03/11/21 06:28 Gabapentin 100 Mg Cap PO 100 mg Q8HR REBEL Administration Sodium Chloride 100 mls @ 999 mls/hr 03/01/21 09:00 Nacl 0.9% IV SALIMA PRN Hypotension Metoprolol Tartrate 25 mg 03/08/21 11:00 03/11/21 09:44 Metoprolol Tartrate 25 Mg Tab PO 25 mg BID REBEL Administration Morphine Sulfate 4 mg 02/26/21 16:00 03/11/21 10:20 Morphine 4 Mg/1 Ml Inj IV 4 mg Q4H PRN Administration Pain , Severe (7-10) Ondansetron HCl 4 mg 02/26/21 15:00 Ondansetron 4 Mg/2 Ml Inj IV Q8H PRN Nausea And Vomiting Pantoprazole Sodium 20 mg 02/26/21 22:00 03/11/21 09:43 Pantoprazole 20 Mg Tab PO 20 mg BID REBEL Administration Sertraline HCl 100 mg 02/27/21 10:00 03/11/21 09:43 Sertraline 100 Mg Tab PO 100 mg DAILY REBEL Administration Tacrolimus 0.5 mg 02/26/21 22:00 03/11/21 09:43 Tacrolimus 0.5 Mg Cap PO 0.5 mg Q12HR REBEL Administration Torsemide 10 mg 02/28/21 10:00 03/11/21 09:44 Torsemide 10 Mg Tab PO 10 mg DAILY REBEL Administration Tramadol HCl 50 mg 02/26/21 21:30 03/08/21 09:51 Tramadol 50 Mg Tab PO 50 mg Q12HR PRN Administration Pain, Mild (1-3)
--- NOTE | 2021-03-11 12:59 | Progress Note ---
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 Consult placed by DR. Terrlel for HTN, ESRD. Patient seen and evaluated upon arrival to his room. No reported nursing events. Patient denies fever, chills, chest pain, palpitation, productive cough, skin rash, recent ill contact, or known exposure to COVID-19. 02/28: Patient for HD today. Stable from my standpoint for discharge blood pressure is improved. Right upper extremity was swollen vascular evaluating. 03/01: Patient with decompression of the right upper ext done yesterday, still some edema, still with some hematoma noted and bilster on the right side He does have 2 blisters which appear to be decompressing along the medial aspect of his upper arm. Scant serosanguineous drainage from his incisions. The arm is still swollen however is decompressing. Hematomas are present extending from the upper arm distally. The patient states that his pain in his arm is much improved from yesterday. 03/02: Continue wound care, monitor H/H, further management of right upper ext fistula site per Surgeon 03/03: Noted anemia worse today down to 6.5 hemoglobin we will transfuse 1 unit packed red blood cell. Disposition per vascular. 03/04/2021; hemoglobin yesterday was 6.5 and transfused 1 unit of blood. Will check H&H and will transfuse if hemoglobin is below 7. 03/05/2021: The entire right upper extremities grossly swollen with some blistering of the elbow and mild discharge. Has low-grade fever but no leukocytosis. 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 The plan is to remove right IJ permacath in place in the left IJ and revascularization of the veins with placement of stent, surgery is scheduled for tomorrow by vascular. ESRD on hemodialysis on Wednesday//Wednesday, nephrology following. Patient has a history of A. fib, right heart failure and bioprosthetic MVR, anticoagulation discontinued due to high risk for bleed. Patient has right hemiparesis from previous stroke. He moglobin will be monitored and transfuse as needed. 03/06/2021: Right IJ permacath removed and a new one placed on the right. Entire right arm remains grossly swollen with full movements. Venous angioplasty and revascularization is planned for later. Patient was alert oriented. Has some low-grade fever with soft blood pressure. Does not appear toxic today. 03/07/2021: Right upper extremity remains grossly swollen though some better. Pain also seems to be better since right IJ permacath removed. BP remains soft with stable tachycardia and afebrile. Has low-grade fever. Mental status seems to be better. Pain well controlled. Vascular surgery is planning for revascularization of central veins on Wednesday. Transfusing PRBC as needed. 03/08/2021: Physical exam unchanged. Right arm remains grossly swollen with minimal improvement of swelling since right permacatheter removed. Unable to move at the joints in the right arm likely from gross swelling but also from previous stroke. Low-grade fever seems to be resolving. Never had leukocytosis during this admission. Afebrile with stable vital signs/tachycardia with A. fib. Pain is controlled. Vascular Surgery is planning for revascularization on Wednesday. 03/09/2021: Patient remained stable. Low-grade fever with stable A. fib with RVR. BP remains borderline. Gross edema of her right upper extremity with some blistering, less tense since) catheter out. Scheduled for angioplasty of central events tomorrow. 03/10/2020: Patient remained stable. Low-grade fever since resolving. Afebrile heart rate with stable RVR. BP remains borderline. Gross edema of right upper extremity with some blistering, less tense since the right IJ permacath removed. Scheduled for angioplasty of central venous system later today. 03/11: Pt remains with right upper extremity is grossly swollen with blistering around elbow from central venous obstruction. Vascular surgery underwent angioplasty 03/10. Permacath removed and placed on the left side on 03/06. Patient continues to complain of pain in right arm but better postprocedure. Swelling is less tense since right permacath removed. Is unable to move right arm with history of CVA. BP remains soft with A. fib/stable tachycardia. Low- grade fever since resolving. Is alert but looks debilitated. He is on dialysis T/T/S. Nephrology following. Cleared for discharge. (1) Hypertension Current Visit: Yes Status: Acute Qualifiers: Hypertension type: primary hypertension Qualified Code(s): I10 - Essential (primary) hypertension Plan to address problem: Monitor blood pressure every shift, continue medical management. (2) End stage renal disease Current Visit: Yes Status: Acute Plan to address problem: Dialysis as per renal team, nephrology team consulted. 3) Type 2 NSTEMI-cardiology is following 4) BED Bound secondary to CVA WITH HEMIPARESIS OF THE RIGHT UPPER AND LOWER EXT 5) Atrial fibrillation, off anticoagulation due to high risk 6) Hypotension- Monitor, may need to hold BB or other antihypertensive. 7) Anemia of chronic disease (8) gross right upper extremity edema due to central venous thrombosis/obstruction Likely triggered by right IJ permacath. Vascular surgery is intervening as described above Discussed with the patient and the nursing staff. History Interval history: Patient seen and examined, no new complaints, HD today Hospitalist Physical - Physical exam Narrative exam: General appearance: Present: No distress, marked temporal wasting - EENT Eyes: Present: PERRL ENT: hearing intact, clear oral mucosa - Neck Neck: Present: supple, normal ROM - Respiratory Respiratory effort: normal Respiratory: bilateral: CTA - Cardiovascular Heart Sounds: Present: S1 & S2. Absent: rub, click - Extremities Extremities: pulses symmetrical, right upper ext with edema, some blisters, wound noted Peripheral Pulses: within normal limits - Abdominal General gastrointestinal: Present: soft, non-tender, non-distended, normal bowel sounds Male genitourinary: Present: normal - Integumentary Integumentary: Present: right upper ext, excoriation, swelling, av fistula. - Musculoskeletal Musculoskeletal: unable to assess gait - Psychiatric Psychiatric: appropriate mood/affect, intact judgment & insight - Neurologic Neurologic: paresis of the right side - Constitutional Vitals: Temp Pulse Resp BP Pulse Ox 98.3 F 75 18 106/53 100 03/11/21 10:15 03/11/21 12:45 03/11/21 10:15 03/11/21 12:45 03/11/21 10:15 General appearance: Present: mild distress (Right upper extremity pain) HEART Score - HEART Score Troponin: Troponin T 0.137 ng/mL (0.00-0.029) H* 03/08/21 07:56 Results - Labs CBC & Chem 7: 03/08/21 07:56 03/07/21 06:45 Labs: Laboratory Last Values WBC 5.6 K/mm3 (4.5-11.0) 03/07/21 06:45 RBC 2.18 M/mm3 (3.65-5.03) L 03/07/21 06:45 Hgb 8.0 gm/dl (11.8-15.2) L 03/08/21 07:56 Hct 24.3 % (35.5-45.6) L 03/08/21 07:56 MCV 90 fl (84-94) 03/07/21 06:45 MCH 29 pg (28-32) 03/07/21 06:45 MCHC 32 % (32-34) 03/07/21 06:45 RDW 17.8 % (13.2-15.2) H 03/07/21 06:45 Plt Count 173 K/mm3 (140-440) 03/07/21 06:45 Lymph % (Auto) 9.4 % (13.4-35.0) L 03/04/21 19:01 [place] % (Auto) 9.3 % (0.0-7.3) H 03/04/21 19:01 Eos % (Auto) 2.3 % (0.0-4.3) 03/04/21 19:01 Baso % (Auto) 0.5 % (0.0-1.8) 03/04/21 19:01 Lymph # (Auto) 0.5 K/mm3 (1.2-5.4) L 03/04/21 19:01 [place] # (Auto) 0.5 K/mm3 (0.0-0.8) 03/04/21 19:01 Eos # (Auto) 0.1 K/mm3 (0.0-0.4) 03/04/21 19:01 Baso # (Auto) 0.0 K/mm3 (0.0-0.1) 03/04/21 19:01 Seg Neutrophils % 78.5 % (40.0-70.0) H 03/04/21 19:01 Seg Neutrophils # 4.5 K/mm3 (1.8-7.7) 03/04/21 19:01 PT 17.5 Sec. (12.2-14.9) H 02/27/21 18:32 INR 1.37 (0.87-1.13) H 02/27/21 18:32 APTT 37.5 Sec. (24.2-36.6) H 02/27/21 18:32 Sodium 138 mmol/L (137-145) 03/07/21 06:45 Potassium 4.1 mmol/L (3.6-5.0) 03/07/21 06:45 Chloride 97.1 mmol/L (98-107) L 03/07/21 06:45 Carbon Dioxide 31 mmol/L (22-30) H 03/07/21 06:45 Anion Gap 14 mmol/L 03/07/21 06:45 BUN 36 mg/dL (9-20) H 03/07/21 06:45 Creatinine 3.3 mg/dL (0.8-1.3) H 03/07/21 06:45 Estimated GFR 24 ml/min 03/07/21 06:45 BUN/Creatinine Ratio 11 % 03/07/21 06:45 Glucose 100 mg/dL (75-100) 03/07/21 06:45 Calcium 9.3 mg/dL (8.4-10.2) 03/07/21 06:45 Total Creatine Kinase 54 units/L (55-170) L 02/27/21 10:45 CK-MB (CK-2) 1.5 ng/mL (0.0-4.0) 02/27/21 10:45 CK-MB (CK-2) Rel Index 2.7 (0-4) 02/27/21 10:45 Troponin T 0.137 ng/mL (0.00-0.029) H* 03/08/21 07:56 Triglycerides 106 mg/dL (2-149) 02/27/21 10:45 Cholesterol 84 mg/dL (50-199) 02/27/21 10:45 LDL Cholesterol Direct 39 mg/dL (50-130) L 02/27/21 10:45 HDL Cholesterol 27 mg/dL (40-59) L 02/27/21 10:45 Cholesterol/HDL Ratio 3.11 % 02/27/21 10:45 Nasal Screen MRSA (PCR) Negative (Negative) 02/27/21 Unknown Hepatitis A IgM Ab Non-reactive (NonReactive) 02/27/21 18:32 Hep Bs Antigen Non-reactive (Negative) 02/27/21 18:32 Hep B Core IgM Ab Non-reactive (NonReactive) 02/27/21 18:32 Hepatitis C Antibody Reactive (NonReactive) A 02/27/21 18:32 Blood Type A POSITIVE 03/07/21 09:28 Antibody Screen Negative 03/07/21 09:28 Crossmatch See Detail 03/07/21 09:28 Neal/IV: Voiding Method Condom Catheter Active Medications - Current Medications Current Medications: Generic Name Dose Route Start Last Admin Trade Name Freq PRN Reason Stop Dose Admin Acetaminophen 650 mg 02/26/21 15:00 03/04/21 22:04 Acetaminophen 325 Mg Tab PO 650 mg Q4H PRN Administration Pain MILD(1-3)/Fever >100.5/TOBIAS Hydrocodone Bitart/Acetaminophen 2 each 02/26/21 15:00 03/11/21 09:43 Hydrocodone/Acetaminophen 5-325 Mg Tab PO 1 each Q6H PRN Administration Pain, Moderate (4-6) Albumin Human 25 gm 03/01/21 12:00 03/01/21 16:28 Albumin Human 25% (25 Gm/100 Ml) Inj IV 25 gm SALIMA PRN Administration Hypotension Atorvastatin Calcium 40 mg 03/09/21 22:00 03/10/21 22:36 Atorvastatin 40 Mg Tab PO 40 mg QHS REBEL Administration Gabapentin 100 mg 02/26/21 22:00 03/11/21 06:28 Gabapentin 100 Mg Cap PO 100 mg Q8HR REBEL Administration Sodium Chloride 100 mls @ 999 mls/hr 03/01/21 09:00 Nacl 0.9% IV SALIMA PRN Hypotension Metoprolol Tartrate 25 mg 03/08/21 11:00 03/11/21 09:44 Metoprolol Tartrate 25 Mg Tab PO 25 mg BID REBEL Administration Morphine Sulfate 4 mg 02/26/21 16:00 03/11/21 10:20 Morphine 4 Mg/1 Ml Inj IV 4 mg Q4H PRN Administration Pain , Severe (7-10) Ondansetron HCl 4 mg 02/26/21 15:00 Ondansetron 4 Mg/2 Ml Inj IV Q8H PRN Nausea And Vomiting Pantoprazole Sodium 20 mg 02/26/21 22:00 03/11/21 09:43 Pantoprazole 20 Mg Tab PO 20 mg BID REBEL Administration Sertraline HCl 100 mg 02/27/21 10:00 03/11/21 09:43 Sertraline 100 Mg Tab PO 100 mg DAILY REBEL Administration Tacrolimus 0.5 mg 02/26/21 22:00 03/11/21 09:43 Tacrolimus 0.5 Mg Cap PO 0.5 mg Q12HR REBEL Administration Torsemide 10 mg 02/28/21 10:00 03/11/21 09:44 Torsemide 10 Mg Tab PO 10 mg DAILY REBEL Administration Tramadol HCl 50 mg 02/26/21 21:30 03/08/21 09:51 Tramadol 50 Mg Tab PO 50 mg Q12HR PRN Administration Pain, Mild (1-3) Nutrition/Malnutrition Assess - Dietary Evaluation Nutrition/Malnutrition Findings: Nutrition Notes Start: 02/27/21 12:35 Freq: Status: Active Protocol: Document 03/07/21 11:23 (Rec: 03/07/21 11:26 [email or web address]) Nutrition Notes Initial or Follow up Reassessment Current Diagnosis CKD (stage V CKD),Hypertension ,Respiratory Failure Other Pertinent Diagnosis on HD Current Diet Renal Labs/Tests BUN 36 Cr 3.3 Pertinent Medications Reviewed Height 5 ft 9 in Weight 70.8 kg [place] Body Weight (kg) 72.72 BMI 23.0 Weight Status Appropriate Subjective/Other Information FU for intakes. Pt continues to not eat much of the meals. He is drinking 100% of 4 ONS daily. Percent of energy/protein needs met: 100%/100% Burn Absent Trauma Absent GI Symptoms None Current % PO Good (75-100%) Minimum of two criteria Yes Energy Intake (non-severe) <75% Estimated Energy Requirement >7 days Interpretation of Weight Loss (severe) >5% in 1 month Muscle Mass Mild Depletion (non-severe) #1 Nutrition Diagnosis Malnutrition Diagnosis Progress(for reassessment Continues documentation) Is patient on ventilator? No Is Patient Ambulatory and/or Out of Bed No REE-([facility]-confined to bed) 1844.484 Kcal/Kg value to use for calculation 29 Approximate Energy Requirements Using 2052 kcal/Kg Calculation Used for Recommendations Kcal/kg Additional Notes Protein: (>1.2g/kg) >76g Fluid: output + 1000 ml Nutrition Intervention Change Diet Order: Continue Add Supplement/Snack (indicate name/kcal Nepro QID /protein ) Provides kCal: 1,700 Provides Protein (gm) 79 Goal #1 Meet at least 80% of protein and energy needs via PO and ONS intakes Anticipated Discharge Needs: Renal with ONS BID Follow-Up By: 03/12/21 Additional Comments FU for intakes and ONS tolernace
[2021-03-11] MEDS: EPOETIN ALFA-EPBX 20,000 UNIT/1 ML VIAL IV PRN (13:16)
[2021-03-11 16:49] LABS: Hematocrit 25.8 % (35.5-45.6); Hemoglobin 8.1 gm/dl (11.8-15.2); Mean Corpuscular HGB Conc 32 % (32-34); Mean Corpuscular Volume 94 fl (84-94); Platelet Count 229 K/mm3 (140-440); Red Blood Count 2.75 M/mm3 (3.65-5.03); Red Cell Distribution Width 20.3 % (13.2-15.2)
[2021-03-11 18:00] LABS: Total Cells Counted 100
[2021-03-11 18:01] LABS: Anisocytosis 2+; Macrocytosis 1+; Platelet Estimate Consistent w Auto
[2021-03-12] MEDS: GABAPENTIN 100 MG CAP PO SCH ×3 (06:21→22:55)
[2021-03-12 08:11] LABS: Basophils # (Auto) 0.1 K/mm3 (0.0-0.1); Basophils % (Auto) 0.8 % (0.0-1.8); Eosinophils # (Auto) 0.2 K/mm3 (0.0-0.4); Eosinophils % (Auto) 2.4 % (0.0-4.3); Hematocrit 25.7 % (35.5-45.6); Hemoglobin 8.2 gm/dl (11.8-15.2); Lymphocytes # (Auto) 0.7 K/mm3 (1.2-5.4); Lymphocytes % (Auto) 11.4 % (13.4-35.0); Mean Corpuscular HGB Conc 32 % (32-34); Mean Corpuscular Volume 92 fl (84-94); Monocytes # (Auto) 0.7 K/mm3 (0.0-0.8); Monocytes % (Auto) 10.4 % (0.0-7.3); Platelet Count 238 K/mm3 (140-440); Red Cell Distribution Width 19.2 % (13.2-15.2)
--- NOTE | 2021-03-12 09:12 | Progress Note ---
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 Consult placed by DR. Terrell for HTN, ESRD. Patient seen and evaluated upon arrival to his room. No reported nursing events. Patient denies fever, chills, chest pain, palpitation, productive cough, skin rash, recent ill contact, or known exposure to COVID-19. 02/28: Patient for HD today. Stable from my standpoint for discharge blood pressure is improved. Right upper extremity was swollen vascular evaluating. 03/01: Patient with decompression of the right upper ext done yesterday, still some edema, still with some hematoma noted and bilster on the right side He does have 2 blisters which appear to be decompressing along the medial aspect of his upper arm. Scant serosanguineous drainage from his incisions. The arm is still swollen however is decompressing. Hematomas are present extending from the upper arm distally. The patient states that his pain in his arm is much improved from yesterday. 03/02: Continue wound care, monitor H/H, further management of right upper ext fistula site per Surgeon 03/03: Noted anemia worse today down to 6.5 hemoglobin we will transfuse 1 unit packed red blood cell. Disposition per vascular. 03/04/2021; hemoglobin yesterday was 6.5 and transfused 1 unit of blood. Will check H&H and will transfuse if hemoglobin is below 7. 03/05/2021: The entire right upper extremities grossly swollen with some blistering of the elbow and mild discharge. Has low-grade fever but no leukocytosis. 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 The plan is to remove right IJ permacath in place in the left IJ and revascularization of the veins with placement of stent, surgery is scheduled for tomorrow by vascular. ESRD on hemodialysis on Wednesday//Wednesday, nephrology following. Patient has a history of A. fib, right heart failure and bioprosthetic MVR, anticoagulation discontinued due to high risk for bleed. Patient has right hemiparesis from previous stroke. Hemoglobin will be monitored and transfuse as needed. 03/06/2021: Right IJ permacath removed and a new one placed on the right. Entire right arm remains grossly swollen with full movements. Venous angioplasty and revascularization is planned for later. Patient was alert oriented. Has some low-grade fever with soft blood pressure. Does not appear toxic today. 03/07/2021: Right upper extremity remains grossly swollen though some better. Pain also seems to be better since right IJ permacath removed. BP remains soft with stable tachycardia and afebrile. Has low-grade fever. Mental status seems to be better. Pain well controlled. Vascular surgery is planning for revascularization of central veins on Wednesday. Transfusing PRBC as needed. 03/08/2021: Physical exam unchanged. Right arm remains grossly swollen with minimal improvement of swelling since right permacatheter removed. Unable to move at the joints in the right arm likely from gross swelling but also from previous stroke. Low-grade fever seems to be resolving. Never had leukocytosis during this admission. Afebrile with stable vital signs/tachycardia with A. fib. Pain is controlled. Vascular Surgery is planning for revascularization on Wednesday. 03/09/2021: Patient remained stable. Low-grade fever with stable A. fib with RVR. BP remains borderline. Gross edema of her right upper extremity with some blistering, less tense since) catheter out. Scheduled for angioplasty of central events tomorrow. 03/10/2020: Patient remained stable. Low-grade fever since resolving. Afebrile heart rate with stable RVR. BP remains borderline. Gross edema of right upper extremity with some blistering, less tense since the right IJ permacath removed. Scheduled for angioplasty of central venous system later today. 03/11: Pt remains with right upper extremity is grossly swollen with blistering around elbow from central venous obstruction. Vascular surgery underwent angioplasty 03/10. Permacath removed and placed on the left side on 03/06. Patient continues to complain of pain in right arm but better postprocedure. Swelling is less tense since right permacath removed. Is unable to move right arm with history of CVA. BP remains soft with A. fib/stable tachycardia. Low- grade fever since resolving. Is alert but looks debilitated. He is on dialysis T/T/S. Nephrology following. Cleared for discharge. 03/12: Continue to monitor, Vascular still monitoring ongoing work up of the right edema- Present: no acute distress -(Right upper extremity with palpable thrill in the right arm AV graft near the arterial anastomosis.), other (Right arm incisions are intact with minimal drainage. No evidence of infection.) (1) Hypertension Current Visit: Yes Status: Acute Qualifiers: Hypertension type: primary hypertension Qualified Code(s): I10 - Essential (primary) hypertension Plan to address problem: Monitor blood pressure every shift, continue medical management. (2) End stage renal disease Current Visit: Yes Status: Acute Plan to address problem: Dialysis as per renal team, nephrology team consulted. 3) Type 2 NSTEMI-cardiology is following 4) BED Bound secondary to CVA WITH HEMIPARESIS OF THE RIGHT UPPER AND LOWER EXT 5) Atrial fibrillation, off anticoagulation due to high risk 6) Hypotension- Monitor, may need to hold BB or other antihypertensive. 7) Anemia of chronic disease (8) gross right upper extremity edema due to central venous thrombosis/obstruction Likely triggered by right IJ permacath. Vascular surgery is intervening as described above Discussed with the patient and the nursing staff. History Interval history: Patient seen and examined, no new complaints. noted fever last night, no further documentation. Hospitalist Physical - Physical exam Narrative exam: General appearance: Present: No distress, marked temporal wasting - EENT Eyes: Present: PERRL ENT: hearing intact, clear oral mucosa - Neck Neck: Present: supple, normal ROM - Respiratory Respiratory effort: normal Respiratory: bilateral: CTA - Cardiovascular Heart Sounds: Present: S1 & S2. Absent: rub, click - Extremities Extremities: pulses symmetrical, right upper ext with edema, some blisters, wound noted Peripheral Pulses: within normal limits - Abdominal General gastrointestinal: Present: soft, non-tender, non-distended, normal bowel sounds Male genitourinary: Present: normal - Integumentary Integumentary: Present: right upper ext, excoriation, swelling, av fistula. - Musculoskeletal Musculoskeletal: unable to assess gait - Psychiatric Psychiatric: appropriate mood/affect, intact judgment & insight - Neurologic Neurologic: paresis of the right side - Constitutional Vitals: Temp Pulse Resp BP Pulse Ox 98.6 F 76 18 90/67 100 03/12/21 04:25 03/12/21 04:25 03/12/21 04:25 03/12/21 04:25 03/12/21 04:25 General appearance: Present: mild distress (Right upper extremity pain) HEART Score - HEART Score Troponin: Troponin T 0.137 ng/mL (0.00-0.029) H* 03/08/21 07:56 Results - Labs CBC & Chem 7: 03/12/21 07:32 03/11/21 16:07 Labs: Laboratory Last Values WBC 6.4 K/mm3 (4.5-11.0) 03/12/21 07:32 RBC 2.80 M/mm3 (3.65-5.03) L 03/12/21 07:32 Hgb 8.2 gm/dl (11.8-15.2) L 03/12/21 07:32 Hct 25.7 % (35.5-45.6) L 03/12/21 07:32 MCV 92 fl (84-94) 03/12/21 07:32 MCH 29 pg (28-32) 03/12/21 07:32 MCHC 32 % (32-34) 03/12/21 07:32 RDW 19.2 % (13.2-15.2) H 03/12/21 07:32 Plt Count 238 K/mm3 (140-440) 03/12/21 07:32 Lymph % (Auto) 11.4 % (13.4-35.0) L 03/12/21 07:32 [place] % (Auto) 10.4 % (0.0-7.3) H 03/12/21 07:32 Eos % (Auto) 2.4 % (0.0-4.3) 03/12/21 07:32 Baso % (Auto) 0.8 % (0.0-1.8) 03/12/21 07:32 Lymph # (Auto) 0.7 K/mm3 (1.2-5.4) L 03/12/21 07:32 [place] # (Auto) 0.7 K/mm3 (0.0-0.8) 03/12/21 07:32 Eos # (Auto) 0.2 K/mm3 (0.0-0.4) 03/12/21 07:32 Baso # (Auto) 0.1 K/mm3 (0.0-0.1) 03/12/21 07:32 Add Manual Diff Complete 03/11/21 16:07 Total Counted 100 03/11/21 16:07 Seg Neutrophils % 75.0 % (40.0-70.0) H 03/12/21 07:32 Seg Neuts % (Manual) 82.0 % (40.0-70.0) H 03/11/21 16:07 Lymphocytes % (Manual) 6.0 % (13.4-35.0) L 03/11/21 16:07 Monocytes % (Manual) 6.0 % (0.0-7.3) 03/11/21 16:07 Eosinophils % (Manual) 3.0 % (0.0-4.3) 03/11/21 16:07 Basophils % (Manual) 3.0 % (0.0-1.8) H 03/11/21 16:07 Nucleated RBC % Not Reportable 03/11/21 16:07 Seg Neutrophils # 4.8 K/mm3 (1.8-7.7) 03/12/21 07:32 Seg Neutrophils # Man 4.3 K/mm3 (1.8-7.7) 03/11/21 16:07 Band Neutrophils # 0.0 K/mm3 03/11/21 16:07 Lymphocytes # (Manual) 0.3 K/mm3 (1.2-5.4) L 03/11/21 16:07 Abs React Lymphs (Man) 0.0 K/mm3 03/11/21 16:07 Monocytes # (Manual) 0.3 K/mm3 (0.0-0.8) 03/11/21 16:07 Eosinophils # (Manual) 0.2 K/mm3 (0.0-0.4) 03/11/21 16:07 Basophils # (Manual) 0.2 K/mm3 (0.0-0.1) H 03/11/21 16:07 Metamyelocytes # 0.0 K/mm3 03/11/21 16:07 Myelocytes # 0.0 K/mm3 03/11/21 16:07 Promyelocytes # 0.0 K/mm3 03/11/21 16:07 Blast Cells # 0.0 K/mm3 03/11/21 16:07 WBC Morphology Not Reportable 03/11/21 16:07 Hypersegmented Neuts Not Reportable 03/11/21 16:07 Hyposegmented Neuts Not Reportable 03/11/21 16:07 Hypogranular Neuts Not Reportable 03/11/21 16:07 Smudge Cells Not Reportable 03/11/21 16:07 Toxic Granulation Not Reportable 03/11/21 16:07 Toxic Vacuolation Not Reportable 03/11/21 16:07 Dohle Bodies Not Reportable 03/11/21 16:07 Pelger-Huet Anomaly Not Reportable 03/11/21 16:07 Ry Rods Not Reportable 03/11/21 16:07 Platelet Estimate Consistent w auto 03/11/21 16:07 Clumped Platelets Not Reportable 03/11/21 16:07 Plt Clumps, EDTA Not Reportable 03/11/21 16:07 Large Platelets Not Reportable 03/11/21 16:07 Giant Platelets Not Reportable 03/11/21 16:07 Platelet Satelliting Not Reportable 03/11/21 16:07 Plt Morphology Comment Not Reportable 03/11/21 16:07 RBC Morphology Not Reportable 03/11/21 16:07 Dimorphic RBCs Not Reportable 03/11/21 16:07 Polychromasia Few 03/11/21 16:07 Hypochromasia Not Reportable 03/11/21 16:07 Poikilocytosis Not Reportable 03/11/21 16:07 Anisocytosis 2+ 03/11/21 16:07 Microcytosis Not Reportable 03/11/21 16:07 Macrocytosis 1+ 03/11/21 16:07 Spherocytes Not Reportable 03/11/21 16:07 Pappenheimer Bodies Not Reportable 03/11/21 16:07 Sickle Cells Not Reportable 03/11/21 16:07 Target Cells Not Reportable 03/11/21 16:07 Tear Drop Cells Not Reportable 03/11/21 16:07 Ovalocytes Not Reportable 03/11/21 16:07 Helmet Cells Not Reportable 03/11/21 16:07 [place] Bodies Not Reportable 03/11/21 16:07 [place] Rings Not Reportable 03/11/21 16:07 [place] Cells Not Reportable 03/11/21 16:07 Bite Cells Not Reportable 03/11/21 16:07 Crenated Cell Not Reportable 03/11/21 16:07 Elliptocytes Not Reportable 03/11/21 16:07 Acanthocytes (Spur) Not Reportable 03/11/21 16:07 Rouleaux Not Reportable 03/11/21 16:07 Hemoglobin C Crystals Not Reportable 03/11/21 16:07 Schistocytes Not Reportable 03/11/21 16:07 Malaria parasites Not Reportable 03/11/21 16:07 Hema Bodies Not Reportable 03/11/21 16:07 Hem Pathologist Commnt No 03/11/21 16:07 PT 17.5 Sec. (12.2-14.9) H 02/27/21 18:32 INR 1.37 (0.87-1.13) H 02/27/21 18:32 APTT 37.5 Sec. (24.2-36.6) H 02/27/21 18:32 Sodium 136 mmol/L (137-145) L 03/11/21 16:07 Potassium 3.6 mmol/L (3.6-5.0) 03/11/21 16:07 Chloride 95.6 mmol/L (98-107) L 03/11/21 16:07 Carbon Dioxide 27 mmol/L (22-30) 03/11/21 16:07 Anion Gap 17 mmol/L 03/11/21 16:07 BUN 36 mg/dL (9-20) H 03/11/21 16:07 Creatinine 3.2 mg/dL (0.8-1.3) H 03/11/21 16:07 Estimated GFR 25 ml/min 03/11/21 16:07 BUN/Creatinine Ratio 11 % 03/11/21 16:07 Glucose 91 mg/dL (75-100) 03/11/21 16:07 Calcium 9.0 mg/dL (8.4-10.2) 03/11/21 16:07 Total Creatine Kinase 54 units/L (55-170) L 02/27/21 10:45 CK-MB (CK-2) 1.5 ng/mL (0.0-4.0) 02/27/21 10:45 CK-MB (CK-2) Rel Index 2.7 (0-4) 02/27/21 10:45 Troponin T 0.137 ng/mL (0.00-0.029) H* 03/08/21 07:56 Triglycerides 106 mg/dL (2-149) 02/27/21 10:45 Cholesterol 84 mg/dL (50-199) 02/27/21 10:45 LDL Cholesterol Direct 39 mg/dL (50-130) L 02/27/21 10:45 HDL Cholesterol 27 mg/dL (40-59) L 02/27/21 10:45 Cholesterol/HDL Ratio 3.11 % 02/27/21 10:45 Nasal Screen MRSA (PCR) Negative (Negative) 02/27/21 Unknown Hepatitis A IgM Ab Non-reactive (NonReactive) 02/27/21 18:32 Hep Bs Antigen Non-reactive (Negative) 02/27/21 18:32 Hep B Core IgM Ab Non-reactive (NonReactive) 02/27/21 18:32 Hepatitis C Antibody Reactive (NonReactive) A 02/27/21 18:32 Blood Type A POSITIVE 03/07/21 09:28 Antibody Screen Negative 03/07/21 09:28 Crossmatch See Detail 03/07/21 09:28 Neal/IV: Voiding Method Condom Catheter Active Medications - Current Medications Current Medications: Generic Name Dose Route Start Last Admin Trade Name Freq PRN Reason Stop Dose Admin Acetaminophen 650 mg 02/26/21 15:00 03/04/21 22:04 Acetaminophen 325 Mg Tab PO 650 mg Q4H PRN Administration Pain MILD(1-3)/Fever >100.5/TOBIAS Hydrocodone Bitart/Acetaminophen 2 each 02/26/21 15:00 03/11/21 09:43 Hydrocodone/Acetaminophen 5-325 Mg Tab PO 1 each Q6H PRN Administration Pain, Moderate (4-6) Albumin Human 25 gm 03/01/21 12:00 03/01/21 16:28 Albumin Human 25% (25 Gm/100 Ml) Inj IV 25 gm SALIMA PRN Administration Hypotension Atorvastatin Calcium 40 mg 03/09/21 22:00 03/11/21 21:30 Atorvastatin 40 Mg Tab PO 40 mg QHS REBEL Administration Gabapentin 100 mg 02/26/21 22:00 03/12/21 06:21 Gabapentin 100 Mg Cap PO 100 mg Q8HR REBEL Administration Sodium Chloride 100 mls @ 999 mls/hr 03/01/21 09:00 Nacl 0.9% IV SALIMA PRN Hypotension Metoprolol Tartrate 25 mg 03/08/21 11:00 03/11/21 22:25 Metoprolol Tartrate 25 Mg Tab PO 25 mg BID REBEL Administration Morphine Sulfate 4 mg 02/26/21 16:00 03/11/21 13:30 Morphine 4 Mg/1 Ml Inj IV 4 mg Q4H PRN Administration Pain , Severe (7-10) Ondansetron HCl 4 mg 02/26/21 15:00 Ondansetron 4 Mg/2 Ml Inj IV Q8H PRN Nausea And Vomiting Pantoprazole Sodium 20 mg 02/26/21 22:00 03/11/21 21:30 Pantoprazole 20 Mg Tab PO 20 mg BID REBEL Administration Sertraline HCl 100 mg 02/27/21 10:00 03/11/21 09:43 Sertraline 100 Mg Tab PO 100 mg DAILY REBEL Administration Tacrolimus 0.5 mg 02/26/21 22:00 03/11/21 21:30 Tacrolimus 0.5 Mg Cap PO 0.5 mg Q12HR REBEL Administration Torsemide 10 mg 02/28/21 10:00 03/11/21 09:44 Torsemide 10 Mg Tab PO 10 mg DAILY REBEL Administration Tramadol HCl 50 mg 02/26/21 21:30 03/08/21 09:51 Tramadol 50 Mg Tab PO 50 mg Q12HR PRN Administration Pain, Mild (1-3) Nutrition/Malnutrition Assess - Dietary Evaluation Nutrition/Malnutrition Findings: Nutrition Notes Start: 02/27/21 12:35 Freq: Status: Active Protocol: Document 03/07/21 11:23 (Rec: 03/07/21 11:26 [id number]) Nutrition Notes Initial or Follow up Reassessment Current Diagnosis CKD (stage V CKD),Hypertension ,Respiratory Failure Other Pertinent Diagnosis on HD Current Diet Renal Labs/Tests BUN 36 Cr 3.3 Pertinent Medications Reviewed Height 5 ft 9 in Weight 70.8 kg [place] Body Weight (kg) 72.72 BMI 23.0 Weight Status Appropriate Subjective/Other Information FU for intakes. Pt continues to not eat much of the meals. He is drinking 100% of 4 ONS daily. Percent of energy/protein needs met: 100%/100% Burn Absent Trauma Absent GI Symptoms None Current % PO Good (75-100%) Minimum of two criteria Yes Energy Intake (non-severe) <75% Estimated Energy Requirement >7 days Interpretation of Weight Loss (severe) >5% in 1 month Muscle Mass Mild Depletion (non-severe) #1 Nutrition Diagnosis Malnutrition Diagnosis Progress(for reassessment Continues documentation) Is patient on ventilator? No Is Patient Ambulatory and/or Out of Bed No REE-([facility]-confined to bed) 1844.484 Kcal/Kg value to use for calculation 29 Approximate Energy Requirements Using 2052 kcal/Kg Calculation Used for Recommendations Kcal/kg Additional Notes Protein: (>1.2g/kg) >76g Fluid: output + 1000 ml Nutrition Intervention Change Diet Order: Continue Add Supplement/Snack (indicate name/kcal Nepro QID /protein ) Provides kCal: 1,700 Provides Protein (gm) 79 Goal #1 Meet at least 80% of protein and energy needs via PO and ONS intakes Anticipated Discharge Needs: Renal with ONS BID Follow-Up By: 03/12/21 Additional Comments FU for intakes and ONS tolernace
[2021-03-12] MEDS: PANTOPRAZOLE 20 MG TAB PO SCH ×2 (09:34→22:56)
[2021-03-12] MEDS: TACROLIMUS 0.5 MG CAP PO SCH ×2 (09:34→22:56)
[2021-03-12] MEDS: TORSEMIDE 10 MG TAB PO SCH (09:34)
[2021-03-12] MEDS: SERTRALINE 100 MG TAB PO SCH (09:34)
[2021-03-12] MEDS: METOPROLOL TARTRATE 25 MG TAB PO SCH ×2 (09:34→22:58)
[2021-03-12] MEDS: MORPHINE 4 MG/1 ML INJ IV PRN ×2 (09:42→17:00)
--- NOTE | 2021-03-12 11:20 | Progress Note ---
Assessment and Plan - Patient Problems (1) Venous stenosis of right upper extremity Current Visit: Yes Status: Acute Plan to address problem: Status post venoplasty for stenosis of superior vena cava. Continue to keep right upper extremity elevated. Continue management per vascular (2) Hypertensive chronic kidney disease with stage 5 chronic kidney disease or end stage renal disease Current Visit: Yes Plan to address problem: Follow-up blood pressure on current medications (3) Anemia in chronic kidney disease (CKD) Current Visit: Yes Status: Chronic Qualifiers: Chronic kidney disease stage: on chronic dialysis Qualified Code(s): N18.6 - End stage renal disease; D63.1 - Anemia in chronic kidney disease; Z99.2 - Dependence on renal dialysis Plan to address problem: erythropoietin on dialysis (4) End stage renal disease Current Visit: Yes Status: Chronic Plan to address problem: Continue hemodialysis on a Wednesday, Wednesday and Wednesday schedule. (5) Secondary hyperparathyroidism (of renal origin) Current Visit: Yes Status: Chronic Plan to address problem: Follow-up PTH and give vitamin D analog as indicated at the outpatient clinic. Subjective Date of service: 03/12/21 Principal diagnosis: Chronic AF Interval history: Patient seen lying in bed. Swelling of his arm is improving. No fever or chills. No nausea or vomiting. Still hurts to move his arm Objective - Exam Narrative Exam: Middle-aged -[place] male lying in bed in no acute distress HEENT: NCAT, Neck: Supple, no venous distention CVS: S1S2 RRR with no murmur, rub or gallop Chest: Clear to auscultation Abdomen: Protuberant, soft, nontender, no organomegaly, bowel sounds are present Extremities: Swelling right upper extremity, tenderness, no differential warmth or erythema. Bruit audible. Edema right lower extremity also Neuro: Awake, alert no focal deficits - Vital Signs Vital signs: Vital Signs - 12hr 03/12/21 03/12/21 03/12/21 04:25 09:36 10:00 Temperature 98.6 F 98.5 F Pulse Rate 76 100 H Respiratory 18 18 Rate Blood Pressure 90/67 154/65 O2 Sat by Pulse 100 100 98 Oximetry - Lab 03/12/21 07:32 03/11/21 16:07 Most recent lab results Calcium 9.0 mg/dL (8.4-10.2) 03/11/21 16:07 Medications & Allergies - Medications Allergies/Adverse Reactions: Allergies No Known Allergies Allergy (Unverified 02/25/21 09:01) Home Medications: Home Medications Medication Instructions Recorded Confirmed Last Taken Type Acetaminophen [Acetaminophen ER] 650 mg PO PRN PRN 02/17/21 02/17/21 Unknown History Aspirin [Adult Aspirin] 81 mg PO DAILY 02/17/21 02/27/21 02/25/21 09:00 History Omeprazole 20 mg PO BID 02/17/21 02/27/21 02/26/21 10:40 History Sertraline HCl [Zoloft] 100 mg PO DAILY 02/17/21 02/27/21 02/25/21 09:00 History Tacrolimus [Prograf] 0.5 mg PO DAILY 02/17/21 02/17/21 Unknown History carvediloL [Coreg] 6.25 mg PO BID 02/17/21 02/27/21 02/26/21 10:40 History traMADoL [Ultram 50 MG tab] 50 mg PO Q12HR PRN 02/17/21 02/17/21 Unknown History HYDROcodone/APAP 7.5-325 [[place] 1 each PO Q6HR PRN #40 tablet 02/26/21 Unknown Rx 7.5/325] Active Medications: Generic Name Dose Route Start Last Admin Trade Name Isauroq PRN Reason Stop Dose Admin Acetaminophen 650 mg 02/26/21 15:00 03/04/21 22:04 Acetaminophen 325 Mg Tab PO 650 mg Q4H PRN Administration Pain MILD(1-3)/Fever >100.5/TOBIAS Hydrocodone Bitart/Acetaminophen 2 each 02/26/21 15:00 03/11/21 09:43 Hydrocodone/Acetaminophen 5-325 Mg Tab PO 1 each Q6H PRN Administration Pain, Moderate (4-6) Albumin Human 25 gm 03/01/21 12:00 03/01/21 16:28 Albumin Human 25% (25 Gm/100 Ml) Inj IV 25 gm SALIMA PRN Administration Hypotension Atorvastatin Calcium 40 mg 03/09/21 22:00 03/11/21 21:30 Atorvastatin 40 Mg Tab PO 40 mg QHS REBEL Administration Gabapentin 100 mg 02/26/21 22:00 03/12/21 06:21 Gabapentin 100 Mg Cap PO 100 mg Q8HR REBEL Administration Sodium Chloride 100 mls @ 999 mls/hr 03/01/21 09:00 Nacl 0.9% IV SALIMA PRN Hypotension Metoprolol Tartrate 25 mg 03/08/21 11:00 03/12/21 09:34 Metoprolol Tartrate 25 Mg Tab PO 25 mg BID REBEL Administration Morphine Sulfate 4 mg 02/26/21 16:00 03/12/21 09:42 Morphine 4 Mg/1 Ml Inj IV 4 mg Q4H PRN Administration Pain , Severe (7-10) Ondansetron HCl 4 mg 02/26/21 15:00 Ondansetron 4 Mg/2 Ml Inj IV Q8H PRN Nausea And Vomiting Pantoprazole Sodium 20 mg 02/26/21 22:00 03/12/21 09:34 Pantoprazole 20 Mg Tab PO 20 mg BID REBEL Administration Sertraline HCl 100 mg 02/27/21 10:00 03/12/21 09:34 Sertraline 100 Mg Tab PO 100 mg DAILY REBEL Administration Tacrolimus 0.5 mg 02/26/21 22:00 03/12/21 09:34 Tacrolimus 0.5 Mg Cap PO 0.5 mg Q12HR REBEL Administration Torsemide 10 mg 02/28/21 10:00 03/12/21 09:34 Torsemide 10 Mg Tab PO 10 mg DAILY REBEL Administration Tramadol HCl 50 mg 02/26/21 21:30 03/08/21 09:51 Tramadol 50 Mg Tab PO 50 mg Q12HR PRN Administration Pain, Mild (1-3)
--- NOTE | 2021-03-12 11:27 | Progress Note ---
Assessment and Plan Patient has had multiple procedures including angioplasty of his innominate vein and subclavian to relieve right arm swelling. Despite the angioplasties that have been performed he has persistent edema of the arm resulting in pain. He al so has a graft that cannot be accessed until the edema has resolved. There is also an increased risk of infection if his incisions continue to have any drainage. I believe the best course of action is to access the graft near the arterial inflow and place stents extending from the occlusion at the innominate vein into the previously placed stent across the venous anastomosis to relieve all areas of venous outflow obstruction. I discussed this with the patient who expressed understanding and agrees with the plan. Subjective Date of service: 03/12/21 Principal diagnosis: Chronic AF Interval history: Patient with continued complaints of right arm pain and swelling. No additional complaints at this time. Objective - Constitutional Vitals: Vital Signs - 12hr 03/12/21 03/12/21 03/12/21 04:25 09:36 10:00 Temperature 98.6 F 98.5 F Pulse Rate 76 100 H Respiratory 18 18 Rate Blood Pressure 90/67 154/65 O2 Sat by Pulse 100 100 98 Oximetry General appearance: Present: no acute distress - Respiratory Respiratory effort: normal Extremity abnormal: edema (Right upper extremity with palpable thrill in the right arm AV graft near the arterial anastomosis.), other (Right arm incisions are intact with minimal drainage. No evidence of infection.) - Labs CBC & Chem 7: 03/12/21 07:32 03/11/21 16:07 Labs: Abnormal lab results 03/11/21 03/11/21 03/12/21 Range/Units 16:07 16:07 07:32 RBC 2.75 L 2.80 L (3.65-5.03) M/mm3 Hgb 8.1 L 8.2 L (11.8-15.2) gm/dl Hct 25.8 L 25.7 L (35.5-45.6) % RDW 20.3 H 19.2 H (13.2-15.2) % Lymph % (Auto) 11.4 L (13.4-35.0) % Jones % (Auto) 10.4 H (0.0-7.3) % Lymph # (Auto) 0.7 L (1.2-5.4) K/mm3 Seg Neutrophils % 75.0 H (40.0-70.0) % Seg Neuts % (Manual) 82.0 H (40.0-70.0) % Lymphocytes % (Manual) 6.0 L (13.4-35.0) % Basophils % (Manual) 3.0 H (0.0-1.8) % Lymphocytes # (Manual) 0.3 L (1.2-5.4) K/mm3 Basophils # (Manual) 0.2 H (0.0-0.1) K/mm3 Sodium 136 L (137-145) mmol/L Chloride 95.6 L (98-107) mmol/L BUN 36 H (9-20) mg/dL Creatinine 3.2 H (0.8-1.3) mg/dL Medications & Allergies - Medications Allergies/Adverse Reactions: Allergies No Known Allergies Allergy (Unverified 02/25/21 09:01) Home Medications: Home Medications Medication Instructions Recorded Confirmed Last Taken Type Acetaminophen [Acetaminophen ER] 650 mg PO PRN PRN 02/17/21 02/17/21 Unknown History Aspirin [Adult Aspirin] 81 mg PO DAILY 02/17/21 02/27/21 02/25/21 09:00 History Omeprazole 20 mg PO BID 02/17/21 02/27/21 02/26/21 10:40 History Sertraline HCl [Zoloft] 100 mg PO DAILY 02/17/21 02/27/21 02/25/21 09:00 History Tacrolimus [Prograf] 0.5 mg PO DAILY 02/17/21 02/17/21 Unknown History carvediloL [Coreg] 6.25 mg PO BID 02/17/21 02/27/21 02/26/21 10:40 History traMADoL [Ultram 50 MG tab] 50 mg PO Q12HR PRN 02/17/21 02/17/21 Unknown History HYDROcodone/APAP 7.5-325 [[place] 1 each PO Q6HR PRN #40 tablet 02/26/21 Unknown Rx 7.5/325] Active Medications: Generic Name Dose Route Start Last Admin Trade Name Freq PRN Reason Stop Dose Admin Acetaminophen 650 mg 02/26/21 15:00 03/04/21 22:04 Acetaminophen 325 Mg Tab PO 650 mg Q4H PRN Administration Pain MILD(1-3)/Fever >100.5/TOBIAS Hydrocodone Bitart/Acetaminophen 2 each 02/26/21 15:00 03/11/21 09:43 Hydrocodone/Acetaminophen 5-325 Mg Tab PO 1 each Q6H PRN Administration Pain, Moderate (4-6) Albumin Human 25 gm 03/01/21 12:00 03/01/21 16:28 Albumin Human 25% (25 Gm/100 Ml) Inj IV 25 gm SALIMA PRN Administration Hypotension Atorvastatin Calcium 40 mg 03/09/21 22:00 03/11/21 21:30 Atorvastatin 40 Mg Tab PO 40 mg QHS REBEL Administration Gabapentin 100 mg 02/26/21 22:00 03/12/21 06:21 Gabapentin 100 Mg Cap PO 100 mg Q8HR REBEL Administration Sodium Chloride 100 mls @ 999 mls/hr 03/01/21 09:00 Nacl 0.9% IV SALIMA PRN Hypotension Metoprolol Tartrate 25 mg 03/08/21 11:00 03/12/21 09:34 Metoprolol Tartrate 25 Mg Tab PO 25 mg BID REBEL Administration Morphine Sulfate 4 mg 02/26/21 16:00 03/12/21 09:42 Morphine 4 Mg/1 Ml Inj IV 4 mg Q4H PRN Administration Pain , Severe (7-10) Ondansetron HCl 4 mg 02/26/21 15:00 Ondansetron 4 Mg/2 Ml Inj IV Q8H PRN Nausea And Vomiting Pantoprazole Sodium 20 mg 02/26/21 22:00 03/12/21 09:34 Pantoprazole 20 Mg Tab PO 20 mg BID REBEL Administration Sertraline HCl 100 mg 02/27/21 10:00 03/12/21 09:34 Sertraline 100 Mg Tab PO 100 mg DAILY REBEL Administration Tacrolimus 0.5 mg 02/26/21 22:00 03/12/21 09:34 Tacrolimus 0.5 Mg Cap PO 0.5 mg Q12HR REBEL Administration Torsemide 10 mg 02/28/21 10:00 03/12/21 09:34 Torsemide 10 Mg Tab PO 10 mg DAILY REBEL Administration Tramadol HCl 50 mg 02/26/21 21:30 03/08/21 09:51 Tramadol 50 Mg Tab PO 50 mg Q12HR PRN Administration Pain, Mild (1-3) HEART Score - HEART Score Troponin: Troponin T 0.137 ng/mL (0.00-0.029) H* 03/08/21 07:56
[2021-03-12] MEDS ORDERED: MIDAZOLAM 2 MG/2 ML INJ ONE (14:51)
[2021-03-12] MEDS ORDERED: fentaNYL 100 MCG/2 ML INJ ONE (14:51)
[2021-03-12] MEDS ORDERED: HEPARIN 10,000 UNITS/10 ML VIAL ONE (14:52)
[2021-03-12] MEDS ORDERED: HEPARIN/NS 5000 UNIT/500ML 1,000 ML IR ONE (14:52)
[2021-03-12] MEDS ORDERED: SODIUM CHLORIDE 0.9% 500 ML 500 ML IV SCH (15:00)
[2021-03-12] MEDS: LIDOCAINE (2%) 20 MG/1 ML VIAL 20 ML MDV INFILTRATI ONE ×2 (15:32→15:48)
[2021-03-12] MEDS ORDERED: ceFAZolin/Water 2 GM/20 ML 2 GM/20 ML SYRINGE IV ONE (15:52)
--- NOTE | 2021-03-12 16:39 | Operative Report ---
Operative Report Operative Report: Date of Procedure: 03/12/2021 Pre-operative Diagnosis: Complications of Dialysis Access Post-operative Diagnosis: Same Procedure(s): 1. Ultrasound Guided Access Right Arm Arteriovenous Graft with 8 Burkinan Sheath Venous 2. Diagnostic Fistulagram with Central Venogram 3. Angioplasty and Stent of Right Subclavian Vein with 12 x 40 Conquest Balloon and 10 x 100 and 10 x 60 Covera Stent Graft 4. Angioplasty and Stent of Right Innominate Vein With 12 x 40 Conquest Balloon and 12 x 80 Fluency Stent Graft 5. Radiologic Supervision with Interpretation 6. Monitored Moderate Sedation (Total Anesthesia Time: 50 Minutes) Surgeon: Maciel Terrell M.D. Waste Water Operator: None Anesthesia: Local/Monitored Moderate Sedation Total Anesthesia Time: 50 Minutes EBL: Minimal Counts: Correct Complications: None Condition: Stable Specimen: None Indication: The patient is a 55-year-old male with a history of end-stage renal disease who is currently on hemodialysis through a left internal jugular permacath. He had a creation of a right arm AV graft and has significant right arm swelling secondary to central venous occlusion. He has had angioplasty performed of the occlusion however he has persistent swelling. He is in need of additional intervention. He has been given the risk, benefits, and alternative procedures and consented to the procedure. Angiographic Findings: The diagnostic fistulogram revealed that the venous outflow of the graft was patent without significant flow-limiting stenosis. The axillary vein was patent without significant flow-limiting stenosis. There is a short segment occlusion of the right subclavian vein with a large tortuous collateral emptying into the innominate vein. There was approximately 60% stenosis of the innominate vein. The superior vena cava appeared to be patent without evidence of flow-limiting stenosis. After intervention the subclavian vein was patent with less than 20% residual stenosis. The innominate vein was patent with less than 20% residual stenosis. Description of Procedure: The patient was brought to the [facility] and laid in supine position. After a timeout was performed his right arm was prepped and draped in normal sterile fashion. Ultrasound was used to identify the right arm arteriovenous graft, near the arterial inflow, and the overlying skin and soft tissue was anesthetized with lidocaine. A 21-gauge micropuncture needle was used with ultrasound guidance into the graft towards the venous outflow and a 0.018 mi cropuncture wire was advanced to the graft. The needle was removed and a micropuncture sheath was placed by Seldinger technique. The inner cannula and wire were removed and a 0.035 Bentson wire was advanced to the graft. The micropuncture sheath was removed and a 5 Burkinan sheath was placed by Seldinger technique. A Navicross catheter was advanced over the wire and a 0.035 advantage wire was advanced into the central venous system. A diagnostic fistulogram and central venogram was performed the previously described findings. I exchanged the 5 Burkinan sheath for an 8 Burkinan 45 cm destination sheath and then was able to use the advantage wire with the Navicross catheter to cross the short segment occlusion in the subclavian vein. I then remove the 8 Burkinan sheath and advanced a 10 x 100 Covera Stent Graft, bareback, into the distal subclavian vein, with approximately 2 cm of overlap into the stent within the axillary vein and deployed the stent graft. I then removed the delivery sh eath and advanced a 10 x 60 Covera stent graft, bareback, across the area of previous occlusion in the subclavian vein. This extended approximately 2 cm into the previously placed Covera Stent Graft. I removed the delivery catheter and advanced a 12 x 80 Fluency Stent Graft across the stenosis in the innominate vein. This extended approximately 3 cm into the innominate vein with approximately 4 cm of overlap into the previously placed Covera Stent Graft. I postdilated the stents with a 12 x 40 Conquest which was brought to profile in the Fluency Stent Graft, and a low pressure angioplasty and the remaining stent grafts. The final fistulogram revealed brisk flow of contrast throughout the graft as well as the stent graft and less than 20% residual stenosis within the subclavian vein and less than 20% residual stenosis within the innominate vein. At that point I removed the balloon and wire and used a 3-0 Vicryl, in pursestring fashion, to close the entry site after removing the sheath. Dermabond was then applied to the skin and the patient was transported back to his room in stable condition.
[2021-03-13 06:28] LABS: Calcium 8.6 mg/dL (8.4-10.2)
[2021-03-13 06:30] LABS: Hematocrit 28.6 % (35.5-45.6); Hemoglobin 8.5 gm/dl (11.8-15.2); Mean Corpuscular HGB Conc 30 % (32-34); Mean Corpuscular Volume 99 fl (84-94); Platelet Count 223 K/mm3 (140-440); Red Cell Distribution Width 20.7 % (13.2-15.2)
[2021-03-13] MEDS: GABAPENTIN 100 MG CAP PO SCH ×3 (06:47→22:11)
--- NOTE | 2021-03-13 08:50 | Progress Note ---
Assessment and Plan - Patient Problems (1) Venous stenosis of right upper extremity Current Visit: Yes Status: Acute Plan to address problem: Status post venoplasty for stenosis of superior vena cava. Continue to keep right upper extremity elevated. Continue management per vascular. Discussed pain management with nurse. (2) Hypertensive chronic kidney disease with stage 5 chronic kidney disease or end stage renal disease Current Visit: Yes Plan to address problem: Follow-up blood pressure on current medications (3) Anemia in chronic kidney disease (CKD) Current Visit: Yes Status: Chronic Qualifiers: Chronic kidney disease stage: on chronic dialysis Qualified Code(s): N18.6 - End stage renal disease; D63.1 - Anemia in chronic kidney disease; Z99.2 - Dependence on renal dialysis Plan to address problem: erythropoietin on dialysis (4) End stage renal disease Current Visit: Yes Status: Chronic Plan to address problem: Continue hemodialysis on a Wednesday, Wednesday and Wednesday schedule. (5) Secondary hyperparathyroidism (of renal origin) Current Visit: Yes Status: Chronic Plan to address problem: Follow-up PTH and give vitamin D analog as indicated at the outpatient clinic. Subjective Date of service: 03/13/21 Principal diagnosis: Chronic AF Interval history: Patient seen lying in bed. Swelling of his arm is improving. No fever or chills. No nausea or vomiting. Still hurts to move his arm. Says he was in pain all night. Requested for medication Objective - Exam Narrative Exam: Middle-aged -[place] male lying in bed in no acute distress HEENT: NCAT, Neck: Supple, no venous distention CVS: S1S2 RRR with no murmur, rub or gallop Chest: Clear to auscultation Abdomen: Protuberant, soft, nontender, no organomegaly, bowel sounds are present Extremities: Swelling right upper extremity, tenderness, no differential warmth or erythema. Bruit audible. Edema right lower extremity also Neuro: Awake, alert no focal deficits - Vital Signs Vital signs: Vital Signs - 12hr 03/12/21 03/12/21 03/12/21 21:10 22:22 22:58 Temperature 98.8 F Pulse Rate 88 88 Respiratory 17 Rate Blood Pressure 100/69 100/69 O2 Sat by Pulse 98 97 Oximetry 03/13/21 03:55 Temperature 99.1 F Pulse Rate 95 H Respiratory 19 Rate Blood Pressure 151/75 O2 Sat by Pulse 100 Oximetry - Lab 03/14/21 05:21 03/13/21 05:26 Most recent lab results Calcium 8.6 mg/dL (8.4-10.2) 03/13/21 05:26 Phosphorus 4.00 mg/dL (2.5-4.5) 03/13/21 05:26 Medications & Allergies - Medications Allergies/Adverse Reactions: Allergies No Known Allergies Allergy (Unverified 02/25/21 09:01) Home Medications: Home Medications Medication Instructions Recorded Confirmed Last Taken Type Acetaminophen [Acetaminophen ER] 650 mg PO PRN PRN 02/17/21 02/17/21 Unknown History Aspirin [Adult Aspirin] 81 mg PO DAILY 02/17/21 02/27/21 02/25/21 09:00 History Omeprazole 20 mg PO BID 02/17/21 02/27/21 02/26/21 10:40 History Sertraline HCl [Zoloft] 100 mg PO DAILY 02/17/21 02/27/21 02/25/21 09:00 History Tacrolimus [Prograf] 0.5 mg PO DAILY 02/17/21 02/17/21 Unknown History carvediloL [Coreg] 6.25 mg PO BID 02/17/21 02/27/21 02/26/21 10:40 History traMADoL [Ultram 50 MG tab] 50 mg PO Q12HR PRN 02/17/21 02/17/21 Unknown History HYDROcodone/APAP 7.5-325 [[place] 1 each PO Q6HR PRN #40 tablet 02/26/21 Unknown Rx 7.5/325] Apixaban [Eliquis] 5 mg PO BID #60 tablet 03/14/21 Unknown Rx Active Medications: Generic Name Dose Route Start Last Admin Trade Name Freq PRN Reason Stop Dose Admin Acetaminophen 650 mg 02/26/21 15:00 03/04/21 22:04 Acetaminophen 325 Mg Tab PO 650 mg Q4H PRN Administration Pain MILD(1-3)/Fever >100.5/TOBIAS Hydrocodone Bitart/Acetaminophen 2 each 02/26/21 15:00 03/11/21 09:43 Hydrocodone/Acetaminophen 5-325 Mg Tab PO 1 each Q6H PRN Administration Pain, Moderate (4-6) Albumin Human 25 gm 03/01/21 12:00 03/01/21 16:28 Albumin Human 25% (25 Gm/100 Ml) Inj IV 25 gm SALIMA PRN Administration Hypotension Atorvastatin Calcium 40 mg 03/09/21 22:00 03/12/21 22:55 Atorvastatin 40 Mg Tab PO 40 mg QHS REBEL Administration Gabapentin 100 mg 02/26/21 22:00 03/13/21 06:47 Gabapentin 100 Mg Cap PO 100 mg Q8HR REBEL Administration Sodium Chloride 100 mls @ 999 mls/hr 03/01/21 09:00 Nacl 0.9% IV SALIMA PRN Hypotension Metoprolol Tartrate 25 mg 03/08/21 11:00 03/12/21 22:58 Metoprolol Tartrate 25 Mg Tab PO 25 mg BID REBEL Administration Morphine Sulfate 4 mg 02/26/21 16:00 03/12/21 17:00 Morphine 4 Mg/1 Ml Inj IV 4 mg Q4H PRN Administration Pain , Severe (7-10) Ondansetron HCl 4 mg 02/26/21 15:00 Ondansetron 4 Mg/2 Ml Inj IV Q8H PRN Nausea And Vomiting Pantoprazole Sodium 20 mg 02/26/21 22:00 03/12/21 22:56 Pantoprazole 20 Mg Tab PO 20 mg BID REBEL Administration Sertraline HCl 100 mg 02/27/21 10:00 03/12/21 09:34 Sertraline 100 Mg Tab PO 100 mg DAILY REBEL Administration Tacrolimus 0.5 mg 02/26/21 22:00 03/12/21 22:56 Tacrolimus 0.5 Mg Cap PO 0.5 mg Q12HR REBEL Administration Torsemide 10 mg 02/28/21 10:00 03/12/21 09:34 Torsemide 10 Mg Tab PO 10 mg DAILY REBEL Administration Tramadol HCl 50 mg 02/26/21 21:30 03/08/21 09:51 Tramadol 50 Mg Tab PO 50 mg Q12HR PRN Administration Pain, Mild (1-3)
[2021-03-13] MEDS: MORPHINE 4 MG/1 ML INJ IV PRN (10:05)
[2021-03-13] MEDS: METOPROLOL TARTRATE 25 MG TAB PO SCH ×2 (10:07→22:11)
--- NOTE | 2021-03-13 10:34 | Progress Note ---
Assessment and Plan Patient's arm swelling and pain have improved somewhat since his procedure yesterday. At time of examination, patient is initiating hemodialysis. We will continue to follow and will hope there is continued decrease in the patient's edema in his right arm and hand. Counseled on the need to elevate his arm as much as possible. Subjective Date of service: 03/13/21 Principal diagnosis: Chronic AF Interval history: Patient with right arm swelling status post a stent placement and venoplasty yesterday. The patient's arm swelling and hand swelling have decreased somewhat. Patient states that his pain is improved from yesterday however, the patient does have significant residual swelling. Objective - Constitutional Vitals: Vital Signs - 12hr 03/12/21 03/13/21 03/13/21 22:58 03:55 07:54 Temperature 99.1 F 97.8 F Pulse Rate 88 95 H 90 Respiratory 19 18 Rate Blood Pressure 100/69 151/75 96/73 Blood Pressure [Left] O2 Sat by Pulse 100 98 Oximetry 03/13/21 09:50 Temperature Pulse Rate 84 Respiratory Rate Blood Pressure Blood Pressure 145/71 [Left] O2 Sat by Pulse Oximetry General appearance: Present: no acute distress - EENT Eyes: EOM intact ENT: hearing intact - Neck Neck: supple Extremities: abnormal (Right arm swelling, palpable thrill in graft) - Gastrointestinal General gastrointestinal: Present: deferred Rectal Exam: deferred - Genitourinary Male genitourinary: deferred - Musculoskeletal Musculoskeletal: right sided weakness - Psychiatric Psychiatric: cooperative - Labs CBC & Chem 7: 03/13/21 05:26 03/13/21 05:26 Labs: Abnormal lab results 03/13/21 03/13/21 Range/Units 05:26 05:26 RBC 2.90 L (3.65-5.03) M/mm3 Hgb 8.5 L (11.8-15.2) gm/dl Hct 28.6 L (35.5-45.6) % MCV 99 H (84-94) fl MCHC 30 L (32-34) % RDW 20.7 H (13.2-15.2) % Sodium 135 L (137-145) mmol/L Chloride 95.6 L (98-107) mmol/L BUN 54 H (9-20) mg/dL Creatinine 4.9 H D (0.8-1.3) mg/dL Medications & Allergies - Medications Allergies/Adverse Reactions: Allergies No Known Allergies Allergy (Unverified 02/25/21 09:01) Home Medications: Home Medications Medication Instructions Recorded Confirmed Last Taken Type Acetaminophen [Acetaminophen ER] 650 mg PO PRN PRN 02/17/21 02/17/21 Unknown History Aspirin [Adult Aspirin] 81 mg PO DAILY 02/17/21 02/27/21 02/25/21 09:00 History Omeprazole 20 mg PO BID 02/17/21 02/27/21 02/26/21 10:40 History Sertraline HCl [Zoloft] 100 mg PO DAILY 02/17/21 02/27/21 02/25/21 09:00 History Tacrolimus [Prograf] 0.5 mg PO DAILY 02/17/21 02/17/21 Unknown History carvediloL [Coreg] 6.25 mg PO BID 02/17/21 02/27/21 02/26/21 10:40 History traMADoL [Ultram 50 MG tab] 50 mg PO Q12HR PRN 02/17/21 02/17/21 Unknown History HYDROcodone/APAP 7.5-325 [[place] 1 each PO Q6HR PRN #40 tablet 02/26/21 Unknown Rx 7.5/325] Active Medications: Generic Name Dose Route Start Last Admin Trade Name Freq PRN Reason Stop Dose Admin Acetaminophen 650 mg 02/26/21 15:00 03/04/21 22:04 Acetaminophen 325 Mg Tab PO 650 mg Q4H PRN Administration Pain MILD(1-3)/Fever >100.5/TOBIAS Hydrocodone Bitart/Acetaminophen 2 each 02/26/21 15:00 03/11/21 09:43 Hydrocodone/Acetaminophen 5-325 Mg Tab PO 1 each Q6H PRN Administration Pain, Moderate (4-6) Albumin Human 25 gm 03/01/21 12:00 03/01/21 16:28 Albumin Human 25% (25 Gm/100 Ml) Inj IV 25 gm SALIMA PRN Administration Hypotension Atorvastatin Calcium 40 mg 03/09/21 22:00 03/12/21 22:55 Atorvastatin 40 Mg Tab PO 40 mg QHS REBEL Administration Gabapentin 100 mg 02/26/21 22:00 03/13/21 06:47 Gabapentin 100 Mg Cap PO 100 mg Q8HR REBEL Administration Sodium Chloride 100 mls @ 999 mls/hr 03/01/21 09:00 Nacl 0.9% IV SALIMA PRN Hypotension Metoprolol Tartrate 25 mg 03/08/21 11:00 03/12/21 22:58 Metoprolol Tartrate 25 Mg Tab PO 25 mg BID REBEL Administration Morphine Sulfate 4 mg 02/26/21 16:00 03/13/21 10:05 Morphine 4 Mg/1 Ml Inj IV 4 mg Q4H PRN Administration Pain , Severe (7-10) Ondansetron HCl 4 mg 02/26/21 15:00 Ondansetron 4 Mg/2 Ml Inj IV Q8H PRN Nausea And Vomiting Pantoprazole Sodium 20 mg 02/26/21 22:00 03/12/21 22:56 Pantoprazole 20 Mg Tab PO 20 mg BID REBEL Administration Sertraline HCl 100 mg 02/27/21 10:00 03/12/21 09:34 Sertraline 100 Mg Tab PO 100 mg DAILY REBEL Administration Tacrolimus 0.5 mg 02/26/21 22:00 03/12/21 22:56 Tacrolimus 0.5 Mg Cap PO 0.5 mg Q12HR REBEL Administration Torsemide 10 mg 02/28/21 10:00 03/12/21 09:34 Torsemide 10 Mg Tab PO 10 mg DAILY REBEL Administration Tramadol HCl 50 mg 02/26/21 21:30 03/08/21 09:51 Tramadol 50 Mg Tab PO 50 mg Q12HR PRN Administration Pain, Mild (1-3) HEART Score - HEART Score Troponin: Troponin T 0.137 ng/mL (0.00-0.029) H* 03/08/21 07:56
[2021-03-13] MEDS: EPOETIN ALFA-EPBX 20,000 UNIT/1 ML VIAL IV PRN (12:14)
--- NOTE | 2021-03-13 12:42 | Progress Note ---
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 Consult placed by DR. Terrell for HTN, ESRD. Patient seen and evaluated upon arrival to his room. No reported nursing events. Patient denies fever, chills, chest pain, palpitation, productive cough, skin rash, recent ill contact, or known exposure to COVID-19. 02/28: Patient for HD today. Stable from my standpoint for discharge blood pressure is improved. Right upper extremity was swollen vascular evaluating. 03/01: Patient with decompression of the right upper ext done yesterday, still some edema, still with some hematoma noted and bilster on the right side He does have 2 blisters which appear to be decompressing along the medial aspect of his upper arm. Scant serosanguineous drainage from his incisions. The arm is still swollen however is decompressing. Hematomas are present extending from the upper arm distally. The patient states that his pain in his arm is much improved from yesterday. 03/02: Continue wound care, monitor H/H, further management of right upper ext fistula site per Surgeon 03/03: Noted anemia worse today down to 6.5 hemoglobin we will transfuse 1 unit packed red blood cell. Disposition per vascular. 03/04/2021; hemoglobin yesterday was 6.5 and transfused 1 unit of blood. Will check H&H and will transfuse if hemoglobin is below 7. 03/05/2021: The entire right upper extremities grossly swollen with some blistering of the elbow and mild discharge. Has low-grade fever but no leukocytosis. 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 The plan is to remove right IJ permacath in place in the left IJ and revascularization of the veins with placement of stent, surgery is scheduled for tomorrow by vascular. ESRD on hemodialysis on Wednesday//Wednesday, nephrology following. Patient has a history of A. fib, right heart failure and bioprosthetic MVR, anticoagulation discontinued due to high risk for bleed. Patient has right hemiparesis from previous stroke. Hemoglobin will be monitored and transfuse as needed. 03/06/2021: Right IJ permacath removed and a new one placed on the right. Entire right arm remains grossly swollen with full movements. Venous angioplasty and revascularization is planned for later. Patient was alert oriented. Has some low-grade fever with soft blood pressure. Does not appear toxic today. 03/07/2021: Right upper extremity remains grossly swollen though some better. Pain also seems to be better since right IJ permacath removed. BP remains soft with stable tachycardia and afebrile. Has low-grade fever. Mental status seems to be better. Pain well controlled. Vascular surgery is planning for revascularization of central veins on Wednesday. Transfusing PRBC as needed. 03/08/2021: Physical exam unchanged. Right arm remains grossly swollen with minimal improvement of swelling since right permacatheter removed. Unable to move at the joints in the right arm likely from gross swelling but also from previous stroke. Low-grade fever seems to be resolving. Never had leukocytosis during this admission. Afebrile with stable vital signs/tachycardia with A. fib. Pain is controlled. Vascular Surgery is planning for revascularization on Wednesday. 03/09/2021: Patient remained stable. Low-grade fever with stable A. fib with RVR. BP remains borderline. Gross edema of her right upper extremity with some blistering, less tense since) catheter out. Scheduled for angioplasty of central events tomorrow. 03/10/2020: Patient remained stable. Low-grade fever since resolving. Afebrile heart rate with stable RVR. BP remains borderline. Gross edema of right upper extremity with some blistering, less tense since the right IJ permacath removed. Scheduled for angioplasty of central venous system later today. 03/11: Pt remains with right upper extremity is grossly swollen with blistering around elbow from central venous obstruction. Vascular surgery underwent angioplasty 03/10. Permacath removed and placed on the left side on 03/06. Patient continues to complain of pain in right arm but better postprocedure. Swelling is less tense since right permacath removed. Is unable to move right arm with history of CVA. BP remains soft with A. fib/stable tachycardia. Low- grade fever since resolving. Is alert but looks debilitated. He is on dialysis T/T/S. Nephrology following. Cleared for discharge. 03/12: Continue to monitor, Vascular still monitoring ongoing work up of the right edema- Present: no acute distress -(Right upper extremity with palpable thrill in the right arm AV graft near the arterial anastomosis.), other (Right arm incisions are intact with minimal drainage. No evidence of infection.) 03/13:"Patient with right arm swelling status post a stent placement and venoplasty yesterday and is postop day 1 from this particular evaluation. Continue to monitor. No further fever noted at this time. Patient can be discharged by vascular when okay with them. Undergoing HD today. (1) Hypertension Current Visit: Yes Status: Acute Qualifiers: Hypertension type: primary hypertension Qualified Code(s): I10 - Essential (primary) hypertension Plan to address problem: Monitor blood pressure every shift, continue medical management. (2) End stage renal disease Current Visit: Yes Status: Acute Plan to address problem: Dialysis as per renal team, nephrology team consulted. 3) Type 2 NSTEMI-cardiology is following 4) BED Bound secondary to CVA WITH HEMIPARESIS OF THE RIGHT UPPER AND LOWER EXT 5) Atrial fibrillation, off anticoagulation due to high risk 6) Hypotension- Monitor, may need to hold BB or other antihypertensive. 7) Anemia of chronic disease (8) gross right upper extremity edema due to central venous thrombosis/obstruction Likely triggered by right IJ permacath. Vascular surgery is intervening as described above Discussed with the patient and the nursing staff. History Interval history: Patient seen and examined, no new complaints. No further fever. Hospitalist Physical - Physical exam Narrative exam: General appearance: Present: No distress, marked temporal wasting - EENT Eyes: Present: PERRL ENT: hearing intact, clear oral mucosa - Neck Neck: Present: supple, normal ROM - Respiratory Respiratory effort: normal Respiratory: bilateral: CTA - Cardiovascular Heart Sounds: Present: S1 & S2. Absent: rub, click - Extremities Extremities: pulses symmetrical, right upper ext with edema, some blisters, wound noted dressing over the right upper arm Peripheral Pulses: Diminished in the right upper - Abdominal General gastrointestinal: Present: soft, non-tender, non-distended, normal bowel sounds Male genitourinary: Present: normal - Integumentary Integumentary: Present: right upper ext, excoriation, swelling, av fistula. - Musculoskeletal Musculoskeletal: unable to assess gait - Psychiatric Psychiatric: appropriate mood/affect, intact judgment & insight - Neurologic Neurologic: paresis of the right side - Constitutional Vitals: Temp Pulse Resp BP Pulse Ox 98.7 F 95 H 16 113/56 100 03/13/21 10:30 03/13/21 12:00 03/13/21 10:30 03/13/21 12:00 03/13/21 10:30 General appearance: Present: no acute distress HEART Score - HEART Score Troponin: Troponin T 0.137 ng/mL (0.00-0.029) H* 03/08/21 07:56 Results - Labs CBC & Chem 7: 03/13/21 05:26 03/13/21 05:26 Labs: Laboratory Last Values WBC 6.3 K/mm3 (4.5-11.0) 03/13/21 05:26 RBC 2.90 M/mm3 (3.65-5.03) L 03/13/21 05:26 Hgb 8.5 gm/dl (11.8-15.2) L 03/13/21 05:26 Hct 28.6 % (35.5-45.6) L 03/13/21 05:26 MCV 99 fl (84-94) H 03/13/21 05:26 MCH 29 pg (28-32) 03/13/21 05:26 MCHC 30 % (32-34) L 03/13/21 05:26 RDW 20.7 % (13.2-15.2) H 03/13/21 05:26 Plt Count 223 K/mm3 (140-440) 03/13/21 05:26 Lymph % (Auto) Group Home Worker 03/13/21 05:26 [place] % (Auto) Group Home Worker 03/13/21 05:26 Eos % (Auto) Group Home Worker 03/13/21 05:26 Baso % (Auto) Group Home Worker 03/13/21 05:26 Lymph # (Auto) Group Home Worker 03/13/21 05:26 [place] # (Auto) Group Home Worker 03/13/21 05:26 Eos # (Auto) Group Home Worker 03/13/21 05:26 Baso # (Auto) Group Home Worker 03/13/21 05:26 Add Manual Diff Complete 03/11/21 16:07 Total Counted 100 03/11/21 16:07 Seg Neutrophils % Group Home Worker 03/13/21 05:26 Seg Neuts % (Manual) 82.0 % (40.0-70.0) H 03/11/21 16:07 Lymphocytes % (Manual) 6.0 % (13.4-35.0) L 03/11/21 16:07 Monocytes % (Manual) 6.0 % (0.0-7.3) 03/11/21 16:07 Eosinophils % (Manual) 3.0 % (0.0-4.3) 03/11/21 16:07 Basophils % (Manual) 3.0 % (0.0-1.8) H 03/11/21 16:07 Nucleated RBC % Not Reportable 03/11/21 16:07 Seg Neutrophils # Group Home Worker 03/13/21 05:26 Seg Neutrophils # Man 4.3 K/mm3 (1.8-7.7) 03/11/21 16:07 Band Neutrophils # 0.0 K/mm3 03/11/21 16:07 Lymphocytes # (Manual) 0.3 K/mm3 (1.2-5.4) L 03/11/21 16:07 Abs React Lymphs (Man) 0.0 K/mm3 03/11/21 16:07 Monocytes # (Manual) 0.3 K/mm3 (0.0-0.8) 03/11/21 16:07 Eosinophils # (Manual) 0.2 K/mm3 (0.0-0.4) 03/11/21 16:07 Basophils # (Manual) 0.2 K/mm3 (0.0-0.1) H 03/11/21 16:07 Metamyelocytes # 0.0 K/mm3 03/11/21 16:07 Myelocytes # 0.0 K/mm3 03/11/21 16:07 Promyelocytes # 0.0 K/mm3 03/11/21 16:07 Blast Cells # 0.0 K/mm3 03/11/21 16:07 WBC Morphology Not Reportable 03/11/21 16:07 Hypersegmented Neuts Not Reportable 03/11/21 16:07 Hyposegmented Neuts Not Reportable 03/11/21 16:07 Hypogranular Neuts Not Reportable 03/11/21 16:07 Smudge Cells Not Reportable 03/11/21 16:07 Toxic Granulation Not Reportable 03/11/21 16:07 Toxic Vacuolation Not Reportable 03/11/21 16:07 Dohle Bodies Not Reportable 03/11/21 16:07 Pelger-Huet Anomaly Not Reportable 03/11/21 16:07 Ry Rods Not Reportable 03/11/21 16:07 Platelet Estimate Consistent w auto 03/11/21 16:07 Clumped Platelets Not Reportable 03/11/21 16:07 Plt Clumps, EDTA Not Reportable 03/11/21 16:07 Large Platelets Not Reportable 03/11/21 16:07 Giant Platelets Not Reportable 03/11/21 16:07 Platelet Satelliting Not Reportable 03/11/21 16:07 Plt Morphology Comment Not Reportable 03/11/21 16:07 RBC Morphology Not Reportable 03/11/21 16:07 Dimorphic RBCs Not Reportable 03/11/21 16:07 Polychromasia Few 03/11/21 16:07 Hypochromasia Not Reportable 03/11/21 16:07 Poikilocytosis Not Reportable 03/11/21 16:07 Anisocytosis 2+ 03/11/21 16:07 Microcytosis Not Reportable 03/11/21 16:07 Macrocytosis 1+ 03/11/21 16:07 Spherocytes Not Reportable 03/11/21 16:07 Pappenheimer Bodies Not Reportable 03/11/21 16:07 Sickle Cells Not Reportable 03/11/21 16:07 Target Cells Not Reportable 03/11/21 16:07 Tear Drop Cells Not Reportable 03/11/21 16:07 Ovalocytes Not Reportable 03/11/21 16:07 Helmet Cells Not Reportable 03/11/21 16:07 [place] Bodies Not Reportable 03/11/21 16:07 [place] Rings Not Reportable 03/11/21 16:07 [place] Cells Not Reportable 03/11/21 16:07 Bite Cells Not Reportable 03/11/21 16:07 Crenated Cell Not Reportable 03/11/21 16:07 Elliptocytes Not Reportable 03/11/21 16:07 Acanthocytes (Spur) Not Reportable 03/11/21 16:07 Rouleaux Not Reportable 03/11/21 16:07 Hemoglobin C Crystals Not Reportable 03/11/21 16:07 Schistocytes Not Reportable 03/11/21 16:07 Malaria parasites Not Reportable 03/11/21 16:07 Hema Bodies Not Reportable 03/11/21 16:07 Hem Pathologist Commnt No 07/20/21 16:07 PT 17.5 Sec. (12.2-14.9) H 02/27/21 18:32 INR 1.37 (0.87-1.13) H 02/27/21 18:32 APTT 37.5 Sec. (24.2-36.6) H 02/27/21 18:32 Sodium 135 mmol/L (137-145) L 03/13/21 05:26 Potassium 4.2 mmol/L (3.6-5.0) 03/13/21 05:26 Chloride 95.6 mmol/L (98-107) L 03/13/21 05:26 Carbon Dioxide 22 mmol/L (22-30) 03/13/21 05:26 Anion Gap 22 mmol/L 03/13/21 05:26 BUN 54 mg/dL (9-20) H 03/13/21 05:26 Creatinine 4.9 mg/dL (0.8-1.3) H D 03/13/21 05:26 Estimated GFR 15 ml/min 03/13/21 05:26 BUN/Creatinine Ratio 11 % 03/13/21 05:26 Glucose 96 mg/dL (75-100) 03/13/21 05:26 Calcium 8.6 mg/dL (8.4-10.2) 03/13/21 05:26 Phosphorus 4.00 mg/dL (2.5-4.5) 03/13/21 05:26 Total Creatine Kinase 54 units/L (55-170) L 02/27/21 10:45 CK-MB (CK-2) 1.5 ng/mL (0.0-4.0) 02/27/21 10:45 CK-MB (CK-2) Rel Index 2.7 (0-4) 02/27/21 10:45 Troponin T 0.137 ng/mL (0.00-0.029) H* 03/08/21 07:56 Triglycerides 106 mg/dL (2-149) 02/27/21 10:45 Cholesterol 84 mg/dL (50-199) 02/27/21 10:45 LDL Cholesterol Direct 39 mg/dL (50-130) L 02/27/21 10:45 HDL Cholesterol 27 mg/dL (40-59) L 02/27/21 10:45 Cholesterol/HDL Ratio 3.11 % 02/27/21 10:45 Nasal Screen MRSA (PCR) Negative (Negative) 02/27/21 Unknown Hepatitis A IgM Ab Non-reactive (NonReactive) 02/27/21 18:32 Hep Bs Antigen Non-reactive (Negative) 02/27/21 18:32 Hep B Core IgM Ab Non-reactive (NonReactive) 02/27/21 18:32 Hepatitis C Antibody Reactive (NonReactive) A 02/27/21 18:32 Blood Type A POSITIVE 03/07/21 09:28 Antibody Screen Negative 03/07/21 09:28 Crossmatch See Detail 03/07/21 09:28 Neal/IV: Voiding Method Condom Catheter Active Medications - Current Medications Current Medications: Generic Name Dose Route Start Last Admin Trade Name Freq PRN Reason Stop Dose Admin Acetaminophen 650 mg 02/26/21 15:00 03/04/21 22:04 Acetaminophen 325 Mg Tab PO 650 mg Q4H PRN Administration Pain MILD(1-3)/Fever >100.5/TOBIAS Hydrocodone Bitart/Acetaminophen 2 each 02/26/21 15:00 03/11/21 09:43 Hydrocodone/Acetaminophen 5-325 Mg Tab PO 1 each Q6H PRN Administration Pain, Moderate (4-6) Albumin Human 25 gm 03/01/21 12:00 03/01/21 16:28 Albumin Human 25% (25 Gm/100 Ml) Inj IV 25 gm SALIMA PRN Administration Hypotension Atorvastatin Calcium 40 mg 03/09/21 22:00 03/12/21 22:55 Atorvastatin 40 Mg Tab PO 40 mg QHS REBEL Administration Gabapentin 100 mg 02/26/21 22:00 03/13/21 06:47 Gabapentin 100 Mg Cap PO 100 mg Q8HR REBEL Administration Sodium Chloride 100 mls @ 999 mls/hr 03/01/21 09:00 Nacl 0.9% IV SALIMA PRN Hypotension Metoprolol Tartrate 25 mg 03/08/21 11:00 03/12/21 22:58 Metoprolol Tartrate 25 Mg Tab PO 25 mg BID REBEL Administration Morphine Sulfate 4 mg 02/26/21 16:00 03/13/21 10:05 Morphine 4 Mg/1 Ml Inj IV 4 mg Q4H PRN Administration Pain , Severe (7-10) Ondansetron HCl 4 mg 02/26/21 15:00 Ondansetron 4 Mg/2 Ml Inj IV Q8H PRN Nausea And Vomiting Pantoprazole Sodium 20 mg 02/26/21 22:00 03/12/21 22:56 Pantoprazole 20 Mg Tab PO 20 mg BID REBEL Administration Sertraline HCl 100 mg 02/27/21 10:00 03/12/21 09:34 Sertraline 100 Mg Tab PO 100 mg DAILY REBEL Administration Tacrolimus 0.5 mg 02/26/21 22:00 03/12/21 22:56 Tacrolimus 0.5 Mg Cap PO 0.5 mg Q12HR REBEL Administration Torsemide 10 mg 02/28/21 10:00 03/12/21 09:34 Torsemide 10 Mg Tab PO 10 mg DAILY REBEL Administration Tramadol HCl 50 mg 02/26/21 21:30 03/08/21 09:51 Tramadol 50 Mg Tab PO 50 mg Q12HR PRN Administration Pain, Mild (1-3) Nutrition/Malnutrition Assess - Dietary Evaluation Nutrition/Malnutrition Findings: Nutrition Notes Start: 02/27/21 12:35 Freq: Status: Active Protocol: Document 03/13/21 10:37 ADITI (Rec: 03/13/21 10:38 [email or web address] [id number]) Nutrition Notes Initial or Follow up Brief Note Current Diet Renal Subjective/Other Information Re-order ONS. Nutrition Intervention Add Supplement/Snack (indicate name/kcal Nepro four times daily /protein ) Provides kCal: 1,700 Provides Protein (gm) 76 Follow-Up By: 03/19/21 Additional Comments F/U: intakes (meals, ONS), wt
[2021-03-13] MEDS: HYDROcodone/ACETAMINOPHEN 5-325 MG TAB PO PRN (18:00)
[2021-03-13] MEDS: TACROLIMUS 0.5 MG CAP PO SCH ×2 (18:06→22:11)
[2021-03-13] MEDS: PANTOPRAZOLE 20 MG TAB PO SCH ×2 (18:06→22:10)
[2021-03-13] MEDS: traMADol 50 MG TAB PO PRN (22:10)
[2021-03-14 06:02] LABS: Basophils % (Auto) 0.9 % (0.0-1.8); Eosinophils # (Auto) 0.1 K/mm3 (0.0-0.4); Eosinophils % (Auto) 2.2 % (0.0-4.3); Hematocrit 28.7 % (35.5-45.6); Hemoglobin 8.8 gm/dl (11.8-15.2); Lymphocytes # (Auto) 0.7 K/mm3 (1.2-5.4); Lymphocytes % (Auto) 12.9 % (13.4-35.0); Mean Corpuscular HGB Conc 31 % (32-34); Mean Corpuscular Volume 95 fl (84-94); Monocytes # (Auto) 0.8 K/mm3 (0.0-0.8); Monocytes % (Auto) 14.1 % (0.0-7.3); Platelet Count 202 K/mm3 (140-440); Red Blood Count 3.02 M/mm3 (3.65-5.03)
[2021-03-14 06:05] LABS: Red Cell Distribution Width 20.8 % (13.2-15.2)
[2021-03-14] MEDS: GABAPENTIN 100 MG CAP PO SCH ×2 (06:41→14:43)
--- NOTE | 2021-03-14 07:46 | Progress Note ---
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 Consult placed by DR. Terrell for HTN, ESRD. Patient seen and evaluated upon arrival to his room. No reported nursing events. Patient denies fever, chills, chest pain, palpitation, productive cough, skin rash, recent ill contact, or known exposure to COVID-19. 02/28: Patient for HD today. Stable from my standpoint for discharge blood pressure is improved. Right upper extremity was swollen vascular evaluating. 03/01: Patient with decompression of the right upper ext done yesterday, still some edema, still with some hematoma noted and bilster on the right side He does have 2 blisters which appear to be decompressing along the medial aspect of his upper arm. Scant serosanguineous drainage from his incisions. The arm is still swollen however is decompressing. Hematomas are present extending from the upper arm distally. The patient states that his pain in his arm is much improved from yesterday. 03/02: Continue wound care, monitor H/H, further management of right upper ext fistula site per Surgeon 03/03: Noted anemia worse today down to 6.5 hemoglobin we will transfuse 1 unit packed red blood cell. Disposition per vascular. 03/04/2021; hemoglobin yesterday was 6.5 and transfused 1 unit of blood. Will check H&H and will transfuse if hemoglobin is below 7. 03/05/2021: The entire right upper extremities grossly swollen with some blistering of the elbow and mild discharge. Has low-grade fever but no leukocytosis. 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 The plan is to remove right IJ permacath in place in the left IJ and revascularization of the veins with placement of stent, surgery is scheduled for tomorrow by vascular. ESRD on hemodialysis on Wednesday//Wednesday, nephrology following. Patient has a history of A. fib, right heart failure and bioprosthetic MVR, anticoagulation discontinued due to high risk for bleed. Patient has right hemiparesis from previous stroke. Hemoglobin will be monitored and transfuse as needed. 03/06/2021: Right IJ permacath removed and a new one placed on the right. Entire right arm remains grossly swollen with full movements. Venous angioplasty and revascularization is planned for later. Patient was alert oriented. Has some low-grade fever with soft blood pressure. Does not appear toxic today. 03/07/2021: Right upper extremity remains grossly swollen though some better. Pain also seems to be better since right IJ permacath removed. BP remains soft with stable tachycardia and afebrile. Has low-grade fever. Mental status seems to be better. Pain well controlled. Vascular surgery is planning for revascularization of central veins on Wednesday. Transfusing PRBC as needed. 03/08/2021: Physical exam unchanged. Right arm remains grossly swollen with minimal improvement of swelling since right permacatheter removed. Unable to move at the joints in the right arm likely from gross swelling but also from previous stroke. Low-grade fever seems to be resolving. Never had leukocytosis during this admission. Afebrile with stable vital signs/tachycardia with A. fib. Pain is controlled. Vascular Surgery is planning for revascularization on Wednesday. 03/09/2021: Patient remained stable. Low-grade fever with stable A. fib with RVR. BP remains borderline. Gross edema of her right upper extremity with some blistering, less tense since) catheter out. Scheduled for angioplasty of central events tomorrow. 03/10/2020: Patient remained stable. Low-grade fever since resolving. Afebrile heart rate with stable RVR. BP remains borderline. Gross edema of right upper extremity with some blistering, less tense since the right IJ permacath removed. Scheduled for angioplasty of central venous system later today. 03/11: Pt remains with right upper extremity is grossly swollen with blistering around elbow from central venous obstruction. Vascular surgery underwent angioplasty 03/10. Permacath removed and placed on the left side on 03/06. Patient continues to complain of pain in right arm but better postprocedure. Swelling is less tense since right permacath removed. Is unable to move right arm with history of CVA. BP remains soft with A. fib/stable tachycardia. Low- grade fever since resolving. Is alert but looks debilitated. He is on dialysis T/T/S. Nephrology following. Cleared for discharge. 03/12: Continue to monitor, Vascular still monitoring ongoing work up of the right edema- Present: no acute distress -(Right upper extremity with palpable thrill in the right arm AV graft near the arterial anastomosis.), other (Right arm incisions are intact with minimal drainage. No evidence of infection.) 03/13:"Patient with right arm swelling status post a stent placement and venoplasty yesterday and is postop day 1 from this particular evaluation. Continue to monitor. No further fever noted at this time. Patient can be discharged by vascular when okay with them. Undergoing HD today. 03/14: continues to show improvement. (1) Hypertension Current Visit: Yes Status: Acute Qualifiers: Hypertension type: primary hypertension Qualified Code(s): I10 - Essential (primary) hypertension Plan to address problem: Monitor blood pressure every shift, continue medical management. (2) End stage renal disease Current Visit: Yes Status: Acute Plan to address problem: Dialysis as per renal team, nephrology team consulted. 3) Type 2 NSTEMI-cardiology is following 4) BED Bound secondary to CVA WITH HEMIPARESIS OF THE RIGHT UPPER AND LOWER EXT 5) Atrial fibrillation, off anticoagulation due to high risk 6) Hypotension- Monitor, may need to hold BB or other antihypertensive. 7) Anemia of chronic disease (8) gross right upper extremity edema due to central venous thrombosis/obstruction Likely triggered by right IJ permacath. Vascular surgery is intervening as described above Discussed with the patient and the nursing staff. History Interval history: Patient seen and examined, no new complaints. No further fever. Hospitalist Physical - Physical exam Narrative exam: General appearance: Present: No distress, marked temporal wasting - EENT Eyes: Present: PERRL ENT: hearing intact, clear oral mucosa - Neck Neck: Present: supple, normal ROM - Respiratory Respiratory effort: normal Respiratory: bilateral: CTA - Cardiovascular Heart Sounds: Present: S1 & S2. Absent: rub, click - Extremities Extremities: pulses symmetrical, right upper ext with edema, some blisters, wound noted dressing over the right upper arm Peripheral Pulses: Diminished in the right upper - Abdominal General gastrointestinal: Present: soft, non-tender, non-distended, normal bowel sounds Male genitourinary: Present: normal - Integumentary Integumentary: Present: right upper ext, excoriation, swelling, av fistula. - Musculoskeletal Musculoskeletal: unable to assess gait - Psychiatric Psychiatric: appropriate mood/affect, intact judgment & insight - Neurologic Neurologic: paresis of the right side - Constitutional Vitals: Temp Pulse Resp BP Pulse Ox 98.4 F 58 L 16 100/71 99 03/14/21 03:34 03/14/21 03:34 03/14/21 03:34 03/14/21 03:34 03/14/21 03:34 General appearance: Present: no acute distress HEART Score - HEART Score Troponin: Troponin T 0.137 ng/mL (0.00-0.029) H* 03/08/21 07:56 Results - Labs CBC & Chem 7: 03/14/21 05:21 03/13/21 05:26 Labs: Laboratory Last Values WBC 5.4 K/mm3 (4.5-11.0) 03/14/21 05:21 RBC 3.02 M/mm3 (3.65-5.03) L 03/14/21 05:21 Hgb 8.8 gm/dl (11.8-15.2) L 03/14/21 05:21 Hct 28.7 % (35.5-45.6) L 03/14/21 05:21 MCV 95 fl (84-94) H 03/14/21 05:21 MCH 29 pg (28-32) 03/14/21 05:21 MCHC 31 % (32-34) L 03/14/21 05:21 RDW 20.8 % (13.2-15.2) H 03/14/21 05:21 Plt Count 202 K/mm3 (140-440) 03/14/21 05:21 Lymph % (Auto) 12.9 % (13.4-35.0) L 03/14/21 05:21 [place] % (Auto) 14.1 % (0.0-7.3) H 03/14/21 05:21 Eos % (Auto) 2.2 % (0.0-4.3) 03/14/21 05:21 Baso % (Auto) 0.9 % (0.0-1.8) 03/14/21 05:21 Lymph # (Auto) 0.7 K/mm3 (1.2-5.4) L 03/14/21 05:21 [place] # (Auto) 0.8 K/mm3 (0.0-0.8) 03/14/21 05:21 Eos # (Auto) 0.1 K/mm3 (0.0-0.4) 03/14/21 05:21 Baso # (Auto) 0.0 K/mm3 (0.0-0.1) 03/14/21 05:21 Add Manual Diff Complete 03/11/21 16:07 Total Counted 100 03/11/21 16:07 Seg Neutrophils % 69.9 % (40.0-70.0) 03/14/21 05:21 Seg Neuts % (Manual) 82.0 % (40.0-70.0) H 03/11/21 16:07 Lymphocytes % (Manual) 6.0 % (13.4-35.0) L 03/11/21 16:07 Monocytes % (Manual) 6.0 % (0.0-7.3) 03/11/21 16:07 Eosinophils % (Manual) 3.0 % (0.0-4.3) 03/11/21 16:07 Basophils % (Manual) 3.0 % (0.0-1.8) H 03/11/21 16:07 Nucleated RBC % Not Reportable 03/11/21 16:07 Seg Neutrophils # 3.8 K/mm3 (1.8-7.7) 03/14/21 05:21 Seg Neutrophils # Man 4.3 K/mm3 (1.8-7.7) 03/11/21 16:07 Band Neutrophils # 0.0 K/mm3 03/11/21 16:07 Lymphocytes # (Manual) 0.3 K/mm3 (1.2-5.4) L 03/11/21 16:07 Abs React Lymphs (Man) 0.0 K/mm3 03/11/21 16:07 Monocytes # (Manual) 0.3 K/mm3 (0.0-0.8) 03/11/21 16:07 Eosinophils # (Manual) 0.2 K/mm3 (0.0-0.4) 03/11/21 16:07 Basophils # (Manual) 0.2 K/mm3 (0.0-0.1) H 03/11/21 16:07 Metamyelocytes # 0.0 K/mm3 03/11/21 16:07 Myelocytes # 0.0 K/mm3 03/11/21 16:07 Promyelocytes # 0.0 K/mm3 03/11/21 16:07 Blast Cells # 0.0 K/mm3 03/11/21 16:07 WBC Morphology Not Reportable 03/11/21 16:07 Hypersegmented Neuts Not Reportable 03/11/21 16:07 Hyposegmented Neuts Not Reportable 03/11/21 16:07 Hypogranular Neuts Not Reportable 03/11/21 16:07 Smudge Cells Not Reportable 03/11/21 16:07 Toxic Granulation Not Reportable 03/11/21 16:07 Toxic Vacuolation Not Reportable 03/11/21 16:07 Dohle Bodies Not Reportable 03/11/21 16:07 Pelger-Huet Anomaly Not Reportable 03/11/21 16:07 Ry Rods Not Reportable 03/11/21 16:07 Platelet Estimate Consistent w auto 03/11/21 16:07 Clumped Platelets Not Reportable 03/11/21 16:07 Plt Clumps, EDTA Not Reportable 03/11/21 16:07 Large Platelets Not Reportable 03/11/21 16:07 Giant Platelets Not Reportable 03/11/21 16:07 Platelet Satelliting Not Reportable 03/11/21 16:07 Plt Morphology Comment Not Reportable 03/11/21 16:07 RBC Morphology Not Reportable 03/11/21 16:07 Dimorphic RBCs Not Reportable 03/11/21 16:07 Polychromasia Few 03/11/21 16:07 Hypochromasia Not Reportable 03/11/21 16:07 Poikilocytosis Not Reportable 03/11/21 16:07 Anisocytosis 2+ 03/11/21 16:07 Microcytosis Not Reportable 03/11/21 16:07 Macrocytosis 1+ 03/11/21 16:07 Spherocytes Not Reportable 03/11/21 16:07 Pappenheimer Bodies Not Reportable 03/11/21 16:07 Sickle Cells Not Reportable 03/11/21 16:07 Target Cells Not Reportable 03/11/21 16:07 Tear Drop Cells Not Reportable 03/11/21 16:07 Ovalocytes Not Reportable 03/11/21 16:07 Helmet Cells Not Reportable 03/11/21 16:07 [place] Bodies Not Reportable 03/11/21 16:07 [place] Rings Not Reportable 03/11/21 16:07 [place] Cells Not Reportable 03/11/21 16:07 Bite Cells Not Reportable 03/11/21 16:07 Crenated Cell Not Reportable 03/11/21 16:07 Elliptocytes Not Reportable 03/11/21 16:07 Acanthocytes (Spur) Not Reportable 03/11/21 16:07 Rouleaux Not Reportable 03/11/21 16:07 Hemoglobin C Crystals Not Reportable 03/11/21 16:07 Schistocytes Not Reportable 03/11/21 16:07 Malaria parasites Not Reportable 03/11/21 16:07 Hema Bodies Not Reportable 03/11/21 16:07 Hem Pathologist Commnt No 03/11/21 16:07 PT 17.5 Sec. (12.2-14.9) H 02/27/21 18:32 INR 1.37 (0.87-1.13) H 02/27/21 18:32 APTT 37.5 Sec. (24.2-36.6) H 02/27/21 18:32 Sodium 135 mmol/L (137-145) L 03/13/21 05:26 Potassium 4.2 mmol/L (3.6-5.0) 03/13/21 05:26 Chloride 95.6 mmol/L (98-107) L 03/13/21 05:26 Carbon Dioxide 22 mmol/L (22-30) 03/13/21 05:26 Anion Gap 22 mmol/L 03/13/21 05:26 BUN 54 mg/dL (9-20) H 03/13/21 05:26 Creatinine 4.9 mg/dL (0.8-1.3) H D 03/13/21 05:26 Estimated GFR 15 ml/min 03/13/21 05:26 BUN/Creatinine Ratio 11 % 03/13/21 05:26 Glucose 96 mg/dL (75-100) 03/13/21 05:26 Calcium 8.6 mg/dL (8.4-10.2) 03/13/21 05:26 Phosphorus 4.00 mg/dL (2.5-4.5) 03/13/21 05:26 Total Creatine Kinase 54 units/L (55-170) L 02/27/21 10:45 CK-MB (CK-2) 1.5 ng/mL (0.0-4.0) 02/27/21 10:45 CK-MB (CK-2) Rel Index 2.7 (0-4) 02/27/21 10:45 Troponin T 0.137 ng/mL (0.00-0.029) H* 03/08/21 07:56 Triglycerides 106 mg/dL (2-149) 02/27/21 10:45 Cholesterol 84 mg/dL (50-199) 02/27/21 10:45 LDL Cholesterol Direct 39 mg/dL (50-130) L 02/27/21 10:45 HDL Cholesterol 27 mg/dL (40-59) L 02/27/21 10:45 Cholesterol/HDL Ratio 3.11 % 02/27/21 10:45 Nasal Screen MRSA (PCR) Negative (Negative) 02/27/21 Unknown Hepatitis A IgM Ab Non-reactive (NonReactive) 02/27/21 18:32 Hep Bs Antigen Non-reactive (Negative) 02/27/21 18:32 Hep B Core IgM Ab Non-reactive (NonReactive) 02/27/21 18:32 Hepatitis C Antibody Reactive (NonReactive) A 02/27/21 18:32 Blood Type A POSITIVE 03/07/21 09:28 Antibody Screen Negative 03/07/21 09:28 Crossmatch See Detail 03/07/21 09:28 Neal/IV: Voiding Method Condom Catheter Active Medications - Current Medications Current Medications: Generic Name Dose Route Start Last Admin Trade Name Freq PRN Reason Stop Dose Admin Acetaminophen 650 mg 02/26/21 15:00 03/04/21 22:04 Acetaminophen 325 Mg Tab PO 650 mg Q4H PRN Administration Pain MILD(1-3)/Fever >100.5/TOBIAS Hydrocodone Bitart/Acetaminophen 2 each 02/26/21 15:00 03/13/21 18:00 Hydrocodone/Acetaminophen 5-325 Mg Tab PO 2 each Q6H PRN Administration Pain, Moderate (4-6) Albumin Human 25 gm 03/01/21 12:00 03/01/21 16:28 Albumin Human 25% (25 Gm/100 Ml) Inj IV 25 gm SALIMA PRN Administration Hypotension Atorvastatin Calcium 40 mg 03/09/21 22:00 03/13/21 22:10 Atorvastatin 40 Mg Tab PO 40 mg QHS REBEL Administration Gabapentin 100 mg 02/26/21 22:00 03/14/21 06:41 Gabapentin 100 Mg Cap PO 100 mg Q8HR REBEL Administration Sodium Chloride 100 mls @ 999 mls/hr 03/01/21 09:00 Nacl 0.9% IV SALIMA PRN Hypotension Metoprolol Tartrate 25 mg 03/08/21 11:00 03/13/21 22:11 Metoprolol Tartrate 25 Mg Tab PO 25 mg BID REBEL Administration Morphine Sulfate 4 mg 02/26/21 16:00 03/13/21 10:05 Morphine 4 Mg/1 Ml Inj IV 4 mg Q4H PRN Administration Pain , Severe (7-10) Ondansetron HCl 4 mg 02/26/21 15:00 Ondansetron 4 Mg/2 Ml Inj IV Q8H PRN Nausea And Vomiting Pantoprazole Sodium 20 mg 02/26/21 22:00 03/13/21 22:10 Pantoprazole 20 Mg Tab PO 20 mg BID REBEL Administration Sertraline HCl 100 mg 02/27/21 10:00 03/12/21 09:34 Sertraline 100 Mg Tab PO 100 mg DAILY REBEL Administration Tacrolimus 0.5 mg 02/26/21 22:00 03/13/21 22:11 Tacrolimus 0.5 Mg Cap PO 0.5 mg Q12HR REBEL Administration Torsemide 10 mg 02/28/21 10:00 03/12/21 09:34 Torsemide 10 Mg Tab PO 10 mg DAILY REBEL Administration Tramadol HCl 50 mg 02/26/21 21:30 03/13/21 22:10 Tramadol 50 Mg Tab PO 50 mg Q12HR PRN Administration Pain, Mild (1-3) Nutrition/Malnutrition Assess - Dietary Evaluation Nutrition/Malnutrition Findings: Nutrition Notes Start: 02/27/21 12:35 Freq: Status: Active Protocol: Document 03/13/21 10:37 ADITI (Rec: 03/13/21 10:38 [email or web address] [id number]) Nutrition Notes Initial or Follow up Brief Note Current Diet Renal Subjective/Other Information Re-order ONS. Nutrition Intervention Add Supplement/Snack (indicate name/kcal Nepro four times daily /protein ) Provides kCal: 1,700 Provides Protein (gm) 76 Follow-Up By: 03/19/21 Additional Comments F/U: intakes (meals, ONS), wt
--- NOTE | 2021-03-14 08:54 | Progress Note ---
Assessment and Plan - Patient Problems (1) Venous stenosis of right upper extremity Current Visit: Yes Status: Acute Plan to address problem: Status post venoplasty for stenosis of superior vena cava. Continue to keep right upper extremity elevated. Continue management per vascular. Okay to discharge from renal standpoint (2) Hypertensive chronic kidney disease with stage 5 chronic kidney disease or end stage renal disease Current Visit: Yes Plan to address problem: Follow-up blood pressure on current medications (3) Anemia in chronic kidney disease (CKD) Current Visit: Yes Status: Chronic Qualifiers: Chronic kidney disease stage: on chronic dialysis Qualified Code(s): N18.6 - End stage renal disease; D63.1 - Anemia in chronic kidney disease; Z99.2 - Dependence on renal dialysis Plan to address problem: erythropoietin on dialysis (4) End stage renal disease Current Visit: Yes Status: Chronic Plan to address problem: Continue hemodialysis on a Wednesday, Wednesday and Wednesday schedule. (5) Secondary hyperparathyroidism (of renal origin) Current Visit: Yes Status: Chronic Plan to address problem: Follow-up PTH and give vitamin D analog as indicated at the outpatient clinic. Subjective Date of service: 03/14/21 Principal diagnosis: Chronic AF Interval history: Patient seen lying in bed. Swelling of his arm is improving. No fever or chills. No nausea or vomiting. Still hurts to move his arm. Pain control was better last night Objective - Exam Narrative Exam: Middle-aged -[place] male lying in bed in no acute distress HEENT: NCAT, Neck: Supple, no venous distention CVS: S1S2 RRR with no murmur, rub or gallop Chest: Clear to auscultation Abdomen: Protuberant, soft, nontender, no organomegaly, bowel sounds are present Extremities: Swelling right upper extremity, tenderness, no differential warmth or erythema. Bruit audible. Edema right lower extremity also Neuro: Awake, alert no focal deficits - Vital Signs Vital signs: Vital Signs - 12hr 03/13/21 03/13/21 03/13/21 22:00 22:11 23:23 Temperature 98.0 F Pulse Rate 102 H 110 H 121 H Pulse Rate [ Apical] Respiratory 16 Rate Blood Pressure 98/65 103/61 O2 Sat by Pulse 94 Oximetry 03/14/21 03/14/21 03/14/21 03:34 07:39 08:44 Temperature 98.4 F 98.6 F Pulse Rate 58 L 81 Pulse Rate [ 89 Apical] Respiratory 16 18 17 Rate Blood Pressure 100/71 96/67 O2 Sat by Pulse 99 100 97 Oximetry - Lab 03/14/21 05:21 03/13/21 05:26 Most recent lab results Calcium 8.6 mg/dL (8.4-10.2) 03/13/21 05:26 Phosphorus 4.00 mg/dL (2.5-4.5) 03/13/21 05:26 Medications & Allergies - Medications Allergies/Adverse Reactions: Allergies No Known Allergies Allergy (Unverified 02/25/21 09:01) Home Medications: Home Medications Medication Instructions Recorded Confirmed Last Taken Type Acetaminophen [Acetaminophen ER] 650 mg PO PRN PRN 02/17/21 02/17/21 Unknown History Aspirin [Adult Aspirin] 81 mg PO DAILY 02/17/21 02/27/21 02/25/21 09:00 History Omeprazole 20 mg PO BID 02/17/21 02/27/21 02/26/21 10:40 History Sertraline HCl [Zoloft] 100 mg PO DAILY 02/17/21 02/27/21 02/25/21 09:00 History Tacrolimus [Prograf] 0.5 mg PO DAILY 02/17/21 02/17/21 Unknown History carvediloL [Coreg] 6.25 mg PO BID 02/17/21 02/27/21 02/26/21 10:40 History traMADoL [Ultram 50 MG tab] 50 mg PO Q12HR PRN 02/17/21 02/17/21 Unknown History HYDROcodone/APAP 7.5-325 [[place] 1 each PO Q6HR PRN #40 tablet 02/26/21 Unknown Rx 7.5/325] Apixaban [Eliquis] 5 mg PO BID #60 tablet 03/14/21 Unknown Rx Active Medications: Generic Name Dose Route Start Last Admin Trade Name Freq PRN Reason Stop Dose Admin Acetaminophen 650 mg 02/26/21 15:00 03/04/21 22:04 Acetaminophen 325 Mg Tab PO 650 mg Q4H PRN Administration Pain MILD(1-3)/Fever >100.5/TOBIAS Hydrocodone Bitart/Acetaminophen 2 each 02/26/21 15:00 03/13/21 18:00 Hydrocodone/Acetaminophen 5-325 Mg Tab PO 2 each Q6H PRN Administration Pain, Moderate (4-6) Albumin Human 25 gm 03/01/21 12:00 03/01/21 16:28 Albumin Human 25% (25 Gm/100 Ml) Inj IV 25 gm SALIMA PRN Administration Hypotension Atorvastatin Calcium 40 mg 03/09/21 22:00 03/13/21 22:10 Atorvastatin 40 Mg Tab PO 40 mg QHS REBEL Administration Gabapentin 100 mg 02/26/21 22:00 03/14/21 06:41 Gabapentin 100 Mg Cap PO 100 mg Q8HR REBEL Administration Sodium Chloride 100 mls @ 999 mls/hr 03/01/21 09:00 Nacl 0.9% IV SALIMA PRN Hypotension Metoprolol Tartrate 25 mg 03/08/21 11:00 03/13/21 22:11 Metoprolol Tartrate 25 Mg Tab PO 25 mg BID REBEL Administration Morphine Sulfate 4 mg 02/26/21 16:00 03/13/21 10:05 Morphine 4 Mg/1 Ml Inj IV 4 mg Q4H PRN Administration Pain , Severe (7-10) Ondansetron HCl 4 mg 02/26/21 15:00 Ondansetron 4 Mg/2 Ml Inj IV Q8H PRN Nausea And Vomiting Pantoprazole Sodium 20 mg 02/26/21 22:00 03/13/21 22:10 Pantoprazole 20 Mg Tab PO 20 mg BID REBEL Administration Sertraline HCl 100 mg 02/27/21 10:00 03/12/21 09:34 Sertraline 100 Mg Tab PO 100 mg DAILY REBEL Administration Tacrolimus 0.5 mg 02/26/21 22:00 03/13/21 22:11 Tacrolimus 0.5 Mg Cap PO 0.5 mg Q12HR REBEL Administration Torsemide 10 mg 02/28/21 10:00 03/12/21 09:34 Torsemide 10 Mg Tab PO 10 mg DAILY REBEL Administration Tramadol HCl 50 mg 02/26/21 21:30 03/13/21 22:10 Tramadol 50 Mg Tab PO 50 mg Q12HR PRN Administration Pain, Mild (1-3)
[2021-03-14] MEDS: TACROLIMUS 0.5 MG CAP PO SCH (09:10)
[2021-03-14] MEDS: TORSEMIDE 10 MG TAB PO SCH (09:10)
[2021-03-14] MEDS: PANTOPRAZOLE 20 MG TAB PO SCH (09:10)
[2021-03-14] MEDS: SERTRALINE 100 MG TAB PO SCH (09:10)
[2021-03-14] MEDS: METOPROLOL TARTRATE 25 MG TAB PO SCH (09:11)
[2021-03-14] MEDS: HYDROcodone/ACETAMINOPHEN 5-325 MG TAB PO PRN ×2 (10:08→17:38)
--- NOTE | 2021-03-14 12:49 | Progress Note ---
Assessment and Plan The patient is doing well. His pain has improved and his swelling is improving. He is unable to elevate his right arm secondary to hemiparesis so his edema will likely take 4 to 6 weeks to resolve. He is otherwise ready for discharge from a vascular surgery standpoint. Subjective Date of service: 03/14/21 Principal diagnosis: Chronic AF Interval history: The patient states his arm pain is improving. He has no new complaints. Objective - Constitutional Vitals: Vital Signs - 12hr 03/14/21 03/14/21 03/14/21 03:34 07:39 08:44 Temperature 98.4 F 98.6 F Pulse Rate 58 L 81 Pulse Rate [ 89 Apical] Respiratory 16 18 17 Rate Blood Pressure 100/71 96/67 Blood Pressure [Left] O2 Sat by Pulse 99 100 97 Oximetry 03/14/21 03/14/21 03/14/21 09:11 09:52 10:08 Temperature Pulse Rate 87 Pulse Rate [ Apical] Respiratory 17 Rate Blood Pressure 108/74 Blood Pressure [Left] O2 Sat by Pulse 100 Oximetry 03/14/21 10:10 Temperature Pulse Rate 81 Pulse Rate [ Apical] Respiratory 17 Rate Blood Pressure Blood Pressure 104/72 [Left] O2 Sat by Pulse 96 Oximetry General appearance: Present: no acute distress - Respiratory Respiratory effort: normal - Cardiovascular Rhythm: irregularly irregular Extremities: abnormal (Right arm edema is present but slightly improved in the upper arm and significantly improved in the forearm and hand.) Extremity abnormal: other (Palpable thrill right arm AV graft) - Labs CBC & Chem 7: 03/14/21 05:21 03/13/21 05:26 Labs: Abnormal lab results 03/14/21 Range/Units 05:21 RBC 3.02 L (3.65-5.03) M/mm3 Hgb 8.8 L (11.8-15.2) gm/dl Hct 28.7 L (35.5-45.6) % MCV 95 H (84-94) fl MCHC 31 L (32-34) % RDW 20.8 H (13.2-15.2) % Lymph % (Auto) 12.9 L (13.4-35.0) % [place] % (Auto) 14.1 H (0.0-7.3) % Lymph # (Auto) 0.7 L (1.2-5.4) K/mm3 Medications & Allergies - Medications Allergies/Adverse Reactions: Allergies No Known Allergies Allergy (Unverified 02/25/21 09:01) Home Medications: Home Medications Medication Instructions Recorded Confirmed Last Taken Type Acetaminophen [Acetaminophen ER] 650 mg PO PRN PRN 02/17/21 02/17/21 Unknown History Aspirin [Adult Aspirin] 81 mg PO DAILY 02/17/21 02/27/21 02/25/21 09:00 History Omeprazole 20 mg PO BID 02/17/21 02/27/21 02/26/21 10:40 History Sertraline HCl [Zoloft] 100 mg PO DAILY 02/17/21 02/27/21 02/25/21 09:00 History Tacrolimus [Prograf] 0.5 mg PO DAILY 02/17/21 02/17/21 Unknown History carvediloL [Coreg] 6.25 mg PO BID 02/17/21 02/27/21 02/26/21 10:40 History traMADoL [Ultram 50 MG tab] 50 mg PO Q12HR PRN 02/17/21 02/17/21 Unknown History HYDROcodone/APAP 7.5-325 [[place] 1 each PO Q6HR PRN #40 tablet 02/26/21 Unknown Rx 7.5/325] Active Medications: Generic Name Dose Route Start Last Admin Trade Name Isauroq PRN Reason Stop Dose Admin Acetaminophen 650 mg 02/26/21 15:00 03/04/21 22:04 Acetaminophen 325 Mg Tab PO 650 mg Q4H PRN Administration Pain MILD(1-3)/Fever >100.5/TOBIAS Hydrocodone Bitart/Acetaminophen 2 each 02/26/21 15:00 03/14/21 10:08 Hydrocodone/Acetaminophen 5-325 Mg Tab PO 2 each Q6H PRN Administration Pain, Moderate (4-6) Albumin Human 25 gm 03/01/21 12:00 03/01/21 16:28 Albumin Human 25% (25 Gm/100 Ml) Inj IV 25 gm SALIMA PRN Administration Hypotension Atorvastatin Calcium 40 mg 03/09/21 22:00 03/13/21 22:10 Atorvastatin 40 Mg Tab PO 40 mg QHS REBEL Administration Gabapentin 100 mg 02/26/21 22:00 03/14/21 06:41 Gabapentin 100 Mg Cap PO 100 mg Q8HR REBEL Administration Sodium Chloride 100 mls @ 999 mls/hr 03/01/21 09:00 Nacl 0.9% IV SALIMA PRN Hypotension Metoprolol Tartrate 25 mg 03/08/21 11:00 03/14/21 09:11 Metoprolol Tartrate 25 Mg Tab PO 25 mg BID REBEL Administration Morphine Sulfate 4 mg 02/26/21 16:00 03/13/21 10:05 Morphine 4 Mg/1 Ml Inj IV 4 mg Q4H PRN Administration Pain , Severe (7-10) Ondansetron HCl 4 mg 02/26/21 15:00 Ondansetron 4 Mg/2 Ml Inj IV Q8H PRN Nausea And Vomiting Pantoprazole Sodium 20 mg 02/26/21 22:00 03/14/21 09:10 Pantoprazole 20 Mg Tab PO 20 mg BID REBEL Administration Sertraline HCl 100 mg 02/27/21 10:00 03/14/21 09:10 Sertraline 100 Mg Tab PO 100 mg DAILY REBEL Administration Tacrolimus 0.5 mg 02/26/21 22:00 03/14/21 09:10 Tacrolimus 0.5 Mg Cap PO 0.5 mg Q12HR REBEL Administration Torsemide 10 mg 02/28/21 10:00 03/14/21 09:10 Torsemide 10 Mg Tab PO 10 mg DAILY REBEL Administration Tramadol HCl 50 mg 02/26/21 21:30 03/13/21 22:10 Tramadol 50 Mg Tab PO 50 mg Q12HR PRN Administration Pain, Mild (1-3) HEART Score - HEART Score Troponin: Troponin T 0.137 ng/mL (0.00-0.029) H* 03/08/21 07:56
--- NOTE | 2021-03-14 12:50 | Discharge Summary ---
Providers - Providers Date of Admission: 02/27/21 15:16 Date of discharge: 03/14/21 Attending physician: MACIEL UGALDE 02/26/21 14:15 Consult to Physician [CONS] Routine Comment: Consulting Provider: DEYANIRA COTTER Physician Instructions: Reason For Exam: Dialysis T-Th-S 02/26/21 14:25 Consult to Physician [CONS] Routine Comment: Consulting Provider: LV RANKIN Physician Instructions: Reason For Exam: Medical Management 02/27/21 10:14 Consult to Physician [CONS] Routine Comment: Consulting Provider: SHARLENE STEVENS Physician Instructions: Reason For Exam: Afib with RVR 03/11/21 10:13 Consult to Case Management [CONS] Routine Services Needed at Discharge: Sap Bi Architect Notified:: case finishing machine adjuster Comment:: return to custodial Primary care physician: RACHEL PITT Hospitalization Reason for admission: Creation of right arm AV graft Condition: Good Procedures: Date of procedure: 02/26/2021 Pre-operative diagnosis: End-Stage Renal Disease Post-operative diagnosis: Same Procedure(s): 1. Creation of Right brachial Artery to Axillary Vein AV Graft with 6 mm Bovine Graft Artergraft Surgeon: Maciel Ugalde MD Supervisor Grading: None Anesthesia: Regional/MAC EBL: 500 mL Counts: Correct Complications: None Condition: Stable Findings: Successful Creation of right arm AV Graft with Palpable Thrill and Palpable Radial Pulse at the Completion of the Case. Specimen: None Indication: The patient is a 55-year-old male with a history of end-stage renal disease who is on hemodialysis through a permacath. He is in need of long-term dialysis access and does not have suitable vein for creation of an arteriovenous fistula. 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 It was decided to place the graft in his right upper extremity to prevent complications in his left upper extremity which is his only usable extremity. He was given the risk, benefits, and alternative procedures and consented to the procedure. Description of Procedure: Prior to being transported to the operating room the patient had a regional block of the right arm performed. After the block was performed the patient was transported to the operating room and adequately sedated. The patient's right arm was then prepped and draped in normal sterile fashion. A longitudinal incision was made on the medial aspect of the arm just proximal to the antecubital crease and carried down to the brachial artery using sharp dissection. The brachial artery was dissected out circumferentially both proximally and distally and controlled with vessel loops. A second incision was created in longitudinal fashion on the medial aspect of the arm just distal to the axillary crease and carried down to the axillary vein using sharp dissection. Axillary vein was dissected out circumferentially and controlled with a vessel loop. I then used a Barbie-Wick tunneler to tunnel from the brachial artery incision to the axillary vein incision and then pulled an [] mm bovine through the tunnel. I infused with heparinized saline to ensure that it was not twisted or kinked. I put the brachial artery vessel loops on tension controlling the flow and then created an arteriotomy using an 11 blade and Fleming scissors. I beveled the graft and created an end-to-side anastomosis using 6-0 Prolene running fashion. I clamped the graft just proximal to the anastomosis and then released the vessel loops restoring flow in the brachial artery. I placed quick clot in incision to achieve hemostasis. I cut the proximal end of the graft to the appropriate length and beveled the graft in preparation for a venous anastomosis. I controlled the axillary vein a Satinsky clamp and created a venotomy using an 11 blade and Fleming scissors. I created an end to side anastomosis using a 6-0 Prolene in running fashion. Prior to completing the anastomosis I flushed the graft to ensure there was no thrombus and then completed the anastamosis. I released all clamps allowing flow into the AV graft which had an excellent thrill. I packed the wound with quick clot to ac hieve hemostasis. I closed both wounds in 2 layers using 3-0 Vicryl, in running fashion in the deep dermal layer and anup to reapproximate the skin. I dressed the wounds with Telfa, fluffs, and ABD bandage, and a 4 inch Samuel bandage to apply pressure to multiple upper extremity varicosities. The patient tolerated the procedure well all sponge, needle, and instrument counts were correct. The patient was taken to recovery in stable condition. Date of Procedure: 02/28/2021 Pre-operative Diagnosis: Complications of Dialysis Access Post-operative Diagnosis: Same Procedure(s): 1. Ultrasound-Guided Access Right Common Femoral Vein 2. Ultrasound-Guided Access Right Radial Artery 3. Diagnostic Central Venogram 4. Diagnostic Right Upper Extremity Fistulogram 5. Angioplasty and Stent of Right Arm AV Graft With 9 x 60 Covera Stent Graft and 10 x 40 Hawks Balloon 6. Angioplasty of Right Subclavian Vein and Right Innominate Vein with 10 x 60 Lutonix Drug-Coated Balloon 7. Radiologic Supervision with Interpretation 8. Monitored Moderate Sedation (Total Anesthesia Time: 87 Minutes) Surgeon: Maciel Ugalde M.D. Supervisor Grading: None Anesthesia: Local/Monitored Moderate Sedation Total Anesthesia Time: 87 Minutes EBL: Minimal Counts: Correct Complications: None Condition: Stable Specimen: None Indication: The patient is a 55-year-old male who recently underwent creation of a right brachial artery to right axillary vein arteriovenous graft. He has had a right internal jugular permacath, for his dialysis access, and likely has central venous stenosis. On postoperative day #2 of his graft creation he has significant right arm swelling that is causing pain. He is in need of a central venogram and a fistulogram with possible intervention to relieve his swelling. He has been given the risk, benefits, alternative procedures and consented to the procedure. Angiographic Findings: The diagnostic central venogram revealed the superior vena cava was patent without evidence of flow-limiting stenosis. The proximal right subclavian vein and right innominate vein were occluded. The remainder of the subclavian vein was patent without evidence of flow-limiting stenosis. There was an occlusion of the axillary vein distal to the venous anastomosis. The occlusion appeared to be approximately 5 cm in length. The remainder the axillary vein was patent without evidence of flow-limiting stenosis. The graft was patent without evidence of flow-limiting stenosis. After intervention the axillary vein was patent with less than 10% residual stenosis. The subclavian vein and innominate vein were patent with approximately 25% residual stenosis. Description of Procedure: The patient was brought to the [facility] and laid in supine position. After a timeout was performed his right groin was prepped and draped in normal sterile fashion. Ultrasound was used to identify the right common femoral vein and confirm patency. Once patency was confirmed the overlying skin and soft tissue was anesthetized with lidocaine. A 21-gauge micropuncture needle was used with ultrasound guidance in the right common femoral vein and a 0.018 micropuncture wire was advanced into the vein. The needle was removed and a micropuncture sheath was placed by Seldinger technique. The inner cannula and wire were removed and a 0.035 J-wire was advanced into the inferior vena cava under fluoroscopy. The micropuncture sheath was then exchanged for 5 Cuban sheath by Seldinger technique. A Navicross catheter and 0.035 Advantage Wire were advanced through the inferior vena cava and into the superior vena cava. A diagnostic central venogram was performed with the previously described findings. I removed the 5 Cuban sheath and exchanged for a 7 Cuban 65 cm destination sheath. I was eventually able to advance the sheath into the distal superior vena cava and then was able to cross the occluded innominate vein and subclavian vein and advanced the catheter and wire into the axillary vein. I performed a venogram demonstrating the occlusion in the axillary vein however I was unable to identify the venous anastomosis of the arteriovenous graft. I made multiple attempts to cross the occlusion without success so I decided to access the radial artery. The right radial artery was prepped and draped in normal sterile fashion. Ultrasound was then used to identify the right radial artery and a 21-gauge micropuncture needle was used access the artery. I advanced a 0.018 micropuncture wire into the artery and after removing the needle a 6 Cuban glide slender sheath was placed by Seldinger technique. I then injected a radial cocktail which included verapamil, nitroglycerin, and heparin into the radial artery. I advanced a vertebral catheter and an advantage wire through the radial artery and eventually into the graft and was able to cross the anastomosis in the area of occlusion. I advanced the vertebral catheter and wire into the superior vena cava I decided to snare the wire. I advanced a 9 to 15 mm Ensare, through the 7 Cuban sheath from the right femoral access, into the superior vena cava and was able to snare the wire. I pulled the wire out through the 7 Cuban sheath in the groin and then remove the vertebral catheter and advanced the Navicross catheter over the advantage wire and into the graft. I advanced the advantage wire into the graft and then predilated the occlusion with a 5 x 120 EverCross Balloon. I then exchanged my 7 Cuban sheath for an 8 Cuban 65 cm destination sheath and advanced a 9 x 60 Covera Stent Graft across the area of stenosis and axillary vein which included the venous anastomosis. I deployed the stent graft across the stenosis and then after removing the delivery catheter postdilated the stent graft with a 10 x 40 Hawks balloon. I then performed angioplasty of the right subclavian vein and right innominate vein using the 10 x 40 Hawks Balloon which resulted in approximately 25% residual stenosis within the subclavian vein however there was approximately 70% residual stenosis within the innominate vein. I performed additional angioplasty of the innominate vein with a 10 x 60 Lutonix Drug-Coated Balloon which resulted in approximately 25% residual stenosis in the innominate vein. At this point I removed the balloon and wire and then remove the right femoral sheath and manual pressure was held to achieve hemostasis. Once hemostasis was achieved a sterile dressing was applied to the right groin. A TR Band was then applied to the right radial artery after removing the sheath and the patient was transported back to his room in stable condition. Exam: Removal of right chest wall tunneled hemodialysis catheter, placement of left chest wall tunneled hemodialysis catheter, central venoplasty Clinical indication: Patient with a history of a recently revised right arm AV graft with right arm swelling secondary to central venous stenosis with indwelling tunneled hemodialysis catheter Date: 03/06/2021 Procedure: Following an explanation of the risks, benefits and alternatives; written informed consent was obtained. The patient was brought to the angiographic suite and placed in supine position on the examination table. The patient's right neck, left neck and left groin were prepped and draped in the usual sterile fashion. Initial ultrasound evaluation of the patient's left groin demonstrated a patent left common femoral vein. The patient's left groin was anesthetized with 1% lidocaine. An 18-gauge needle was then advanced into the common femoral vein and 0.035 guidewire advanced centrally. The needle was removed and a 5 Cuban sheath placed. A vertebral catheter was then advanced over the guidewire. Under fluoroscopy the guidewire and catheter were advanced proximally. Together the guidewire and catheter were manipulated into the proximal right atrium. The guidewire and catheter were then manipulated up to the superior vena cava into the right int ernal jugular vein. Contrast was injected. This demonstrates near complete stasis of flow of contrast within the internal jugular vein on the right secondary to high-grade SVC narrowing. Delayed images approximately 1 minute later demonstrated persistent IJ contrast opacification. Venoplasty was therefore performed using initially an 8 mm x 100 mm balloon insufflated to 3 trina for 2 minutes. Post venoplasty imaging demonstrated some decompression of the superior vena cava and internal jugular vein. The guidewire was advanced into the internal jugular vein and the balloon removed. Access was then obtained on the left side. Under ultrasound guidance, the left internal jugular vein was cannulated with a 7cm 21-gauge needle. A 0.018 guidewire was advanced centrally easily. The needle was removed and a microsheath placed. The 0.018 guidewire was exchanged for a 0.035 guidewire. The guidewire was advanced into the IVC. A serial dilation was then performed over the guidewire following with placement of a 15 Cuban peel-away sheath. An appropriate catheter exit site was chosen along the lateral left chest wall. Lidocaine was used for anesthesia at the catheter exit site along the tunnel tract. Initially, a Bard 23 cm glidepath tunneled hemodialysis catheter was then tunneled antegrade from the catheter exit site to the venotomy site and inserted to the peel-away sheath. The catheter was positioned however, this was in the distal SVC and a decision was made to exchange the 23 cm glidepath catheter over a guidewire under fluoroscopy for a 27 cm glidepath tunneled hemo dialysis catheter. This demonstrated more appropriate positioning of the distal catheter tip in the proximal right atrium. Both ports flushed and aspirated easily and were then locked with appropriate volumes of heparin. The V. Brittny to be site at the neck was closed using 3-0 Vicryl suture. 3-0 Vicryl suture was also used to approximate the catheter exit site. Ultimately, several sutures were necessary given the patient's elevated venous pressure. A 0.035 guidewire was then advanced through the arterial sheath of the patient's indwelling tunneled hemodialysis catheter in his right chest wall. The guidewire was advanced into the IVC for anchoring. 1% lidocaine was used for anesthesia at the catheter exit site and along the tunnel tract. The catheter cuff was dissected free and removed and a 10 Cuban sheath placed over the guidewire. Under fluoroscopy, the tip of the sheath was positioned just proximal to the internal jugular vein. The sheath was sutured in place using 2- 0 Ethilon suture. Contrast was injected into the sheath which demonstrates a stenosis of the SVC. There is however some drainage of contrast following prior venoplasty. A decision was made to treat this additionally with a 10 mm x 40 mm balloon and this was advanced across the lesion and insufflated to nominal atmospheres for 1 minute. Post venoplasty imaging demonstrated brisk flow from the IJ to the SVC and right atrium. The vertebral catheter was then again advanced over the guidewire through the left groin sheath. Together the guidewire and catheter were advanced into the distal innominate vein and then more proximal innominate vein. Contrast was injected at multiple locations to demonstrate true luminal positioning. There is prompt opacification of massive chest wall collaterals. There is brisk drainage of these collaterals. Multiple attempts to cannulate the subclavian vein from a groin approach were unsuccessful. At this point, the catheters, guidewires and sheaths were removed. Hemostasis was achieved in the left groin using manual compression and a sterile dressing. Hemostasis was achieved in the right neck using 3-0 Vicryl pursestring suture at the prior catheter exit site and manual compression. Hemostasis was achieved in the left access site for the newly placed tunneled hemodialysis catheter using manual compression and 3-0 Vicryl suture as a pursestring at the catheter exit site. The patient tolerated the procedures well. There were no immediate postprocedure complications. A minimal amount of Versed was given secondary to patient's decreased blood pressure and decreased hemoglobin. Continuous cardiopulmonary monitoring was performed under the guidance of radiologic nursing. Impression: 1) Placement of a new 27 cm glidepath tunneled hemodialysis catheter via the left internal jugular vein. 2) Removal of a right tunneled hemodialysis catheter. 3) Central venogram demonstrating occlusive stenosis of the SVC around the prior right sided hemodialysis catheter. 4) Treatment of the central venous stenosis using sequential angioplasty with brisk flow from the IJ to the right atrium following venoplasty. 5) Venogram of the left chest wall demonstrating numerous massively dilated collaterals. The subclavian was not identified from a left groin approach. 6) If the patient's arm does not significantly decompress, access to the graft/central veins through the arm may become necessary. EXAM: 1. Ultrasound-guided access of the right radial vein 2. Venography of the right upper extremity 3. Ultrasound-guided access of the right common femoral vein 4. Selection of the right axillary vein, and right subclavian vein from the right radial vein approach with venography 5. Selection of the SVC, right innominate vein, right subclavian vein, and right axillary vein from a right common femoral vein approach with venography 6. Angioplasty of the right innominate vein and subclavian vein with a 12 mm x 60 mm angioplasty balloon at [facility] pressure and 14 mm x 40 mm angioplasty balloon 7. Selection of the right internal jugular vein with angioplasty with a 12 mm x 60 mm angioplasty balloon DATE: 03/10/2021 HAND II THERMAL CUTTER: KARO MOMIN MD INDICATION: Severe swelling of the right upper extremity refractory to stenting of the venous anastomosis, and switching PermCath sites MEDICATIONS: Please see nursing report for full details. DEVICES: 12 mm x 60 mm angioplasty balloon 14 mm x 40 mm angioplasty balloon CONTRAST: Please see City Bailiff report for full details. PROCEDURE: The risks, benefits, and alternatives were discussed with the patient; written informed consent was obtained. The patient's right arm and right groin were prepped and draped in a sterile fashion. Under direct ultrasound guidance, the right radial vein was evaluated and was patent. The vein was then accessed with a 21-gauge micropuncture needle. 0.018 inch wire was passed into the radial vein. Needle was exchanged for a 5/6 glide sheath slender. Nitroglycerin was administered. Digital subtraction angiography was performed demonstrating small radial veins which drained to a larger brachial vein. One of the brachial veins was more dominant than the second brachial vein. Some of the superficial veins were noted. One of the 2 axillary veins was occluded chronically, and the other axillary vein was widely patent. The patent axillary vein at the level of the upper arm had large collaterals that fed to the right internal jugular vein. The right subclavian vein had a 30% narrowing. The ostium of the right internal jugular vein had a 60% narrowing. The right innominate vein had a 60% narrowing. The SVC was patent. Under direct ultrasound guidance, the right common femoral vein was evaluated and was patent. The vein was then accessed with a 21-gauge micropuncture needle. 0.018 inch wire was passed into the IVC. Needle was exchanged for a 6 Cuban sheath. The patient was heparinized. The SVC was selected. Sheath was exchanged for an 8 Cuban 65 cm [place] destination. Wire and catheter were then used to cross the right innominate vein and subclavian vein and the right axillary vein. Digital subtraction angiography was performed confirming the above-mentioned findings. I attempted to select the stent in the venous anastomosis of the right upper extremity graft, but this was not possible. Various catheters were used but I was unable to select the venous anastomosis stent that was previously placed. 12 mm x 60 mm angioplasty balloon was used to perform angioplasty of the right subclavian vein and right innominate vein. 14 mm x 40 mm angioplasty balloon was used to perform angioplasty of the right innominate vein. Digital subtraction angiography was performed and less than 20% narrowing was n oted in the right subclavian vein and right innominate vein. The ostium of the right internal jugular vein still had a narrowing. The right internal jugular vein was selected from a femoral approach and 12 mm x 60 mm angioplasty balloon was used to perform angioplasty of the ostium of the right internal jugular vein. Digital subtraction angiography was performed demonstrating less than 20% residual narrowing. At this time, all wires, catheters, and sheaths removed. Pressure was held until hemostasis was achieved. Patient tolerated the procedure well. No immediate postprocedural complications. Date of Procedure: 03/12/2021 Pre-operative Diagnosis: Complications of Dialysis Access Post-operative Diagnosis: Same Procedure(s): 1. Ultrasound Guided Access Right Arm Arteriovenous Graft with 8 Cuban Sheath Venous 2. Diagnostic Fistulagram with Central Venogram 3. Angioplasty and Stent of Right Subclavian Vein with 12 x 40 Conquest Balloon and 10 x 100 and 10 x 60 Covera Stent Graft 4. Angioplasty and Stent of Right Innominate Vein With 12 x 40 Conquest Balloon and 12 x 80 Fluency Stent Graft 5. Radiologic Supervision with Interpretation 6. Monitored Moderate Sedation (Total Anesthesia Time: 50 Minutes) Surgeon: Maciel Ugalde M.D. Supervisor Grading: Eric Anesthesia: Local/Monitored Moderate Sedation Total Anesthesia Time: 50 Minutes EBL: Minimal Counts: Correct Complications: None Condition: Stable Specimen: None Indication: The patient is a 55-year-old male with a history of end-stage renal disease who is currently on hemodialysis through a left internal jugular permacath. He had a creation of a right arm AV graft and has significant right arm swelling secondary to central venous occlusion. He has had angioplasty performed of the occlusion however he has persistent swelling. He is in need of additional intervention. He has been given the risk, benefits, and alternative procedures and consented to the procedure. Angiographic Findings: The diagnostic fistulogram revealed that the venous outflow of the graft was patent without significant flow-limiting stenosis. The axillary vein was patent without significant flow-limiting stenosis. There is a short segment occlusion of the right subclavian vein with a large tortuous collateral emptying into the innominate vein. There was approximately 60% stenosis of the innominate vein. The superior vena cava appeared to be patent without evidence of flow-limiting stenosis. After intervention the subclavian vein was patent with less than 20% residual stenosis. The innominate vein was patent with less than 20% residual stenosis. Description of Procedure: The patient was brought to the [facility] and laid in supine position. After a timeout was performed his right arm was prepped and draped in normal sterile fashion. Ultrasound was used to identify the right arm arteriovenous graft, near the arterial inflow, and the overlying skin and soft tissue was anesthetized with lidocaine. A 21-gauge micropuncture needle was used with ultrasound guidance into the graft towards the venous outflow and a 0.018 micropuncture wire was advanced to the graft. The needle was removed and a micropuncture sheath was placed by Seldinger technique. The inner cannula and wire were removed and a 0.035 Bentson wire was advanced to the graft. The micropuncture sheath was removed and a 5 Cuban sheath was placed by Seldinger technique. A Navicross catheter was advanced over the wire and a 0.035 advantage wire was advanced into the central venous system. A diagnostic fistulogram and central venogram was performed the previously described findings. 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 I then remove the 8 Cuban sheath and advanced a 10 x 100 Covera Stent Graft, bareback, into the distal subclavian vein, with approximately 2 cm of overlap into the stent within the axillary vein and deployed the stent graft. I then removed the delivery sheath and advanced a 10 x 60 Covera stent graft, bareback, across the area of previous occlusion in the subclavian vein. This extended approximately 2 cm into the previously placed Covera Stent Graft. I removed the delivery catheter and advanced a 12 x 80 Fluency Stent Graft across the stenosis in the innominate vein. This extended approximately 3 cm into the innominate vein with approximately 4 cm of overlap into the previously placed Covera Stent Graft. I postdilated the stents with a 12 x 40 Conquest which was brought to profile in the Fluency Stent Graft, and a low pressure angioplasty and the remaining stent grafts. The final fistulogram revealed brisk flow of contrast throughout the graft as well as the stent graft and less than 20% residual stenosis within the subclavian vein and less than 20% residual stenosis within the innominate vein. At that point I removed the balloon and wire and used a 3-0 Vicryl, in pursestring fashion, to close the entry site after removing the sheath. Dermabond was then applied to the skin and the patient was transported back to his room in stable condition. Hospital course: The patient was brought to the hospital on February 26 for creation of a right arm arteriovenous graft. His postoperative course was complicated by acute blood loss anemia requiring transfusion of packed red blood cells. He required admission secondary to hypotension that was caused by this acute blood loss anemia. 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 This caused significant right arm swelling that further complicated his hospital course. Throughout his hospitalization he dialyzed on his normal schedule. He required multiple endovascular procedures to eventually transition his permacath to his left internal jugular vein and performed angioplasty and stent of his right innominate vein and subclavian vein. He now has some improvement of his swelling and significant improvement of his pain. His wounds have remained intact and his graft has remained patent. During his hospitalization cardiology was also consulted for his atrial fibrillation. It was identified that the patient has been noncompliant with Coumadin and the patient was transition to Eliquis 5 mg p.o. twice daily. He has tolerated that without evidence of bleeding. His hemoglobin and hematocrit have been stable over the last several days. The patient is not clinically ready for discharge. Disposition: [id number] C[facility] Final Discharge Diagnosis (Prints w/discharge instructions): End-stage renal disease Core Measure Documentation - Palliative Care Palliative Care/ Comfort Measures: Not Applicable - Core Measures Any of the following diagnoses?: none - Acute CO Discharge Requirements Statin for LDL = or >100 mg/dl on DC: Yes - Heart Failure Discharge Requirements SAMUEL/ARB for LVSD if EF <40%: Not Applicable - Stroke Discharge Requirements Statin for LDL = or >70 mg/dl on DC: Yes Exam - Constitutional Vitals: Temp Pulse Resp BP Pulse Ox 98.6 F 81 17 104/72 96 03/14/21 07:39 03/14/21 10:10 03/14/21 10:10 03/14/21 10:10 03/14/21 10:10 Plan Activity: other (Elevate right arm as often as possible.) Wound: open to air, keep clean and dry, other (Okay to wash the right arm wounds with soap and water but do not soak in water for 2 weeks.) Follow up with: MACIEL UGALDE MD [Staff Physician] - 14 Days Prescriptions: Apixaban [Eliquis] 5 mg PO BID #60 tablet HYDROcodone/APAP 7.5-325 [[place] 7.5/325] 1 each PO Q6HR PRN #40 tablet PRN Reason: Pain
[2021-03-14 20:52] VITALS: BP 105/55
== END 2021-03-14 21:10 | DRG 252 ==
LOC: OR 08:54 → 4A 15:16 → OBSVTOIN 02-27 15:16
PROVIDERS: ADMIT Surgery Vascular Surgery; ATTEND Surgery Vascular Surgery
PROC: 03170KD Bypass Right Brachial Artery to Upper Arm Vein with Nonautologous Tissue Substitute, Open Approach (ICD-10-PCS; 2021-02-26)
PROC: B50W1ZZ Plain Radiography of Dialysis Shunt/Fistula using Low Osmolar Contrast (ICD-10-PCS; 2021-02-26)
PROC: 5A1D70Z Performance of Urinary Filtration, Intermittent, Less than 6 Hours Per Day (ICD-10-PCS; 2021-02-28)
PROC: 5A1D70Z Performance of Urinary Filtration, Intermittent, Less than 6 Hours Per Day (ICD-10-PCS; 2021-03-01)
PROC: 5A1D70Z Performance of Urinary Filtration, Intermittent, Less than 6 Hours Per Day (ICD-10-PCS; 2021-03-04)
PROC: 5A1D70Z Performance of Urinary Filtration, Intermittent, Less than 6 Hours Per Day (ICD-10-PCS; 2021-03-06)
PROC: 0JH63XZ Insertion of Tunneled Vascular Access Device into Chest Subcutaneous Tissue and Fascia, Percutaneous Approach (ICD-10-PCS; 2021-03-06)
PROC: 02H633Z Insertion of Infusion Device into Right Atrium, Percutaneous Approach (ICD-10-PCS; 2021-03-06)
PROC: 5A1D70Z Performance of Urinary Filtration, Intermittent, Less than 6 Hours Per Day (ICD-10-PCS; 2021-03-08)
PROC: 05HN33Z Insertion of Infusion Device into Left Internal Jugular Vein, Percutaneous Approach (ICD-10-PCS; principal; 2021-03-10)
PROC: 027V3ZZ Dilation of Superior Vena Cava, Percutaneous Approach (ICD-10-PCS; 2021-03-10)
PROC: 05733ZZ Dilation of Right Innominate Vein, Percutaneous Approach (ICD-10-PCS; 2021-03-10)
PROC: 057Y3ZZ Dilation of Upper Vein, Percutaneous Approach (ICD-10-PCS; 2021-03-10)
PROC: B50 Imaging, Veins, Plain Radiography (ICD-10-PCS; 2021-03-10)
PROC: B50WYZZ Plain Radiography of Dialysis Shunt/Fistula using Other Contrast (ICD-10-PCS; 2021-03-10)
PROC: 5A1D70Z Performance of Urinary Filtration, Intermittent, Less than 6 Hours Per Day (ICD-10-PCS; 2021-03-11)
PROC: 05733DZ Dilation of Right Innominate Vein with Intraluminal Device, Percutaneous Approach (ICD-10-PCS; 2021-03-12)
PROC: 05753DZ Dilation of Right Subclavian Vein with Intraluminal Device, Percutaneous Approach (ICD-10-PCS; 2021-03-12)
PROC: 5A1D70Z Performance of Urinary Filtration, Intermittent, Less than 6 Hours Per Day (ICD-10-PCS; 2021-03-13)
DX: I13.2 Hypertensive heart and chronic kidney disease with heart failure and with stage 5 chronic kidney disease, or end stage renal disease (principal); I50.21 Acute systolic (congestive) heart failure; I21.A1 Myocardial infarction type 2; T82.858A Stenosis of other vascular prosthetic devices, implants and grafts, initial encounter; D62 Acute posthemorrhagic anemia; N25.81 Secondary hyperparathyroidism of renal origin; E46 Unspecified protein-calorie malnutrition; J96.10 Chronic respiratory failure, unspecified whether with hypoxia or hypercapnia; Z94.0 Kidney transplant status; I62.9 Nontraumatic intracranial hemorrhage, unspecified; K92.2 Gastrointestinal hemorrhage, unspecified; I87.1 Compression of vein; I42.9 Cardiomyopathy, unspecified; I48.91 Unspecified atrial fibrillation; J44.9 Chronic obstructive pulmonary disease, unspecified; R56.9 Unspecified convulsions; B18.2 Chronic viral hepatitis C; Z95.2 Presence of prosthetic heart valve; Z68.23 Body mass index [BMI] 23.0-23.9, adult; Z86.73 Personal history of transient ischemic attack (TIA), and cerebral infarction without residual deficits; Z99.2 Dependence on renal dialysis
CPT/HCPCS: 36012; 36415; 36558; 36589; 36903; 37248; 37249; 64450; 71045; 75820; 75827; 76937; 77001; 80048; 80061; 80074; 82550; 82553; 82565; 84100; 84484; 85007; 85014; 85018; 85025; 85027; 85610; 85730; 86850; 86900; 86901; 86920; 87641; 93005; 93306; 93990; G0378; C1725; C1750; C1751; C1768; C1769; C1773; C1874; C1887; C1894; C2623; J0690; J0885; J1644; J2001; J2250; J2270; J2370; J2704; J3010; J3490; J7030; J7040; J7050; P9016; P9047; Q9967